=== PATIENT | male | born 1970 | race Caucasian/White ===

== ENCOUNTER 2021-08-03 13:45 | Inpatient (IN) | payer BC, OTHER ==
[~2021-08-03] VITALS: Ht 182.9 cm; Wt 169.0 kg
[2021-08-03 15:12] LABS: Basophils # (auto) 0 10 ^3/uL (0-0.2); Basophils % (auto) 0.2 % (0.0-2.0); Eosinophils # (auto) 0 10 ^3/uL (0-0.8); Eosinophils % (auto) 0.1 % (0.0-7.0); Hematocrit 37.6 % (41.0-53.0); Hemoglobin 12.8 g/dL (13.5-17.5); Lymphocytes # (auto) 0.6 10 ^3/uL (0.4-5.4); Lymphocytes % (auto) 3.6 % (10.0-50.0); Mean Corpuscular Hemoglobin 32.7 pg (28.0-32.0); Mean Corpuscular Hgb Conc. 34.1 g/dL (32.0-36.0); Mean Corpuscular Volume 95.9 fL (80.0-100.0); Monocytes # (auto) 0.9 10 ^3/uL (0-1.3); Monocytes % (auto) 5.1 % (0.0-12.0); Neutrophils # (auto) 15.1 10 ^3/uL (1.6-8.6); Red Blood Cells 3.92 10^6/uL (4.5-5.90); Red Cell Distribution Width 14.5 % (11.8-14.3); White Blood Cell 16.6 10^3/uL (4.4-10.8)
[2021-08-03 15:39] LABS: Albumin 1.9 g/dL (3.4-5.0); Calcium 8.6 mg/dL (8.5-10.1); Potassium 4.1 mmol/L (3.5-5.1)
[2021-08-03 15:43] LABS: Bilirubin, Total 0.7 mg/dL (0.2-1.0); Total Protein 7.6 g/dL (6.4-8.2)
[2021-08-03 15:47] LABS: BUN/Creatinine Ratio 25.2
[2021-08-03 16:11] LABS: INR 1.23 (0.9-1.15); Partial Thromboplastin Time 27.1 sec (23.6-33.0)
[2021-08-03] MEDS ORDERED: ACETAMINOPHEN 325 MG TAB PO PRN (17:30)
[2021-08-03] MEDS ORDERED: NITROGLYCERIN 0.4 MG SL TAB SL PRN (17:30)
[2021-08-03] MEDS ORDERED: ONDANSETRON HCL 4 MG/2 ML VIAL IV PRN (17:30)
[2021-08-03] MEDS ORDERED: MORPHINE SULFATE 4 MG/ML SYR/VIAL IV PRN (17:30)
[2021-08-03] MEDS: SODIUM CHLORIDE 0.9% 1,000 ML IV SCH (17:56)
[2021-08-03] MEDS ORDERED: LOSA100T33 PO (21:23)
[2021-08-03] MEDS ORDERED: SIMV10TA84 PO (21:23)
[2021-08-03] MEDS ORDERED: LORA10CA12 PO (21:23)
[2021-08-03 22:00] VITALS: BP 95/56
[2021-08-04] VITALS (7 sets, daily range): BP systolic 91–117; BP diastolic 56–71
[2021-08-04] MEDS: HYDROcodone-ACET 5/325MG TAB PO PRN ×2 (05:32→09:52)
[2021-08-04 06:01] LABS: Basophils # (auto) 0.1 10 ^3/uL (0-0.2); Basophils % (auto) 0.6 % (0.0-2.0); Eosinophils # (auto) 0.1 10 ^3/uL (0-0.8); Eosinophils % (auto) 0.4 % (0.0-7.0); Hematocrit 38.2 % (41.0-53.0); Hemoglobin 13.1 g/dL (13.5-17.5); Lymphocytes # (auto) 1.7 10 ^3/uL (0.4-5.4); Lymphocytes % (auto) 11.9 % (10.0-50.0); Mean Corpuscular Hemoglobin 33.3 pg (28.0-32.0); Mean Corpuscular Hgb Conc. 34.3 g/dL (32.0-36.0); Mean Corpuscular Volume 97.2 fL (80.0-100.0); Monocytes # (auto) 1.1 10 ^3/uL (0-1.3); Neutrophils # (auto) 11.4 10 ^3/uL (1.6-8.6); Neutrophils % (auto) 79.1 % (37.0-80.0); Red Blood Cells 3.93 10^6/uL (4.5-5.90); Red Cell Distribution Width 14.8 % (11.8-14.3); White Blood Cell 14.4 10^3/uL (4.4-10.8)
[2021-08-04 06:30] LABS: Albumin 1.9 g/dL (3.4-5.0); Bilirubin, Total 0.4 mg/dL (0.2-1.0); Calcium 8.9 mg/dL (8.5-10.1); Total Protein 7.6 g/dL (6.4-8.2)
[2021-08-04] MEDS: levoFLOXacin 750MG 150 ML IV SCH (09:51)
[2021-08-04] MEDS: ENOXAPARIN SOD 40 MG/0.4 ML SYRINGE SC SCH (09:52)
[2021-08-04] MEDS: SODIUM CHLORIDE 0.9% 1,000 ML IV SCH (10:10)
[2021-08-04 10:35] LABS: Urine Bacteria FEW /hpf (None Seen); Urine Blood Negative /uL (Negative); Urine Specific Gravity 1.024 (1.001-1.035); Urine WBC 2 /hpf (0 - 3)
[2021-08-04 12:57] LABS: Cholesterol 77 mg/dL (< 200); HDL Cholesterol 20 mg/dL (40-59); LDL Cholesterol 47 mg/dL (< 100); Triglycerides 102 mg/dL (< 150)
[2021-08-04] MEDS: IPRATROPIUM BROM 0.5 MG/2.5ML INH SOL NEB SCH ×3 (14:24→21:54)
[2021-08-04] MEDS: ALBUTEROL SULF 2.5 MG/0.5ML(0.5%) NEB SOLN NEB SCH ×3 (14:24→21:54)
[2021-08-04] MEDS: methylPREDNISolone SOD SUCC 40 MG/ML VL IV SCH ×2 (14:28→21:17)
[2021-08-04] MEDS: ATORVASTATIN 20 MG TAB PO SCH (21:18)
[2021-08-05] MEDS: IPRATROPIUM BROM 0.5 MG/2.5ML INH SOL NEB SCH ×6 (01:50→22:19)
[2021-08-05] MEDS: ALBUTEROL SULF 2.5 MG/0.5ML(0.5%) NEB SOLN NEB SCH ×6 (01:50→22:19)
[2021-08-05 05:00] VITALS: BP 124/88
[2021-08-05 05:25] LABS: Basophils # (auto) 0 10 ^3/uL (0-0.2); Basophils % (auto) 0.1 % (0.0-2.0); Eosinophils # (auto) 0 10 ^3/uL (0-0.8); Hematocrit 39.5 % (41.0-53.0); Hemoglobin 13.2 g/dL (13.5-17.5); Lymphocytes # (auto) 0.5 10 ^3/uL (0.4-5.4); Lymphocytes % (auto) 3.2 % (10.0-50.0); Mean Corpuscular Hemoglobin 32.7 pg (28.0-32.0); Mean Corpuscular Hgb Conc. 33.5 g/dL (32.0-36.0); Mean Corpuscular Volume 97.6 fL (80.0-100.0); Monocytes # (auto) 0.4 10 ^3/uL (0-1.3); Monocytes % (auto) 2.2 % (0.0-12.0); Neutrophils # (auto) 15.2 10 ^3/uL (1.6-8.6); Neutrophils % (auto) 94.5 % (37.0-80.0); Red Blood Cells 4.05 10^6/uL (4.5-5.90); Red Cell Distribution Width 14.7 % (11.8-14.3); White Blood Cell 16.1 10^3/uL (4.4-10.8)
[2021-08-05 05:46] LABS: Potassium 4.7 mmol/L (3.5-5.1)
[2021-08-05 05:53] LABS: Albumin 1.9 g/dL (3.4-5.0); BUN/Creatinine Ratio 24.1; Calcium 8.9 mg/dL (8.5-10.1)
[2021-08-05 05:59] LABS: Bilirubin, Total 0.4 mg/dL (0.2-1.0); Total Protein 8.1 g/dL (6.4-8.2)
[2021-08-05] MEDS: methylPREDNISolone SOD SUCC 40 MG/ML VL IV SCH ×3 (06:15→21:09)
[2021-08-05] MEDS: SODIUM CHLORIDE 0.9% 1,000 ML IV SCH (06:18)
[2021-08-05 08:00] VITALS: BP 123/77
[2021-08-05 08:42] VITALS: BP 123/77
[2021-08-05] MEDS: levoFLOXacin 750MG 150 ML IV SCH (09:44)
[2021-08-05] MEDS: LOSARTAN POTASSIUM 50 MG TAB PO SCH (09:51)
[2021-08-05] MEDS: HCTZ 25 MG TAB PO SCH (09:52)
[2021-08-05] MEDS: ENOXAPARIN SOD 40 MG/0.4 ML SYRINGE SC SCH (09:54)
[2021-08-05 12:38] VITALS: BP 121/64
[2021-08-05] MEDS: guaiFENesin 200 MG/10 ML UD PO PRN ×2 (13:54→21:09)
[2021-08-05 16:18] VITALS: BP 122/71
[2021-08-05] MEDS: ATORVASTATIN 20 MG TAB PO SCH (21:09)
[2021-08-05 22:00] VITALS: BP 113/83
[2021-08-06] MEDS: ALBUTEROL SULF 2.5 MG/0.5ML(0.5%) NEB SOLN NEB SCH ×6 (02:21→22:32)
[2021-08-06] MEDS: IPRATROPIUM BROM 0.5 MG/2.5ML INH SOL NEB SCH ×6 (02:21→22:32)
[2021-08-06] MEDS: guaiFENesin 200 MG/10 ML UD PO PRN (03:16)
[2021-08-06 05:00] VITALS: BP 131/68
[2021-08-06 05:09] LABS: Basophils # (auto) 0 10 ^3/uL (0-0.2); Basophils % (auto) 0.1 % (0.0-2.0); Eosinophils # (auto) 0 10 ^3/uL (0-0.8); Lymphocytes # (auto) 0.6 10 ^3/uL (0.4-5.4); Monocytes # (auto) 0.6 10 ^3/uL (0-1.3); Red Cell Distribution Width 14.6 % (11.8-14.3)
[2021-08-06 05:11] LABS: Hematocrit 37.4 % (41.0-53.0); Hemoglobin 12.7 g/dL (13.5-17.5); Lymphocytes % (auto) 3.4 % (10.0-50.0); Mean Corpuscular Hemoglobin 32.8 pg (28.0-32.0); Mean Corpuscular Volume 96.5 fL (80.0-100.0); Monocytes % (auto) 3.6 % (0.0-12.0); Neutrophils # (auto) 15.9 10 ^3/uL (1.6-8.6); Neutrophils % (auto) 92.9 % (37.0-80.0); Red Blood Cells 3.87 10^6/uL (4.5-5.90); White Blood Cell 17.1 10^3/uL (4.4-10.8)
[2021-08-06 05:38] LABS: Potassium 4.3 mmol/L (3.5-5.1)
[2021-08-06 05:50] LABS: BUN/Creatinine Ratio 24.4; Calcium 8.4 mg/dL (8.5-10.1)
[2021-08-06] MEDS: methylPREDNISolone SOD SUCC 40 MG/ML VL IV SCH ×3 (05:52→22:14)
[2021-08-06 05:53] LABS: Bilirubin, Total 0.4 mg/dL (0.2-1.0); Total Protein 7.6 g/dL (6.4-8.2)
[2021-08-06 08:00] VITALS: BP 138/78
[2021-08-06 08:30] VITALS: BP 138/78
[2021-08-06] MEDS: levoFLOXacin 750MG 150 ML IV SCH (10:02)
[2021-08-06] MEDS: ENOXAPARIN SOD 40 MG/0.4 ML SYRINGE SC SCH (10:02)
[2021-08-06] MEDS: HCTZ 25 MG TAB PO SCH (10:03)
[2021-08-06] MEDS: LOSARTAN POTASSIUM 50 MG TAB PO SCH (10:03)
[2021-08-06] MEDS: PROMETHAZINE W/CODEINE 5 ML ORAL SYRUP PO PRN ×3 (10:05→22:15)
[2021-08-06 12:30] VITALS: BP 123/69
[2021-08-06 17:00] VITALS: BP 140/75
[2021-08-06 22:00] VITALS: BP 131/61
[2021-08-06] MEDS: ATORVASTATIN 20 MG TAB PO SCH (22:13)
[2021-08-07] MEDS: IPRATROPIUM BROM 0.5 MG/2.5ML INH SOL NEB SCH ×6 (02:04→21:47)
[2021-08-07] MEDS: ALBUTEROL SULF 2.5 MG/0.5ML(0.5%) NEB SOLN NEB SCH ×6 (02:04→21:47)
[2021-08-07 05:00] VITALS: BP 134/94
[2021-08-07 05:12] LABS: Basophils # (auto) 0 10 ^3/uL (0-0.2); Eosinophils # (auto) 0 10 ^3/uL (0-0.8); Monocytes # (auto) 0.7 10 ^3/uL (0-1.3); Nucleated Red Blood Cells % 0.1 %; Red Cell Distribution Width 14.5 % (11.8-14.3)
[2021-08-07 05:14] LABS: Basophils % (auto) 0.1 % (0.0-2.0); Hematocrit 37.7 % (41.0-53.0); Hemoglobin 12.8 g/dL (13.5-17.5); Lymphocytes # (auto) 0.9 10 ^3/uL (0.4-5.4); Lymphocytes % (auto) 5.5 % (10.0-50.0); Mean Corpuscular Hemoglobin 32.8 pg (28.0-32.0); Mean Corpuscular Hgb Conc. 34.1 g/dL (32.0-36.0); Mean Corpuscular Volume 96.2 fL (80.0-100.0); Monocytes % (auto) 4.3 % (0.0-12.0); Neutrophils # (auto) 14.7 10 ^3/uL (1.6-8.6); Neutrophils % (auto) 90.1 % (37.0-80.0); Red Blood Cells 3.92 10^6/uL (4.5-5.90); White Blood Cell 16.3 10^3/uL (4.4-10.8)
[2021-08-07] MEDS: PROMETHAZINE W/CODEINE 5 ML ORAL SYRUP PO PRN ×3 (05:30→16:14)
[2021-08-07] MEDS: methylPREDNISolone SOD SUCC 40 MG/ML VL IV SCH ×3 (05:30→22:32)
[2021-08-07 05:34] LABS: Potassium 4.5 mmol/L (3.5-5.1)
[2021-08-07 05:39] LABS: Albumin 2.1 g/dL (3.4-5.0); BUN/Creatinine Ratio 24.5; Calcium 8.9 mg/dL (8.5-10.1)
[2021-08-07 05:45] LABS: Bilirubin, Total 0.3 mg/dL (0.2-1.0); Total Protein 7.4 g/dL (6.4-8.2)
[2021-08-07] MEDS: ENOXAPARIN SOD 40 MG/0.4 ML SYRINGE SC SCH (07:24)
[2021-08-07 08:00] VITALS: BP 128/77
[2021-08-07] MEDS: HCTZ 25 MG TAB PO SCH (10:00)
[2021-08-07] MEDS: LOSARTAN POTASSIUM 50 MG TAB PO SCH (10:00)
[2021-08-07] MEDS: levoFLOXacin 750MG 150 ML IV SCH (10:00)
[2021-08-07 10:07] LABS: INR 1.25 (0.9-1.15); Partial Thromboplastin Time 26.4 sec (23.6-33.0)
[2021-08-07 11:03] VITALS: BP 128/77
[2021-08-07 12:16] VITALS: BP 121/77
[2021-08-07 22:00] VITALS: BP 116/82
[2021-08-07] MEDS: ATORVASTATIN 20 MG TAB PO SCH (22:32)
[2021-08-08] MEDS: ALBUTEROL SULF 2.5 MG/0.5ML(0.5%) NEB SOLN NEB SCH ×3 (01:58→10:18)
[2021-08-08] MEDS: IPRATROPIUM BROM 0.5 MG/2.5ML INH SOL NEB SCH ×3 (01:58→10:18)
[2021-08-08 05:00] VITALS: BP 132/66
[2021-08-08] MEDS: methylPREDNISolone SOD SUCC 40 MG/ML VL IV SCH ×2 (06:12→14:00)
[2021-08-08 09:00] VITALS: BP 125/69
[2021-08-08] MEDS: levoFLOXacin 750MG 150 ML IV SCH (09:58)
[2021-08-08] MEDS: ENOXAPARIN SOD 40 MG/0.4 ML SYRINGE SC SCH (09:59)
[2021-08-08] MEDS: HCTZ 25 MG TAB PO SCH (09:59)
[2021-08-08] MEDS: LOSARTAN POTASSIUM 50 MG TAB PO SCH (09:59)
[2021-08-08] MEDS ORDERED: PRED20TA2 PO (11:25)
[2021-08-08] MEDS ORDERED: LEVO500T31 PO (11:25)
[2021-08-08 12:47] VITALS: BP 125/69
[2021-08-08 13:00] VITALS: BP 123/81
[2021-08-10] MEDS ORDERED: PRED20TA2 PO (11:37)
== END 2021-08-08 15:12 | disposition home or self-care (01) | DRG 871 ==
LOC: ER 13:45 → TELE 17:21 → TELE-WESTW 20:22
PROVIDERS: ADMIT Internal Medicine; ATTEND Family Medicine
PROC: 0W993ZZ Drainage of Right Pleural Cavity, Percutaneous Approach (ICD-10-PCS; principal; 2021-08-07)
DX: A41.9 Sepsis, unspecified organism (principal); J96.01 Acute respiratory failure with hypoxia; J18.9 Pneumonia, unspecified organism; J44.0 Chronic obstructive pulmonary disease with (acute) lower respiratory infection; J44.1 Chronic obstructive pulmonary disease with (acute) exacerbation; Z68.43 Body mass index [BMI] 50.0-59.9, adult; J90 Pleural effusion, not elsewhere classified; G47.30 Sleep apnea, unspecified; E66.01 Morbid (severe) obesity due to excess calories; Z20.822 Contact with and (suspected) exposure to COVID-19; E78.00 Pure hypercholesterolemia, unspecified; E78.5 Hyperlipidemia, unspecified; F10.10 Alcohol abuse, uncomplicated; R07.89 Other chest pain; I12.9 Hypertensive chronic kidney disease with stage 1 through stage 4 chronic kidney disease, or unspecified chronic kidney disease; N18.30 Chronic kidney disease, stage 3 unspecified; Z80.42 Family history of malignant neoplasm of prostate; Z88.0 Allergy status to penicillin; Z88.8 Allergy status to other drugs, medicaments and biological substances; Z82.49 Family history of ischemic heart disease and other diseases of the circulatory system; Z83.3 Family history of diabetes mellitus; Z86.16 Personal history of COVID-19; Z88.1 Allergy status to other antibiotic agents; Z72.0 Tobacco use
CPT/HCPCS: 36415; 71045; 71275; 76604; 76942; 80053; 80061; 81001; 83880; 83986; 84484; 85025; 85610; 85730; 87040; 87205; 89051; 93005; 93306; 93970; 94640; 99291; G0378; J1956

== ENCOUNTER 2021-09-15 12:40 | Inpatient (IN) | payer OTHER ==
[~2021-09-15] VITALS: Ht 157.5 cm; Wt 167.4 kg
[~2021-09-15 12:40] MED LIST: LEVO500T31 PO; LORA10CA12 PO; LOSA100T33 PO; PRED20TA2 PO; SIMV10TA84 PO
[2021-09-15] MEDS ORDERED: cefTRIAXone 1GM/50ML D5W 50 ML IV ONE (14:00)
[2021-09-15] MEDS ORDERED: SODIUM CHLORIDE 0.9% 1,000 ML IV ONE (14:00)
[2021-09-15] MEDS ORDERED: AZITHROMYCIN 500MG/ 250ML 250 ML IV ONE (14:00)
[2021-09-15 14:42] LABS: Basophils # (auto) 0.1 10 ^3/uL (0-0.2); Basophils % (auto) 0.8 % (0.0-2.0); Eosinophils # (auto) 0 10 ^3/uL (0-0.8); Eosinophils % (auto) 0.3 % (0.0-7.0); Hematocrit 40.1 % (41.0-53.0); Hemoglobin 13.6 g/dL (13.5-17.5); Lymphocytes # (auto) 1.2 10 ^3/uL (0.4-5.4); Lymphocytes % (auto) 8.2 % (10.0-50.0); Mean Corpuscular Hemoglobin 31.9 pg (28.0-32.0); Mean Corpuscular Volume 93.9 fL (80.0-100.0); Monocytes # (auto) 0.7 10 ^3/uL (0-1.3); Monocytes % (auto) 4.7 % (0.0-12.0); Neutrophils # (auto) 12.6 10 ^3/uL (1.6-8.6); Nucleated Red Blood Cells % 0.2 %; Red Blood Cells 4.27 10^6/uL (4.5-5.90); Red Cell Distribution Width 14.9 % (11.8-14.3); White Blood Cell 14.6 10^3/uL (4.4-10.8)
[2021-09-15 14:54] LABS: Albumin 2.6 g/dL (3.4-5.0); Potassium 3.8 mmol/L (3.5-5.1)
[2021-09-15 14:57] LABS: BUN/Creatinine Ratio 16.1; Bilirubin, Total 0.6 mg/dL (0.2-1.0); Total Protein 7.5 g/dL (6.4-8.2)
[2021-09-15] MEDS ORDERED: ONDANSETRON HCL 4 MG/2 ML VIAL IV PRN (18:30)
[2021-09-15] MEDS ORDERED: MORPHINE SULFATE INJ 2 MG/ml SYRG IV PRN (18:30)
[2021-09-15 19:02] LABS: Cholesterol 162 mg/dL (< 200)
[2021-09-15 19:04] LABS: HDL Cholesterol 54 mg/dL (40-59); LDL Cholesterol 94 mg/dL (< 100); Triglycerides 83 mg/dL (< 150)
[2021-09-15 20:08] LABS: Urine Bacteria NONE SEEN /hpf (None Seen); Urine Blood Negative /uL (Negative); Urine Mucus FEW (None Seen); Urine Specific Gravity 1.025 (1.001-1.035); Urine WBC 2 /hpf (0 - 3)
[2021-09-15 22:00] VITALS: BP 144/68
[2021-09-15] MEDS: MEROPENEM 1GM IVPB 100 ML IV SCH (22:08)
[2021-09-15] MEDS: methylPREDNISolone SOD SUCC 40 MG/ML VL IV SCH (22:08)
[2021-09-15 22:21] VITALS: BP 151/18
[2021-09-16 01:50] VITALS: BP 144/68
[2021-09-16 05:00] VITALS: BP 165/118
[2021-09-16] MEDS: MEROPENEM 1GM IVPB 100 ML IV SCH ×3 (05:50→21:28)
[2021-09-16 05:52] LABS: Basophils # (auto) 0 10 ^3/uL (0-0.2); Basophils % (auto) 0.1 % (0.0-2.0); Eosinophils # (auto) 0 10 ^3/uL (0-0.8); Eosinophils % (auto) 0.1 % (0.0-7.0); Hematocrit 41.5 % (41.0-53.0); Hemoglobin 14.2 g/dL (13.5-17.5); Lymphocytes # (auto) 0.7 10 ^3/uL (0.4-5.4); Lymphocytes % (auto) 4.1 % (10.0-50.0); Mean Corpuscular Hemoglobin 32.3 pg (28.0-32.0); Mean Corpuscular Hgb Conc. 34.3 g/dL (32.0-36.0); Mean Corpuscular Volume 94.2 fL (80.0-100.0); Monocytes # (auto) 0.2 10 ^3/uL (0-1.3); Neutrophils # (auto) 15.4 10 ^3/uL (1.6-8.6); Neutrophils % (auto) 94.7 % (37.0-80.0); Nucleated Red Blood Cells % 0.1 %; Red Blood Cells 4.41 10^6/uL (4.5-5.90); Red Cell Distribution Width 15.3 % (11.8-14.3); White Blood Cell 16.3 10^3/uL (4.4-10.8)
[2021-09-16] MEDS: hydrALAZINE HCL 20 MG/ML VL IV PRN (05:52)
[2021-09-16] MEDS: methylPREDNISolone SOD SUCC 40 MG/ML VL IV SCH ×3 (05:52→21:28)
[2021-09-16 06:12] LABS: Albumin 2.7 g/dL (3.4-5.0); Calcium 8.9 mg/dL (8.5-10.1)
[2021-09-16 06:15] LABS: BUN/Creatinine Ratio 22.2; Bilirubin, Total 0.6 mg/dL (0.2-1.0); Total Protein 7.9 g/dL (6.4-8.2)
[2021-09-16 09:00] VITALS: BP 124/79
[2021-09-16] MEDS: ENOXAPARIN SOD 40 MG/0.4 ML SYRINGE SC SCH (09:09)
[2021-09-16 13:00] VITALS: BP 128/87
[2021-09-16] MEDS: ALBUTEROL SULF 2.5 MG/0.5ML(0.5%) NEB SOLN NEB PRN (14:16)
[2021-09-16] MEDS: IPRATROPIUM BROM 0.5 MG/2.5ML INH SOL NEB SCH ×3 (14:16→22:11)
[2021-09-16 16:58] VITALS: BP_SYST 148; BP_SYST 152; BP_DIAS 108; BP_DIAS 84
[2021-09-16 21:42] VITALS: BP 147/82
[2021-09-17] MEDS: guaiFENesin-DM 100/10mg/5ml SYR PO PRN ×4 (01:10→19:56)
[2021-09-17] MEDS: IPRATROPIUM BROM 0.5 MG/2.5ML INH SOL NEB SCH ×6 (02:14→22:15)
[2021-09-17 05:02] VITALS: BP 127/85
[2021-09-17] MEDS: MEROPENEM 1GM IVPB 100 ML IV SCH ×3 (05:52→21:34)
[2021-09-17] MEDS: methylPREDNISolone SOD SUCC 40 MG/ML VL IV SCH ×3 (05:53→21:35)
[2021-09-17] MEDS: ALBUTEROL SULF 2.5 MG/0.5ML(0.5%) NEB SOLN NEB PRN ×4 (07:04→22:15)
[2021-09-17 08:47] VITALS: BP 120/85
[2021-09-17] MEDS: ENOXAPARIN SOD 40 MG/0.4 ML SYRINGE SC SCH (09:06)
[2021-09-17] MEDS: HYDROCHLOROTHIAZIDE PO SCH (09:06)
[2021-09-17] MEDS: LOSARTAN POTASSIUM PO SCH (09:06)
[2021-09-17] MEDS ORDERED: Simvastatin 10 MG TAB PO SCH (10:00)
[2021-09-17 11:46] LABS: INR 1.09 (0.9-1.15); Partial Thromboplastin Time 25.8 sec (23.6-33.0)
[2021-09-17 13:00] VITALS: BP 116/76
[2021-09-17 17:00] VITALS: BP 150/78
[2021-09-17 22:00] VITALS: BP 142/75
[2021-09-18] MEDS: IPRATROPIUM BROM 0.5 MG/2.5ML INH SOL NEB SCH ×6 (02:00→22:32)
[2021-09-18] MEDS: ALBUTEROL SULF 2.5 MG/0.5ML(0.5%) NEB SOLN NEB PRN ×3 (02:00→22:32)
[2021-09-18 05:00] VITALS: BP 123/87
[2021-09-18] MEDS: methylPREDNISolone SOD SUCC 40 MG/ML VL IV SCH ×3 (06:00→23:36)
[2021-09-18] MEDS: MEROPENEM 1GM IVPB 100 ML IV SCH ×2 (06:00→14:13)
[2021-09-18 09:00] VITALS: BP 136/79
[2021-09-18] MEDS: ENOXAPARIN SOD 40 MG/0.4 ML SYRINGE SC SCH (10:00)
[2021-09-18] MEDS: LOSARTAN POTASSIUM PO SCH (10:00)
[2021-09-18] MEDS: HYDROCHLOROTHIAZIDE PO SCH (10:00)
[2021-09-18 13:18] VITALS: BP 154/85
[2021-09-18] MEDS ORDERED: VANCOMYCIN PER PHARMACY 0 MG IV SCH (14:45)
[2021-09-18 17:29] VITALS: BP 139/84
[2021-09-18] MEDS: VANCOMYCIN 1GM/250ML 250 ML IV SCH (17:53)
[2021-09-18] MEDS: PATIENTS OWN MEDICATION (Simvastatin 10 MG) PO SCH ×2 (17:54→22:00)
[2021-09-18 20:09] LABS: BUN/Creatinine Ratio 20.7; Potassium 4.2 mmol/L (3.5-5.1)
[2021-09-18 22:00] VITALS: BP 150/78
[2021-09-18] MEDS: CEFEPIME 2 GM in SODIUM CHL 0.9% 50 ML IV SCH (23:36)
[2021-09-19] VITALS (19 sets, daily range): BP systolic 137–163; BP diastolic 78–118
[2021-09-19] MEDS: VANCOMYCIN 1GM/250ML 250 ML IV SCH ×5 (00:08→18:39)
[2021-09-19] MEDS: IPRATROPIUM BROM 0.5 MG/2.5ML INH SOL NEB SCH ×7 (02:58→22:36)
[2021-09-19] MEDS: CEFEPIME 2 GM in SODIUM CHL 0.9% 50 ML IV SCH ×3 (06:12→21:48)
[2021-09-19 06:18] LABS: Basophils # (auto) 0 10 ^3/uL (0-0.2); Basophils % (auto) 0.1 % (0.0-2.0); Eosinophils # (auto) 0.1 10 ^3/uL (0-0.8); Eosinophils % (auto) 0.4 % (0.0-7.0); Hematocrit 43.8 % (41.0-53.0); Hemoglobin 14.5 g/dL (13.5-17.5); Lymphocytes # (auto) 0.8 10 ^3/uL (0.4-5.4); Mean Corpuscular Hemoglobin 31.7 pg (28.0-32.0); Mean Corpuscular Hgb Conc. 33.2 g/dL (32.0-36.0); Mean Corpuscular Volume 95.3 fL (80.0-100.0); Monocytes # (auto) 0.6 10 ^3/uL (0-1.3); Monocytes % (auto) 4.8 % (0.0-12.0); Neutrophils # (auto) 11.9 10 ^3/uL (1.6-8.6); Neutrophils % (auto) 88.7 % (37.0-80.0); Nucleated Red Blood Cells % 0.1 %; Red Blood Cells 4.59 10^6/uL (4.5-5.90); Red Cell Distribution Width 15.5 % (11.8-14.3); White Blood Cell 13.5 10^3/uL (4.4-10.8)
[2021-09-19] MEDS: methylPREDNISolone SOD SUCC 40 MG/ML VL IV SCH ×3 (06:32→21:47)
[2021-09-19] MEDS: ALBUTEROL SULF 2.5 MG/0.5ML(0.5%) NEB SOLN NEB PRN ×2 (06:35→10:12)
[2021-09-19] MEDS ORDERED: fentaNYL CITRATE 100 MCG/2 ML VL IV ONE (08:30)
[2021-09-19] MEDS ORDERED: MIDAZOLAM HCL 2MG/2ML 2ml VIAL (1mg/ml) IV ONE (08:30)
[2021-09-19] MEDS: LOSARTAN POTASSIUM PO SCH (09:28)
[2021-09-19] MEDS: ENOXAPARIN SOD 40 MG/0.4 ML SYRINGE SC SCH (09:28)
[2021-09-19] MEDS: HYDROCHLOROTHIAZIDE PO SCH (09:28)
[2021-09-19] MEDS: PATIENTS OWN MEDICATION (Simvastatin 10 MG) PO SCH (22:29)
[2021-09-20] MEDS: VANCOMYCIN 1GM/250ML 250 ML IV SCH (02:00)
[2021-09-20] MEDS: IPRATROPIUM BROM 0.5 MG/2.5ML INH SOL NEB SCH ×3 (02:24→09:58)
[2021-09-20] MEDS: hydrALAZINE HCL 20 MG/ML VL IV PRN (04:54)
[2021-09-20 05:00] VITALS: BP 152/95
[2021-09-20] MEDS: CEFEPIME 2 GM in SODIUM CHL 0.9% 50 ML IV SCH (06:02)
[2021-09-20] MEDS: methylPREDNISolone SOD SUCC 40 MG/ML VL IV SCH (06:17)
[2021-09-20] MEDS ORDERED: LEVO500T31 PO (09:48)
[2021-09-20] MEDS: LOSARTAN POTASSIUM PO SCH (10:00)
[2021-09-20] MEDS: HYDROCHLOROTHIAZIDE PO SCH (10:00)
[2021-09-20] MEDS: ENOXAPARIN SOD 40 MG/0.4 ML SYRINGE SC SCH (10:00)
[2021-09-20 12:52] VITALS: BP 152/95
== END 2021-09-20 15:41 | disposition home or self-care (01) | DRG 193 ==
LOC: ER 12:40 → TELE-WESTW 18:29
PROVIDERS: ADMIT Registered Nurse; ATTEND Family Medicine
PROC: 0BBL3ZX Excision of Left Lung, Percutaneous Approach, Diagnostic (ICD-10-PCS; principal; 2021-09-19)
DX: J18.9 Pneumonia, unspecified organism (principal); J96.01 Acute respiratory failure with hypoxia; J44.1 Chronic obstructive pulmonary disease with (acute) exacerbation; E44.0 Moderate protein-calorie malnutrition; J98.11 Atelectasis; Z68.44 Body mass index [BMI] 60.0-69.9, adult; J44.0 Chronic obstructive pulmonary disease with (acute) lower respiratory infection; R78.81 Bacteremia; N18.2 Chronic kidney disease, stage 2 (mild); Z20.822 Contact with and (suspected) exposure to COVID-19; B95.7 Other staphylococcus as the cause of diseases classified elsewhere; R91.8 Other nonspecific abnormal finding of lung field; E66.01 Morbid (severe) obesity due to excess calories; E78.00 Pure hypercholesterolemia, unspecified; E78.5 Hyperlipidemia, unspecified; G47.30 Sleep apnea, unspecified; I12.9 Hypertensive chronic kidney disease with stage 1 through stage 4 chronic kidney disease, or unspecified chronic kidney disease; Z79.899 Other long term (current) drug therapy; Z80.42 Family history of malignant neoplasm of prostate; Z82.49 Family history of ischemic heart disease and other diseases of the circulatory system; Z83.3 Family history of diabetes mellitus; Z86.16 Personal history of COVID-19; Z87.01 Personal history of pneumonia (recurrent); Z88.1 Allergy status to other antibiotic agents; Z88.0 Allergy status to penicillin; Z91.018 Allergy to other foods
CPT/HCPCS: 10005; 36415; 71045; 71046; 71250; 77012; 80048; 80053; 80061; 80202; 81001; 82565; 83036; 83605; 85025; 85610; 85730; 87040; 87070; 87077; 87186; 87205; 93005; 94640; 96365; 96372; 96375; G0378; J0696; J2185; J2250

== ENCOUNTER 2022-02-13 11:02 | Inpatient (IN) | payer BC, OTHER ==
[~2022-02-13] VITALS: Ht 182.9 cm; Wt 128.0 kg
[2022-02-13] MEDS ORDERED: methylPREDNISolone SOD SUCC 125 MG/2 ML VL IV ONE (11:15)
[2022-02-13] MEDS ORDERED: ALBUTEROL SULF 2.5 MG/0.5ML(0.5%) NEB SOLN HHN ONE (11:15)
[2022-02-13] MEDS ORDERED: IPRATROPIUM BROM 0.5 MG/2.5ML INH SOL HHN ONE (11:15)
[2022-02-13 11:55] LABS: Basophils # (auto) 0 10 ^3/uL (0-0.2); Basophils % (auto) 0.6 % (0.0-2.0); Eosinophils # (auto) 0.3 10 ^3/uL (0-0.8); Eosinophils % (auto) 4.3 % (0.0-7.0); Hematocrit 42.6 % (41.0-53.0); Hemoglobin 14.6 g/dL (13.5-17.5); Lymphocytes # (auto) 1.1 10 ^3/uL (0.4-5.4); Lymphocytes % (auto) 15.4 % (10.0-50.0); Mean Corpuscular Hemoglobin 32.6 pg (28.0-32.0); Mean Corpuscular Hgb Conc. 34.3 g/dL (32.0-36.0); Mean Corpuscular Volume 95.1 fL (80.0-100.0); Monocytes # (auto) 0.7 10 ^3/uL (0-1.3); Neutrophils # (auto) 5.2 10 ^3/uL (1.6-8.6); Neutrophils % (auto) 69.7 % (37.0-80.0); Nucleated Red Blood Cells % 0.1 %; Red Blood Cells 4.48 10^6/uL (4.5-5.90); Red Cell Distribution Width 15.5 % (11.8-14.3); White Blood Cell 7.4 10^3/uL (4.4-10.8)
[2022-02-13 13:00] LABS: Albumin 3.3 g/dL (3.4-5.0); Calcium 9.3 mg/dL (8.5-10.1); Potassium 3.2 mmol/L (3.5-5.1)
[2022-02-13 13:04] LABS: BUN/Creatinine Ratio 12.8; Bilirubin, Total 1.3 mg/dL (0.2-1.0); Total Protein 7.1 g/dL (6.4-8.2)
[2022-02-13] MEDS ORDERED: hydrALAZINE HCL 20 MG/ML VL IV PRN (14:45)
[2022-02-13] MEDS ORDERED: MORPHINE SULFATE INJ 2 MG/ml SYRG IV PRN (14:45)
[2022-02-13] MEDS ORDERED: IPRATROPIUM BROM 0.5 MG/2.5ML INH SOL NEB PRN (14:45)
[2022-02-13] MEDS ORDERED: ONDANSETRON HCL 4 MG/2 ML VIAL IV PRN (14:45)
[2022-02-13] MEDS ORDERED: NITROGLYCERIN 0.4 MG SL TAB SL PRN (14:45)
[2022-02-13] MEDS ORDERED: AZITHROMYCIN 500MG/ 250ML 250 ML IV ONE (14:45)
[2022-02-13] MEDS ORDERED: ALBUTEROL SULF 2.5 MG/0.5ML(0.5%) NEB SOLN NEB PRN (14:45)
[2022-02-13 14:57] VITALS: BP 137/77
[2022-02-13] MEDS: ALBUTEROL SULF 2.5 MG/0.5ML(0.5%) NEB SOLN NEB SCH (18:09)
[2022-02-13] MEDS: IPRATROPIUM BROM 0.5 MG/2.5ML INH SOL NEB SCH (18:09)
[2022-02-13 19:50] LABS: Cholesterol 210 mg/dL (< 200); HDL Cholesterol 52 mg/dL (40-59); LDL Cholesterol 148 mg/dL (< 100); Triglycerides 131 mg/dL (< 150)
[2022-02-13] MEDS: methylPREDNISolone SOD SUCC 40 MG/ML VL IV SCH (22:52)
[2022-02-14] VITALS (7 sets, daily range): BP systolic 113–148; BP diastolic 68–92
[2022-02-14] MEDS: methylPREDNISolone SOD SUCC 40 MG/ML VL IV SCH ×3 (06:11→22:13)
[2022-02-14] MEDS: IPRATROPIUM BROM 0.5 MG/2.5ML INH SOL NEB SCH ×3 (06:54→18:48)
[2022-02-14] MEDS: ALBUTEROL SULF 2.5 MG/0.5ML(0.5%) NEB SOLN NEB SCH ×3 (06:54→18:48)
[2022-02-14 07:05] LABS: Basophils # (auto) 0.1 10 ^3/uL (0-0.2); Basophils % (auto) 0.7 % (0.0-2.0); Eosinophils # (auto) 0 10 ^3/uL (0-0.8); Hematocrit 41.7 % (41.0-53.0); Hemoglobin 14.7 g/dL (13.5-17.5); Lymphocytes # (auto) 0.9 10 ^3/uL (0.4-5.4); Lymphocytes % (auto) 8.7 % (10.0-50.0); Mean Corpuscular Hemoglobin 33.5 pg (28.0-32.0); Mean Corpuscular Hgb Conc. 35.1 g/dL (32.0-36.0); Mean Corpuscular Volume 95.4 fL (80.0-100.0); Monocytes # (auto) 0.4 10 ^3/uL (0-1.3); Monocytes % (auto) 3.6 % (0.0-12.0); Neutrophils # (auto) 8.7 10 ^3/uL (1.6-8.6); Red Blood Cells 4.37 10^6/uL (4.5-5.90); White Blood Cell 9.9 10^3/uL (4.4-10.8)
[2022-02-14 07:32] LABS: Albumin 3.5 g/dL (3.4-5.0); BUN/Creatinine Ratio 17.1; Calcium 9.2 mg/dL (8.5-10.1)
[2022-02-14 07:35] LABS: Bilirubin, Total 1.1 mg/dL (0.2-1.0); Total Protein 7.1 g/dL (6.4-8.2)
[2022-02-14] MEDS: ENOXAPARIN SOD 40 MG/0.4 ML SYRINGE SC SCH (10:16)
[2022-02-14] MEDS: AZITHROMYCIN 500MG/ 250ML 250 ML IV SCH (10:16)
[2022-02-15 05:00] VITALS: BP 149/87
[2022-02-15] MEDS: methylPREDNISolone SOD SUCC 40 MG/ML VL IV SCH (06:00)
[2022-02-15] MEDS: IPRATROPIUM BROM 0.5 MG/2.5ML INH SOL NEB SCH (07:05)
[2022-02-15] MEDS: ALBUTEROL SULF 2.5 MG/0.5ML(0.5%) NEB SOLN NEB SCH (07:05)
[2022-02-15 09:00] VITALS: BP 149/80
[2022-02-15] MEDS: AZITHROMYCIN 500MG/ 250ML 250 ML IV SCH (09:43)
[2022-02-15] MEDS: ENOXAPARIN SOD 40 MG/0.4 ML SYRINGE SC SCH (09:45)
[2022-02-15] MEDS ORDERED: AZIT250T PO (12:48)
[2022-02-15] MEDS ORDERED: METH4PAK PO (12:48)
[2022-02-15 13:00] VITALS: BP 154/85
== END 2022-02-15 13:30 | disposition home or self-care (01) | DRG 189 ==
LOC: ER 11:02 → TELE 14:38 → TELE-WESTW 02-14 02:46
PROVIDERS: ADMIT Registered Nurse; ATTEND Internal Medicine
DX: J96.21 Acute and chronic respiratory failure with hypoxia (principal); J44.1 Chronic obstructive pulmonary disease with (acute) exacerbation; J98.11 Atelectasis; E66.01 Morbid (severe) obesity due to excess calories; I10 Essential (primary) hypertension; R91.1 Solitary pulmonary nodule; Z20.822 Contact with and (suspected) exposure to COVID-19; Z82.49 Family history of ischemic heart disease and other diseases of the circulatory system; Z83.3 Family history of diabetes mellitus; Z83.49 Family history of other endocrine, nutritional and metabolic diseases; Z80.42 Family history of malignant neoplasm of prostate; Z88.8 Allergy status to other drugs, medicaments and biological substances; Z91.018 Allergy to other foods; Z79.899 Other long term (current) drug therapy; Z86.16 Personal history of COVID-19; Z68.38 Body mass index [BMI] 38.0-38.9, adult
CPT/HCPCS: 36415; 71045; 80053; 80061; 83036; 83605; 83880; 84484; 85025; 87040; 87426; 93005; 94640; 94644; 99291; G0378

== ENCOUNTER 2022-03-27 13:38 | Emergency (ER) | payer OTHER ==
[~2022-03-27] VITALS: Ht 182.9 cm; Wt 177.9 kg
[~2022-03-27 13:38] MED LIST changes: +AZIT250T PO; -LEVO500T31 PO; +METH4PAK PO
[2022-03-27 15:46] VITALS: BP 136/89
[2022-03-27 17:23] LABS: Basophils # (auto) 0.1 10 ^3/uL (0-0.2); Basophils % (auto) 1.3 % (0.0-2.0); Eosinophils # (auto) 0.1 10 ^3/uL (0-0.8); Eosinophils % (auto) 0.6 % (0.0-7.0); Hematocrit 46.1 % (41.0-53.0); Hemoglobin 15.2 g/dL (13.5-17.5); Lymphocytes # (auto) 1.2 10 ^3/uL (0.4-5.4); Lymphocytes % (auto) 11.6 % (10.0-50.0); Mean Corpuscular Hemoglobin 31.9 pg (28.0-32.0); Mean Corpuscular Volume 96.9 fL (80.0-100.0); Monocytes # (auto) 0.7 10 ^3/uL (0-1.3); Monocytes % (auto) 6.2 % (0.0-12.0); Neutrophils # (auto) 8.6 10 ^3/uL (1.6-8.6); Neutrophils % (auto) 80.3 % (37.0-80.0); Nucleated Red Blood Cells % 0.1 %; Red Blood Cells 4.75 10^6/uL (4.5-5.90); Red Cell Distribution Width 15.2 % (11.8-14.3); White Blood Cell 10.7 10^3/uL (4.4-10.8)
[2022-03-27 17:49] LABS: Albumin 3.5 g/dL (3.4-5.0); BUN/Creatinine Ratio 13.2; Calcium 9.5 mg/dL (8.5-10.1); Potassium 3.8 mmol/L (3.5-5.1)
[2022-03-27 17:52] LABS: Bilirubin, Total 1.2 mg/dL (0.2-1.0); Total Protein 6.7 g/dL (6.4-8.2)
[2022-03-27] MEDS ORDERED: CLIN300C8 PO (18:38)
== END 2022-03-28 00:21 | disposition home or self-care (01) ==
LOC: ER 13:38
DX: L03.116 Cellulitis of left lower limb (principal); L03.115 Cellulitis of right lower limb; I10 Essential (primary) hypertension; J44.9 Chronic obstructive pulmonary disease, unspecified; E78.5 Hyperlipidemia, unspecified; Z90.89 Acquired absence of other organs; Z88.0 Allergy status to penicillin; Z88.1 Allergy status to other antibiotic agents; Z98.890 Other specified postprocedural states
CPT/HCPCS: 36415; 80053; 85025; 93005; 93970

== ENCOUNTER 2022-04-09 08:24 | Inpatient (IN) | payer OTHER ==
[~2022-04-09] VITALS: Ht 182.9 cm; Wt 177.0 kg
[~2022-04-09 08:24] MED LIST changes: +CLIN300C8 PO
[2022-04-09] MEDS ORDERED: CEFEPIME 2 GM in SODIUM CHL 0.9% 50 ML IV ONE (11:30)
[2022-04-09 11:48] LABS: Basophils # (auto) 0.1 10 ^3/uL (0-0.2); Basophils % (auto) 1.3 % (0.0-2.0); Eosinophils # (auto) 0.2 10 ^3/uL (0-0.8); Hematocrit 46.4 % (41.0-53.0); Hemoglobin 15.5 g/dL (13.5-17.5); Lymphocytes # (auto) 1.3 10 ^3/uL (0.4-5.4); Lymphocytes % (auto) 12.1 % (10.0-50.0); Mean Corpuscular Hemoglobin 32.2 pg (28.0-32.0); Mean Corpuscular Hgb Conc. 33.5 g/dL (32.0-36.0); Mean Corpuscular Volume 96.1 fL (80.0-100.0); Monocytes # (auto) 0.9 10 ^3/uL (0-1.3); Monocytes % (auto) 8.3 % (0.0-12.0); Neutrophils # (auto) 8.1 10 ^3/uL (1.6-8.6); Neutrophils % (auto) 76.3 % (37.0-80.0); Nucleated Red Blood Cells % 0.1 %; Red Blood Cells 4.83 10^6/uL (4.5-5.90); Red Cell Distribution Width 15.1 % (11.8-14.3); White Blood Cell 10.5 10^3/uL (4.4-10.8)
[2022-04-09 12:13] LABS: Albumin 3.5 g/dL (3.4-5.0); BUN/Creatinine Ratio 13.8; Bilirubin, Total 0.8 mg/dL (0.2-1.0); Calcium 9.2 mg/dL (8.5-10.1)
[2022-04-09] MEDS ORDERED: HYDROcodone-ACET 5/325MG TAB PO PRN (13:15)
[2022-04-09] MEDS ORDERED: DEXTROSE (50%) 50ML SYRG IV PRN (13:15)
[2022-04-09] MEDS ORDERED: ACETAMINOPHEN 325 MG TAB PO PRN (13:15)
[2022-04-09] MEDS ORDERED: VANCOMYCIN PER PHARMACY 0 MG IV SCH (13:15)
[2022-04-09] MEDS ORDERED: MORPHINE SULFATE INJ 2 MG/ml SYRG IV PRN (13:15)
[2022-04-09] MEDS: SODIUM CHLORIDE 0.9% 1,000 ML IV SCH ×2 (14:29→23:15)
[2022-04-09] MEDS: VANCOMYCIN 1GM/250ML 250 ML IV SCH ×2 (14:29→20:40)
[2022-04-09] MEDS: ACCU-CHEK COMFORT CURVE STRIP VI SCH ×2 (17:00→21:51)
[2022-04-09] MEDS: InsuLIN REG 1unit/0.01ml Soln (100units/ml) SC SCH ×2 (18:30→21:51)
[2022-04-09] MEDS: AZTREONAM 1GM INJ 1 GM in D5W 5% 50 ML IV SCH ×2 (19:45→22:30)
[2022-04-10] MEDS: VANCOMYCIN 1GM/250ML 250 ML IV SCH ×4 (02:22→23:57)
[2022-04-10] MEDS ORDERED: AZTREONAM 1 GM INJ VIAL ONE (05:46)
[2022-04-10] MEDS: AZTREONAM 1GM INJ 1 GM in D5W 5% 50 ML IV SCH ×3 (05:55→22:00)
[2022-04-10] MEDS: InsuLIN REG 1unit/0.01ml Soln (100units/ml) SC SCH ×4 (06:43→22:00)
[2022-04-10] MEDS: ACCU-CHEK COMFORT CURVE STRIP VI SCH ×4 (06:43→22:39)
[2022-04-10 07:19] LABS: Hematocrit 45.5 % (41.0-53.0); Hemoglobin 15.1 g/dL (13.5-17.5); Mean Corpuscular Hemoglobin 32.2 pg (28.0-32.0); Mean Corpuscular Hgb Conc. 33.1 g/dL (32.0-36.0); Mean Corpuscular Volume 97.3 fL (80.0-100.0); Red Blood Cells 4.68 10^6/uL (4.5-5.90); Red Cell Distribution Width 15.1 % (11.8-14.3); White Blood Cell 7.9 10^3/uL (4.4-10.8)
[2022-04-10 07:30] LABS: Basophils % (manual) 0 (0.0-2.0); Blast Cells 0; Metamyelocytes % 0; Promyelocytes % 0; Reactive Lymphocytes 0
[2022-04-10 07:35] LABS: BUN/Creatinine Ratio 11.6; Calcium 9.1 mg/dL (8.5-10.1); Potassium 4.4 mmol/L (3.5-5.1)
[2022-04-10 09:00] VITALS: BP 142/83
[2022-04-10] MEDS ORDERED: PATIENTS OWN MEDICATION (Simvastatin 10 MG) PO SCH (10:00)
[2022-04-10] MEDS ORDERED: PATIENTS OWN MEDICATION (Losartan Potassium & Hydrochlo (Losartan Potassium/Hydroc) 1 TAB) PO SCH (10:00)
[2022-04-10 10:02] VITALS: BP 142/83
[2022-04-10] MEDS: HCTZ 25 MG TAB PO SCH (11:38)
[2022-04-10] MEDS: LOSARTAN POTASSIUM 50 MG TAB PO SCH (11:41)
[2022-04-10] MEDS: ENOXAPARIN SOD 40 MG/0.4 ML SYRINGE SC SCH (11:42)
[2022-04-10 13:00] VITALS: BP 135/52
[2022-04-10 14:23] LABS: Band Neutrophils % (manual) 17; Eosinophils % (manual) 3 (0-7); Lymphocytes % (manual) 25 (10.0-50.0); Monocytes % (manual) 5 (0-12); Myelocytes % 1
[2022-04-10] MEDS: SODIUM CHLORIDE 0.9% 1,000 ML IV SCH (16:12)
[2022-04-10 16:45] VITALS: BP 151/91
[2022-04-10 20:00] VITALS: BP 141/85
[2022-04-10 22:00] VITALS: BP 141/85
[2022-04-10] MEDS: PRAVASTATIN SODIUM 20 MG TAB PO SCH (23:01)
[2022-04-11 05:00] VITALS: BP 147/87
[2022-04-11] MEDS: AZTREONAM 1GM INJ 1 GM in D5W 5% 50 ML IV SCH ×3 (06:00→21:17)
[2022-04-11] MEDS: VANCOMYCIN 1GM/250ML 250 ML IV SCH ×4 (06:00→23:17)
[2022-04-11] MEDS: InsuLIN REG 1unit/0.01ml Soln (100units/ml) SC SCH ×4 (06:18→22:00)
[2022-04-11] MEDS: ACCU-CHEK COMFORT CURVE STRIP VI SCH ×4 (06:18→22:59)
[2022-04-11 06:27] LABS: Albumin 3.2 g/dL (3.4-5.0); Calcium 9.1 mg/dL (8.5-10.1); Potassium 3.3 mmol/L (3.5-5.1)
[2022-04-11 06:30] LABS: BUN/Creatinine Ratio 10.5; Bilirubin, Total 1.3 mg/dL (0.2-1.0)
[2022-04-11 06:31] LABS: Basophils # (auto) 0.1 10 ^3/uL (0-0.2); Basophils % (auto) 0.9 % (0.0-2.0); Eosinophils # (auto) 0.3 10 ^3/uL (0-0.8); Eosinophils % (auto) 3.5 % (0.0-7.0); Hematocrit 44.7 % (41.0-53.0); Hemoglobin 14.9 g/dL (13.5-17.5); Lymphocytes # (auto) 1.4 10 ^3/uL (0.4-5.4); Lymphocytes % (auto) 15.2 % (10.0-50.0); Mean Corpuscular Hemoglobin 32.3 pg (28.0-32.0); Mean Corpuscular Hgb Conc. 33.3 g/dL (32.0-36.0); Mean Corpuscular Volume 96.9 fL (80.0-100.0); Monocytes # (auto) 0.8 10 ^3/uL (0-1.3); Monocytes % (auto) 8.9 % (0.0-12.0); Neutrophils # (auto) 6.3 10 ^3/uL (1.6-8.6); Neutrophils % (auto) 71.5 % (37.0-80.0); Nucleated Red Blood Cells % 0.1 %; Red Blood Cells 4.62 10^6/uL (4.5-5.90); Red Cell Distribution Width 15.1 % (11.8-14.3); White Blood Cell 8.9 10^3/uL (4.4-10.8)
[2022-04-11 08:30] VITALS: BP 132/82
[2022-04-11] MEDS ORDERED: POTASSIUM CHL 20 Meq TABLET PO ONE (08:45)
[2022-04-11] MEDS: ENOXAPARIN SOD 40 MG/0.4 ML SYRINGE SC SCH (09:55)
[2022-04-11] MEDS: LOSARTAN POTASSIUM 50 MG TAB PO SCH (09:55)
[2022-04-11] MEDS: HCTZ 25 MG TAB PO SCH (09:56)
[2022-04-11 12:30] VITALS: BP 131/90
[2022-04-11 20:00] VITALS: BP 141/85
[2022-04-11] MEDS: PRAVASTATIN SODIUM 20 MG TAB PO SCH (21:17)
[2022-04-11 22:00] VITALS: BP 121/72
[2022-04-12 05:00] VITALS: BP 128/79
[2022-04-12] MEDS: AZTREONAM 1GM INJ 1 GM in D5W 5% 50 ML IV SCH ×2 (05:25→13:48)
[2022-04-12] MEDS: ACCU-CHEK COMFORT CURVE STRIP VI SCH ×3 (06:20→17:40)
[2022-04-12] MEDS: InsuLIN REG 1unit/0.01ml Soln (100units/ml) SC SCH ×3 (06:20→17:00)
[2022-04-12] MEDS: VANCOMYCIN 1GM/250ML 250 ML IV SCH (06:34)
[2022-04-12 06:40] LABS: Basophils # (auto) 0.1 10 ^3/uL (0-0.2); Basophils % (auto) 0.9 % (0.0-2.0); Eosinophils # (auto) 0.3 10 ^3/uL (0-0.8); Eosinophils % (auto) 3.8 % (0.0-7.0); Hematocrit 43.7 % (41.0-53.0); Hemoglobin 14.6 g/dL (13.5-17.5); Lymphocytes # (auto) 1.3 10 ^3/uL (0.4-5.4); Lymphocytes % (auto) 13.7 % (10.0-50.0); Mean Corpuscular Hemoglobin 32.1 pg (28.0-32.0); Mean Corpuscular Hgb Conc. 33.3 g/dL (32.0-36.0); Mean Corpuscular Volume 96.5 fL (80.0-100.0); Monocytes # (auto) 0.9 10 ^3/uL (0-1.3); Monocytes % (auto) 9.8 % (0.0-12.0); Neutrophils # (auto) 6.6 10 ^3/uL (1.6-8.6); Neutrophils % (auto) 71.8 % (37.0-80.0); Nucleated Red Blood Cells % 0.1 %; Red Blood Cells 4.53 10^6/uL (4.5-5.90); Red Cell Distribution Width 15.1 % (11.8-14.3); White Blood Cell 9.2 10^3/uL (4.4-10.8)
[2022-04-12 06:53] LABS: Albumin 3.2 g/dL (3.4-5.0); Calcium 8.9 mg/dL (8.5-10.1); Potassium 3.4 mmol/L (3.5-5.1)
[2022-04-12 06:55] LABS: BUN/Creatinine Ratio 11.8; Total Protein 6.5 g/dL (6.4-8.2)
[2022-04-12 08:40] VITALS: BP 153/83
[2022-04-12] MEDS: LOSARTAN POTASSIUM 50 MG TAB PO SCH (09:39)
[2022-04-12] MEDS: HCTZ 25 MG TAB PO SCH (09:40)
[2022-04-12] MEDS: ENOXAPARIN SOD 40 MG/0.4 ML SYRINGE SC SCH (09:40)
[2022-04-12] MEDS ORDERED: DAKINS HALF STR 0.25% (NaHypochlorite) 473 ML TOPICAL SOL TOP ONE (11:15)
[2022-04-12 12:40] VITALS: BP 120/88
[2022-04-12] MEDS ORDERED: VANCOMYCIN 1GM/250ML 250 ML IV SCH ×2 (14:00→20:00)
[2022-04-12] MEDS ORDERED: CIP500T PO (15:42)
[2022-04-12 16:40] VITALS: BP 131/84
[2022-04-12 17:08] VITALS: BP 131/84
[2022-04-12] MEDS ORDERED: DAKINS HALF STR 0.25% (NaHypochlorite) 473 ML TOPICAL SOL TOP SCH (22:00)
== END 2022-04-12 18:32 | disposition home or self-care (01) | DRG 603 ==
LOC: ER 08:24 → OVERFLOW 13:18 → WEST WING 04-10 09:09
PROVIDERS: ADMIT Registered Nurse; ATTEND Internal Medicine
DX: L03.116 Cellulitis of left lower limb (principal); Z68.43 Body mass index [BMI] 50.0-59.9, adult; I89.0 Lymphedema, not elsewhere classified; E66.01 Morbid (severe) obesity due to excess calories; E11.51 Type 2 diabetes mellitus with diabetic peripheral angiopathy without gangrene; B96.5 Pseudomonas (aeruginosa) (mallei) (pseudomallei) as the cause of diseases classified elsewhere; E78.5 Hyperlipidemia, unspecified; J44.9 Chronic obstructive pulmonary disease, unspecified; I10 Essential (primary) hypertension; Z20.822 Contact with and (suspected) exposure to COVID-19; I87.8 Other specified disorders of veins; Z88.0 Allergy status to penicillin; Z88.8 Allergy status to other drugs, medicaments and biological substances; Z80.42 Family history of malignant neoplasm of prostate; Z83.3 Family history of diabetes mellitus
CPT/HCPCS: 36415; 75635; 80048; 80053; 80202; 82306; 82962; 83036; 83605; 85007; 85025; 85027; 85652; 86141; 87040; 87077; 87186; 87205; 87426; 93925; 93970; G0378; J7060

== ENCOUNTER 2022-07-21 13:17 | Inpatient (IN) | payer OTHER ==
[~2022-07-21] VITALS: Ht 182.9 cm; Wt 167.1 kg
[~2022-07-21 13:17] MED LIST changes: -AZIT250T PO; +CIP500T PO; -CLIN300C8 PO; -METH4PAK PO; -PRED20TA2 PO
[2022-07-21 15:15] LABS: Hematocrit 34.7 % (41.0-53.0); Hemoglobin 11.5 g/dL (13.5-17.5); Mean Corpuscular Hemoglobin 29.4 pg (28.0-32.0); Mean Corpuscular Hgb Conc. 33.2 g/dL (32.0-36.0); Mean Corpuscular Volume 88.5 fL (80.0-100.0); Red Blood Cells 3.93 10^6/uL (4.5-5.90); Red Cell Distribution Width 16.3 % (11.8-14.3); White Blood Cell 26.6 10^3/uL (4.4-10.8)
[2022-07-21] MEDS ORDERED: HYDROmorphone HCL 2 MG/ML VL/or syr IM ONE (15:15)
[2022-07-21 15:23] LABS: Basophils % (manual) 0 (0.0-2.0); Blast Cells 0; Eosinophils % (manual) 0 (0-7); Myelocytes % 0; Promyelocytes % 0; Reactive Lymphocytes 0
[2022-07-21 15:37] LABS: INR 1.29 (0.9-1.15)
[2022-07-21 15:54] LABS: Albumin 1.5 g/dL (3.4-5.0); Calcium 8.2 mg/dL (8.5-10.1); Potassium 3.8 mmol/L (3.5-5.1)
[2022-07-21 15:56] LABS: Band Neutrophils % (manual) 36; Lymphocytes % (manual) 4 (10.0-50.0); Metamyelocytes % 2; Monocytes % (manual) 3 (0-12)
[2022-07-21 15:58] LABS: BUN/Creatinine Ratio 14.5 (10.0-20.0); Total Protein 6.3 g/dL (6.4-8.2)
[2022-07-21] MEDS ORDERED: IPRATROPIUM BROM 0.5 MG/2.5ML INH SOL NEB ONE (16:30)
[2022-07-21] MEDS ORDERED: ALBUTEROL SULF 2.5 MG/0.5ML(0.5%) NEB SOLN NEB ONE (16:30)
[2022-07-21] MEDS ORDERED: SODIUM CHLORIDE 0.9% 1,000 ML IV ONE ×4 (16:30→20:15)
[2022-07-21] MEDS ORDERED: ONDANSETRON HCL 4 MG/2 ML VIAL IV ONE (20:45)
[2022-07-21] MEDS ORDERED: ENOXAPARIN SOD 60 MG/0.6 ML SYRINGE SC ONE (23:30)
[2022-07-22] VITALS (21 sets, daily range): BP systolic 94–137; BP diastolic 53–72
[2022-07-22] MEDS ORDERED: SODIUM CHLORIDE 0.9% 1,000 ML IV ONE (00:30)
[2022-07-22] MEDS ORDERED: VANCOMYCIN PER PHARMACY 0 MG IV SCH (01:15)
[2022-07-22] MEDS ORDERED: PIPERACILLIN-TAZOB 3.375GM 100 ML IV ONE (01:15)
[2022-07-22] MEDS ORDERED: HYDROmorphone HCL 2 MG/ML VL/or syr IV ONE (01:15)
[2022-07-22 02:06] LABS: Lactic Acid w/Reflex 2.5 mmol/L (0.4-2.0)
[2022-07-22] MEDS ORDERED: VANCOMYCIN 1GM/250ML 250 ML IV ONE (02:30)
[2022-07-22] MEDS ORDERED: NOREPINEPHRINE 8 MG/250ML KIT 250 ML IV ONE (03:14)
[2022-07-22] MEDS: NOREPINEPHRINE 8 MG/250ML KIT 250 ML IV SCH (03:15)
[2022-07-22] MEDS ORDERED: IBUPROFEN 600 MG TAB PO PRN (03:45)
[2022-07-22] MEDS ORDERED: DOCUSATE SOD 100 MG CAP PO PRN (03:45)
[2022-07-22] MEDS ORDERED: DEXTROSE (50%) 50ML SYRG IV PRN (03:45)
[2022-07-22] MEDS ORDERED: SODIUM CHLORIDE 0.9% 1,000 ML IV SCH ×2 (03:45→13:45)
[2022-07-22] MEDS ORDERED: HYDROmorphone HCL 2 MG/ML VL/or syr IV PRN (04:00)
[2022-07-22 05:28] LABS: Mean Corpuscular Hemoglobin 30.1 pg (28.0-32.0); Mean Corpuscular Hgb Conc. 34.2 g/dL (32.0-36.0)
[2022-07-22 05:29] LABS: Hematocrit 34.1 % (41.0-53.0); Hemoglobin 11.7 g/dL (13.5-17.5); Red Blood Cells 3.87 10^6/uL (4.5-5.90); Red Cell Distribution Width 16.3 % (11.8-14.3)
[2022-07-22 05:36] LABS: Potassium 3.2 mmol/L (3.5-5.1)
[2022-07-22 05:52] LABS: Albumin 1.5 g/dL (3.4-5.0); BUN/Creatinine Ratio 14.5 (10.0-20.0); Bilirubin, Total 1.8 mg/dL (0.2-1.0); Calcium 7.8 mg/dL (8.5-10.1); Total Protein 7.2 g/dL (6.4-8.2)
[2022-07-22 06:14] LABS: Basophils % (manual) 0 (0.0-2.0); Blast Cells 0; Promyelocytes % 0; Reactive Lymphocytes 0
[2022-07-22] MEDS ORDERED: NITROGLYCERIN 0.4 MG SL TAB SL PRN (06:45)
[2022-07-22] MEDS ORDERED: MORPHINE SULFATE INJ 2 MG/ml SYRG IV PRN (06:45)
[2022-07-22] MEDS: ACCU-CHEK COMFORT CURVE STRIP VI SCH ×4 (07:23→22:00)
[2022-07-22] MEDS: InsuLIN REG 1unit/0.01ml Soln (100units/ml) SC SCH ×4 (08:00→22:00)
[2022-07-22] MEDS: ALBUMIN 25% 100 ML IV SCH ×2 (08:04→11:28)
[2022-07-22 08:14] LABS: Band Neutrophils % (manual) 17; Eosinophils % (manual) 1 (0-7); Lymphocytes % (manual) 7 (10.0-50.0); Metamyelocytes % 1; Monocytes % (manual) 4 (0-12); Myelocytes % 1
[2022-07-22] MEDS ORDERED: levoFLOXacin 250MG 50 ML IV SCH (10:00)
[2022-07-22] MEDS ORDERED: methylPREDNISolone SOD SUCC 125 MG/2 ML VL IV ONE (10:15)
[2022-07-22] MEDS: HEPARIN SODIUM (PORCINE) 5000 UNITS/ML 1ML VIAL SC SCH ×2 (10:46→22:19)
[2022-07-22] MEDS ORDERED: POTASSIUM CHL 20 Meq TABLET PO ONE (11:45)
[2022-07-22] MEDS ORDERED: ALBUMIN 25% 100 ML IV SCH (12:00)
[2022-07-22] MEDS: methylPREDNISolone SOD SUCC 125 MG/2 ML VL IV SCH ×2 (14:00→22:18)
[2022-07-22] MEDS ORDERED: HEPARIN SODIUM (PORCINE) 5000 UNITS/ML 1ML VIAL ONE (15:45)
[2022-07-22] MEDS ORDERED: HEPARIN SODIUM (PORCINE) 5000 UNITS/ML 1ML VIAL IV ONE ×2 (15:45→16:00)
[2022-07-22 18:58] LABS: Magnesium 2.6 mg/dL (1.6-2.6)
[2022-07-22 19:13] LABS: Phosphorus 9.4 mg/dL (2.5-4.90)
[2022-07-22] MEDS: FUROSEMIDE INJECTION 100 MG in SODIUM CHL 0.9% 100 ML IV SCH (19:40)
[2022-07-22] MEDS: HYDROcodone-ACET 5/325MG TAB PO PRN (20:03)
[2022-07-22] MEDS: MEROPENEM 500MG IVPB 50 ML IV SCH (20:04)
[2022-07-22] MEDS: DOXYCYCLINE 100MG/250ML 250 ML IV SCH (22:22)
[2022-07-23] VITALS (85 sets, daily range): BP systolic 90–133; BP diastolic 42–78
[2022-07-23] MEDS: HYDROcodone-ACET 5/325MG TAB PO PRN (02:15)
[2022-07-23] MEDS: NOREPINEPHRINE 8 MG/250ML KIT 250 ML IV SCH (03:04)
[2022-07-23] MEDS: FUROSEMIDE INJECTION 100 MG in SODIUM CHL 0.9% 100 ML IV SCH ×3 (04:00→22:47)
[2022-07-23 04:16] LABS: Hemoglobin 11.4 g/dL (13.5-17.5)
[2022-07-23 04:19] LABS: Mean Corpuscular Hemoglobin 30.2 pg (28.0-32.0); Mean Corpuscular Hgb Conc. 33.6 g/dL (32.0-36.0); Mean Corpuscular Volume 90.1 fL (80.0-100.0); Red Blood Cells 3.77 10^6/uL (4.5-5.90); Red Cell Distribution Width 16.7 % (11.8-14.3)
[2022-07-23 04:31] LABS: % Iron Saturation 39.6 % (20-55)
[2022-07-23 04:57] LABS: Calcium 7.1 mg/dL (8.5-10.1); Potassium 3.4 mmol/L (3.5-5.1)
[2022-07-23] MEDS: ONDANSETRON HCL 4 MG/2 ML VIAL IV PRN (04:57)
[2022-07-23 05:00] LABS: Bilirubin, Total 1.7 mg/dL (0.2-1.0); Total Protein 7.3 g/dL (6.4-8.2)
[2022-07-23 05:03] LABS: White Blood Cell 33.1 10^3/uL (4.4-10.8)
[2022-07-23 05:04] LABS: BUN/Creatinine Ratio 14.3 (10.0-20.0)
[2022-07-23 05:05] LABS: Basophils % (manual) 0 (0.0-2.0); Blast Cells 0; Eosinophils % (manual) 0 (0-7); Myelocytes % 0; Reactive Lymphocytes 0
[2022-07-23] MEDS: methylPREDNISolone SOD SUCC 125 MG/2 ML VL IV SCH (05:35)
[2022-07-23] MEDS: DOXYCYCLINE 100MG/250ML 250 ML IV SCH (05:35)
[2022-07-23 06:50] LABS: Band Neutrophils % (manual) 23; Lymphocytes % (manual) 18 (10.0-50.0); Metamyelocytes % 4; Monocytes % (manual) 5 (0-12); Promyelocytes % 2
[2022-07-23] MEDS: InsuLIN REG 1unit/0.01ml Soln (100units/ml) SC SCH ×4 (06:52→22:03)
[2022-07-23] MEDS: ACCU-CHEK COMFORT CURVE STRIP VI SCH ×4 (06:52→21:45)
[2022-07-23] MEDS ORDERED: SODIUM CHL 0.9% 1000 ML BAG XX ONE (07:00)
[2022-07-23] MEDS: ALBUMIN 25% 100 ML IV SCH ×2 (08:31→08:53)
[2022-07-23 08:58] LABS: Hepatitis B Surface Antibody Negative (Negative)
[2022-07-23 09:18] LABS: Hepatitis A Total Antibody Negative (Negative)
[2022-07-23] MEDS: PANTOPRAZOLE 40 MG/10 ML VIAL INJ IV SCH ×2 (10:10→21:41)
[2022-07-23] MEDS: HEPARIN SODIUM (PORCINE) 5000 UNITS/ML 1ML VIAL SC SCH ×2 (10:16→21:41)
[2022-07-23] MEDS ORDERED: ALBUTEROL SULF 2.5 MG/0.5ML(0.5%) NEB SOLN NEB PRN (11:45)
[2022-07-23 11:50] LABS: Urine Bacteria NONE SEEN /hpf (None Seen); Urine Blood 2+ /uL (Negative); Urine Hyaline Cast FEW /lpf (0 - 2); Urine Mucus FEW (None Seen); Urine Specific Gravity 1.011 (1.001-1.035); Urine WBC 9 /hpf (0 - 3)
[2022-07-23 12:17] LABS: Hepatitis C Antibody Negative (Negative)
[2022-07-23] MEDS: ALBUTEROL SULF 2.5 MG/0.5ML(0.5%) NEB SOLN NEB SCH ×3 (12:32→23:33)
[2022-07-23] MEDS: IPRATROPIUM BROM 0.5 MG/2.5ML INH SOL NEB SCH ×3 (12:32→23:33)
[2022-07-23 12:41] LABS: Hepatitis A Ab IgM Negative
[2022-07-23 12:42] LABS: Hepatitis B Core IgM Negative; Hepatitis C Antibody Negative (Negative)
[2022-07-23] MEDS ORDERED: LIDOCAINE 1% (LOCAL ANESTH.) PF 5ml SDV ID ONE (13:45)
[2022-07-23 14:27] LABS: Creatinine, Urine 88.8 mg/dL (30.0-125.0)
[2022-07-23 14:28] LABS: Protein, Urine 89.9 mg/dL (0.0-11.9)
[2022-07-23] MEDS: SUCRALFATE 1 GM/10 ML ORAL SUSP PO SCH ×2 (17:02→21:43)
[2022-07-23] MEDS: MEROPENEM 500MG IVPB 50 ML IV SCH (17:03)
[2022-07-23] MEDS: SODIUM CHLOR 0.9% PF (SALINE LOCK) 10ML VIAL/SYR IV SCH (21:43)
[2022-07-23] MEDS: LINEZOLID 600MG/300ML 300 ML IV SCH (21:43)
[2022-07-24] VITALS (86 sets, daily range): BP systolic 81–135; BP diastolic 17–89
[2022-07-24 04:15] LABS: Hematocrit 32.7 % (41.0-53.0); Hemoglobin 10.8 g/dL (13.5-17.5); Mean Corpuscular Hemoglobin 29.4 pg (28.0-32.0); Mean Corpuscular Hgb Conc. 33.1 g/dL (32.0-36.0); Mean Corpuscular Volume 88.7 fL (80.0-100.0); Red Blood Cells 3.68 10^6/uL (4.5-5.90); Red Cell Distribution Width 16.8 % (11.8-14.3); White Blood Cell 29.4 10^3/uL (4.4-10.8)
[2022-07-24 04:18] LABS: Basophils % (manual) 0 (0.0-2.0); Blast Cells 0; Eosinophils % (manual) 0 (0-7); Promyelocytes % 0; Reactive Lymphocytes 0
[2022-07-24 04:34] LABS: Calcium 6.9 mg/dL (8.5-10.1)
[2022-07-24 04:40] LABS: Albumin 2.2 g/dL (3.4-5.0); BUN/Creatinine Ratio 15.8 (10.0-20.0); Bilirubin, Total 1.2 mg/dL (0.2-1.0); Total Protein 7.1 g/dL (6.4-8.2)
[2022-07-24 04:46] LABS: Potassium 2.8 mmol/L (3.5-5.1)
[2022-07-24 05:18] LABS: Band Neutrophils % (manual) 15; Lymphocytes % (manual) 7 (10.0-50.0); Metamyelocytes % 1; Monocytes % (manual) 6 (0-12); Myelocytes % 1
[2022-07-24] MEDS: ALBUTEROL SULF 2.5 MG/0.5ML(0.5%) NEB SOLN NEB SCH ×3 (06:08→18:58)
[2022-07-24] MEDS: IPRATROPIUM BROM 0.5 MG/2.5ML INH SOL NEB SCH ×3 (06:08→18:58)
[2022-07-24] MEDS: SUCRALFATE 1 GM/10 ML ORAL SUSP PO SCH ×4 (06:38→21:02)
[2022-07-24] MEDS: ACCU-CHEK COMFORT CURVE STRIP VI SCH ×4 (06:39→21:01)
[2022-07-24] MEDS: InsuLIN REG 1unit/0.01ml Soln (100units/ml) SC SCH ×4 (06:40→21:28)
[2022-07-24] MEDS: FUROSEMIDE INJECTION 100 MG in SODIUM CHL 0.9% 100 ML IV SCH (07:44)
[2022-07-24] MEDS: PANTOPRAZOLE 40 MG/10 ML VIAL INJ IV SCH ×2 (09:13→21:02)
[2022-07-24] MEDS: POTASSIUM CHL 20MEQ/100ML 100 ML IV SCH ×4 (09:14→20:27)
[2022-07-24] MEDS: LINEZOLID 600MG/300ML 300 ML IV SCH ×2 (09:14→21:02)
[2022-07-24] MEDS: SODIUM CHLOR 0.9% PF (SALINE LOCK) 10ML VIAL/SYR IV SCH ×2 (09:14→21:02)
[2022-07-24] MEDS: HEPARIN SODIUM (PORCINE) 5000 UNITS/ML 1ML VIAL SC SCH ×2 (09:33→20:59)
[2022-07-24] MEDS: DAKINS QUARTER STR 0.125% (NaHypochlorite) 473 ML TOPICAL SOL TOP SCH ×2 (10:00→21:03)
[2022-07-24] MEDS: NOREPINEPHRINE 8 MG/250ML KIT 250 ML IV SCH (13:00)
[2022-07-24] MEDS: MEROPENEM 500MG IVPB 50 ML IV SCH (17:12)
[2022-07-24] MEDS: ALBUMIN 25% 100 ML IV SCH ×2 (17:13→18:38)
[2022-07-24] MEDS ORDERED: POTASSIUM EFFERVESENT TAB 25 MEQ PO ONE (18:15)
[2022-07-24] MEDS: FUROSEMIDE 100 MG/10ML VIAL IV SCH (18:39)
[2022-07-24] MEDS: ONDANSETRON HCL 4 MG/2 ML VIAL IV PRN (19:43)
[2022-07-24] MEDS: HYDROcodone-ACET 5/325MG TAB PO PRN (21:04)
[2022-07-25] VITALS (69 sets, daily range): BP systolic 89–135; BP diastolic 26–79
[2022-07-25] MEDS: POTASSIUM CHL 20MEQ/100ML 100 ML IV SCH ×4 (00:19→06:04)
[2022-07-25] MEDS: HYDROcodone-ACET 5/325MG TAB PO PRN ×2 (00:57→20:20)
[2022-07-25] MEDS: ALBUTEROL SULF 2.5 MG/0.5ML(0.5%) NEB SOLN NEB SCH ×3 (05:54→18:34)
[2022-07-25] MEDS: IPRATROPIUM BROM 0.5 MG/2.5ML INH SOL NEB SCH ×3 (05:54→18:34)
[2022-07-25] MEDS: ACCU-CHEK COMFORT CURVE STRIP VI SCH ×4 (06:08→22:14)
[2022-07-25] MEDS: InsuLIN REG 1unit/0.01ml Soln (100units/ml) SC SCH ×4 (06:09→22:00)
[2022-07-25] MEDS: SUCRALFATE 1 GM/10 ML ORAL SUSP PO SCH ×4 (06:12→22:00)
[2022-07-25 09:05] LABS: Hematocrit 32.5 % (41.0-53.0); Hemoglobin 11.3 g/dL (13.5-17.5); Mean Corpuscular Hemoglobin 30.2 pg (28.0-32.0); Mean Corpuscular Hgb Conc. 34.8 g/dL (32.0-36.0); Red Blood Cells 3.74 10^6/uL (4.5-5.90); Red Cell Distribution Width 16.5 % (11.8-14.3); White Blood Cell 21.7 10^3/uL (4.4-10.8)
[2022-07-25 09:13] LABS: Basophils % (manual) 0 (0.0-2.0); Blast Cells 0; Metamyelocytes % 0; Myelocytes % 0; Promyelocytes % 0; Reactive Lymphocytes 0
[2022-07-25 09:20] LABS: Potassium 3.7 mmol/L (3.5-5.1)
[2022-07-25 09:40] LABS: Albumin 2.6 g/dL (3.4-5.0); BUN/Creatinine Ratio 19.6 (10.0-20.0); Bilirubin, Total 0.9 mg/dL (0.2-1.0); Calcium 7.5 mg/dL (8.5-10.1); Total Protein 7.3 g/dL (6.4-8.2)
[2022-07-25] MEDS: PANTOPRAZOLE 40 MG/10 ML VIAL INJ IV SCH (10:19)
[2022-07-25] MEDS: SODIUM CHLOR 0.9% PF (SALINE LOCK) 10ML VIAL/SYR IV SCH ×2 (10:20→22:13)
[2022-07-25] MEDS: FUROSEMIDE 100 MG/10ML VIAL IV SCH ×2 (10:20→17:31)
[2022-07-25] MEDS: LINEZOLID 600MG/300ML 300 ML IV SCH ×2 (10:20→22:00)
[2022-07-25] MEDS: HEPARIN SODIUM (PORCINE) 5000 UNITS/ML 1ML VIAL SC SCH ×2 (10:35→22:00)
[2022-07-25 14:21] LABS: Band Neutrophils % (manual) 19; Eosinophils % (manual) 1 (0-7); Lymphocytes % (manual) 24 (10.0-50.0); Monocytes % (manual) 4 (0-12)
[2022-07-25] MEDS ORDERED: SODIUM CHLORIDE 0.9% 1,000 ML IV ONE (15:15)
[2022-07-25] MEDS: DAKINS QUARTER STR 0.125% (NaHypochlorite) 473 ML TOPICAL SOL TOP SCH ×2 (15:22→22:13)
[2022-07-25] MEDS: MEROPENEM 500MG IVPB 50 ML IV SCH (17:46)
[2022-07-25] MEDS: PANTOPRAZOLE 40 MG TAB PO SCH (22:00)
[2022-07-26] VITALS (28 sets, daily range): BP systolic 87–120; BP diastolic 49–72
[2022-07-26 04:24] LABS: Basophils # (auto) 0 10 ^3/uL (0-0.2); Basophils % (auto) 0.2 % (0.0-2.0); Eosinophils # (auto) 0 10 ^3/uL (0-0.8); Eosinophils % (auto) 0.1 % (0.0-7.0); Hematocrit 32.5 % (41.0-53.0); Hemoglobin 11.1 g/dL (13.5-17.5); Lymphocytes # (auto) 1.5 10 ^3/uL (0.4-5.4); Lymphocytes % (auto) 6.5 % (10.0-50.0); Mean Corpuscular Hemoglobin 30.3 pg (28.0-32.0); Monocytes % (auto) 4.3 % (0.0-12.0); Neutrophils # (auto) 20.2 10 ^3/uL (1.6-8.6); Neutrophils % (auto) 88.9 % (37.0-80.0); Red Blood Cells 3.65 10^6/uL (4.5-5.90); White Blood Cell 22.7 10^3/uL (4.4-10.8)
[2022-07-26 04:25] LABS: Potassium 3.5 mmol/L (3.5-5.1)
[2022-07-26 04:31] LABS: Albumin 2.3 g/dL (3.4-5.0); BUN/Creatinine Ratio 22.4 (10.0-20.0); Calcium 7.9 mg/dL (8.5-10.1); Total Protein 6.7 g/dL (6.4-8.2)
[2022-07-26] MEDS: FUROSEMIDE 100 MG/10ML VIAL IV SCH (06:00)
[2022-07-26] MEDS: ACCU-CHEK COMFORT CURVE STRIP VI SCH ×4 (06:33→22:00)
[2022-07-26] MEDS: SUCRALFATE 1 GM/10 ML ORAL SUSP PO SCH ×4 (06:33→22:43)
[2022-07-26] MEDS: InsuLIN REG 1unit/0.01ml Soln (100units/ml) SC SCH ×4 (06:34→22:53)
[2022-07-26] MEDS: ALBUTEROL SULF 2.5 MG/0.5ML(0.5%) NEB SOLN NEB SCH ×2 (08:41→18:13)
[2022-07-26] MEDS: IPRATROPIUM BROM 0.5 MG/2.5ML INH SOL NEB SCH ×2 (08:41→18:14)
[2022-07-26] MEDS: SODIUM CHLOR 0.9% PF (SALINE LOCK) 10ML VIAL/SYR IV SCH ×2 (09:48→22:44)
[2022-07-26] MEDS: LINEZOLID 600MG/300ML 300 ML IV SCH ×2 (09:48→22:43)
[2022-07-26] MEDS: PANTOPRAZOLE 40 MG TAB PO SCH ×2 (09:49→22:43)
[2022-07-26] MEDS: DAKINS QUARTER STR 0.125% (NaHypochlorite) 473 ML TOPICAL SOL TOP SCH ×2 (09:55→22:44)
[2022-07-26] MEDS: HEPARIN SODIUM (PORCINE) 5000 UNITS/ML 1ML VIAL SC SCH (09:55)
[2022-07-26] MEDS ORDERED: ALBUMIN 25% 100 ML IV ONE (15:30)
[2022-07-26] MEDS: MEROPENEM 500MG IVPB 50 ML IV SCH (17:36)
[2022-07-26] MEDS: MIDODRINE HCL 10 MG TAB PO SCH (18:58)
[2022-07-26] MEDS: FUROSEMIDE 40 MG/4 ML VIAL IV SCH (18:59)
[2022-07-27] VITALS (25 sets, daily range): BP systolic 80–128; BP diastolic 30–73
[2022-07-27 04:23] LABS: Hematocrit 33.4 % (41.0-53.0); Hemoglobin 11.1 g/dL (13.5-17.5); Mean Corpuscular Hemoglobin 29.9 pg (28.0-32.0); Mean Corpuscular Hgb Conc. 33.3 g/dL (32.0-36.0); Mean Corpuscular Volume 89.6 fL (80.0-100.0); Red Blood Cells 3.72 10^6/uL (4.5-5.90); White Blood Cell 27.6 10^3/uL (4.4-10.8)
[2022-07-27 04:40] LABS: Calcium 8.3 mg/dL (8.5-10.1); Potassium 3.4 mmol/L (3.5-5.1)
[2022-07-27 04:43] LABS: Albumin 2.2 g/dL (3.4-5.0); BUN/Creatinine Ratio 31.1 (10.0-20.0)
[2022-07-27 04:46] LABS: Bilirubin, Total 1.2 mg/dL (0.2-1.0); Total Protein 6.8 g/dL (6.4-8.2)
[2022-07-27 05:00] LABS: Basophils % (manual) 0 (0.0-2.0); Blast Cells 0; Eosinophils % (manual) 0 (0-7); Myelocytes % 0; Promyelocytes % 0; Reactive Lymphocytes 0
[2022-07-27] MEDS: FUROSEMIDE 40 MG/4 ML VIAL IV SCH ×2 (06:17→18:20)
[2022-07-27] MEDS: MIDODRINE HCL 10 MG TAB PO SCH ×3 (06:18→18:19)
[2022-07-27] MEDS: SUCRALFATE 1 GM/10 ML ORAL SUSP PO SCH ×4 (06:18→22:21)
[2022-07-27] MEDS: ACCU-CHEK COMFORT CURVE STRIP VI SCH ×4 (06:33→22:21)
[2022-07-27] MEDS: InsuLIN REG 1unit/0.01ml Soln (100units/ml) SC SCH ×4 (06:33→22:00)
[2022-07-27] MEDS: ALBUTEROL SULF 2.5 MG/0.5ML(0.5%) NEB SOLN NEB SCH ×3 (06:34→18:15)
[2022-07-27] MEDS: IPRATROPIUM BROM 0.5 MG/2.5ML INH SOL NEB SCH ×3 (06:34→18:15)
[2022-07-27 07:50] LABS: Band Neutrophils % (manual) 6; Lymphocytes % (manual) 7 (10.0-50.0); Metamyelocytes % 1; Monocytes % (manual) 6 (0-12)
[2022-07-27] MEDS: DAKINS QUARTER STR 0.125% (NaHypochlorite) 473 ML TOPICAL SOL TOP SCH ×2 (10:00→22:21)
[2022-07-27] MEDS: LINEZOLID 600MG/300ML 300 ML IV SCH ×2 (10:42→22:21)
[2022-07-27] MEDS: PANTOPRAZOLE 40 MG TAB PO SCH ×2 (10:42→22:21)
[2022-07-27] MEDS: SODIUM CHLOR 0.9% PF (SALINE LOCK) 10ML VIAL/SYR IV SCH ×2 (10:50→22:21)
[2022-07-27] MEDS: MEROPENEM 500MG IVPB 50 ML IV SCH (18:19)
[2022-07-28] VITALS (11 sets, daily range): BP systolic 109–128; BP diastolic 53–85
[2022-07-28 03:46] LABS: Hematocrit 33.6 % (41.0-53.0); Hemoglobin 11.2 g/dL (13.5-17.5); Mean Corpuscular Hemoglobin 30.2 pg (28.0-32.0); Mean Corpuscular Hgb Conc. 33.4 g/dL (32.0-36.0); Mean Corpuscular Volume 90.3 fL (80.0-100.0); Red Blood Cells 3.72 10^6/uL (4.5-5.90); White Blood Cell 28.7 10^3/uL (4.4-10.8)
[2022-07-28 03:47] LABS: Basophils % (manual) 0 (0.0-2.0); Blast Cells 0; Eosinophils % (manual) 0 (0-7); Metamyelocytes % 0; Promyelocytes % 0; Reactive Lymphocytes 0
[2022-07-28 03:55] LABS: BUN/Creatinine Ratio 42.4 (10.0-20.0); Calcium 8.3 mg/dL (8.5-10.1); Potassium 3.2 mmol/L (3.5-5.1)
[2022-07-28 03:58] LABS: Bilirubin, Total 1.7 mg/dL (0.2-1.0)
[2022-07-28 04:19] LABS: Band Neutrophils % (manual) 17; Lymphocytes % (manual) 9 (10.0-50.0); Monocytes % (manual) 4 (0-12); Myelocytes % 1
[2022-07-28] MEDS: MIDODRINE HCL 10 MG TAB PO SCH ×2 (06:28→12:10)
[2022-07-28] MEDS: FUROSEMIDE 40 MG/4 ML VIAL IV SCH (06:28)
[2022-07-28] MEDS: ACCU-CHEK COMFORT CURVE STRIP VI SCH ×4 (06:29→22:25)
[2022-07-28] MEDS: SUCRALFATE 1 GM/10 ML ORAL SUSP PO SCH ×4 (06:29→22:25)
[2022-07-28] MEDS: InsuLIN REG 1unit/0.01ml Soln (100units/ml) SC SCH ×4 (06:30→22:00)
[2022-07-28] MEDS: IPRATROPIUM BROM 0.5 MG/2.5ML INH SOL NEB SCH ×3 (08:58→18:23)
[2022-07-28] MEDS: ALBUTEROL SULF 2.5 MG/0.5ML(0.5%) NEB SOLN NEB SCH ×3 (08:58→18:23)
[2022-07-28] MEDS: PANTOPRAZOLE 40 MG TAB PO SCH ×2 (09:31→22:25)
[2022-07-28] MEDS: FLORASTOR (S. BOULARDII) 250 MG CAP PO SCH (09:31)
[2022-07-28] MEDS: SODIUM CHLOR 0.9% PF (SALINE LOCK) 10ML VIAL/SYR IV SCH ×2 (09:38→22:25)
[2022-07-28] MEDS: DAKINS QUARTER STR 0.125% (NaHypochlorite) 473 ML TOPICAL SOL TOP SCH ×2 (09:39→22:25)
[2022-07-28] MEDS: LINEZOLID 600MG/300ML 300 ML IV SCH (10:00)
[2022-07-28] MEDS ORDERED: POTASSIUM EFFERVESENT TAB 25 MEQ PO ONE (13:15)
[2022-07-28] MEDS ORDERED: POTASSIUM CHL 20 Meq TABLET PO ONE ×2 (16:45→16:49)
[2022-07-28] MEDS: MEROPENEM 500MG IVPB 50 ML IV SCH (18:25)
[2022-07-29] VITALS (7 sets, daily range): BP systolic 108–135; BP diastolic 64–85
[2022-07-29] MEDS: InsuLIN REG 1unit/0.01ml Soln (100units/ml) SC SCH ×4 (06:05→21:45)
[2022-07-29] MEDS: ACCU-CHEK COMFORT CURVE STRIP VI SCH ×4 (06:06→21:46)
[2022-07-29 06:14] LABS: Hematocrit 34.6 % (41.0-53.0); Hemoglobin 11.5 g/dL (13.5-17.5); Mean Corpuscular Hemoglobin 29.9 pg (28.0-32.0); Mean Corpuscular Hgb Conc. 33.3 g/dL (32.0-36.0); Mean Corpuscular Volume 89.6 fL (80.0-100.0); Red Blood Cells 3.86 10^6/uL (4.5-5.90); Red Cell Distribution Width 17.4 % (11.8-14.3); White Blood Cell 28.5 10^3/uL (4.4-10.8)
[2022-07-29] MEDS: FUROSEMIDE 40 MG/4 ML VIAL IV SCH (06:20)
[2022-07-29] MEDS: SUCRALFATE 1 GM/10 ML ORAL SUSP PO SCH ×4 (06:20→21:44)
[2022-07-29 06:21] LABS: Basophils % (manual) 0 (0.0-2.0); Blast Cells 0; Eosinophils % (manual) 0 (0-7); Metamyelocytes % 0; Myelocytes % 0; Promyelocytes % 0; Reactive Lymphocytes 0
[2022-07-29 06:27] LABS: Potassium 3.3 mmol/L (3.5-5.1)
[2022-07-29 06:38] LABS: Albumin 2.1 g/dL (3.4-5.0); BUN/Creatinine Ratio 40.4 (10.0-20.0); Bilirubin, Total 2.1 mg/dL (0.2-1.0); Calcium 8.6 mg/dL (8.5-10.1); Total Protein 7.6 g/dL (6.4-8.2)
[2022-07-29] MEDS: IPRATROPIUM BROM 0.5 MG/2.5ML INH SOL NEB SCH ×3 (06:43→19:14)
[2022-07-29] MEDS: ALBUTEROL SULF 2.5 MG/0.5ML(0.5%) NEB SOLN NEB SCH ×3 (06:43→19:14)
[2022-07-29 07:59] LABS: Band Neutrophils % (manual) 5; Lymphocytes % (manual) 8 (10.0-50.0); Monocytes % (manual) 5 (0-12)
[2022-07-29] MEDS: FLORASTOR (S. BOULARDII) 250 MG CAP PO SCH (09:10)
[2022-07-29] MEDS: PANTOPRAZOLE 40 MG TAB PO SCH ×2 (09:10→21:44)
[2022-07-29] MEDS: DAKINS QUARTER STR 0.125% (NaHypochlorite) 473 ML TOPICAL SOL TOP SCH ×2 (10:00→21:45)
[2022-07-29] MEDS ORDERED: POTASSIUM CHL 20 Meq TABLET PO ONE (10:45)
[2022-07-29] MEDS: SODIUM CHLOR 0.9% PF (SALINE LOCK) 10ML VIAL/SYR IV SCH ×2 (13:26→21:44)
[2022-07-29] MEDS: DAPTOmycin 500 MG in SODIUM CHL 0.9% 50 ML IV SCH (16:12)
[2022-07-29] MEDS: MEROPENEM 500MG IVPB 50 ML IV SCH (17:14)
[2022-07-30 05:00] VITALS: BP 119/65
[2022-07-30 05:24] LABS: Basophils # (auto) 0.1 10 ^3/uL (0-0.2); Basophils % (auto) 0.4 % (0.0-2.0); Eosinophils # (auto) 0.1 10 ^3/uL (0-0.8); Eosinophils % (auto) 0.4 % (0.0-7.0); Hematocrit 30.2 % (41.0-53.0); Hemoglobin 10.4 g/dL (13.5-17.5); Lymphocytes # (auto) 1.9 10 ^3/uL (0.4-5.4); Lymphocytes % (auto) 8.1 % (10.0-50.0); Mean Corpuscular Hemoglobin 30.5 pg (28.0-32.0); Mean Corpuscular Hgb Conc. 34.4 g/dL (32.0-36.0); Mean Corpuscular Volume 88.7 fL (80.0-100.0); Monocytes # (auto) 1.6 10 ^3/uL (0-1.3); Monocytes % (auto) 6.7 % (0.0-12.0); Neutrophils # (auto) 19.8 10 ^3/uL (1.6-8.6); Neutrophils % (auto) 84.4 % (37.0-80.0); Red Cell Distribution Width 17.4 % (11.8-14.3); White Blood Cell 23.5 10^3/uL (4.4-10.8)
[2022-07-30 05:49] LABS: Potassium 3.2 mmol/L (3.5-5.1)
[2022-07-30 05:58] LABS: Bilirubin, Total 2.3 mg/dL (0.2-1.0); Total Protein 6.3 g/dL (6.4-8.2)
[2022-07-30] MEDS: SUCRALFATE 1 GM/10 ML ORAL SUSP PO SCH ×4 (06:25→21:39)
[2022-07-30] MEDS: FUROSEMIDE 40 MG/4 ML VIAL IV SCH (06:26)
[2022-07-30] MEDS: ACCU-CHEK COMFORT CURVE STRIP VI SCH ×4 (06:31→21:40)
[2022-07-30] MEDS: InsuLIN REG 1unit/0.01ml Soln (100units/ml) SC SCH ×4 (06:42→21:40)
[2022-07-30] MEDS: IPRATROPIUM BROM 0.5 MG/2.5ML INH SOL NEB SCH ×3 (06:49→19:17)
[2022-07-30] MEDS: ALBUTEROL SULF 2.5 MG/0.5ML(0.5%) NEB SOLN NEB SCH ×3 (06:50→19:17)
[2022-07-30 08:10] VITALS: BP 109/62
[2022-07-30 09:00] VITALS: BP 109/62
[2022-07-30] MEDS: DAKINS QUARTER STR 0.125% (NaHypochlorite) 473 ML TOPICAL SOL TOP SCH ×2 (09:52→21:40)
[2022-07-30] MEDS: FLORASTOR (S. BOULARDII) 250 MG CAP PO SCH (09:52)
[2022-07-30] MEDS: PANTOPRAZOLE 40 MG TAB PO SCH ×2 (09:52→21:39)
[2022-07-30] MEDS: SODIUM CHLOR 0.9% PF (SALINE LOCK) 10ML VIAL/SYR IV SCH ×2 (09:52→21:39)
[2022-07-30] MEDS ORDERED: POTASSIUM CHL 20 Meq TABLET PO ONE (11:45)
[2022-07-30 13:00] VITALS: BP 108/71
[2022-07-30] MEDS: metroNIDAZOLE 500 MG TAB PO SCH ×2 (14:10→21:39)
[2022-07-30] MEDS: DAPTOmycin 500 MG in SODIUM CHL 0.9% 50 ML IV SCH (16:58)
[2022-07-30 17:00] VITALS: BP 121/68
[2022-07-30 22:00] VITALS: BP 127/73
[2022-07-31 05:00] VITALS: BP 97/55
[2022-07-31] MEDS: IPRATROPIUM BROM 0.5 MG/2.5ML INH SOL NEB SCH ×3 (06:08→18:48)
[2022-07-31] MEDS: ALBUTEROL SULF 2.5 MG/0.5ML(0.5%) NEB SOLN NEB SCH ×3 (06:08→18:47)
[2022-07-31] MEDS: InsuLIN REG 1unit/0.01ml Soln (100units/ml) SC SCH ×3 (06:29→16:27)
[2022-07-31] MEDS: metroNIDAZOLE 500 MG TAB PO SCH ×2 (06:33→13:28)
[2022-07-31] MEDS: SUCRALFATE 1 GM/10 ML ORAL SUSP PO SCH ×3 (06:33→16:27)
[2022-07-31] MEDS: ACCU-CHEK COMFORT CURVE STRIP VI SCH ×3 (06:33→16:27)
[2022-07-31 06:34] LABS: Basophils # (auto) 0.1 10 ^3/uL (0-0.2); Basophils % (auto) 0.4 % (0.0-2.0); Eosinophils # (auto) 0.1 10 ^3/uL (0-0.8); Eosinophils % (auto) 0.6 % (0.0-7.0); Hematocrit 28.8 % (41.0-53.0); Hemoglobin 9.7 g/dL (13.5-17.5); Lymphocytes # (auto) 1.8 10 ^3/uL (0.4-5.4); Lymphocytes % (auto) 8.2 % (10.0-50.0); Mean Corpuscular Hemoglobin 29.6 pg (28.0-32.0); Mean Corpuscular Hgb Conc. 33.6 g/dL (32.0-36.0); Mean Corpuscular Volume 87.9 fL (80.0-100.0); Monocytes # (auto) 1.7 10 ^3/uL (0-1.3); Monocytes % (auto) 7.5 % (0.0-12.0); Neutrophils # (auto) 18.6 10 ^3/uL (1.6-8.6); Neutrophils % (auto) 83.3 % (37.0-80.0); Nucleated Red Blood Cells % 0.1 %; Red Blood Cells 3.27 10^6/uL (4.5-5.90); White Blood Cell 22.3 10^3/uL (4.4-10.8)
[2022-07-31 06:50] LABS: Potassium 3.2 mmol/L (3.5-5.1)
[2022-07-31 06:57] LABS: BUN/Creatinine Ratio 34.1 (10.0-20.0); Bilirubin, Total 2.2 mg/dL (0.2-1.0); Calcium 8.3 mg/dL (8.5-10.1); Total Protein 7.1 g/dL (6.4-8.2)
[2022-07-31 08:00] VITALS: BP 114/78
[2022-07-31 09:31] VITALS: BP 114/78
[2022-07-31] MEDS ORDERED: FUROSEMIDE 40 MG TAB PO SCH (10:00)
[2022-07-31] MEDS: DAKINS QUARTER STR 0.125% (NaHypochlorite) 473 ML TOPICAL SOL TOP SCH (10:30)
[2022-07-31] MEDS: FLORASTOR (S. BOULARDII) 250 MG CAP PO SCH (10:30)
[2022-07-31] MEDS: PANTOPRAZOLE 40 MG TAB PO SCH (10:30)
[2022-07-31] MEDS: SODIUM CHLOR 0.9% PF (SALINE LOCK) 10ML VIAL/SYR IV SCH (10:31)
[2022-07-31] MEDS ORDERED: POTASSIUM CHL 20 Meq TABLET PO ONE (12:00)
[2022-07-31] MEDS ORDERED: PANT40T PO (12:07)
[2022-07-31] MEDS ORDERED: POTA-167 PO (12:07)
[2022-07-31] MEDS ORDERED: SUCR1SUS10 PO (12:07)
[2022-07-31] MEDS ORDERED: FURO40TA4 PO (12:07)
[2022-07-31] MEDS ORDERED: METF-370 PO (12:14)
[2022-07-31 13:00] VITALS: BP 114/78
[2022-07-31 14:25] VITALS: BP 120/87
[2022-07-31 15:23] LABS: Cholesterol 84 mg/dL (< 200); HDL Cholesterol 11 mg/dL (40-59); LDL Cholesterol 64 mg/dL (< 100); Triglycerides 126 mg/dL (< 150)
[2022-07-31] MEDS: DAPTOmycin 500 MG in SODIUM CHL 0.9% 50 ML IV SCH (16:03)
[2022-07-31 16:13] LABS: Free T4 (Free Thyroxine) 0.8 ng/dL (0.89-1.76)
== END 2022-07-31 16:48 | disposition home or self-care (01) | DRG 853 ==
LOC: ER 13:17 → OVERFLOW 07-22 06:41 → ICU WEST 07-22 17:15 → EAST 07-28 16:15 → TELE-EAST 07-28 16:38
PROVIDERS: ADMIT Nurse Practitioner Family; ATTEND Internal Medicine
PROC: 02HV33Z Insertion of Infusion Device into Superior Vena Cava, Percutaneous Approach (ICD-10-PCS; principal; 2022-07-23)
PROC: B548ZZA Ultrasonography of Superior Vena Cava, Guidance (ICD-10-PCS; 2022-07-23)
PROC: 0JBQ0ZZ Excision of Right Foot Subcutaneous Tissue and Fascia, Open Approach (ICD-10-PCS; 2022-07-28)
DX: A41.9 Sepsis, unspecified organism (principal); I50.43 Acute on chronic combined systolic (congestive) and diastolic (congestive) heart failure; J96.01 Acute respiratory failure with hypoxia; R65.21 Severe sepsis with septic shock; N17.0 Acute kidney failure with tubular necrosis; E87.1 Hypo-osmolality and hyponatremia; R18.8 Other ascites; L03.116 Cellulitis of left lower limb; L97.929 Non-pressure chronic ulcer of unspecified part of left lower leg with unspecified severity; Z68.43 Body mass index [BMI] 50.0-59.9, adult; E11.65 Type 2 diabetes mellitus with hyperglycemia; E66.01 Morbid (severe) obesity due to excess calories; E88.09 Other disorders of plasma-protein metabolism, not elsewhere classified; E11.621 Type 2 diabetes mellitus with foot ulcer; I87.8 Other specified disorders of veins; K21.9 Gastro-esophageal reflux disease without esophagitis; L97.519 Non-pressure chronic ulcer of other part of right foot with unspecified severity; R13.10 Dysphagia, unspecified; I11.0 Hypertensive heart disease with heart failure; E87.6 Hypokalemia; K76.0 Fatty (change of) liver, not elsewhere classified; R63.0 Anorexia; E78.5 Hyperlipidemia, unspecified; F10.20 Alcohol dependence, uncomplicated; B95.61 Methicillin susceptible Staphylococcus aureus infection as the cause of diseases classified elsewhere; Z20.822 Contact with and (suspected) exposure to COVID-19; K57.30 Diverticulosis of large intestine without perforation or abscess without bleeding; Z79.84 Long term (current) use of oral hypoglycemic drugs; Z79.899 Other long term (current) drug therapy; Z99.2 Dependence on renal dialysis; Z80.42 Family history of malignant neoplasm of prostate; Z82.49 Family history of ischemic heart disease and other diseases of the circulatory system; Z83.3 Family history of diabetes mellitus; Z88.0 Allergy status to penicillin; Z88.1 Allergy status to other antibiotic agents
CPT/HCPCS: 36415; 36569; 71045; 73700; 73718; 74176; 76705; 76775; 80053; 80061; 80074; 80202; 81001; 82043; 82306; 82550; 82570; 82607; 82962; 83036; 83540; 83550; 83605; 83690; 83735; 83880; 83970; 84100; 84132; 84156; 84300; 84439; 84443; 84484; 85007; 85025; 85027; 85379; 85610; 85652; 86704; 86706; 86708; 86803; 87040; 87077; 87081; 87186; 87205; 87340; 87426; 87493; 90935; 93005; 93306; 93970; 94640; 94660; 96361; 96365; 96368; 96372; 96375; 97110; 97116; 97163; 97530; C9113; G0378; J1642; J1815; J2185; J2405; J2543; J3480; J3490; P9047

== ENCOUNTER 2022-08-08 16:27 | Inpatient (IN) | payer OTHER ==
[~2022-08-08] VITALS: Ht 182.9 cm; Wt 177.0 kg
[~2022-08-08 16:27] MED LIST changes: +FURO40TA4 PO; +METF-370 PO; +PANT40T PO; +POTA-167 PO; +SUCR1SUS10 PO
[2022-08-08] MEDS ORDERED: SODIUM BICARBONATE 50ML VIAL 100 ML in D5W 5% 1,000 ML IV ONE (16:45)
[2022-08-08 17:15] LABS: Basophils # (auto) 0 10 ^3/uL (0-0.2); Basophils % (auto) 0.3 % (0.0-2.0); Eosinophils # (auto) 0.3 10 ^3/uL (0-0.8); Eosinophils % (auto) 2.9 % (0.0-7.0); Hematocrit 28.5 % (41.0-53.0); Hemoglobin 9.3 g/dL (13.5-17.5); Lymphocytes % (auto) 10.8 % (10.0-50.0); Mean Corpuscular Hemoglobin 29.3 pg (28.0-32.0); Mean Corpuscular Hgb Conc. 32.5 g/dL (32.0-36.0); Mean Corpuscular Volume 90.3 fL (80.0-100.0); Monocytes # (auto) 0.9 10 ^3/uL (0-1.3); Monocytes % (auto) 10.2 % (0.0-12.0); Neutrophils # (auto) 6.8 10 ^3/uL (1.6-8.6); Neutrophils % (auto) 75.8 % (37.0-80.0); Red Blood Cells 3.15 10^6/uL (4.5-5.90); Red Cell Distribution Width 18.6 % (11.8-14.3)
[2022-08-08 18:33] LABS: Albumin 2.1 g/dL (3.4-5.0); Calcium 8.3 mg/dL (8.5-10.1); Magnesium 1.8 mg/dL (1.6-2.6); Potassium 3.9 mmol/L (3.5-5.1)
[2022-08-08 18:36] LABS: BUN/Creatinine Ratio 13.1 (10.0-20.0)
[2022-08-08 18:41] LABS: Total Protein 6.9 g/dL (6.4-8.2)
[2022-08-08] MEDS ORDERED: ONDANSETRON HCL 4 MG/2 ML VIAL IV PRN (21:30)
[2022-08-08] MEDS ORDERED: DEXTROSE (50%) 50ML SYRG IV PRN (21:30)
[2022-08-08] MEDS: InsuLIN REG 1unit/0.01ml Soln (100units/ml) SC SCH (23:58)
[2022-08-08] MEDS: ACCU-CHEK COMFORT CURVE STRIP VI SCH (23:58)
[2022-08-09] MEDS: ACCU-CHEK COMFORT CURVE STRIP VI SCH ×4 (06:55→22:05)
[2022-08-09] MEDS: InsuLIN REG 1unit/0.01ml Soln (100units/ml) SC SCH ×4 (06:56→22:00)
[2022-08-09 09:03] LABS: Basophils # (auto) 0.1 10 ^3/uL (0-0.2); Basophils % (auto) 1.4 % (0.0-2.0); Eosinophils # (auto) 0.4 10 ^3/uL (0-0.8); Eosinophils % (auto) 4.4 % (0.0-7.0); Hematocrit 28.1 % (41.0-53.0); Hemoglobin 9.1 g/dL (13.5-17.5); Mean Corpuscular Hemoglobin 29.8 pg (28.0-32.0); Mean Corpuscular Hgb Conc. 32.5 g/dL (32.0-36.0); Mean Corpuscular Volume 91.7 fL (80.0-100.0); Monocytes # (auto) 0.9 10 ^3/uL (0-1.3); Monocytes % (auto) 9.8 % (0.0-12.0); Neutrophils # (auto) 6.3 10 ^3/uL (1.6-8.6); Neutrophils % (auto) 72.4 % (37.0-80.0); Nucleated Red Blood Cells % 0.1 %; Red Blood Cells 3.06 10^6/uL (4.5-5.90); Red Cell Distribution Width 18.3 % (11.8-14.3); White Blood Cell 8.8 10^3/uL (4.4-10.8)
[2022-08-09 09:32] LABS: Albumin 1.9 g/dL (3.4-5.0); Potassium 3.2 mmol/L (3.5-5.1)
[2022-08-09 09:38] LABS: BUN/Creatinine Ratio 12.6 (10.0-20.0); Total Protein 7.1 g/dL (6.4-8.2)
[2022-08-09] MEDS ORDERED: FUROSEMIDE 40 MG TAB PO SCH (10:00)
[2022-08-09] MEDS: PANTOPRAZOLE 40 MG TAB PO SCH (10:34)
[2022-08-09] MEDS ORDERED: SODIUM BICARBONATE 50ML VIAL 50 ML in SOD CHL 0.45% 1,000 ML IV SCH (12:15)
[2022-08-09] MEDS ORDERED: LIDOCAINE 2% JELLY 11ml (GLYDO) UR ONE (13:45)
[2022-08-09] MEDS: SODIUM BICARBONATE 50ML VIAL 50 ML in SOD CHL 0.45% 1,000 ML IV SCH (14:00)
[2022-08-09 15:36] LABS: Urine Bacteria FEW /hpf (None Seen); Urine Blood Negative /uL (Negative); Urine Hyaline Cast FEW /lpf (0 - 2); Urine Specific Gravity 1.013 (1.001-1.035); Urine WBC 1 /hpf (0 - 3)
[2022-08-09 15:45] LABS: Phosphorus 4.8 mg/dL (2.5-4.90); Uric Acid 11.6 mg/dL (3.5-7.2)
[2022-08-09 15:46] LABS: Creatinine, Urine 174 mg/dL (30.0-125.0); Protein, Urine 57.3 mg/dL (0.0-11.9); Sodium Urine < 5 mmol/L (40-220)
[2022-08-09 16:38] VITALS: BP 112/68
[2022-08-09 22:00] VITALS: BP 114/64
[2022-08-09] MEDS: TEMAZEPAM 15 MG CAP PO PRN (22:13)
[2022-08-09] MEDS: ACETAMINOPHEN 325 MG TAB PO PRN (22:13)
[2022-08-10] MEDS: SODIUM BICARBONATE 50ML VIAL 50 ML in SOD CHL 0.45% 1,000 ML IV SCH ×3 (00:30→21:44)
[2022-08-10 05:00] VITALS: BP 95/41
[2022-08-10] MEDS: InsuLIN REG 1unit/0.01ml Soln (100units/ml) SC SCH ×4 (06:42→22:00)
[2022-08-10] MEDS: ACCU-CHEK COMFORT CURVE STRIP VI SCH ×4 (06:42→22:12)
[2022-08-10 07:04] LABS: Basophils # (auto) 0.1 10 ^3/uL (0-0.2); Eosinophils # (auto) 0.5 10 ^3/uL (0-0.8); Eosinophils % (auto) 4.9 % (0.0-7.0); Hematocrit 28.2 % (41.0-53.0); Hemoglobin 9.4 g/dL (13.5-17.5); Lymphocytes # (auto) 1.3 10 ^3/uL (0.4-5.4); Lymphocytes % (auto) 12.2 % (10.0-50.0); Mean Corpuscular Hgb Conc. 33.2 g/dL (32.0-36.0); Mean Corpuscular Volume 90.3 fL (80.0-100.0); Monocytes # (auto) 1.1 10 ^3/uL (0-1.3); Monocytes % (auto) 10.7 % (0.0-12.0); Neutrophils # (auto) 7.4 10 ^3/uL (1.6-8.6); Neutrophils % (auto) 71.2 % (37.0-80.0); Red Blood Cells 3.12 10^6/uL (4.5-5.90); White Blood Cell 10.3 10^3/uL (4.4-10.8)
[2022-08-10 07:27] LABS: Albumin 1.9 g/dL (3.4-5.0)
[2022-08-10 07:40] LABS: BUN/Creatinine Ratio 12.4 (10.0-20.0); Calcium 8.2 mg/dL (8.5-10.1); Potassium 3.5 mmol/L (3.5-5.1); Total Protein 7.1 g/dL (6.4-8.2)
[2022-08-10 09:00] VITALS: BP 112/65
[2022-08-10] MEDS: DAPTOmycin 500 MG in SODIUM CHL 0.9% 50 ML IV SCH (10:38)
[2022-08-10] MEDS: PANTOPRAZOLE 40 MG TAB PO SCH (10:38)
[2022-08-10 13:00] VITALS: BP 109/65
[2022-08-10 17:00] VITALS: BP 103/56
[2022-08-10] MEDS: TEMAZEPAM 15 MG CAP PO PRN (21:40)
[2022-08-10] MEDS: ACETAMINOPHEN 325 MG TAB PO PRN (21:41)
[2022-08-10 22:00] VITALS: BP 101/50
[2022-08-11 05:00] VITALS: BP 119/64
[2022-08-11] MEDS: InsuLIN REG 1unit/0.01ml Soln (100units/ml) SC SCH ×4 (05:45→22:00)
[2022-08-11] MEDS: ACCU-CHEK COMFORT CURVE STRIP VI SCH ×4 (05:46→22:33)
[2022-08-11 09:00] VITALS: BP 124/82
[2022-08-11] MEDS: DAPTOmycin 500 MG in SODIUM CHL 0.9% 50 ML IV SCH (10:55)
[2022-08-11] MEDS: PANTOPRAZOLE 40 MG TAB PO SCH (10:56)
[2022-08-11] MEDS: SODIUM BICARBONATE 50ML VIAL 50 ML in SOD CHL 0.45% 1,000 ML IV SCH ×2 (11:00→20:52)
[2022-08-11 13:00] VITALS: BP 109/74
[2022-08-11] MEDS: DAKINS QUARTER STR 0.125% (NaHypochlorite) 473 ML TOPICAL SOL TOP SCH ×2 (16:09→22:45)
[2022-08-11 17:00] VITALS: BP 101/52
[2022-08-11] MEDS: ACETAMINOPHEN 325 MG TAB PO PRN (19:34)
[2022-08-11 20:00] VITALS: BP 101/50
[2022-08-11] MEDS ORDERED: FUROSEMIDE 100 MG/10ML VIAL IV ONE (20:15)
[2022-08-11 22:00] VITALS: BP 101/50
[2022-08-11] MEDS: HYDROcodone-ACET 5/325MG TAB PO PRN (22:36)
[2022-08-12 05:16] VITALS: BP 106/66
[2022-08-12] MEDS: FUROSEMIDE 100 MG/10ML VIAL IV SCH ×2 (06:11→17:58)
[2022-08-12] MEDS: SODIUM BICARBONATE 50ML VIAL 50 ML in SOD CHL 0.45% 1,000 ML IV SCH (06:22)
[2022-08-12] MEDS: ACCU-CHEK COMFORT CURVE STRIP VI SCH ×3 (06:33→17:53)
[2022-08-12] MEDS: InsuLIN REG 1unit/0.01ml Soln (100units/ml) SC SCH ×3 (06:34→17:00)
[2022-08-12] MEDS: HYDROcodone-ACET 5/325MG TAB PO PRN ×3 (06:53→22:44)
[2022-08-12 06:58] LABS: Albumin 1.8 g/dL (3.4-5.0); Calcium 8.6 mg/dL (8.5-10.1); Potassium 3.9 mmol/L (3.5-5.1)
[2022-08-12 07:03] LABS: BUN/Creatinine Ratio 12.7 (10.0-20.0); Bilirubin, Total 0.8 mg/dL (0.2-1.0); Phosphorus 5.1 mg/dL (2.5-4.90); Total Protein 6.8 g/dL (6.4-8.2)
[2022-08-12 09:02] VITALS: BP 98/53
[2022-08-12] MEDS: DAKINS QUARTER STR 0.125% (NaHypochlorite) 473 ML TOPICAL SOL TOP SCH ×2 (09:47→22:43)
[2022-08-12] MEDS: DAPTOmycin 500 MG in SODIUM CHL 0.9% 50 ML IV SCH (09:54)
[2022-08-12] MEDS: PANTOPRAZOLE 40 MG TAB PO SCH (09:54)
[2022-08-12 13:00] VITALS: BP 100/66
[2022-08-12 16:37] VITALS: BP 101/61
[2022-08-12] MEDS ORDERED: ENOXAPARIN SOD 40 MG/0.4 ML SYRINGE SC ONE (18:30)
[2022-08-12 20:00] VITALS: BP 102/55
[2022-08-12 22:00] VITALS: BP 102/55
[2022-08-13 05:00] VITALS: BP 92/44
[2022-08-13] MEDS: FUROSEMIDE 100 MG/10ML VIAL IV SCH ×2 (06:16→18:04)
[2022-08-13] MEDS: HYDROcodone-ACET 5/325MG TAB PO PRN ×3 (06:54→18:04)
[2022-08-13 09:00] VITALS: BP 106/63
[2022-08-13] MEDS: DAPTOmycin 500 MG in SODIUM CHL 0.9% 50 ML IV SCH (10:22)
[2022-08-13] MEDS: PANTOPRAZOLE 40 MG TAB PO SCH (10:23)
[2022-08-13] MEDS: ENOXAPARIN SOD 40 MG/0.4 ML SYRINGE SC SCH (10:23)
[2022-08-13] MEDS: DAKINS QUARTER STR 0.125% (NaHypochlorite) 473 ML TOPICAL SOL TOP SCH ×2 (10:23→22:00)
[2022-08-13 10:33] LABS: Potassium 4.1 mmol/L (3.5-5.1)
[2022-08-13 10:42] LABS: BUN/Creatinine Ratio 12.4 (10.0-20.0); Calcium 8.3 mg/dL (8.5-10.1)
[2022-08-13 13:00] VITALS: BP 95/56
[2022-08-13 16:49] VITALS: BP 100/50
[2022-08-13 20:00] VITALS: BP 105/62
[2022-08-13 22:00] VITALS: BP 105/62
[2022-08-14] MEDS: HYDROcodone-ACET 5/325MG TAB PO PRN ×3 (01:13→20:23)
[2022-08-14 05:00] VITALS: BP 106/66
[2022-08-14] MEDS: FUROSEMIDE 100 MG/10ML VIAL IV SCH ×2 (05:15→17:36)
[2022-08-14 06:28] LABS: Basophils # (auto) 0.1 10 ^3/uL (0-0.2); Basophils % (auto) 0.8 % (0.0-2.0); Eosinophils # (auto) 0.5 10 ^3/uL (0-0.8); Eosinophils % (auto) 3.7 % (0.0-7.0); Hematocrit 27.8 % (41.0-53.0); Hemoglobin 9.2 g/dL (13.5-17.5); Lymphocytes # (auto) 1.2 10 ^3/uL (0.4-5.4); Lymphocytes % (auto) 8.5 % (10.0-50.0); Mean Corpuscular Hemoglobin 29.1 pg (28.0-32.0); Mean Corpuscular Hgb Conc. 32.9 g/dL (32.0-36.0); Mean Corpuscular Volume 88.3 fL (80.0-100.0); Monocytes # (auto) 1.3 10 ^3/uL (0-1.3); Monocytes % (auto) 9.7 % (0.0-12.0); Neutrophils # (auto) 10.6 10 ^3/uL (1.6-8.6); Neutrophils % (auto) 77.3 % (37.0-80.0); Nucleated Red Blood Cells % 0.2 %; Red Blood Cells 3.15 10^6/uL (4.5-5.90); Red Cell Distribution Width 17.2 % (11.8-14.3); White Blood Cell 13.8 10^3/uL (4.4-10.8)
[2022-08-14] MEDS: ENOXAPARIN SOD 40 MG/0.4 ML SYRINGE SC SCH ×2 (09:47→21:22)
[2022-08-14] MEDS: DAPTOmycin 500 MG in SODIUM CHL 0.9% 50 ML IV SCH (09:47)
[2022-08-14] MEDS: PANTOPRAZOLE 40 MG TAB PO SCH (09:47)
[2022-08-14 13:07] VITALS: BP 108/57
[2022-08-14] MEDS: DAKINS QUARTER STR 0.125% (NaHypochlorite) 473 ML TOPICAL SOL TOP SCH ×2 (13:30→21:23)
[2022-08-14 17:19] VITALS: BP 104/58
[2022-08-14 21:58] VITALS: BP 113/62
[2022-08-15 04:59] VITALS: BP 101/52
[2022-08-15 05:57] LABS: Basophils # (auto) 0.1 10 ^3/uL (0-0.2); Eosinophils # (auto) 0.6 10 ^3/uL (0-0.8); Eosinophils % (auto) 5.3 % (0.0-7.0); Lymphocytes # (auto) 1.4 10 ^3/uL (0.4-5.4); Lymphocytes % (auto) 11.7 % (10.0-50.0); Mean Corpuscular Hemoglobin 29.3 pg (28.0-32.0); Mean Corpuscular Hgb Conc. 33.3 g/dL (32.0-36.0); Mean Corpuscular Volume 88.2 fL (80.0-100.0); Monocytes # (auto) 1.3 10 ^3/uL (0-1.3); Monocytes % (auto) 10.7 % (0.0-12.0); Neutrophils # (auto) 8.5 10 ^3/uL (1.6-8.6); Neutrophils % (auto) 71.3 % (37.0-80.0); Red Blood Cells 3.06 10^6/uL (4.5-5.90); Red Cell Distribution Width 17.4 % (11.8-14.3); White Blood Cell 11.9 10^3/uL (4.4-10.8)
[2022-08-15 06:07] LABS: Albumin 1.6 g/dL (3.4-5.0); Calcium 8.4 mg/dL (8.5-10.1); Potassium 3.6 mmol/L (3.5-5.1)
[2022-08-15 06:10] LABS: BUN/Creatinine Ratio 14.7 (10.0-20.0); Bilirubin, Total 0.6 mg/dL (0.2-1.0); Total Protein 6.6 g/dL (6.4-8.2)
[2022-08-15] MEDS: FUROSEMIDE 100 MG/10ML VIAL IV SCH ×2 (06:26→17:25)
[2022-08-15] MEDS: HYDROcodone-ACET 5/325MG TAB PO PRN ×3 (06:31→22:25)
[2022-08-15] MEDS: DAPTOmycin 500 MG in SODIUM CHL 0.9% 50 ML IV SCH (09:45)
[2022-08-15] MEDS: PANTOPRAZOLE 40 MG TAB PO SCH (09:45)
[2022-08-15] MEDS: ENOXAPARIN SOD 40 MG/0.4 ML SYRINGE SC SCH ×2 (09:45→21:58)
[2022-08-15] MEDS: DAKINS QUARTER STR 0.125% (NaHypochlorite) 473 ML TOPICAL SOL TOP SCH ×2 (09:46→21:58)
[2022-08-15 12:30] VITALS: BP 94/58
[2022-08-15 16:43] VITALS: BP 131/71
[2022-08-15] MEDS: Pro-Stat SF 30ml Vanilla PO SCH (17:51)
[2022-08-15 22:00] VITALS: BP 110/64
[2022-08-16] MEDS: HYDROcodone-ACET 5/325MG TAB PO PRN ×2 (04:52→20:27)
[2022-08-16 05:00] VITALS: BP 112/65
[2022-08-16] MEDS: FUROSEMIDE 100 MG/10ML VIAL IV SCH ×2 (05:41→17:41)
[2022-08-16 07:19] LABS: BUN/Creatinine Ratio 16.1 (10.0-20.0); Calcium 8.5 mg/dL (8.5-10.1)
[2022-08-16] MEDS: Pro-Stat SF 30ml Vanilla PO SCH ×2 (08:00→17:41)
[2022-08-16 08:50] VITALS: BP 133/84
[2022-08-16] MEDS: PANTOPRAZOLE 40 MG TAB PO SCH (09:22)
[2022-08-16] MEDS: ENOXAPARIN SOD 40 MG/0.4 ML SYRINGE SC SCH ×2 (09:22→22:26)
[2022-08-16] MEDS: DAKINS QUARTER STR 0.125% (NaHypochlorite) 473 ML TOPICAL SOL TOP SCH ×2 (09:25→22:28)
[2022-08-16] MEDS: DAPTOmycin 500 MG in SODIUM CHL 0.9% 50 ML IV SCH (09:25)
[2022-08-16 13:00] VITALS: BP 109/58
[2022-08-16 16:30] VITALS: BP 115/70
[2022-08-16 22:00] VITALS: BP 111/51
[2022-08-17] VITALS (7 sets, daily range): BP systolic 103–112; BP diastolic 59–69
[2022-08-17] MEDS: HYDROcodone-ACET 5/325MG TAB PO PRN ×4 (01:23→22:44)
[2022-08-17] MEDS: FUROSEMIDE 100 MG/10ML VIAL IV SCH ×2 (06:12→18:34)
[2022-08-17] MEDS: PANTOPRAZOLE 40 MG TAB PO SCH (09:08)
[2022-08-17] MEDS: ENOXAPARIN SOD 40 MG/0.4 ML SYRINGE SC SCH ×2 (09:09→22:41)
[2022-08-17] MEDS: DAPTOmycin 500 MG in SODIUM CHL 0.9% 50 ML IV SCH (09:10)
[2022-08-17] MEDS: Pro-Stat SF 30ml Vanilla PO SCH ×2 (09:10→18:33)
[2022-08-17] MEDS: DAKINS QUARTER STR 0.125% (NaHypochlorite) 473 ML TOPICAL SOL TOP SCH ×2 (09:11→22:44)
[2022-08-17 10:05] LABS: BUN/Creatinine Ratio 18.7 (10.0-20.0); Calcium 8.9 mg/dL (8.5-10.1); Potassium 3.5 mmol/L (3.5-5.1)
[2022-08-18] MEDS: HYDROcodone-ACET 5/325MG TAB PO PRN ×3 (04:35→20:21)
[2022-08-18 05:00] VITALS: BP 106/67
[2022-08-18] MEDS: FUROSEMIDE 100 MG/10ML VIAL IV SCH (05:57)
[2022-08-18 06:36] LABS: Potassium 4.4 mmol/L (3.5-5.1)
[2022-08-18 06:51] LABS: BUN/Creatinine Ratio 17.4 (10.0-20.0); Calcium 9.1 mg/dL (8.5-10.1)
[2022-08-18 07:30] VITALS: BP 106/62
[2022-08-18] MEDS: Pro-Stat SF 30ml Vanilla PO SCH ×2 (08:00→17:41)
[2022-08-18] MEDS: PANTOPRAZOLE 40 MG TAB PO SCH (08:57)
[2022-08-18] MEDS: ENOXAPARIN SOD 40 MG/0.4 ML SYRINGE SC SCH ×2 (08:58→21:03)
[2022-08-18] MEDS: DAPTOmycin 500 MG in SODIUM CHL 0.9% 50 ML IV SCH (08:59)
[2022-08-18 09:00] VITALS: BP 117/67
[2022-08-18] MEDS: DAKINS QUARTER STR 0.125% (NaHypochlorite) 473 ML TOPICAL SOL TOP SCH ×2 (12:51→22:00)
[2022-08-18 13:00] VITALS: BP 110/59
[2022-08-18 17:02] VITALS: BP 107/64
[2022-08-18 22:00] VITALS: BP 108/70
[2022-08-19] MEDS: HYDROcodone-ACET 5/325MG TAB PO PRN ×2 (04:39→14:00)
[2022-08-19 05:00] VITALS: BP 125/77
[2022-08-19 05:48] LABS: BUN/Creatinine Ratio 18.2 (10.0-20.0); Calcium 9.3 mg/dL (8.5-10.1); Potassium 4.3 mmol/L (3.5-5.1)
[2022-08-19 08:30] VITALS: BP 94/58
[2022-08-19] MEDS: ENOXAPARIN SOD 40 MG/0.4 ML SYRINGE SC SCH ×2 (10:05→22:00)
[2022-08-19] MEDS: Pro-Stat SF 30ml Vanilla PO SCH ×2 (10:06→17:41)
[2022-08-19] MEDS: DAPTOmycin 500 MG in SODIUM CHL 0.9% 50 ML IV SCH (10:06)
[2022-08-19] MEDS: PANTOPRAZOLE 40 MG TAB PO SCH (10:06)
[2022-08-19] MEDS: DAKINS QUARTER STR 0.125% (NaHypochlorite) 473 ML TOPICAL SOL TOP SCH ×2 (10:30→22:00)
[2022-08-19 12:30] VITALS: BP 138/65
[2022-08-19 15:50] LABS: Urine Bacteria NONE SEEN /hpf (None Seen); Urine Blood 3+ /uL (Negative); Urine Budding Yeast MANY /hpf (None Seen); Urine Hyaline Cast FEW /lpf (0 - 2); Urine Specific Gravity 1.016 (1.001-1.035); Urine WBC 83 /hpf (0 - 3)
[2022-08-19 15:54] LABS: Creatinine, Urine 144 mg/dL (30.0-125.0); Sodium Urine < 5 mmol/L (40-220)
[2022-08-19 16:47] VITALS: BP 112/57
[2022-08-19 22:00] VITALS: BP 112/71
[2022-08-20 05:00] VITALS: BP 94/59
[2022-08-20 06:48] LABS: Potassium 3.8 mmol/L (3.5-5.1)
[2022-08-20 06:58] LABS: BUN/Creatinine Ratio 19.3 (10.0-20.0); Calcium 9.4 mg/dL (8.5-10.1)
[2022-08-20 09:18] VITALS: BP 106/67
[2022-08-20] MEDS: Pro-Stat SF 30ml Vanilla PO SCH ×2 (10:10→17:22)
[2022-08-20] MEDS: DAPTOmycin 500 MG in SODIUM CHL 0.9% 50 ML IV SCH (10:27)
[2022-08-20] MEDS: PANTOPRAZOLE 40 MG TAB PO SCH (10:27)
[2022-08-20] MEDS: DAKINS QUARTER STR 0.125% (NaHypochlorite) 473 ML TOPICAL SOL TOP SCH ×2 (10:27→22:00)
[2022-08-20] MEDS: ENOXAPARIN SOD 40 MG/0.4 ML SYRINGE SC SCH ×2 (10:27→22:00)
[2022-08-20 12:35] VITALS: BP 108/55
[2022-08-20 16:40] VITALS: BP 112/73
[2022-08-20] MEDS: HYDROcodone-ACET 5/325MG TAB PO PRN (18:50)
[2022-08-20 20:00] VITALS: BP 100/70
[2022-08-21] MEDS: HYDROcodone-ACET 5/325MG TAB PO PRN (00:20)
[2022-08-21 00:54] VITALS: BP 100/70
[2022-08-21 06:10] LABS: BUN/Creatinine Ratio 23.3 (10.0-20.0); Calcium 9.5 mg/dL (8.5-10.1); Potassium 4.3 mmol/L (3.5-5.1)
[2022-08-21 06:17] VITALS: BP 123/72
[2022-08-21 06:20] VITALS: BP_SYST 123; BP_SYST 134; BP_DIAS 65; BP_DIAS 72
[2022-08-21 08:00] VITALS: BP 111/69
[2022-08-21] MEDS: Pro-Stat SF 30ml Vanilla PO SCH (08:10)
[2022-08-21 09:00] VITALS: BP 111/69
[2022-08-21] MEDS: DAPTOmycin 500 MG in SODIUM CHL 0.9% 50 ML IV SCH (10:13)
[2022-08-21] MEDS: ACETAMINOPHEN 325 MG TAB PO PRN (10:14)
[2022-08-21] MEDS: PANTOPRAZOLE 40 MG TAB PO SCH (10:14)
[2022-08-21] MEDS: DAKINS QUARTER STR 0.125% (NaHypochlorite) 473 ML TOPICAL SOL TOP SCH (10:14)
[2022-08-21] MEDS: ENOXAPARIN SOD 40 MG/0.4 ML SYRINGE SC SCH (10:14)
[2022-08-21] MEDS ORDERED: CLIN300C8 PO (11:04)
[2022-08-21 12:39] VITALS: BP 100/54
== END 2022-08-21 14:18 | disposition home or self-care (01) | DRG 683 ==
LOC: ER 16:27 → EDUNIT# 21:31 → OVERFLOW 21:31 → WEST WING 08-09 15:55
PROVIDERS: ADMIT Nurse Practitioner; ATTEND Internal Medicine
DX: N17.9 Acute kidney failure, unspecified (principal); E87.1 Hypo-osmolality and hyponatremia; L03.115 Cellulitis of right lower limb; I13.0 Hypertensive heart and chronic kidney disease with heart failure and stage 1 through stage 4 chronic kidney disease, or unspecified chronic kidney disease; E87.20 Acidosis, unspecified; R18.8 Other ascites; L97.929 Non-pressure chronic ulcer of unspecified part of left lower leg with unspecified severity; L03.116 Cellulitis of left lower limb; Z68.43 Body mass index [BMI] 50.0-59.9, adult; I50.9 Heart failure, unspecified; E66.01 Morbid (severe) obesity due to excess calories; D63.1 Anemia in chronic kidney disease; E11.22 Type 2 diabetes mellitus with diabetic chronic kidney disease; N18.30 Chronic kidney disease, stage 3 unspecified; Z20.822 Contact with and (suspected) exposure to COVID-19; J44.9 Chronic obstructive pulmonary disease, unspecified; E78.5 Hyperlipidemia, unspecified; E11.621 Type 2 diabetes mellitus with foot ulcer; E88.09 Other disorders of plasma-protein metabolism, not elsewhere classified; Z88.1 Allergy status to other antibiotic agents; Z88.0 Allergy status to penicillin; Z91.018 Allergy to other foods; Z90.49 Acquired absence of other specified parts of digestive tract; Z83.42 Family history of familial hypercholesterolemia; Z83.3 Family history of diabetes mellitus; Z82.49 Family history of ischemic heart disease and other diseases of the circulatory system; Z80.42 Family history of malignant neoplasm of prostate
CPT/HCPCS: 36415; 71045; 76775; 80048; 80053; 80202; 81001; 82306; 82550; 82570; 82962; 83036; 83690; 83735; 83880; 83935; 83970; 84100; 84156; 84300; 84484; 84550; 85025; 87081; 87426; 93306; 93971; 96365; 96366; 97110; 97116; 97163; 97530; G0378; J1815

== ENCOUNTER 2022-08-22 09:17 | Inpatient (IN) | payer OTHER ==
[~2022-08-22] VITALS: Ht 182.9 cm; Wt 82.5 kg
[~2022-08-22 09:17] MED LIST changes: -CIP500T PO; +CLIN300C70 PO; -POTA-167 PO; +POTA-211 PO; +SIMV10TA20 PO; -SIMV10TA84 PO; -SUCR1SUS10 PO; +SUCR1SUS26 PO
[2022-08-22 10:31] LABS: Basophils # (auto) 0.1 10 ^3/uL (0-0.2); Basophils % (auto) 0.9 % (0.0-2.0); Eosinophils # (auto) 0.7 10 ^3/uL (0-0.8); Eosinophils % (auto) 4.3 % (0.0-7.0); Hematocrit 30.1 % (41.0-53.0); Hemoglobin 9.7 g/dL (13.5-17.5); Lymphocytes % (auto) 6.2 % (10.0-50.0); Mean Corpuscular Hemoglobin 28.5 pg (28.0-32.0); Mean Corpuscular Hgb Conc. 32.1 g/dL (32.0-36.0); Mean Corpuscular Volume 88.6 fL (80.0-100.0); Neutrophils # (auto) 13.2 10 ^3/uL (1.6-8.6); Neutrophils % (auto) 82.6 % (37.0-80.0); Nucleated Red Blood Cells % 0.1 %; Red Cell Distribution Width 17.9 % (11.8-14.3)
[2022-08-22 10:36] LABS: Albumin 1.7 g/dL (3.4-5.0); Calcium 9.4 mg/dL (8.5-10.1); Magnesium 2.4 mg/dL (1.6-2.6); Potassium 4.6 mmol/L (3.5-5.1)
[2022-08-22 10:39] LABS: Bilirubin, Total 0.7 mg/dL (0.2-1.0); Total Protein 6.5 g/dL (6.4-8.2)
[2022-08-22] MEDS ORDERED: CLINDAMYCIN 300MG IV 50 ML IV ONE (15:30)
[2022-08-22] MEDS ORDERED: DEXTROSE (50%) 50ML SYRG IV PRN (15:30)
[2022-08-22] MEDS: InsuLIN REG 1unit/0.01ml Soln (100units/ml) SC SCH ×2 (20:15→22:00)
[2022-08-22] MEDS: ACCU-CHEK COMFORT CURVE STRIP VI SCH ×2 (20:15→22:09)
[2022-08-22] MEDS: SUCRALFATE 1 GM/10 ML ORAL SUSP PO SCH ×2 (20:47→22:00)
[2022-08-22] MEDS: HYDROcodone-ACET 5/325MG TAB PO PRN (20:47)
[2022-08-22 22:28] VITALS: BP 127/90
[2022-08-23] VITALS (9 sets, daily range): BP systolic 99–133; BP diastolic 63–79
[2022-08-23 05:51] LABS: Basophils # (auto) 0.1 10 ^3/uL (0-0.2); Basophils % (auto) 0.9 % (0.0-2.0); Eosinophils # (auto) 0.8 10 ^3/uL (0-0.8); Hematocrit 28.6 % (41.0-53.0); Hemoglobin 9.3 g/dL (13.5-17.5); Lymphocytes # (auto) 1.4 10 ^3/uL (0.4-5.4); Lymphocytes % (auto) 10.1 % (10.0-50.0); Mean Corpuscular Hemoglobin 29.1 pg (28.0-32.0); Mean Corpuscular Hgb Conc. 32.7 g/dL (32.0-36.0); Monocytes # (auto) 1.2 10 ^3/uL (0-1.3); Monocytes % (auto) 8.9 % (0.0-12.0); Neutrophils # (auto) 10.3 10 ^3/uL (1.6-8.6); Neutrophils % (auto) 74.1 % (37.0-80.0); Nucleated Red Blood Cells % 0.1 %; Red Blood Cells 3.21 10^6/uL (4.5-5.90); Red Cell Distribution Width 17.8 % (11.8-14.3); White Blood Cell 13.9 10^3/uL (4.4-10.8)
[2022-08-23 06:04] LABS: BUN/Creatinine Ratio 21.9 (10.0-20.0); Calcium 9.8 mg/dL (8.5-10.1); Potassium 4.1 mmol/L (3.5-5.1)
[2022-08-23] MEDS: SUCRALFATE 1 GM/10 ML ORAL SUSP PO SCH ×4 (06:19→22:03)
[2022-08-23] MEDS: InsuLIN REG 1unit/0.01ml Soln (100units/ml) SC SCH ×4 (06:23→22:00)
[2022-08-23] MEDS: ACCU-CHEK COMFORT CURVE STRIP VI SCH ×4 (06:23→22:05)
[2022-08-23] MEDS: HYDROcodone-ACET 5/325MG TAB PO PRN ×2 (09:41→20:36)
[2022-08-23] MEDS: levoFLOXacin 250MG 50 ML IV SCH (09:41)
[2022-08-23] MEDS: PANTOPRAZOLE 40 MG TAB PO SCH (09:41)
[2022-08-23] MEDS ORDERED: HYDROCHLOROTHIAZIDE PO SCH (10:00)
[2022-08-23] MEDS ORDERED: Simvastatin 10 MG PO SCH (10:00)
[2022-08-23] MEDS ORDERED: LOSARTAN POTASSIUM PO SCH (10:00)
[2022-08-23] MEDS: PRAVASTATIN SODIUM 20 MG TAB PO SCH (22:03)
[2022-08-24] MEDS: HYDROcodone-ACET 5/325MG TAB PO PRN ×2 (03:10→20:16)
[2022-08-24 04:29] VITALS: BP 101/69
[2022-08-24] MEDS: SUCRALFATE 1 GM/10 ML ORAL SUSP PO SCH ×4 (06:16→22:51)
[2022-08-24] MEDS: ACCU-CHEK COMFORT CURVE STRIP VI SCH ×4 (06:19→22:00)
[2022-08-24] MEDS: InsuLIN REG 1unit/0.01ml Soln (100units/ml) SC SCH ×4 (06:20→22:00)
[2022-08-24 09:00] VITALS: BP 111/69
[2022-08-24] MEDS: MORPHINE SULFATE INJ 2 MG/ml SYRG IV PRN (09:56)
[2022-08-24] MEDS ORDERED: LOSARTAN POTASSIUM 50 MG TAB PO SCH (10:00)
[2022-08-24] MEDS ORDERED: HCTZ 25 MG TAB PO SCH (10:00)
[2022-08-24] MEDS: levoFLOXacin 250MG 50 ML IV SCH (10:15)
[2022-08-24] MEDS: PANTOPRAZOLE 40 MG TAB PO SCH (10:16)
[2022-08-24] MEDS ORDERED: FUROSEMIDE 20 MG/2 ML VIAL IV ONE (12:45)
[2022-08-24 13:00] VITALS: BP 115/62
[2022-08-24] MEDS ORDERED: FUROSEMIDE 20 MG TAB PO ONE (14:30)
[2022-08-24 16:55] VITALS: BP 93/58
[2022-08-24 22:00] VITALS: BP 78/35
[2022-08-24] MEDS: DAKINS QUARTER STR 0.125% (NaHypochlorite) 473 ML TOPICAL SOL TOP SCH (22:00)
[2022-08-24] MEDS: PRAVASTATIN SODIUM 20 MG TAB PO SCH (22:51)
[2022-08-24 23:30] VITALS: BP 90/47
[2022-08-25] VITALS (7 sets, daily range): BP systolic 77–151; BP diastolic 44–94
[2022-08-25] MEDS ORDERED: SODIUM CHLORIDE 0.9% 1,000 ML IV SCH (03:45)
[2022-08-25 04:20] LABS: Urine Bacteria FEW /hpf (None Seen); Urine Blood 3+ /uL (Negative); Urine Budding Yeast LOADED /hpf (None Seen); Urine Hyaline Cast MANY /lpf (0 - 2); Urine Mucus FEW (None Seen); Urine WBC 178 /hpf (0 - 3); Urine WBC Clumps PRESENT /hpf (None Seen)
[2022-08-25] MEDS: SUCRALFATE 1 GM/10 ML ORAL SUSP PO SCH ×4 (06:31→21:47)
[2022-08-25] MEDS: InsuLIN REG 1unit/0.01ml Soln (100units/ml) SC SCH ×4 (06:41→21:51)
[2022-08-25] MEDS: ACCU-CHEK COMFORT CURVE STRIP VI SCH ×4 (06:41→21:51)
[2022-08-25 07:00] LABS: Hematocrit 29.6 % (41.0-53.0); Hemoglobin 9.6 g/dL (13.5-17.5); Mean Corpuscular Hemoglobin 28.8 pg (28.0-32.0); Mean Corpuscular Hgb Conc. 32.4 g/dL (32.0-36.0); Red Blood Cells 3.33 10^6/uL (4.5-5.90); Red Cell Distribution Width 18.5 % (11.8-14.3); White Blood Cell 15.2 10^3/uL (4.4-10.8)
[2022-08-25 07:13] LABS: Basophils % (manual) 0 (0.0-2.0); Metamyelocytes % 0
[2022-08-25 07:14] LABS: Blast Cells 0; Promyelocytes % 0; Reactive Lymphocytes 0
[2022-08-25 07:32] LABS: Albumin 1.8 g/dL (3.4-5.0); Potassium 3.8 mmol/L (3.5-5.1)
[2022-08-25 07:34] LABS: Band Neutrophils % (manual) 6; Eosinophils % (manual) 5 (0-7); Lymphocytes % (manual) 11 (10.0-50.0); Monocytes % (manual) 2 (0-12); Myelocytes % 2
[2022-08-25 07:37] LABS: Bilirubin, Total 0.7 mg/dL (0.2-1.0); Total Protein 7.1 g/dL (6.4-8.2)
[2022-08-25] MEDS: DAKINS QUARTER STR 0.125% (NaHypochlorite) 473 ML TOPICAL SOL TOP SCH ×2 (10:00→21:51)
[2022-08-25] MEDS ORDERED: levoFLOXacin 500 MG TAB PO SCH (10:00)
[2022-08-25] MEDS ORDERED: levoFLOXacin 250 MG TAB PO SCH (10:00)
[2022-08-25] MEDS: SODIUM CHLORIDE 0.9% 1,000 ML IV SCH ×2 (10:45→23:54)
[2022-08-25] MEDS ORDERED: FUROSEMIDE 20 MG/2 ML VIAL IV ONE (10:45)
[2022-08-25] MEDS ORDERED: SODIUM CHLORIDE 0.9% 500 ML IV ONE (10:45)
[2022-08-25] MEDS: PANTOPRAZOLE 40 MG TAB PO SCH (10:57)
[2022-08-25] MEDS: HYDROcodone-ACET 5/325MG TAB PO PRN ×2 (10:58→21:46)
[2022-08-25] MEDS ORDERED: FLUCONAZOLE 100 MG TAB PO ONE (11:00)
[2022-08-25] MEDS: ALBUMIN 25% 50 ML IV SCH ×2 (11:16→20:07)
[2022-08-25] MEDS: levoFLOXacin 250MG 50 ML IV SCH (12:14)
[2022-08-25] MEDS: CLINDAMYCIN HCL 150 MG CAP PO SCH ×2 (14:38→21:46)
[2022-08-25] MEDS: PRAVASTATIN SODIUM 20 MG TAB PO SCH (21:47)
[2022-08-26] MEDS: ALBUMIN 25% 50 ML IV SCH (03:01)
[2022-08-26] MEDS: HYDROcodone-ACET 5/325MG TAB PO PRN ×3 (03:55→17:54)
[2022-08-26 05:00] VITALS: BP 92/41
[2022-08-26 05:48] LABS: Basophils # (auto) 0.1 10 ^3/uL (0-0.2); Basophils % (auto) 0.4 % (0.0-2.0); Eosinophils # (auto) 0.9 10 ^3/uL (0-0.8); Eosinophils % (auto) 5.5 % (0.0-7.0); Hematocrit 27.5 % (41.0-53.0); Hemoglobin 8.8 g/dL (13.5-17.5); Mean Corpuscular Hemoglobin 28.5 pg (28.0-32.0); Mean Corpuscular Hgb Conc. 32.1 g/dL (32.0-36.0); Mean Corpuscular Volume 88.8 fL (80.0-100.0); Monocytes # (auto) 1.3 10 ^3/uL (0-1.3); Monocytes % (auto) 8.2 % (0.0-12.0); Neutrophils % (auto) 79.9 % (37.0-80.0); Nucleated Red Blood Cells % 0.1 %; Red Cell Distribution Width 17.8 % (11.8-14.3); White Blood Cell 16.3 10^3/uL (4.4-10.8)
[2022-08-26 06:08] LABS: Calcium 9.5 mg/dL (8.5-10.1); Potassium 4.2 mmol/L (3.5-5.1)
[2022-08-26] MEDS: CLINDAMYCIN HCL 150 MG CAP PO SCH ×3 (06:43→22:49)
[2022-08-26] MEDS: ACCU-CHEK COMFORT CURVE STRIP VI SCH ×4 (06:44→22:58)
[2022-08-26] MEDS: SUCRALFATE 1 GM/10 ML ORAL SUSP PO SCH ×4 (06:44→22:50)
[2022-08-26] MEDS: InsuLIN REG 1unit/0.01ml Soln (100units/ml) SC SCH ×4 (06:44→22:00)
[2022-08-26 09:00] VITALS: BP 114/54
[2022-08-26] MEDS: DAKINS QUARTER STR 0.125% (NaHypochlorite) 473 ML TOPICAL SOL TOP SCH ×2 (09:52→22:58)
[2022-08-26] MEDS: PANTOPRAZOLE 40 MG TAB PO SCH (09:52)
[2022-08-26] MEDS: FLUCONAZOLE 100 MG TAB PO SCH (09:52)
[2022-08-26] MEDS: levoFLOXacin 250MG 50 ML IV SCH (11:32)
[2022-08-26] MEDS: FUROSEMIDE INJECTION 100 MG in SODIUM CHL 0.9% 100 ML IV SCH ×2 (12:35→23:01)
[2022-08-26 13:00] VITALS: BP 102/57
[2022-08-26] MEDS: ONDANSETRON HCL 4 MG/2 ML VIAL IV PRN (15:36)
[2022-08-26 17:00] VITALS: BP 100/57
[2022-08-26 22:00] VITALS: BP 102/48
[2022-08-26] MEDS: PRAVASTATIN SODIUM 20 MG TAB PO SCH (22:50)
[2022-08-26] MEDS: ACETAMINOPHEN 500 MG TAB PO PRN (23:09)
[2022-08-27] MEDS: HYDROcodone-ACET 5/325MG TAB PO PRN ×3 (00:09→22:55)
[2022-08-27 05:00] VITALS: BP 101/52
[2022-08-27] MEDS: CLINDAMYCIN HCL 150 MG CAP PO SCH (05:44)
[2022-08-27 06:11] LABS: Basophils # (auto) 0.1 10 ^3/uL (0-0.2); Basophils % (auto) 0.4 % (0.0-2.0); Eosinophils # (auto) 0.8 10 ^3/uL (0-0.8); Eosinophils % (auto) 3.8 % (0.0-7.0); Hematocrit 27.1 % (41.0-53.0); Hemoglobin 8.7 g/dL (13.5-17.5); Lymphocytes # (auto) 1.3 10 ^3/uL (0.4-5.4); Lymphocytes % (auto) 6.3 % (10.0-50.0); Mean Corpuscular Hemoglobin 29.1 pg (28.0-32.0); Mean Corpuscular Hgb Conc. 32.1 g/dL (32.0-36.0); Mean Corpuscular Volume 90.7 fL (80.0-100.0); Monocytes # (auto) 1.8 10 ^3/uL (0-1.3); Monocytes % (auto) 8.7 % (0.0-12.0); Neutrophils # (auto) 16.3 10 ^3/uL (1.6-8.6); Neutrophils % (auto) 80.8 % (37.0-80.0); Nucleated Red Blood Cells % 0.2 %; Red Blood Cells 2.98 10^6/uL (4.5-5.90); Red Cell Distribution Width 18.3 % (11.8-14.3); White Blood Cell 20.2 10^3/uL (4.4-10.8)
[2022-08-27 06:24] LABS: INR 1.25 (0.9-1.15); Partial Thromboplastin Time 42.4 sec (24.6-33.4)
[2022-08-27 06:28] LABS: BUN/Creatinine Ratio 13.1 (10.0-20.0)
[2022-08-27] MEDS: SUCRALFATE 1 GM/10 ML ORAL SUSP PO SCH ×4 (06:36→21:37)
[2022-08-27] MEDS: ACCU-CHEK COMFORT CURVE STRIP VI SCH ×4 (06:39→21:54)
[2022-08-27] MEDS: InsuLIN REG 1unit/0.01ml Soln (100units/ml) SC SCH ×4 (06:39→21:52)
[2022-08-27 07:11] LABS: Potassium 5.6 mmol/L (3.5-5.1)
[2022-08-27] MEDS: FUROSEMIDE INJECTION 100 MG in SODIUM CHL 0.9% 100 ML IV SCH ×2 (08:24→18:45)
[2022-08-27 09:00] VITALS: BP 98/41
[2022-08-27 11:00] VITALS: BP 93/41
[2022-08-27] MEDS: FLUCONAZOLE 100 MG TAB PO SCH (11:12)
[2022-08-27] MEDS: levoFLOXacin 250MG 50 ML IV SCH (11:12)
[2022-08-27] MEDS: PANTOPRAZOLE 40 MG TAB PO SCH (11:12)
[2022-08-27] MEDS: DAKINS QUARTER STR 0.125% (NaHypochlorite) 473 ML TOPICAL SOL TOP SCH ×2 (12:30→21:53)
[2022-08-27] MEDS ORDERED: SODIUM ZIRCONIUM CYCL 10 GM PAK PO ONE (13:15)
[2022-08-27] MEDS ORDERED: CEFEPIME 1GM/ 50ML 50 ML IV ONE (13:15)
[2022-08-27 17:00] VITALS: BP 99/36
[2022-08-27] MEDS: SODIUM ZIRCONIUM CYCL 10 GM PAK PO SCH ×2 (17:04→21:37)
[2022-08-27] MEDS: LINEZOLID 600MG/300ML 300 ML IV SCH (21:36)
[2022-08-27] MEDS: CEFEPIME 1GM/ 50ML 50 ML IV SCH (21:37)
[2022-08-27 22:00] VITALS: BP 93/43
[2022-08-28] MEDS: FUROSEMIDE INJECTION 100 MG in SODIUM CHL 0.9% 100 ML IV SCH (03:45)
[2022-08-28 05:00] VITALS: BP 89/38
[2022-08-28] MEDS: SODIUM ZIRCONIUM CYCL 10 GM PAK PO SCH ×3 (06:11→21:42)
[2022-08-28] MEDS: SUCRALFATE 1 GM/10 ML ORAL SUSP PO SCH ×4 (06:11→21:41)
[2022-08-28] MEDS: ACCU-CHEK COMFORT CURVE STRIP VI SCH ×4 (06:16→21:44)
[2022-08-28] MEDS: InsuLIN REG 1unit/0.01ml Soln (100units/ml) SC SCH ×4 (06:16→21:44)
[2022-08-28 06:58] LABS: Basophils # (auto) 0.1 10 ^3/uL (0-0.2); Basophils % (auto) 0.7 % (0.0-2.0); Eosinophils # (auto) 0.8 10 ^3/uL (0-0.8); Eosinophils % (auto) 4.2 % (0.0-7.0); Hematocrit 27.2 % (41.0-53.0); Hemoglobin 8.6 g/dL (13.5-17.5); Lymphocytes % (auto) 5.4 % (10.0-50.0); Mean Corpuscular Hemoglobin 29.3 pg (28.0-32.0); Mean Corpuscular Hgb Conc. 31.8 g/dL (32.0-36.0); Monocytes # (auto) 1.7 10 ^3/uL (0-1.3); Monocytes % (auto) 8.8 % (0.0-12.0); Neutrophils # (auto) 15.5 10 ^3/uL (1.6-8.6); Neutrophils % (auto) 80.9 % (37.0-80.0); Red Blood Cells 2.95 10^6/uL (4.5-5.90); Red Cell Distribution Width 18.6 % (11.8-14.3); White Blood Cell 19.2 10^3/uL (4.4-10.8)
[2022-08-28 08:32] VITALS: BP 86/36
[2022-08-28] MEDS: PANTOPRAZOLE 40 MG TAB PO SCH (09:18)
[2022-08-28] MEDS: CEFEPIME 1GM/ 50ML 50 ML IV SCH ×2 (09:18→21:41)
[2022-08-28 11:10] LABS: Potassium 4.6 mmol/L (3.5-5.1)
[2022-08-28 11:11] LABS: Albumin 1.5 g/dL (3.4-5.0); BUN/Creatinine Ratio 12.6 (10.0-20.0); Bilirubin, Total 0.5 mg/dL (0.2-1.0); Calcium 9.1 mg/dL (8.5-10.1); Total Protein 5.9 g/dL (6.4-8.2)
[2022-08-28 12:50] VITALS: BP 80/43
[2022-08-28] MEDS: MIDODRINE HCL 10 MG TAB PO SCH ×2 (14:12→18:01)
[2022-08-28] MEDS: LINEZOLID 600MG/300ML 300 ML IV SCH ×2 (14:13→21:41)
[2022-08-28] MEDS: ALBUMIN 25% 50 ML IV SCH ×2 (14:39→20:18)
[2022-08-28] MEDS: DAKINS QUARTER STR 0.125% (NaHypochlorite) 473 ML TOPICAL SOL TOP SCH ×2 (15:14→21:43)
[2022-08-28 16:53] VITALS: BP 108/57
[2022-08-28 22:01] VITALS: BP 93/50
[2022-08-29 04:41] VITALS: BP 101/53
[2022-08-29] MEDS: ALBUMIN 25% 50 ML IV SCH (05:12)
[2022-08-29] MEDS: MIDODRINE HCL 10 MG TAB PO SCH ×3 (05:18→17:36)
[2022-08-29] MEDS: SUCRALFATE 1 GM/10 ML ORAL SUSP PO SCH ×4 (05:18→22:03)
[2022-08-29] MEDS: SODIUM ZIRCONIUM CYCL 10 GM PAK PO SCH (05:18)
[2022-08-29] MEDS: HYDROcodone-ACET 5/325MG TAB PO PRN (05:18)
[2022-08-29 05:57] LABS: Basophils # (auto) 0.1 10 ^3/uL (0-0.2); Basophils % (auto) 0.4 % (0.0-2.0); Eosinophils # (auto) 1.1 10 ^3/uL (0-0.8); Hematocrit 27.9 % (41.0-53.0); Lymphocytes % (auto) 5.7 % (10.0-50.0); Mean Corpuscular Hemoglobin 29.1 pg (28.0-32.0); Mean Corpuscular Hgb Conc. 32.3 g/dL (32.0-36.0); Mean Corpuscular Volume 90.1 fL (80.0-100.0); Monocytes # (auto) 1.5 10 ^3/uL (0-1.3); Monocytes % (auto) 8.4 % (0.0-12.0); Neutrophils % (auto) 79.5 % (37.0-80.0); Red Cell Distribution Width 18.1 % (11.8-14.3); White Blood Cell 17.7 10^3/uL (4.4-10.8)
[2022-08-29 06:14] LABS: Potassium 4.2 mmol/L (3.5-5.1)
[2022-08-29 06:17] LABS: BUN/Creatinine Ratio 13.4 (10.0-20.0); Calcium 9.5 mg/dL (8.5-10.1)
[2022-08-29] MEDS: ACCU-CHEK COMFORT CURVE STRIP VI SCH ×4 (06:21→21:50)
[2022-08-29] MEDS: InsuLIN REG 1unit/0.01ml Soln (100units/ml) SC SCH ×4 (06:24→22:00)
[2022-08-29 09:00] VITALS: BP 88/46
[2022-08-29] MEDS: CEFEPIME 1GM/ 50ML 50 ML IV SCH ×3 (09:23→22:00)
[2022-08-29] MEDS: DAKINS QUARTER STR 0.125% (NaHypochlorite) 473 ML TOPICAL SOL TOP SCH ×2 (09:32→21:50)
[2022-08-29] MEDS: PANTOPRAZOLE 40 MG TAB PO SCH (09:32)
[2022-08-29] MEDS: LINEZOLID 600MG/300ML 300 ML IV SCH ×3 (11:52→22:00)
[2022-08-29 13:00] VITALS: BP 90/36
[2022-08-29] MEDS: ALBUMIN 25% 100 ML IV SCH ×3 (16:43→21:49)
[2022-08-29] MEDS: OCTREOTIDE ACETATE 100 MCG/ML VL SUBCUT SCH ×2 (16:51→22:02)
[2022-08-29 17:00] VITALS: BP 92/38
[2022-08-30 00:29] VITALS: BP 82/42
[2022-08-30 05:29] VITALS: BP 92/46
[2022-08-30] MEDS: SUCRALFATE 1 GM/10 ML ORAL SUSP PO SCH ×4 (05:34→22:37)
[2022-08-30] MEDS: OCTREOTIDE ACETATE 100 MCG/ML VL SUBCUT SCH ×3 (05:34→22:43)
[2022-08-30] MEDS: MIDODRINE HCL 10 MG TAB PO SCH ×3 (05:35→17:05)
[2022-08-30] MEDS: ACCU-CHEK COMFORT CURVE STRIP VI SCH ×4 (05:47→22:53)
[2022-08-30] MEDS: InsuLIN REG 1unit/0.01ml Soln (100units/ml) SC SCH ×4 (05:47→22:00)
[2022-08-30 06:15] LABS: BUN/Creatinine Ratio 14.3 (10.0-20.0); Calcium 8.9 mg/dL (8.5-10.1); Phosphorus 6.8 mg/dL (2.5-4.90); Potassium 4.1 mmol/L (3.5-5.1)
[2022-08-30 06:18] LABS: Basophils # (auto) 0.1 10 ^3/uL (0-0.2); Basophils % (auto) 0.9 % (0.0-2.0); Eosinophils # (auto) 1.5 10 ^3/uL (0-0.8); Hematocrit 27.6 % (41.0-53.0); Lymphocytes # (auto) 1.1 10 ^3/uL (0.4-5.4); Lymphocytes % (auto) 7.5 % (10.0-50.0); Mean Corpuscular Hgb Conc. 32.5 g/dL (32.0-36.0); Mean Corpuscular Volume 89.3 fL (80.0-100.0); Monocytes # (auto) 1.5 10 ^3/uL (0-1.3); Monocytes % (auto) 9.9 % (0.0-12.0); Neutrophils # (auto) 10.9 10 ^3/uL (1.6-8.6); Neutrophils % (auto) 71.7 % (37.0-80.0); Nucleated Red Blood Cells % 0.1 %; Red Blood Cells 3.09 10^6/uL (4.5-5.90); Red Cell Distribution Width 18.1 % (11.8-14.3); White Blood Cell 15.2 10^3/uL (4.4-10.8)
[2022-08-30 09:00] VITALS: BP 81/37
[2022-08-30] MEDS: LINEZOLID 600MG/300ML 300 ML IV SCH ×2 (09:07→22:43)
[2022-08-30] MEDS: FUROSEMIDE 40 MG/4 ML VIAL IV SCH (10:00)
[2022-08-30] MEDS ORDERED: SPIRONOLACTONE 25 MG TAB PO SCH (10:00)
[2022-08-30] MEDS: DOPamine 1600MCG/ML D5W 250 ML IV SCH (10:17)
[2022-08-30] MEDS: PANTOPRAZOLE 40 MG TAB PO SCH (10:17)
[2022-08-30] MEDS: CEFEPIME 1GM/ 50ML 50 ML IV SCH (11:32)
[2022-08-30 13:00] VITALS: BP 96/50
[2022-08-30] MEDS ORDERED: BUMETANIDE 2.5mg/10ml (0.25 mg/ml) INJ IV ONE (14:45)
[2022-08-30] MEDS: DAKINS QUARTER STR 0.125% (NaHypochlorite) 473 ML TOPICAL SOL TOP SCH ×2 (15:20→22:53)
[2022-08-30 17:00] VITALS: BP 99/55
[2022-08-30 22:00] VITALS: BP 103/48
[2022-08-31] MEDS: CEFEPIME 1GM/ 50ML 50 ML IV SCH ×2 (01:01→11:39)
[2022-08-31] MEDS: DOPamine 1600MCG/ML D5W 250 ML IV SCH ×2 (02:57→23:11)
[2022-08-31 05:00] VITALS: BP 97/40
[2022-08-31 05:22] LABS: Basophils # (auto) 0.1 10 ^3/uL (0-0.2); Eosinophils # (auto) 1.8 10 ^3/uL (0-0.8); Eosinophils % (auto) 12.3 % (0.0-7.0); Lymphocytes # (auto) 1.3 10 ^3/uL (0.4-5.4); Lymphocytes % (auto) 8.7 % (10.0-50.0); Mean Corpuscular Hemoglobin 29.2 pg (28.0-32.0); Mean Corpuscular Hgb Conc. 32.4 g/dL (32.0-36.0); Mean Corpuscular Volume 90.1 fL (80.0-100.0); Monocytes # (auto) 1.5 10 ^3/uL (0-1.3); Nucleated Red Blood Cells % 0.1 %; Red Blood Cells 3.44 10^6/uL (4.5-5.90); Red Cell Distribution Width 18.7 % (11.8-14.3); White Blood Cell 14.7 10^3/uL (4.4-10.8)
[2022-08-31 05:37] LABS: Anion Gap 13 (5-15); BUN/Creatinine Ratio 17.9 (10.0-20.0); Blood Urea Nitrogen 70 mg/dL (7-18); Calcium 9.1 mg/dL (8.5-10.1); Carbon Dioxide 21 mmol/L (21-32); Chloride 99 mmol/L (98-107); GFR African American 21 mL/min; GFR Non-African American 17 mL/min; Glucose 117 mg/dL (74-106); Potassium 3.9 mmol/L (3.5-5.1); Sodium 133 mmol/L (136-145)
[2022-08-31] MEDS: MIDODRINE HCL 10 MG TAB PO SCH ×3 (06:14→17:30)
[2022-08-31] MEDS: OCTREOTIDE ACETATE 100 MCG/ML VL SUBCUT SCH ×3 (06:14→21:51)
[2022-08-31] MEDS: SUCRALFATE 1 GM/10 ML ORAL SUSP PO SCH ×4 (06:18→21:49)
[2022-08-31] MEDS: InsuLIN REG 1unit/0.01ml Soln (100units/ml) SC SCH ×4 (06:20→21:55)
[2022-08-31] MEDS: ACCU-CHEK COMFORT CURVE STRIP VI SCH ×4 (06:20→21:56)
[2022-08-31 08:00] VITALS: BP 126/61
[2022-08-31] MEDS: SEVELAMER 800 MG TAB PO SCH ×3 (09:14→17:30)
[2022-08-31] MEDS: PANTOPRAZOLE 40 MG TAB PO SCH (09:15)
[2022-08-31] MEDS: LINEZOLID 600MG/300ML 300 ML IV SCH ×2 (09:17→21:52)
[2022-08-31] MEDS: FUROSEMIDE 40 MG/4 ML VIAL IV SCH (09:17)
[2022-08-31 12:00] VITALS: BP 124/70
[2022-08-31] MEDS ORDERED: MICAFUNGIN SODIUM 100 MG in SODIUM CHL 0.9% 100 ML IV ONE (12:30)
[2022-08-31] MEDS: DAKINS QUARTER STR 0.125% (NaHypochlorite) 473 ML TOPICAL SOL TOP SCH ×2 (14:26→21:56)
[2022-08-31 16:00] VITALS: BP 108/67
[2022-08-31 21:40] VITALS: BP 108/65
[2022-09-01] MEDS: CEFEPIME 1GM/ 50ML 50 ML IV SCH ×2 (00:25→13:43)
[2022-09-01 05:00] VITALS: BP 108/61
[2022-09-01 06:28] LABS: Hematocrit 34.1 % (41.0-53.0); Hemoglobin 10.7 g/dL (13.5-17.5); Mean Corpuscular Hemoglobin 28.7 pg (28.0-32.0); Mean Corpuscular Hgb Conc. 31.3 g/dL (32.0-36.0); Mean Corpuscular Volume 91.8 fL (80.0-100.0); Red Blood Cells 3.72 10^6/uL (4.5-5.90); Red Cell Distribution Width 18.3 % (11.8-14.3); White Blood Cell 13.2 10^3/uL (4.4-10.8)
[2022-09-01] MEDS: SUCRALFATE 1 GM/10 ML ORAL SUSP PO SCH ×4 (06:29→21:33)
[2022-09-01] MEDS: MIDODRINE HCL 10 MG TAB PO SCH ×3 (06:29→17:27)
[2022-09-01] MEDS: OCTREOTIDE ACETATE 100 MCG/ML VL SUBCUT SCH ×3 (06:29→21:35)
[2022-09-01 06:31] LABS: Potassium 3.5 mmol/L (3.5-5.1)
[2022-09-01] MEDS: ACCU-CHEK COMFORT CURVE STRIP VI SCH ×4 (06:33→22:00)
[2022-09-01] MEDS: InsuLIN REG 1unit/0.01ml Soln (100units/ml) SC SCH ×4 (06:33→21:53)
[2022-09-01 06:38] LABS: Calcium 9.6 mg/dL (8.5-10.1)
[2022-09-01 06:50] LABS: Band Neutrophils % (manual) 0; Basophils % (manual) 0 (0.0-2.0); Blast Cells 0; Metamyelocytes % 0; Myelocytes % 0; Promyelocytes % 0; Reactive Lymphocytes 0
[2022-09-01 08:35] LABS: Eosinophils % (manual) 15 (0-7); Lymphocytes % (manual) 9 (10.0-50.0); Monocytes % (manual) 8 (0-12)
[2022-09-01] MEDS: SEVELAMER 800 MG TAB PO SCH ×3 (08:38→17:27)
[2022-09-01] MEDS: PANTOPRAZOLE 40 MG TAB PO SCH (08:38)
[2022-09-01] MEDS: MICAFUNGIN SODIUM 100 MG in SODIUM CHL 0.9% 100 ML IV SCH (08:39)
[2022-09-01] MEDS: FUROSEMIDE 40 MG/4 ML VIAL IV SCH (08:39)
[2022-09-01 09:00] VITALS: BP 96/52
[2022-09-01] MEDS: ONDANSETRON HCL 4 MG/2 ML VIAL IV PRN (09:25)
[2022-09-01] MEDS: LINEZOLID 600MG/300ML 300 ML IV SCH ×2 (10:21→21:36)
[2022-09-01 13:00] VITALS: BP 85/49
[2022-09-01] MEDS: DAKINS QUARTER STR 0.125% (NaHypochlorite) 473 ML TOPICAL SOL TOP SCH ×2 (15:57→21:52)
[2022-09-01 16:53] VITALS: BP 109/56
[2022-09-01] MEDS: DOPamine 1600MCG/ML D5W 250 ML IV SCH (18:26)
[2022-09-01 22:00] VITALS: BP 100/60
[2022-09-02] VITALS (7 sets, daily range): BP systolic 94–147; BP diastolic 57–72
[2022-09-02] MEDS: CEFEPIME 1GM/ 50ML 50 ML IV SCH ×3 (00:29→22:57)
[2022-09-02] MEDS: ACETAMINOPHEN 500 MG TAB PO PRN (04:01)
[2022-09-02 06:56] LABS: Hematocrit 33.1 % (41.0-53.0); Hemoglobin 10.7 g/dL (13.5-17.5); Mean Corpuscular Hemoglobin 28.5 pg (28.0-32.0); Mean Corpuscular Hgb Conc. 32.2 g/dL (32.0-36.0); Mean Corpuscular Volume 88.5 fL (80.0-100.0); Red Blood Cells 3.74 10^6/uL (4.5-5.90); Red Cell Distribution Width 18.7 % (11.8-14.3); White Blood Cell 13.1 10^3/uL (4.4-10.8)
[2022-09-02] MEDS: InsuLIN REG 1unit/0.01ml Soln (100units/ml) SC SCH ×4 (07:00→22:00)
[2022-09-02 07:11] LABS: Band Neutrophils % (manual) 0; Basophils % (manual) 0 (0.0-2.0); Blast Cells 0; Metamyelocytes % 0; Myelocytes % 0; Promyelocytes % 0; Reactive Lymphocytes 0
[2022-09-02] MEDS: MIDODRINE HCL 10 MG TAB PO SCH ×3 (07:17→17:47)
[2022-09-02] MEDS: SUCRALFATE 1 GM/10 ML ORAL SUSP PO SCH ×4 (07:17→22:29)
[2022-09-02] MEDS: OCTREOTIDE ACETATE 100 MCG/ML VL SUBCUT SCH ×3 (07:19→22:30)
[2022-09-02] MEDS: ACCU-CHEK COMFORT CURVE STRIP VI SCH ×4 (07:25→22:54)
[2022-09-02 07:27] LABS: BUN/Creatinine Ratio 22.6 (10.0-20.0); Phosphorus 4.7 mg/dL (2.5-4.90); Potassium 3.4 mmol/L (3.5-5.1)
[2022-09-02] MEDS: SEVELAMER 800 MG TAB PO SCH ×3 (08:28→17:48)
[2022-09-02] MEDS: ONDANSETRON HCL 4 MG/2 ML VIAL IV PRN ×2 (09:09→17:20)
[2022-09-02] MEDS: FUROSEMIDE 40 MG/4 ML VIAL IV SCH (10:14)
[2022-09-02] MEDS: DOPamine 1600MCG/ML D5W 250 ML IV SCH (10:14)
[2022-09-02] MEDS: MICAFUNGIN SODIUM 100 MG in SODIUM CHL 0.9% 100 ML IV SCH (10:15)
[2022-09-02] MEDS: DAKINS QUARTER STR 0.125% (NaHypochlorite) 473 ML TOPICAL SOL TOP SCH ×2 (10:15→22:57)
[2022-09-02] MEDS: PANTOPRAZOLE 40 MG TAB PO SCH (10:15)
[2022-09-02] MEDS ORDERED: POTASSIUM CHL 20 Meq TABLET PO ONE (11:00)
[2022-09-02] MEDS: LINEZOLID 600MG/300ML 300 ML IV SCH ×2 (11:03→22:29)
[2022-09-02] MEDS ORDERED: ENOXAPARIN SOD 40 MG/0.4 ML SYRINGE SC ONE (12:00)
[2022-09-02 13:09] LABS: Eosinophils % (manual) 13 (0-7); Lymphocytes % (manual) 11 (10.0-50.0); Monocytes % (manual) 10 (0-12)
[2022-09-02] MEDS: FLORASTOR (S. BOULARDII) 250 MG CAP PO SCH (22:29)
[2022-09-03] VITALS (7 sets, daily range): BP systolic 10–111; BP diastolic 55–103
[2022-09-03] MEDS: ONDANSETRON HCL 4 MG/2 ML VIAL IV PRN ×2 (01:27→09:38)
[2022-09-03] MEDS: DOPamine 1600MCG/ML D5W 250 ML IV SCH ×2 (04:05→22:41)
[2022-09-03] MEDS: MIDODRINE HCL 10 MG TAB PO SCH ×3 (06:32→17:25)
[2022-09-03] MEDS: SUCRALFATE 1 GM/10 ML ORAL SUSP PO SCH ×4 (06:32→22:42)
[2022-09-03] MEDS: OCTREOTIDE ACETATE 100 MCG/ML VL SUBCUT SCH ×3 (06:33→22:42)
[2022-09-03] MEDS: InsuLIN REG 1unit/0.01ml Soln (100units/ml) SC SCH ×4 (06:34→22:00)
[2022-09-03] MEDS: ACCU-CHEK COMFORT CURVE STRIP VI SCH ×4 (06:35→22:44)
[2022-09-03] MEDS: FLORASTOR (S. BOULARDII) 250 MG CAP PO SCH ×2 (09:39→22:42)
[2022-09-03] MEDS: FUROSEMIDE 40 MG/4 ML VIAL IV SCH (09:39)
[2022-09-03] MEDS: SEVELAMER 800 MG TAB PO SCH ×3 (09:39→17:25)
[2022-09-03] MEDS: PANTOPRAZOLE 40 MG TAB PO SCH (09:39)
[2022-09-03] MEDS: LINEZOLID 600MG/300ML 300 ML IV SCH ×2 (09:39→22:41)
[2022-09-03] MEDS: HYDROcodone-ACET 5/325MG TAB PO PRN (09:39)
[2022-09-03] MEDS: MICAFUNGIN SODIUM 100 MG in SODIUM CHL 0.9% 100 ML IV SCH (09:40)
[2022-09-03] MEDS: ENOXAPARIN SOD 40 MG/0.4 ML SYRINGE SC SCH (09:40)
[2022-09-03] MEDS: CEFEPIME 1GM/ 50ML 50 ML IV SCH ×2 (09:40→22:42)
[2022-09-03] MEDS: DAKINS QUARTER STR 0.125% (NaHypochlorite) 473 ML TOPICAL SOL TOP SCH ×2 (09:40→22:51)
[2022-09-03 15:02] LABS: BUN/Creatinine Ratio 22.9 (10.0-20.0); Calcium 10.6 mg/dL (8.5-10.1); Potassium 3.3 mmol/L (3.5-5.1)
[2022-09-04] VITALS (7 sets, daily range): BP systolic 100–130; BP diastolic 55–70
[2022-09-04] MEDS: SUCRALFATE 1 GM/10 ML ORAL SUSP PO SCH ×4 (06:12→21:38)
[2022-09-04] MEDS: MIDODRINE HCL 10 MG TAB PO SCH ×3 (06:12→18:13)
[2022-09-04] MEDS: OCTREOTIDE ACETATE 100 MCG/ML VL SUBCUT SCH ×3 (06:13→21:44)
[2022-09-04] MEDS: InsuLIN REG 1unit/0.01ml Soln (100units/ml) SC SCH ×4 (06:13→21:44)
[2022-09-04] MEDS: ACCU-CHEK COMFORT CURVE STRIP VI SCH ×4 (06:14→21:45)
[2022-09-04 06:20] LABS: Basophils # (auto) 0.4 10 ^3/uL (0-0.2); Basophils % (auto) 2.5 % (0.0-2.0); Eosinophils # (auto) 1.4 10 ^3/uL (0-0.8); Eosinophils % (auto) 9.5 % (0.0-7.0); Hematocrit 35.7 % (41.0-53.0); Hemoglobin 11.2 g/dL (13.5-17.5); Lymphocytes # (auto) 1.7 10 ^3/uL (0.4-5.4); Mean Corpuscular Hemoglobin 28.2 pg (28.0-32.0); Mean Corpuscular Hgb Conc. 31.3 g/dL (32.0-36.0); Monocytes # (auto) 1.1 10 ^3/uL (0-1.3); Neutrophils # (auto) 9.8 10 ^3/uL (1.6-8.6); Nucleated Red Blood Cells % 0.1 %; Red Blood Cells 3.96 10^6/uL (4.5-5.90); Red Cell Distribution Width 18.5 % (11.8-14.3); White Blood Cell 14.4 10^3/uL (4.4-10.8)
[2022-09-04 06:51] LABS: Potassium 3.1 mmol/L (3.5-5.1)
[2022-09-04 07:05] LABS: Albumin 1.7 g/dL (3.4-5.0); BUN/Creatinine Ratio 24.4 (10.0-20.0); Bilirubin, Total 0.7 mg/dL (0.2-1.0); Calcium 11.1 mg/dL (8.5-10.1); Total Protein 6.5 g/dL (6.4-8.2)
[2022-09-04] MEDS: FUROSEMIDE 40 MG/4 ML VIAL IV SCH (10:06)
[2022-09-04] MEDS: LINEZOLID 600MG/300ML 300 ML IV SCH ×2 (10:06→21:43)
[2022-09-04] MEDS: MICAFUNGIN SODIUM 100 MG in SODIUM CHL 0.9% 100 ML IV SCH (10:06)
[2022-09-04] MEDS: CEFEPIME 1GM/ 50ML 50 ML IV SCH ×2 (10:06→21:40)
[2022-09-04] MEDS: FLORASTOR (S. BOULARDII) 250 MG CAP PO SCH ×2 (10:07→21:38)
[2022-09-04] MEDS: ENOXAPARIN SOD 40 MG/0.4 ML SYRINGE SC SCH (10:07)
[2022-09-04] MEDS: SEVELAMER 800 MG TAB PO SCH ×3 (10:07→18:13)
[2022-09-04] MEDS: PANTOPRAZOLE 40 MG TAB PO SCH (10:07)
[2022-09-04] MEDS: DAKINS QUARTER STR 0.125% (NaHypochlorite) 473 ML TOPICAL SOL TOP SCH ×2 (10:08→21:45)
[2022-09-04] MEDS ORDERED: POTASSIUM CHL 20 Meq TABLET PO ONE (12:00)
[2022-09-04 14:50] LABS: Urine Bacteria NONE SEEN /hpf (None Seen); Urine Blood 1+ /uL (Negative); Urine Hyaline Cast FEW /lpf (0 - 2); Urine Specific Gravity 1.011 (1.001-1.035); Urine WBC 13 /hpf (0 - 3)
[2022-09-04] MEDS: DOPamine 1600MCG/ML D5W 250 ML IV SCH (18:19)
[2022-09-05] VITALS (7 sets, daily range): BP systolic 104–143; BP diastolic 62–83
[2022-09-05] MEDS: ONDANSETRON HCL 4 MG/2 ML VIAL IV PRN ×2 (04:10→11:52)
[2022-09-05 06:14] LABS: Basophils # (auto) 0.2 10 ^3/uL (0-0.2); Basophils % (auto) 1.4 % (0.0-2.0); Eosinophils # (auto) 0.9 10 ^3/uL (0-0.8); Eosinophils % (auto) 6.7 % (0.0-7.0); Hematocrit 35.4 % (41.0-53.0); Hemoglobin 11.4 g/dL (13.5-17.5); Lymphocytes # (auto) 1.6 10 ^3/uL (0.4-5.4); Lymphocytes % (auto) 11.3 % (10.0-50.0); Mean Corpuscular Hemoglobin 28.3 pg (28.0-32.0); Mean Corpuscular Hgb Conc. 32.3 g/dL (32.0-36.0); Mean Corpuscular Volume 87.7 fL (80.0-100.0); Monocytes # (auto) 1.1 10 ^3/uL (0-1.3); Neutrophils # (auto) 10.1 10 ^3/uL (1.6-8.6); Neutrophils % (auto) 72.6 % (37.0-80.0); Nucleated Red Blood Cells % 0.2 %; Red Blood Cells 4.04 10^6/uL (4.5-5.90); Red Cell Distribution Width 17.8 % (11.8-14.3)
[2022-09-05 06:16] LABS: Potassium 3.3 mmol/L (3.5-5.1)
[2022-09-05 06:22] LABS: BUN/Creatinine Ratio 21.9 (10.0-20.0); Calcium 11.8 mg/dL (8.5-10.1)
[2022-09-05] MEDS: SUCRALFATE 1 GM/10 ML ORAL SUSP PO SCH ×4 (06:27→21:33)
[2022-09-05] MEDS: MIDODRINE HCL 10 MG TAB PO SCH ×3 (06:27→19:15)
[2022-09-05] MEDS: InsuLIN REG 1unit/0.01ml Soln (100units/ml) SC SCH ×4 (06:28→21:34)
[2022-09-05] MEDS: OCTREOTIDE ACETATE 100 MCG/ML VL SUBCUT SCH (06:28)
[2022-09-05] MEDS: ACCU-CHEK COMFORT CURVE STRIP VI SCH ×4 (06:29→21:35)
[2022-09-05] MEDS: SEVELAMER 800 MG TAB PO SCH ×3 (08:30→19:15)
[2022-09-05] MEDS: CEFEPIME 1GM/ 50ML 50 ML IV SCH ×2 (11:05→21:33)
[2022-09-05] MEDS: PANTOPRAZOLE 40 MG TAB PO SCH (11:07)
[2022-09-05] MEDS: FLORASTOR (S. BOULARDII) 250 MG CAP PO SCH ×2 (11:07→21:33)
[2022-09-05] MEDS: FUROSEMIDE 40 MG/4 ML VIAL IV SCH ×2 (11:07→21:58)
[2022-09-05] MEDS: ENOXAPARIN SOD 40 MG/0.4 ML SYRINGE SC SCH (11:08)
[2022-09-05] MEDS: DAKINS QUARTER STR 0.125% (NaHypochlorite) 473 ML TOPICAL SOL TOP SCH ×2 (11:09→21:34)
[2022-09-05] MEDS: LINEZOLID 600MG/300ML 300 ML IV SCH ×2 (11:09→21:33)
[2022-09-05] MEDS: MICAFUNGIN SODIUM 100 MG in SODIUM CHL 0.9% 100 ML IV SCH (11:45)
[2022-09-05] MEDS ORDERED: POTASSIUM CHL 20 Meq TABLET PO ONE (13:15)
[2022-09-05] MEDS ORDERED: metOLazone 5 MG TAB PO ONE (13:15)
[2022-09-05] MEDS: DOPamine 1600MCG/ML D5W 250 ML IV SCH (13:42)
[2022-09-06] VITALS (7 sets, daily range): BP systolic 104–133; BP diastolic 52–85
[2022-09-06 06:02] LABS: Basophils # (auto) 0.2 10 ^3/uL (0-0.2); Basophils % (auto) 1.2 % (0.0-2.0); Eosinophils % (auto) 6.7 % (0.0-7.0); Hematocrit 36.3 % (41.0-53.0); Hemoglobin 11.5 g/dL (13.5-17.5); Lymphocytes # (auto) 1.7 10 ^3/uL (0.4-5.4); Lymphocytes % (auto) 11.6 % (10.0-50.0); Mean Corpuscular Hemoglobin 28.2 pg (28.0-32.0); Mean Corpuscular Hgb Conc. 31.6 g/dL (32.0-36.0); Mean Corpuscular Volume 89.3 fL (80.0-100.0); Monocytes # (auto) 1.2 10 ^3/uL (0-1.3); Monocytes % (auto) 8.1 % (0.0-12.0); Neutrophils # (auto) 10.8 10 ^3/uL (1.6-8.6); Neutrophils % (auto) 72.4 % (37.0-80.0); Nucleated Red Blood Cells % 0.2 %; Red Blood Cells 4.07 10^6/uL (4.5-5.90); Red Cell Distribution Width 18.2 % (11.8-14.3); White Blood Cell 14.9 10^3/uL (4.4-10.8)
[2022-09-06 06:24] LABS: Chloride 97 mmol/L (98-107); Potassium 3.4 mmol/L (3.5-5.1); Sodium 133 mmol/L (136-145)
[2022-09-06 06:28] LABS: Anion Gap 14 (5-15); BUN/Creatinine Ratio 17.3 (10.0-20.0); Blood Urea Nitrogen 39 mg/dL (7-18); Calcium 10.8 mg/dL (8.5-10.1); Carbon Dioxide 22 mmol/L (21-32); GFR African American 39 mL/min; GFR Non-African American 32 mL/min; Glucose 90 mg/dL (74-106)
[2022-09-06] MEDS: DOPamine 1600MCG/ML D5W 250 ML IV SCH (06:33)
[2022-09-06] MEDS: InsuLIN REG 1unit/0.01ml Soln (100units/ml) SC SCH ×4 (06:33→22:00)
[2022-09-06] MEDS: MIDODRINE HCL 10 MG TAB PO SCH ×3 (06:33→18:14)
[2022-09-06] MEDS: SUCRALFATE 1 GM/10 ML ORAL SUSP PO SCH ×4 (06:33→22:12)
[2022-09-06] MEDS: ACCU-CHEK COMFORT CURVE STRIP VI SCH ×4 (06:34→22:13)
[2022-09-06] MEDS: SEVELAMER 800 MG TAB PO SCH ×3 (07:53→18:14)
[2022-09-06] MEDS: CEFEPIME 1GM/ 50ML 50 ML IV SCH (09:23)
[2022-09-06] MEDS: ENOXAPARIN SOD 40 MG/0.4 ML SYRINGE SC SCH (09:26)
[2022-09-06] MEDS: FUROSEMIDE 40 MG/4 ML VIAL IV SCH ×2 (09:26→22:13)
[2022-09-06] MEDS: PANTOPRAZOLE 40 MG TAB PO SCH (09:27)
[2022-09-06] MEDS: FLORASTOR (S. BOULARDII) 250 MG CAP PO SCH ×2 (09:27→22:13)
[2022-09-06] MEDS: DAKINS QUARTER STR 0.125% (NaHypochlorite) 473 ML TOPICAL SOL TOP SCH ×2 (10:28→22:13)
[2022-09-06] MEDS ORDERED: POTASSIUM CHL 20 Meq TABLET PO ONE (11:15)
[2022-09-06] MEDS: LINEZOLID 600MG/300ML 300 ML IV SCH ×2 (12:09→22:13)
[2022-09-06] MEDS: FLUCONAZOLE 200MG/100ML 100 ML IV SCH (12:09)
[2022-09-06 13:03] LABS: INR 1.41 (0.9-1.15); Partial Thromboplastin Time 36.1 sec (24.6-33.4)
[2022-09-06] MEDS ORDERED: CEFEPIME 1GM/ 50ML 50 ML IV SCH (20:45)
[2022-09-07] MEDS: CEFEPIME 1GM/ 50ML 50 ML IV SCH ×2 (00:23→15:00)
[2022-09-07] MEDS: DOPamine 1600MCG/ML D5W 250 ML IV SCH ×2 (01:05→23:48)
[2022-09-07 05:18] VITALS: BP 139/85
[2022-09-07] MEDS: MIDODRINE HCL 10 MG TAB PO SCH ×3 (05:22→17:43)
[2022-09-07] MEDS: InsuLIN REG 1unit/0.01ml Soln (100units/ml) SC SCH ×4 (05:32→22:00)
[2022-09-07] MEDS: ACCU-CHEK COMFORT CURVE STRIP VI SCH ×4 (05:32→23:57)
[2022-09-07 06:20] LABS: Basophils # (auto) 0.2 10 ^3/uL (0-0.2); Basophils % (auto) 1.1 % (0.0-2.0); Eosinophils # (auto) 1.1 10 ^3/uL (0-0.8); Eosinophils % (auto) 7.7 % (0.0-7.0); Hematocrit 36.5 % (41.0-53.0); Hemoglobin 11.7 g/dL (13.5-17.5); Lymphocytes % (auto) 13.8 % (10.0-50.0); Mean Corpuscular Hemoglobin 28.2 pg (28.0-32.0); Mean Corpuscular Hgb Conc. 31.9 g/dL (32.0-36.0); Mean Corpuscular Volume 88.3 fL (80.0-100.0); Monocytes # (auto) 1.2 10 ^3/uL (0-1.3); Monocytes % (auto) 8.2 % (0.0-12.0); Neutrophils # (auto) 9.7 10 ^3/uL (1.6-8.6); Neutrophils % (auto) 69.2 % (37.0-80.0); Nucleated Red Blood Cells % 0.1 %; Red Blood Cells 4.13 10^6/uL (4.5-5.90); Red Cell Distribution Width 18.6 % (11.8-14.3); White Blood Cell 14.1 10^3/uL (4.4-10.8)
[2022-09-07] MEDS: SUCRALFATE 1 GM/10 ML ORAL SUSP PO SCH ×4 (06:23→23:49)
[2022-09-07 07:10] LABS: Potassium 3.8 mmol/L (3.5-5.1)
[2022-09-07 07:20] LABS: BUN/Creatinine Ratio 19.3 (10.0-20.0)
[2022-09-07 07:45] LABS: Calcium 13.6 mg/dL (8.5-10.1)
[2022-09-07 08:30] VITALS: BP 116/69
[2022-09-07] MEDS: FLORASTOR (S. BOULARDII) 250 MG CAP PO SCH ×2 (10:56→23:50)
[2022-09-07] MEDS: SEVELAMER 800 MG TAB PO SCH ×3 (10:56→18:18)
[2022-09-07] MEDS: PANTOPRAZOLE 40 MG TAB PO SCH (10:56)
[2022-09-07] MEDS: ENOXAPARIN SOD 40 MG/0.4 ML SYRINGE SC SCH (10:56)
[2022-09-07] MEDS: FLUCONAZOLE 200MG/100ML 100 ML IV SCH (11:52)
[2022-09-07] MEDS: FUROSEMIDE 40 MG/4 ML VIAL IV SCH ×2 (11:53→23:48)
[2022-09-07] MEDS ORDERED: ZOLEDRONIC ACID 4 MG in SODIUM CHL 0.9% 100 ML IV ONE (13:45)
[2022-09-07] MEDS ORDERED: LIDOCAINE 1% (LOCAL ANESTH.) PF 5ml SDV ID ONE (14:00)
[2022-09-07] MEDS: LINEZOLID 600MG/300ML 300 ML IV SCH ×2 (14:23→23:47)
[2022-09-07 16:25] VITALS: BP 156/76
[2022-09-07] MEDS: DAKINS QUARTER STR 0.125% (NaHypochlorite) 473 ML TOPICAL SOL TOP SCH ×2 (18:18→22:00)
[2022-09-07 22:00] VITALS: BP 131/73
[2022-09-07] MEDS: SODIUM CHLOR 0.9% PF (SALINE LOCK) 10ML VIAL/SYR IV SCH (23:49)
[2022-09-07] MEDS: HYDROcodone-ACET 5/325MG TAB PO PRN (23:50)
[2022-09-08] MEDS: CEFEPIME 1GM/ 50ML 50 ML IV SCH ×3 (01:21→23:10)
[2022-09-08 05:00] VITALS: BP 125/75
[2022-09-08] MEDS: MIDODRINE HCL 10 MG TAB PO SCH (06:00)
[2022-09-08] MEDS: InsuLIN REG 1unit/0.01ml Soln (100units/ml) SC SCH ×4 (07:00→21:25)
[2022-09-08] MEDS: ACCU-CHEK COMFORT CURVE STRIP VI SCH ×4 (07:18→21:30)
[2022-09-08] MEDS: SUCRALFATE 1 GM/10 ML ORAL SUSP PO SCH ×4 (07:18→21:12)
[2022-09-08 07:37] LABS: Basophils # (auto) 0.2 10 ^3/uL (0-0.2); Basophils % (auto) 1.3 % (0.0-2.0); Eosinophils % (auto) 5.7 % (0.0-7.0); Hematocrit 36.4 % (41.0-53.0); Hemoglobin 11.7 g/dL (13.5-17.5); Lymphocytes # (auto) 2.2 10 ^3/uL (0.4-5.4); Lymphocytes % (auto) 12.9 % (10.0-50.0); Mean Corpuscular Hemoglobin 28.1 pg (28.0-32.0); Mean Corpuscular Volume 87.6 fL (80.0-100.0); Monocytes # (auto) 1.2 10 ^3/uL (0-1.3); Monocytes % (auto) 7.4 % (0.0-12.0); Neutrophils # (auto) 12.2 10 ^3/uL (1.6-8.6); Neutrophils % (auto) 72.7 % (37.0-80.0); Nucleated Red Blood Cells % 0.6 %; Red Blood Cells 4.15 10^6/uL (4.5-5.90); Red Cell Distribution Width 18.7 % (11.8-14.3); White Blood Cell 16.8 10^3/uL (4.4-10.8)
[2022-09-08 08:00] LABS: BUN/Creatinine Ratio 17.3 (10.0-20.0); Potassium 3.9 mmol/L (3.5-5.1)
[2022-09-08 09:00] VITALS: BP 121/71
[2022-09-08] MEDS: SEVELAMER 800 MG TAB PO SCH ×3 (09:12→18:33)
[2022-09-08] MEDS: PANTOPRAZOLE 40 MG TAB PO SCH (09:13)
[2022-09-08] MEDS: FLUCONAZOLE 200MG/100ML 100 ML IV SCH (09:16)
[2022-09-08] MEDS: SODIUM CHLOR 0.9% PF (SALINE LOCK) 10ML VIAL/SYR IV SCH ×2 (09:16→21:14)
[2022-09-08] MEDS: ENOXAPARIN SOD 40 MG/0.4 ML SYRINGE SC SCH (09:17)
[2022-09-08] MEDS: DAKINS QUARTER STR 0.125% (NaHypochlorite) 473 ML TOPICAL SOL TOP SCH ×2 (09:17→21:26)
[2022-09-08 13:00] VITALS: BP 115/64
[2022-09-08] MEDS: FUROSEMIDE 40 MG/4 ML VIAL IV SCH ×2 (13:01→21:16)
[2022-09-08] MEDS: LINEZOLID 600MG/300ML 300 ML IV SCH ×2 (13:03→21:13)
[2022-09-08] MEDS: FLORASTOR (S. BOULARDII) 250 MG CAP PO SCH ×2 (13:03→21:12)
[2022-09-08] MEDS: DOPamine 1600MCG/ML D5W 250 ML IV SCH (14:27)
[2022-09-08 17:23] VITALS: BP 113/81
[2022-09-08 22:00] VITALS: BP 112/75
[2022-09-09] MEDS: ONDANSETRON HCL 4 MG/2 ML VIAL IV PRN ×2 (02:47→19:49)
[2022-09-09 04:52] VITALS: BP 121/82
[2022-09-09] MEDS: InsuLIN REG 1unit/0.01ml Soln (100units/ml) SC SCH ×4 (06:23→21:46)
[2022-09-09] MEDS: ACCU-CHEK COMFORT CURVE STRIP VI SCH ×4 (06:23→21:45)
[2022-09-09] MEDS: SUCRALFATE 1 GM/10 ML ORAL SUSP PO SCH ×4 (06:39→21:41)
[2022-09-09] MEDS: SEVELAMER 800 MG TAB PO SCH ×3 (08:10→18:17)
[2022-09-09 09:00] VITALS: BP 129/84
[2022-09-09] MEDS: PANTOPRAZOLE 40 MG TAB PO SCH (09:10)
[2022-09-09] MEDS: FLORASTOR (S. BOULARDII) 250 MG CAP PO SCH ×2 (09:11→21:41)
[2022-09-09] MEDS: ENOXAPARIN SOD 40 MG/0.4 ML SYRINGE SC SCH (09:12)
[2022-09-09] MEDS: FUROSEMIDE 40 MG/4 ML VIAL IV SCH ×2 (09:12→21:42)
[2022-09-09] MEDS: FLUCONAZOLE 200MG/100ML 100 ML IV SCH (09:12)
[2022-09-09] MEDS: SODIUM CHLOR 0.9% PF (SALINE LOCK) 10ML VIAL/SYR IV SCH ×2 (09:13→21:41)
[2022-09-09] MEDS: LINEZOLID 600MG/300ML 300 ML IV SCH ×2 (09:13→21:41)
[2022-09-09] MEDS: DAKINS QUARTER STR 0.125% (NaHypochlorite) 473 ML TOPICAL SOL TOP SCH ×2 (10:00→21:59)
[2022-09-09] MEDS: DOPamine 1600MCG/ML D5W 250 ML IV SCH (12:45)
[2022-09-09] MEDS: CEFEPIME 1GM/ 50ML 50 ML IV SCH ×2 (12:59→23:59)
[2022-09-09 13:00] VITALS: BP 109/68
[2022-09-09 16:03] LABS: Urine Amorphous Crystal FEW /hpf (None Seen); Urine Bacteria FEW /hpf (None Seen); Urine Blood 2+ /uL (Negative); Urine Budding Yeast MODERATE /hpf (None Seen); Urine Hyaline Cast FEW /lpf (0 - 2); Urine Mucus FEW (None Seen); Urine Specific Gravity 1.016 (1.001-1.035); Urine WBC 55 /hpf (0 - 3)
[2022-09-09 17:00] VITALS: BP 110/73
[2022-09-09 20:00] VITALS: BP 110/72
[2022-09-09 22:00] VITALS: BP 101/65
[2022-09-10] MEDS: DOPamine 1600MCG/ML D5W 250 ML IV SCH ×2 (03:49→13:31)
[2022-09-10] MEDS: ACCU-CHEK COMFORT CURVE STRIP VI SCH ×4 (06:04→22:11)
[2022-09-10] MEDS: SUCRALFATE 1 GM/10 ML ORAL SUSP PO SCH ×4 (06:04→22:08)
[2022-09-10] MEDS: InsuLIN REG 1unit/0.01ml Soln (100units/ml) SC SCH ×4 (06:04→22:00)
[2022-09-10 06:28] LABS: Basophils # (auto) 0.2 10 ^3/uL (0-0.2); Basophils % (auto) 1.1 % (0.0-2.0); Eosinophils # (auto) 1.2 10 ^3/uL (0-0.8); Eosinophils % (auto) 8.1 % (0.0-7.0); Hematocrit 34.3 % (41.0-53.0); Hemoglobin 10.8 g/dL (13.5-17.5); Lymphocytes # (auto) 1.8 10 ^3/uL (0.4-5.4); Lymphocytes % (auto) 12.8 % (10.0-50.0); Mean Corpuscular Hemoglobin 28.1 pg (28.0-32.0); Mean Corpuscular Hgb Conc. 31.6 g/dL (32.0-36.0); Mean Corpuscular Volume 88.8 fL (80.0-100.0); Monocytes % (auto) 7.1 % (0.0-12.0); Neutrophils # (auto) 10.2 10 ^3/uL (1.6-8.6); Neutrophils % (auto) 70.9 % (37.0-80.0); Nucleated Red Blood Cells % 0.2 %; Red Blood Cells 3.86 10^6/uL (4.5-5.90); White Blood Cell 14.4 10^3/uL (4.4-10.8)
[2022-09-10 06:36] LABS: Albumin 1.8 g/dL (3.4-5.0); Calcium 11.7 mg/dL (8.5-10.1); Potassium 3.7 mmol/L (3.5-5.1)
[2022-09-10 06:41] LABS: Bilirubin, Total 0.8 mg/dL (0.2-1.0)
[2022-09-10 08:12] VITALS: BP 117/77
[2022-09-10] MEDS: SEVELAMER 800 MG TAB PO SCH ×3 (08:12→18:27)
[2022-09-10 09:00] VITALS: BP 117/77
[2022-09-10] MEDS: FLUCONAZOLE 200MG/100ML 100 ML IV SCH (09:19)
[2022-09-10] MEDS: ENOXAPARIN SOD 40 MG/0.4 ML SYRINGE SC SCH (10:24)
[2022-09-10] MEDS: LINEZOLID 600MG/300ML 300 ML IV SCH ×2 (10:24→22:08)
[2022-09-10] MEDS: FLORASTOR (S. BOULARDII) 250 MG CAP PO SCH ×2 (10:24→22:08)
[2022-09-10] MEDS: PANTOPRAZOLE 40 MG TAB PO SCH (10:24)
[2022-09-10] MEDS: FUROSEMIDE 40 MG/4 ML VIAL IV SCH ×2 (10:25→22:48)
[2022-09-10] MEDS: SODIUM CHLOR 0.9% PF (SALINE LOCK) 10ML VIAL/SYR IV SCH ×2 (10:25→22:10)
[2022-09-10] MEDS ORDERED: ALBUMIN 25% 50 ML IV ONE (12:45)
[2022-09-10] MEDS: CEFEPIME 1GM/ 50ML 50 ML IV SCH (13:22)
[2022-09-10] MEDS: DAKINS QUARTER STR 0.125% (NaHypochlorite) 473 ML TOPICAL SOL TOP SCH ×2 (14:21→22:11)
[2022-09-10 15:41] LABS: INR 1.49 (0.9-1.15); Partial Thromboplastin Time 40.6 sec (24.6-33.4)
[2022-09-10 16:30] VITALS: BP 106/69
[2022-09-10] MEDS ORDERED: ALBUMIN 25% 100 ML IV ONE (17:30)
[2022-09-10 20:00] VITALS: BP 117/77
[2022-09-10 22:00] VITALS: BP 99/57
[2022-09-10] MEDS: ALBUMIN 25% 100 ML IV SCH (22:52)
[2022-09-11] MEDS: CEFEPIME 1GM/ 50ML 50 ML IV SCH ×2 (00:02→16:19)
[2022-09-11 05:00] VITALS: BP 104/61
[2022-09-11] MEDS: ALBUMIN 25% 100 ML IV SCH ×2 (05:04→14:03)
[2022-09-11 06:28] LABS: BUN/Creatinine Ratio 16.8 (10.0-20.0); Calcium 11.8 mg/dL (8.5-10.1); Potassium 3.6 mmol/L (3.5-5.1)
[2022-09-11 06:29] LABS: Basophils # (auto) 0.1 10 ^3/uL (0-0.2); Eosinophils # (auto) 1.2 10 ^3/uL (0-0.8); Mean Corpuscular Volume 91.2 fL (80.0-100.0); Neutrophils # (auto) 8.9 10 ^3/uL (1.6-8.6)
[2022-09-11 06:31] LABS: Basophils % (auto) 0.9 % (0.0-2.0); Eosinophils % (auto) 9.7 % (0.0-7.0); Hematocrit 35.2 % (41.0-53.0); Lymphocytes # (auto) 1.6 10 ^3/uL (0.4-5.4); Lymphocytes % (auto) 12.1 % (10.0-50.0); Mean Corpuscular Hemoglobin 28.4 pg (28.0-32.0); Mean Corpuscular Hgb Conc. 31.2 g/dL (32.0-36.0); Monocytes % (auto) 8.1 % (0.0-12.0); Neutrophils % (auto) 69.2 % (37.0-80.0); Nucleated Red Blood Cells % 0.4 %; Red Blood Cells 3.85 10^6/uL (4.5-5.90); White Blood Cell 12.8 10^3/uL (4.4-10.8)
[2022-09-11] MEDS: SUCRALFATE 1 GM/10 ML ORAL SUSP PO SCH ×4 (06:36→22:37)
[2022-09-11] MEDS: InsuLIN REG 1unit/0.01ml Soln (100units/ml) SC SCH ×4 (06:40→22:00)
[2022-09-11] MEDS: ACCU-CHEK COMFORT CURVE STRIP VI SCH ×4 (06:40→22:00)
[2022-09-11 07:50] VITALS: BP 102/64
[2022-09-11] MEDS: SEVELAMER 800 MG TAB PO SCH ×3 (07:50→18:15)
[2022-09-11 09:00] VITALS: BP 102/64
[2022-09-11] MEDS: FLUCONAZOLE 200MG/100ML 100 ML IV SCH (09:22)
[2022-09-11] MEDS: FLORASTOR (S. BOULARDII) 250 MG CAP PO SCH ×2 (09:22→22:38)
[2022-09-11] MEDS: PANTOPRAZOLE 40 MG TAB PO SCH (09:22)
[2022-09-11] MEDS: ENOXAPARIN SOD 40 MG/0.4 ML SYRINGE SC SCH (09:22)
[2022-09-11] MEDS: DAKINS QUARTER STR 0.125% (NaHypochlorite) 473 ML TOPICAL SOL TOP SCH ×2 (09:22→22:39)
[2022-09-11] MEDS: SODIUM CHLOR 0.9% PF (SALINE LOCK) 10ML VIAL/SYR IV SCH ×2 (09:23→22:00)
[2022-09-11] MEDS: LINEZOLID 600MG/300ML 300 ML IV SCH ×2 (11:00→22:47)
[2022-09-11] MEDS: FUROSEMIDE 40 MG/4 ML VIAL IV SCH ×2 (12:37→22:46)
[2022-09-11] MEDS ORDERED: MIDODRINE HCL 10 MG TAB PO ONE (12:45)
[2022-09-11 13:00] VITALS: BP 111/65
[2022-09-11 17:00] VITALS: BP 109/71
[2022-09-11] MEDS: MIDODRINE HCL 10 MG TAB PO SCH (18:15)
[2022-09-11 22:00] VITALS: BP 121/73
[2022-09-11] MEDS: OCTREOTIDE ACETATE 100 MCG/ML VL SUBCUT SCH (22:00)
[2022-09-12] MEDS: CEFEPIME 1GM/ 50ML 50 ML IV SCH ×2 (02:06→13:13)
[2022-09-12 05:00] VITALS: BP 121/63
[2022-09-12 06:13] LABS: Calcium 11.4 mg/dL (8.5-10.1); Potassium 3.5 mmol/L (3.5-5.1)
[2022-09-12 06:30] LABS: Basophils # (auto) 0.1 10 ^3/uL (0-0.2); Basophils % (auto) 1.1 % (0.0-2.0); Eosinophils # (auto) 1.4 10 ^3/uL (0-0.8); Eosinophils % (auto) 11.5 % (0.0-7.0); Hematocrit 30.4 % (41.0-53.0); Lymphocytes # (auto) 1.3 10 ^3/uL (0.4-5.4); Lymphocytes % (auto) 10.9 % (10.0-50.0); Mean Corpuscular Hemoglobin 28.9 pg (28.0-32.0); Mean Corpuscular Hgb Conc. 32.8 g/dL (32.0-36.0); Mean Corpuscular Volume 87.9 fL (80.0-100.0); Monocytes # (auto) 0.9 10 ^3/uL (0-1.3); Monocytes % (auto) 7.7 % (0.0-12.0); Neutrophils # (auto) 8.2 10 ^3/uL (1.6-8.6); Neutrophils % (auto) 68.8 % (37.0-80.0); Nucleated Red Blood Cells % 0.3 %; Red Blood Cells 3.46 10^6/uL (4.5-5.90); Red Cell Distribution Width 18.9 % (11.8-14.3); White Blood Cell 11.9 10^3/uL (4.4-10.8)
[2022-09-12] MEDS: InsuLIN REG 1unit/0.01ml Soln (100units/ml) SC SCH ×4 (06:58→22:00)
[2022-09-12] MEDS: ACCU-CHEK COMFORT CURVE STRIP VI SCH ×4 (06:59→23:30)
[2022-09-12] MEDS: MIDODRINE HCL 10 MG TAB PO SCH ×3 (06:59→18:14)
[2022-09-12] MEDS: SUCRALFATE 1 GM/10 ML ORAL SUSP PO SCH ×4 (06:59→23:22)
[2022-09-12] MEDS: OCTREOTIDE ACETATE 100 MCG/ML VL SUBCUT SCH ×3 (07:06→23:29)
[2022-09-12 07:40] VITALS: BP 102/66
[2022-09-12 09:00] VITALS: BP 102/66
[2022-09-12] MEDS: SEVELAMER 800 MG TAB PO SCH ×3 (09:10→18:14)
[2022-09-12] MEDS: FLUCONAZOLE 200MG/100ML 100 ML IV SCH (09:10)
[2022-09-12] MEDS: PANTOPRAZOLE 40 MG TAB PO SCH (10:01)
[2022-09-12] MEDS: LINEZOLID 600MG/300ML 300 ML IV SCH ×2 (10:01→23:59)
[2022-09-12] MEDS: FLORASTOR (S. BOULARDII) 250 MG CAP PO SCH ×2 (10:01→23:29)
[2022-09-12] MEDS: DAKINS QUARTER STR 0.125% (NaHypochlorite) 473 ML TOPICAL SOL TOP SCH ×2 (10:02→23:59)
[2022-09-12] MEDS: ENOXAPARIN SOD 40 MG/0.4 ML SYRINGE SC SCH (10:02)
[2022-09-12] MEDS: FUROSEMIDE 40 MG/4 ML VIAL IV SCH ×2 (10:02→23:27)
[2022-09-12] MEDS: SODIUM CHLOR 0.9% PF (SALINE LOCK) 10ML VIAL/SYR IV SCH ×2 (10:02→23:27)
[2022-09-12 13:00] VITALS: BP 92/63
[2022-09-12] MEDS ORDERED: ENOXAPARIN SOD 40 MG/0.4 ML SYRINGE SC ONE (20:45)
[2022-09-12 22:00] VITALS: BP_SYST 112; BP_SYST 194; BP_DIAS 64; BP_DIAS 92
[2022-09-13] MEDS: CEFEPIME 1GM/ 50ML 50 ML IV SCH ×2 (01:48→12:37)
[2022-09-13 05:14] VITALS: BP 118/67
[2022-09-13] MEDS: InsuLIN REG 1unit/0.01ml Soln (100units/ml) SC SCH ×4 (07:00→22:00)
[2022-09-13 07:02] LABS: BUN/Creatinine Ratio 16.7 (10.0-20.0); Calcium 11.2 mg/dL (8.5-10.1); Potassium 3.9 mmol/L (3.5-5.1)
[2022-09-13] MEDS: ACCU-CHEK COMFORT CURVE STRIP VI SCH ×4 (07:09→22:29)
[2022-09-13] MEDS: MIDODRINE HCL 10 MG TAB PO SCH ×3 (07:19→17:26)
[2022-09-13] MEDS: SUCRALFATE 1 GM/10 ML ORAL SUSP PO SCH ×4 (07:19→22:28)
[2022-09-13] MEDS: OCTREOTIDE ACETATE 100 MCG/ML VL SUBCUT SCH ×3 (07:21→22:00)
[2022-09-13 08:06] LABS: Immunoglobulin G, Serum 1538 mg/dL (603-1613)
[2022-09-13 09:01] VITALS: BP 116/73
[2022-09-13] MEDS: PANTOPRAZOLE 40 MG TAB PO SCH (09:54)
[2022-09-13] MEDS: SEVELAMER 800 MG TAB PO SCH ×3 (09:54→17:26)
[2022-09-13] MEDS: FUROSEMIDE 40 MG/4 ML VIAL IV SCH ×2 (09:54→22:28)
[2022-09-13] MEDS: FLORASTOR (S. BOULARDII) 250 MG CAP PO SCH ×2 (09:54→22:29)
[2022-09-13] MEDS: LINEZOLID 600MG/300ML 300 ML IV SCH ×2 (09:55→22:28)
[2022-09-13] MEDS: SODIUM CHLOR 0.9% PF (SALINE LOCK) 10ML VIAL/SYR IV SCH ×2 (09:55→22:28)
[2022-09-13] MEDS: FLUCONAZOLE 200MG/100ML 100 ML IV SCH (09:55)
[2022-09-13] MEDS: ENOXAPARIN SOD 40 MG/0.4 ML SYRINGE SC SCH (09:56)
[2022-09-13] MEDS: DAKINS QUARTER STR 0.125% (NaHypochlorite) 473 ML TOPICAL SOL TOP SCH ×2 (10:19→22:29)
[2022-09-13 12:38] VITALS: BP 117/75
[2022-09-13 16:36] VITALS: BP 121/68
[2022-09-13 17:15] LABS: INR 1.34 (0.9-1.15); Partial Thromboplastin Time 39.6 sec (24.6-33.4)
[2022-09-13 20:00] VITALS: BP 138/81
[2022-09-13 22:00] VITALS: BP 139/81
[2022-09-14] VITALS (10 sets, daily range): BP systolic 104–123; BP diastolic 66–78
[2022-09-14] MEDS: CEFEPIME 1GM/ 50ML 50 ML IV SCH
[2022-09-14] MEDS: OCTREOTIDE ACETATE 100 MCG/ML VL SUBCUT SCH ×3 (06:00→22:00)
[2022-09-14 06:12] LABS: Basophils # (auto) 0.2 10 ^3/uL (0-0.2); Basophils % (auto) 1.5 % (0.0-2.0); Eosinophils # (auto) 1.5 10 ^3/uL (0-0.8); Eosinophils % (auto) 13.9 % (0.0-7.0); Hematocrit 31.9 % (41.0-53.0); Hemoglobin 10.3 g/dL (13.5-17.5); Lymphocytes # (auto) 1.5 10 ^3/uL (0.4-5.4); Lymphocytes % (auto) 13.7 % (10.0-50.0); Mean Corpuscular Hemoglobin 28.1 pg (28.0-32.0); Mean Corpuscular Hgb Conc. 32.2 g/dL (32.0-36.0); Mean Corpuscular Volume 87.2 fL (80.0-100.0); Monocytes # (auto) 1.2 10 ^3/uL (0-1.3); Monocytes % (auto) 10.7 % (0.0-12.0); Neutrophils # (auto) 6.7 10 ^3/uL (1.6-8.6); Neutrophils % (auto) 60.2 % (37.0-80.0); Nucleated Red Blood Cells % 0.4 %; Red Blood Cells 3.65 10^6/uL (4.5-5.90); Red Cell Distribution Width 19.1 % (11.8-14.3); White Blood Cell 11.1 10^3/uL (4.4-10.8)
[2022-09-14] MEDS: MIDODRINE HCL 10 MG TAB PO SCH ×3 (06:28→17:38)
[2022-09-14] MEDS: InsuLIN REG 1unit/0.01ml Soln (100units/ml) SC SCH ×4 (06:30→21:38)
[2022-09-14] MEDS: ACCU-CHEK COMFORT CURVE STRIP VI SCH ×4 (06:30→21:37)
[2022-09-14 06:31] LABS: Calcium 10.9 mg/dL (8.5-10.1); Potassium 3.8 mmol/L (3.5-5.1)
[2022-09-14] MEDS: SUCRALFATE 1 GM/10 ML ORAL SUSP PO SCH ×4 (06:33→21:26)
[2022-09-14] MEDS: SEVELAMER 800 MG TAB PO SCH ×3 (08:00→17:38)
[2022-09-14] MEDS ORDERED: MIDAZOLAM HCL 2MG/2ML 2ml VIAL (1mg/ml) ONE (09:37)
[2022-09-14] MEDS ORDERED: fentaNYL CITRATE 100 MCG/2 ML VL ONE (09:37)
[2022-09-14] MEDS ORDERED: HEPARIN SODIUM (PORCINE) 5000 UNITS/ML 1ML VIAL ONE (09:38)
[2022-09-14] MEDS ORDERED: LIDOCAINE 2%HCL (LOCAL ANESTH.) INJ 20ML MDV ONE (09:42)
[2022-09-14] MEDS: ENOXAPARIN SOD 40 MG/0.4 ML SYRINGE SC SCH (11:32)
[2022-09-14] MEDS: LINEZOLID 600MG/300ML 300 ML IV SCH ×2 (11:48→21:26)
[2022-09-14] MEDS: FLUCONAZOLE 200MG/100ML 100 ML IV SCH (11:48)
[2022-09-14] MEDS: PANTOPRAZOLE 40 MG TAB PO SCH (12:55)
[2022-09-14] MEDS: FLORASTOR (S. BOULARDII) 250 MG CAP PO SCH ×2 (12:55→22:00)
[2022-09-14] MEDS: SODIUM CHLOR 0.9% PF (SALINE LOCK) 10ML VIAL/SYR IV SCH ×2 (12:56→21:25)
[2022-09-14] MEDS: FUROSEMIDE 40 MG/4 ML VIAL IV SCH ×2 (12:56→21:24)
[2022-09-14] MEDS: DAKINS QUARTER STR 0.125% (NaHypochlorite) 473 ML TOPICAL SOL TOP SCH ×2 (13:15→21:37)
[2022-09-15 05:00] VITALS: BP 113/70
[2022-09-15] MEDS: MIDODRINE HCL 10 MG TAB PO SCH ×3 (05:48→17:54)
[2022-09-15 05:49] LABS: Basophils # (auto) 0.1 10 ^3/uL (0-0.2); Basophils % (auto) 1.3 % (0.0-2.0); Eosinophils # (auto) 1.4 10 ^3/uL (0-0.8); Eosinophils % (auto) 13.9 % (0.0-7.0); Hematocrit 30.8 % (41.0-53.0); Hemoglobin 10.2 g/dL (13.5-17.5); Lymphocytes # (auto) 1.6 10 ^3/uL (0.4-5.4); Lymphocytes % (auto) 15.6 % (10.0-50.0); Mean Corpuscular Hemoglobin 28.8 pg (28.0-32.0); Mean Corpuscular Volume 87.5 fL (80.0-100.0); Monocytes # (auto) 1.1 10 ^3/uL (0-1.3); Monocytes % (auto) 11.1 % (0.0-12.0); Neutrophils # (auto) 5.9 10 ^3/uL (1.6-8.6); Neutrophils % (auto) 58.1 % (37.0-80.0); Nucleated Red Blood Cells % 0.2 %; Red Blood Cells 3.53 10^6/uL (4.5-5.90); Red Cell Distribution Width 18.9 % (11.8-14.3); White Blood Cell 10.1 10^3/uL (4.4-10.8)
[2022-09-15] MEDS: SUCRALFATE 1 GM/10 ML ORAL SUSP PO SCH ×4 (05:49→22:33)
[2022-09-15] MEDS: OCTREOTIDE ACETATE 100 MCG/ML VL SUBCUT SCH ×4 (05:49→22:31)
[2022-09-15] MEDS: ACCU-CHEK COMFORT CURVE STRIP VI SCH ×4 (05:52→21:53)
[2022-09-15] MEDS: InsuLIN REG 1unit/0.01ml Soln (100units/ml) SC SCH ×4 (06:02→21:53)
[2022-09-15 06:04] LABS: Potassium 3.6 mmol/L (3.5-5.1)
[2022-09-15 06:16] LABS: BUN/Creatinine Ratio 15.8 (10.0-20.0); Calcium 10.2 mg/dL (8.5-10.1)
[2022-09-15] MEDS: ONDANSETRON HCL 4 MG/2 ML VIAL IV PRN (08:58)
[2022-09-15 09:00] VITALS: BP 114/79
[2022-09-15] MEDS: ENOXAPARIN SOD 40 MG/0.4 ML SYRINGE SC SCH (09:01)
[2022-09-15] MEDS: FLUCONAZOLE 200MG/100ML 100 ML IV SCH (09:02)
[2022-09-15] MEDS: FLORASTOR (S. BOULARDII) 250 MG CAP PO SCH ×2 (09:02→23:04)
[2022-09-15] MEDS: SEVELAMER 800 MG TAB PO SCH ×3 (09:02→17:54)
[2022-09-15] MEDS: levoFLOXacin 250MG 50 ML IV SCH (09:02)
[2022-09-15] MEDS: PANTOPRAZOLE 40 MG TAB PO SCH (09:02)
[2022-09-15] MEDS: SODIUM CHLOR 0.9% PF (SALINE LOCK) 10ML VIAL/SYR IV SCH ×2 (09:03→22:33)
[2022-09-15] MEDS: FUROSEMIDE 40 MG/4 ML VIAL IV SCH ×2 (09:04→22:36)
[2022-09-15] MEDS: LINEZOLID 600MG/300ML 300 ML IV SCH ×2 (12:34→22:33)
[2022-09-15 13:00] VITALS: BP 124/78
[2022-09-15] MEDS: DAKINS QUARTER STR 0.125% (NaHypochlorite) 473 ML TOPICAL SOL TOP SCH ×2 (15:41→22:35)
[2022-09-15 17:00] VITALS: BP 114/72
[2022-09-15] MEDS ORDERED: EPOETIN ALFA-EPBX 10,000 UNIT/1ML VIAL SC ONE (21:00)
[2022-09-15 22:00] VITALS: BP 107/77
[2022-09-16 05:00] VITALS: BP 115/73
[2022-09-16] MEDS: ACCU-CHEK COMFORT CURVE STRIP VI SCH ×4 (06:41→22:10)
[2022-09-16] MEDS: InsuLIN REG 1unit/0.01ml Soln (100units/ml) SC SCH ×4 (06:41→22:00)
[2022-09-16] MEDS: MIDODRINE HCL 10 MG TAB PO SCH ×3 (06:41→18:58)
[2022-09-16] MEDS: OCTREOTIDE ACETATE 100 MCG/ML VL SUBCUT SCH ×3 (06:41→22:00)
[2022-09-16] MEDS: SUCRALFATE 1 GM/10 ML ORAL SUSP PO SCH ×4 (06:41→22:00)
[2022-09-16 06:48] LABS: Basophils # (auto) 0.1 10 ^3/uL (0-0.2); Basophils % (auto) 1.5 % (0.0-2.0); Eosinophils % (auto) 10.3 % (0.0-7.0); Hemoglobin 10.2 g/dL (13.5-17.5); Lymphocytes # (auto) 1.7 10 ^3/uL (0.4-5.4); Mean Corpuscular Hemoglobin 28.8 pg (28.0-32.0); Mean Corpuscular Hgb Conc. 32.9 g/dL (32.0-36.0); Mean Corpuscular Volume 87.5 fL (80.0-100.0); Monocytes # (auto) 1.2 10 ^3/uL (0-1.3); Monocytes % (auto) 12.8 % (0.0-12.0); Neutrophils # (auto) 5.3 10 ^3/uL (1.6-8.6); Neutrophils % (auto) 57.4 % (37.0-80.0); Nucleated Red Blood Cells % 0.4 %; Red Blood Cells 3.55 10^6/uL (4.5-5.90); Red Cell Distribution Width 18.5 % (11.8-14.3); White Blood Cell 9.2 10^3/uL (4.4-10.8)
[2022-09-16 07:13] LABS: Potassium 3.8 mmol/L (3.5-5.1)
[2022-09-16 07:18] LABS: BUN/Creatinine Ratio 13.2 (10.0-20.0); Calcium 9.9 mg/dL (8.5-10.1)
[2022-09-16 09:00] VITALS: BP 113/73
[2022-09-16] MEDS: SEVELAMER 800 MG TAB PO SCH ×3 (09:24→18:58)
[2022-09-16] MEDS: FUROSEMIDE 40 MG/4 ML VIAL IV SCH ×2 (09:28→22:30)
[2022-09-16] MEDS: ENOXAPARIN SOD 40 MG/0.4 ML SYRINGE SC SCH (09:29)
[2022-09-16] MEDS: LINEZOLID 600MG/300ML 300 ML IV SCH ×2 (09:29→22:29)
[2022-09-16] MEDS: levoFLOXacin 250MG 50 ML IV SCH (09:30)
[2022-09-16] MEDS: FLUCONAZOLE 200MG/100ML 100 ML IV SCH (09:30)
[2022-09-16] MEDS: PANTOPRAZOLE 40 MG TAB PO SCH (09:31)
[2022-09-16] MEDS: SODIUM CHLOR 0.9% PF (SALINE LOCK) 10ML VIAL/SYR IV SCH ×2 (09:31→22:09)
[2022-09-16] MEDS: FLORASTOR (S. BOULARDII) 250 MG CAP PO SCH ×2 (09:36→22:29)
[2022-09-16] MEDS: DAKINS QUARTER STR 0.125% (NaHypochlorite) 473 ML TOPICAL SOL TOP SCH ×2 (09:37→22:10)
[2022-09-16 13:00] VITALS: BP 111/70
[2022-09-16 17:00] VITALS: BP 104/77
[2022-09-16] MEDS: ONDANSETRON HCL 4 MG/2 ML VIAL IV PRN (18:57)
[2022-09-16 22:00] VITALS: BP 112/77
[2022-09-17 05:00] VITALS: BP 117/74
[2022-09-17] MEDS: MIDODRINE HCL 10 MG TAB PO SCH ×3 (06:06→17:28)
[2022-09-17] MEDS: SUCRALFATE 1 GM/10 ML ORAL SUSP PO SCH ×4 (06:06→21:28)
[2022-09-17] MEDS: OCTREOTIDE ACETATE 100 MCG/ML VL SUBCUT SCH ×3 (06:06→21:30)
[2022-09-17] MEDS: InsuLIN REG 1unit/0.01ml Soln (100units/ml) SC SCH ×4 (06:07→21:34)
[2022-09-17] MEDS: ACCU-CHEK COMFORT CURVE STRIP VI SCH ×4 (06:08→21:35)
[2022-09-17 08:00] VITALS: BP 115/83
[2022-09-17] MEDS: ENSURE CLEAR Mixed Berry 8oz Carton PO SCH ×3 (08:00→17:29)
[2022-09-17] MEDS: SEVELAMER 800 MG TAB PO SCH ×3 (09:55→17:28)
[2022-09-17] MEDS: FLORASTOR (S. BOULARDII) 250 MG CAP PO SCH ×2 (09:56→21:28)
[2022-09-17] MEDS: PANTOPRAZOLE 40 MG TAB PO SCH (09:56)
[2022-09-17] MEDS: ENOXAPARIN SOD 40 MG/0.4 ML SYRINGE SC SCH (09:57)
[2022-09-17] MEDS: FUROSEMIDE 40 MG/4 ML VIAL IV SCH ×2 (09:57→21:35)
[2022-09-17] MEDS: SODIUM CHLOR 0.9% PF (SALINE LOCK) 10ML VIAL/SYR IV SCH ×2 (09:57→21:29)
[2022-09-17] MEDS: LINEZOLID 600MG/300ML 300 ML IV SCH (09:58)
[2022-09-17] MEDS: DAKINS QUARTER STR 0.125% (NaHypochlorite) 473 ML TOPICAL SOL TOP SCH ×2 (09:58→22:00)
[2022-09-17] MEDS: FLUCONAZOLE 200MG/100ML 100 ML IV SCH (09:58)
[2022-09-17] MEDS: levoFLOXacin 250MG 50 ML IV SCH (09:58)
[2022-09-17 12:00] VITALS: BP 105/71
[2022-09-17] MEDS: ONDANSETRON HCL 4 MG/2 ML VIAL IV PRN (13:34)
[2022-09-17] MEDS: ALBUMIN 25% 100 ML IV PRN ×2 (14:23→15:23)
[2022-09-17 16:00] VITALS: BP 95/54
[2022-09-17] MEDS: LINEZOLID 600MG TABLET PO SCH (21:28)
[2022-09-17 21:51] VITALS: BP 103/70
[2022-09-17] MEDS: HYDROcodone-ACET 5/325MG TAB PO PRN (21:53)
[2022-09-18 04:54] VITALS: BP 119/68
[2022-09-18] MEDS: OCTREOTIDE ACETATE 100 MCG/ML VL SUBCUT SCH (05:49)
[2022-09-18] MEDS: MIDODRINE HCL 10 MG TAB PO SCH ×4 (05:49→18:27)
[2022-09-18] MEDS: ONDANSETRON HCL 4 MG/2 ML VIAL IV PRN ×3 (05:54→20:39)
[2022-09-18] MEDS: HYDROcodone-ACET 5/325MG TAB PO PRN ×2 (06:00→20:34)
[2022-09-18] MEDS: SUCRALFATE 1 GM/10 ML ORAL SUSP PO SCH (06:00)
[2022-09-18] MEDS: InsuLIN REG 1unit/0.01ml Soln (100units/ml) SC SCH ×4 (06:03→21:58)
[2022-09-18] MEDS: ACCU-CHEK COMFORT CURVE STRIP VI SCH ×4 (06:03→21:57)
[2022-09-18 06:47] LABS: BUN/Creatinine Ratio 10.3 (10.0-20.0); Calcium 9.6 mg/dL (8.5-10.1); Potassium 4.4 mmol/L (3.5-5.1)
[2022-09-18] MEDS: ENSURE CLEAR Mixed Berry 8oz Carton PO SCH ×3 (08:00→18:28)
[2022-09-18 09:00] VITALS: BP 112/71
[2022-09-18 09:00] LABS: Basophils # (auto) 0.1 10 ^3/uL (0-0.2); Basophils % (auto) 1.4 % (0.0-2.0); Eosinophils # (auto) 0.7 10 ^3/uL (0-0.8); Eosinophils % (auto) 8.1 % (0.0-7.0); Hematocrit 28.7 % (41.0-53.0); Hemoglobin 9.2 g/dL (13.5-17.5); Lymphocytes # (auto) 1.4 10 ^3/uL (0.4-5.4); Lymphocytes % (auto) 17.1 % (10.0-50.0); Mean Corpuscular Hemoglobin 28.3 pg (28.0-32.0); Mean Corpuscular Hgb Conc. 32.1 g/dL (32.0-36.0); Mean Corpuscular Volume 88.1 fL (80.0-100.0); Monocytes % (auto) 12.1 % (0.0-12.0); Neutrophils # (auto) 5.1 10 ^3/uL (1.6-8.6); Neutrophils % (auto) 61.3 % (37.0-80.0); Nucleated Red Blood Cells % 0.2 %; Red Blood Cells 3.26 10^6/uL (4.5-5.90); White Blood Cell 8.3 10^3/uL (4.4-10.8)
[2022-09-18] MEDS: PANTOPRAZOLE 40 MG TAB PO SCH (09:43)
[2022-09-18] MEDS: FLUCONAZOLE 100 MG TAB PO SCH (09:43)
[2022-09-18] MEDS: FUROSEMIDE 40 MG/4 ML VIAL IV SCH ×2 (09:43→21:54)
[2022-09-18] MEDS: SODIUM CHLOR 0.9% PF (SALINE LOCK) 10ML VIAL/SYR IV SCH ×2 (09:44→21:55)
[2022-09-18] MEDS: levoFLOXacin 250MG 50 ML IV SCH (09:44)
[2022-09-18] MEDS: SEVELAMER 800 MG TAB PO SCH ×3 (09:44→18:27)
[2022-09-18] MEDS: ENOXAPARIN SOD 40 MG/0.4 ML SYRINGE SC SCH (09:45)
[2022-09-18] MEDS: DAKINS QUARTER STR 0.125% (NaHypochlorite) 473 ML TOPICAL SOL TOP SCH ×2 (09:45→21:55)
[2022-09-18] MEDS: LINEZOLID 600MG TABLET PO SCH (09:50)
[2022-09-18] MEDS: FLORASTOR (S. BOULARDII) 250 MG CAP PO SCH ×2 (09:55→21:59)
[2022-09-18 12:54] VITALS: BP 111/81
[2022-09-18 17:13] VITALS: BP 106/73
[2022-09-18 20:34] VITALS: BP 119/76
[2022-09-19] MEDS: ONDANSETRON HCL 4 MG/2 ML VIAL IV PRN ×2 (04:54→21:54)
[2022-09-19 05:09] VITALS: BP 118/75
[2022-09-19] MEDS: HYDROcodone-ACET 5/325MG TAB PO PRN ×3 (06:03→21:55)
[2022-09-19] MEDS: MIDODRINE HCL 10 MG TAB PO SCH ×3 (06:03→21:36)
[2022-09-19] MEDS: ACCU-CHEK COMFORT CURVE STRIP VI SCH ×4 (06:08→22:01)
[2022-09-19] MEDS: InsuLIN REG 1unit/0.01ml Soln (100units/ml) SC SCH ×4 (06:08→22:01)
[2022-09-19 06:57] LABS: Potassium 4.2 mmol/L (3.5-5.1)
[2022-09-19] MEDS ORDERED: SODIUM CHL 0.9% 1000 ML BAG XX ONE (07:00)
[2022-09-19 07:01] LABS: BUN/Creatinine Ratio 9.8 (10.0-20.0); Calcium 9.1 mg/dL (8.5-10.1)
[2022-09-19 07:02] LABS: Basophils # (auto) 0.1 10 ^3/uL (0-0.2); Basophils % (auto) 1.3 % (0.0-2.0); Eosinophils # (auto) 0.6 10 ^3/uL (0-0.8); Eosinophils % (auto) 7.5 % (0.0-7.0); Hematocrit 27.7 % (41.0-53.0); Hemoglobin 8.8 g/dL (13.5-17.5); Lymphocytes # (auto) 1.6 10 ^3/uL (0.4-5.4); Lymphocytes % (auto) 18.8 % (10.0-50.0); Mean Corpuscular Hemoglobin 28.4 pg (28.0-32.0); Mean Corpuscular Volume 88.7 fL (80.0-100.0); Neutrophils # (auto) 5.2 10 ^3/uL (1.6-8.6); Neutrophils % (auto) 60.4 % (37.0-80.0); Nucleated Red Blood Cells % 0.2 %; Red Blood Cells 3.12 10^6/uL (4.5-5.90); Red Cell Distribution Width 18.8 % (11.8-14.3); White Blood Cell 8.6 10^3/uL (4.4-10.8)
[2022-09-19] MEDS: ENSURE CLEAR Mixed Berry 8oz Carton PO SCH ×3 (08:00→21:39)
[2022-09-19] MEDS: SEVELAMER 800 MG TAB PO SCH ×3 (08:00→21:36)
[2022-09-19 09:00] VITALS: BP 105/70
[2022-09-19] MEDS: FLUCONAZOLE 100 MG TAB PO SCH (09:49)
[2022-09-19] MEDS: levoFLOXacin 250MG 50 ML IV SCH (09:49)
[2022-09-19] MEDS: SODIUM CHLOR 0.9% PF (SALINE LOCK) 10ML VIAL/SYR IV SCH ×2 (09:49→21:37)
[2022-09-19] MEDS: PANTOPRAZOLE 40 MG TAB PO SCH (09:49)
[2022-09-19] MEDS: FLORASTOR (S. BOULARDII) 250 MG CAP PO SCH ×2 (09:50→21:56)
[2022-09-19] MEDS: FUROSEMIDE 40 MG/4 ML VIAL IV SCH ×2 (09:51→21:37)
[2022-09-19] MEDS: ENOXAPARIN SOD 40 MG/0.4 ML SYRINGE SC SCH (09:52)
[2022-09-19] MEDS: DAKINS QUARTER STR 0.125% (NaHypochlorite) 473 ML TOPICAL SOL TOP SCH ×2 (09:53→21:39)
[2022-09-19 10:49] LABS: INR 1.44 (0.9-1.15)
[2022-09-19] MEDS: ALBUMIN 25% 100 ML IV PRN ×2 (15:22→15:26)
[2022-09-19 16:56] VITALS: BP 116/86
[2022-09-19] MEDS ORDERED: EPOETIN ALFA-EPBX 10,000 UNIT/1ML VIAL SC ONE (21:00)
[2022-09-19 22:00] VITALS: BP 112/68
[2022-09-20] MEDS: SEVELAMER 800 MG TAB PO SCH ×3 (03:56→17:56)
[2022-09-20] MEDS: ENSURE CLEAR Mixed Berry 8oz Carton PO SCH ×3 (03:56→17:59)
[2022-09-20] MEDS: ENOXAPARIN SOD 40 MG/0.4 ML SYRINGE SC SCH (03:58)
[2022-09-20 05:00] VITALS: BP 127/71
[2022-09-20] MEDS: MIDODRINE HCL 10 MG TAB PO SCH ×3 (06:00→18:01)
[2022-09-20 06:26] LABS: White Blood Cell 7.8 10^3/uL (4.4-10.8)
[2022-09-20 06:30] LABS: Hematocrit 25.9 % (41.0-53.0); Hemoglobin 8.2 g/dL (13.5-17.5); Mean Corpuscular Hemoglobin 28.3 pg (28.0-32.0); Mean Corpuscular Hgb Conc. 31.8 g/dL (32.0-36.0); Mean Corpuscular Volume 89.1 fL (80.0-100.0); Red Cell Distribution Width 18.9 % (11.8-14.3)
[2022-09-20 06:46] LABS: Band Neutrophils % (manual) 0; Basophils % (manual) 0 (0.0-2.0); Blast Cells 0; Metamyelocytes % 0; Myelocytes % 0; Promyelocytes % 0; Reactive Lymphocytes 0
[2022-09-20] MEDS: InsuLIN REG 1unit/0.01ml Soln (100units/ml) SC SCH ×4 (07:00→23:19)
[2022-09-20] MEDS: ACCU-CHEK COMFORT CURVE STRIP VI SCH ×4 (07:03→23:09)
[2022-09-20] MEDS: levoFLOXacin 250MG 50 ML IV SCH (07:03)
[2022-09-20] MEDS: MORPHINE SULFATE INJ 2 MG/ml SYRG IV PRN (07:21)
[2022-09-20] MEDS: SODIUM CHLOR 0.9% PF (SALINE LOCK) 10ML VIAL/SYR IV SCH ×2 (07:30→23:09)
[2022-09-20 08:13] LABS: Eosinophils % (manual) 8 (0-7); Lymphocytes % (manual) 17 (10.0-50.0); Monocytes % (manual) 10 (0-12)
[2022-09-20 09:00] VITALS: BP 128/82
[2022-09-20] MEDS ORDERED: LIDOCAINE 2% (LOCAL ANESTH.) PF 5ml SDV ONE (09:55)
[2022-09-20] MEDS ORDERED: GLYCOPYRROLATE 0.2 MG/ML 1ML VIAL ONE (09:55)
[2022-09-20] MEDS ORDERED: ONDANSETRON HCL 4 MG/2 ML VIAL ONE (09:55)
[2022-09-20] MEDS ORDERED: PROPOFOL 10 MG/ML 20 ML IV ONE (09:55)
[2022-09-20] MEDS ORDERED: DexAMETHasone SOD PHOS 10MG/1ML VIAL INJ ONE (09:56)
[2022-09-20] MEDS: FUROSEMIDE 40 MG/4 ML VIAL IV SCH ×2 (10:00→23:08)
[2022-09-20 10:17] LABS: BUN/Creatinine Ratio 7.8 (10.0-20.0); Calcium 9.4 mg/dL (8.5-10.1); Potassium 4.4 mmol/L (3.5-5.1)
[2022-09-20 17:00] VITALS: BP 116/76
[2022-09-20] MEDS: FLUCONAZOLE 100 MG TAB PO SCH (17:54)
[2022-09-20] MEDS: PANTOPRAZOLE 40 MG TAB PO SCH (17:55)
[2022-09-20] MEDS: FLORASTOR (S. BOULARDII) 250 MG CAP PO SCH ×2 (17:55→23:08)
[2022-09-20] MEDS: DAKINS QUARTER STR 0.125% (NaHypochlorite) 473 ML TOPICAL SOL TOP SCH ×2 (17:55→22:00)
[2022-09-20] MEDS: HYDROcodone-ACET 5/325MG TAB PO PRN (17:58)
[2022-09-20 21:35] VITALS: BP 109/72
[2022-09-21 05:00] VITALS: BP 116/55
[2022-09-21 05:37] LABS: Basophils # (auto) 0 10 ^3/uL (0-0.2); Basophils % (auto) 0.1 % (0.0-2.0); Eosinophils # (auto) 0 10 ^3/uL (0-0.8); Hematocrit 25.9 % (41.0-53.0); Hemoglobin 8.6 g/dL (13.5-17.5); Lymphocytes # (auto) 0.6 10 ^3/uL (0.4-5.4); Lymphocytes % (auto) 8.8 % (10.0-50.0); Mean Corpuscular Hemoglobin 28.9 pg (28.0-32.0); Mean Corpuscular Hgb Conc. 33.2 g/dL (32.0-36.0); Mean Corpuscular Volume 87.3 fL (80.0-100.0); Monocytes # (auto) 0.3 10 ^3/uL (0-1.3); Monocytes % (auto) 4.2 % (0.0-12.0); Neutrophils # (auto) 5.8 10 ^3/uL (1.6-8.6); Neutrophils % (auto) 86.9 % (37.0-80.0); Nucleated Red Blood Cells % 0.1 %; Red Blood Cells 2.96 10^6/uL (4.5-5.90); Red Cell Distribution Width 19.1 % (11.8-14.3); White Blood Cell 6.6 10^3/uL (4.4-10.8)
[2022-09-21 05:53] LABS: Potassium 4.8 mmol/L (3.5-5.1)
[2022-09-21 06:08] LABS: Albumin 2.8 g/dL (3.4-5.0); BUN/Creatinine Ratio 8.4 (10.0-20.0); Calcium 9.2 mg/dL (8.5-10.1); Total Protein 6.7 g/dL (6.4-8.2)
[2022-09-21] MEDS: MIDODRINE HCL 10 MG TAB PO SCH ×3 (06:10→14:59)
[2022-09-21] MEDS: ACCU-CHEK COMFORT CURVE STRIP VI SCH ×4 (06:11→21:18)
[2022-09-21] MEDS: InsuLIN REG 1unit/0.01ml Soln (100units/ml) SC SCH ×4 (06:17→21:18)
[2022-09-21] MEDS ORDERED: SODIUM CHL 0.9% 1000 ML BAG XX ONE (07:00)
[2022-09-21] MEDS: ENSURE CLEAR Mixed Berry 8oz Carton PO SCH ×3 (08:00→18:40)
[2022-09-21] MEDS: SEVELAMER 800 MG TAB PO SCH ×3 (08:21→18:40)
[2022-09-21 08:52] VITALS: BP 125/81
[2022-09-21] MEDS: FUROSEMIDE 40 MG/4 ML VIAL IV SCH ×2 (10:00→20:55)
[2022-09-21] MEDS: ONDANSETRON HCL 4 MG/2 ML VIAL IV PRN ×2 (10:34→14:59)
[2022-09-21] MEDS: levoFLOXacin 250MG 50 ML IV SCH (10:35)
[2022-09-21] MEDS: PANTOPRAZOLE 40 MG TAB PO SCH (10:35)
[2022-09-21] MEDS: FLUCONAZOLE 100 MG TAB PO SCH (10:36)
[2022-09-21] MEDS: FLORASTOR (S. BOULARDII) 250 MG CAP PO SCH ×2 (10:37→21:17)
[2022-09-21] MEDS: SODIUM CHLOR 0.9% PF (SALINE LOCK) 10ML VIAL/SYR IV SCH ×2 (10:41→21:14)
[2022-09-21] MEDS: DAKINS QUARTER STR 0.125% (NaHypochlorite) 473 ML TOPICAL SOL TOP SCH ×2 (10:41→22:00)
[2022-09-21 12:44] VITALS: BP 128/75
[2022-09-21 16:28] VITALS: BP 125/81
[2022-09-21] MEDS ORDERED: EPOETIN ALFA-EPBX 10,000 UNIT/1ML VIAL SC ONE (21:00)
[2022-09-21] MEDS: HYDROcodone-ACET 5/325MG TAB PO PRN (21:29)
[2022-09-21 22:00] VITALS: BP 111/66
[2022-09-22 05:00] VITALS: BP 114/78
[2022-09-22] MEDS: ONDANSETRON HCL 4 MG/2 ML VIAL IV PRN (06:06)
[2022-09-22] MEDS: InsuLIN REG 1unit/0.01ml Soln (100units/ml) SC SCH ×4 (06:13→22:00)
[2022-09-22] MEDS: ACCU-CHEK COMFORT CURVE STRIP VI SCH ×4 (06:13→22:51)
[2022-09-22] MEDS: MIDODRINE HCL 10 MG TAB PO SCH ×3 (07:00→18:28)
[2022-09-22] MEDS: ENSURE CLEAR Mixed Berry 8oz Carton PO SCH ×3 (08:00→18:27)
[2022-09-22] MEDS: SEVELAMER 800 MG TAB PO SCH ×3 (08:40→18:28)
[2022-09-22 09:18] VITALS: BP 122/79
[2022-09-22] MEDS: FLUCONAZOLE 100 MG TAB PO SCH (10:54)
[2022-09-22] MEDS: levoFLOXacin 250MG 50 ML IV SCH (10:54)
[2022-09-22] MEDS: FUROSEMIDE 40 MG/4 ML VIAL IV SCH ×2 (10:54→22:40)
[2022-09-22] MEDS: PANTOPRAZOLE 40 MG TAB PO SCH (10:55)
[2022-09-22] MEDS: FLORASTOR (S. BOULARDII) 250 MG CAP PO SCH ×2 (10:56→22:38)
[2022-09-22] MEDS: SODIUM CHLOR 0.9% PF (SALINE LOCK) 10ML VIAL/SYR IV SCH ×2 (10:58→22:49)
[2022-09-22] MEDS: DAKINS QUARTER STR 0.125% (NaHypochlorite) 473 ML TOPICAL SOL TOP SCH ×2 (10:59→22:46)
[2022-09-22 12:57] VITALS: BP 134/79
[2022-09-22 16:35] VITALS: BP 120/76
[2022-09-22 22:00] VITALS: BP 114/84
[2022-09-22] MEDS: HYDROcodone-ACET 5/325MG TAB PO PRN (22:45)
[2022-09-23 05:00] VITALS: BP 133/87
[2022-09-23] MEDS: MIDODRINE HCL 10 MG TAB PO SCH ×3 (06:00→18:00)
[2022-09-23] MEDS: InsuLIN REG 1unit/0.01ml Soln (100units/ml) SC SCH ×4 (06:37→22:00)
[2022-09-23] MEDS: ACCU-CHEK COMFORT CURVE STRIP VI SCH ×4 (06:37→22:10)
[2022-09-23] MEDS: ENSURE CLEAR Mixed Berry 8oz Carton PO SCH ×3 (08:00→18:00)
[2022-09-23] MEDS: SEVELAMER 800 MG TAB PO SCH ×3 (08:00→18:00)
[2022-09-23 09:00] VITALS: BP 127/88
[2022-09-23] MEDS: levoFLOXacin 250MG 50 ML IV SCH (10:52)
[2022-09-23] MEDS: PANTOPRAZOLE 40 MG TAB PO SCH (10:52)
[2022-09-23] MEDS: FLUCONAZOLE 100 MG TAB PO SCH (10:52)
[2022-09-23] MEDS: FLORASTOR (S. BOULARDII) 250 MG CAP PO SCH ×2 (10:52→22:04)
[2022-09-23] MEDS: FUROSEMIDE 40 MG/4 ML VIAL IV SCH ×2 (10:53→22:03)
[2022-09-23] MEDS: SODIUM CHLOR 0.9% PF (SALINE LOCK) 10ML VIAL/SYR IV SCH ×2 (10:54→22:11)
[2022-09-23] MEDS: DAKINS QUARTER STR 0.125% (NaHypochlorite) 473 ML TOPICAL SOL TOP SCH ×2 (10:55→22:17)
[2022-09-23 13:00] VITALS: BP 130/90
[2022-09-23 17:11] VITALS: BP 134/92
[2022-09-23] MEDS: HYDROcodone-ACET 5/325MG TAB PO PRN (20:41)
[2022-09-23 22:00] VITALS: BP 128/78
[2022-09-24 05:00] VITALS: BP 128/83
[2022-09-24] MEDS: MIDODRINE HCL 10 MG TAB PO SCH ×3 (05:17→18:23)
[2022-09-24] MEDS: MORPHINE SULFATE INJ 2 MG/ml SYRG IV PRN ×2 (05:49→18:57)
[2022-09-24] MEDS: InsuLIN REG 1unit/0.01ml Soln (100units/ml) SC SCH ×2 (06:23→11:30)
[2022-09-24] MEDS: ACCU-CHEK COMFORT CURVE STRIP VI SCH ×2 (06:23→13:20)
[2022-09-24] MEDS ORDERED: SODIUM CHL 0.9% 1000 ML BAG XX ONE (07:00)
[2022-09-24] MEDS: ENSURE CLEAR Mixed Berry 8oz Carton PO SCH ×3 (08:00→18:00)
[2022-09-24] MEDS: SEVELAMER 800 MG TAB PO SCH ×3 (08:41→18:23)
[2022-09-24 09:11] VITALS: BP 131/84
[2022-09-24] MEDS: FUROSEMIDE 40 MG/4 ML VIAL IV SCH ×3 (10:00→21:35)
[2022-09-24] MEDS: levoFLOXacin 250MG 50 ML IV SCH (10:57)
[2022-09-24] MEDS: DAKINS QUARTER STR 0.125% (NaHypochlorite) 473 ML TOPICAL SOL TOP SCH ×2 (10:58→22:57)
[2022-09-24] MEDS: FLORASTOR (S. BOULARDII) 250 MG CAP PO SCH ×2 (10:58→22:56)
[2022-09-24] MEDS: PANTOPRAZOLE 40 MG TAB PO SCH (10:58)
[2022-09-24] MEDS: SODIUM CHLOR 0.9% PF (SALINE LOCK) 10ML VIAL/SYR IV SCH ×2 (10:58→22:56)
[2022-09-24] MEDS: FLUCONAZOLE 100 MG TAB PO SCH (10:58)
[2022-09-24 12:37] VITALS: BP 116/86
[2022-09-24 14:12] LABS: Calcium 9.1 mg/dL (8.5-10.1); Potassium 4.6 mmol/L (3.5-5.1)
[2022-09-24 16:37] VITALS: BP 135/92
[2022-09-24] MEDS ORDERED: EPOETIN ALFA-EPBX 10,000 UNIT/1ML VIAL SC ONE (21:00)
[2022-09-24 22:00] VITALS: BP 129/88
[2022-09-24] MEDS: HYDROcodone-ACET 5/325MG TAB PO PRN (22:55)
[2022-09-25] MEDS: MORPHINE SULFATE INJ 2 MG/ml SYRG IV PRN ×4 (02:28→23:39)
[2022-09-25 05:00] VITALS: BP 107/80
[2022-09-25] MEDS: MIDODRINE HCL 10 MG TAB PO SCH ×4 (05:36→19:25)
[2022-09-25] MEDS: HYDROcodone-ACET 5/325MG TAB PO PRN (05:39)
[2022-09-25 06:02] LABS: BUN/Creatinine Ratio 7.6 (10.0-20.0); Calcium 9.9 mg/dL (8.5-10.1); Potassium 4.4 mmol/L (3.5-5.1)
[2022-09-25] MEDS ORDERED: SODIUM CHL 0.9% 1000 ML BAG XX ONE (07:00)
[2022-09-25] MEDS: SEVELAMER 800 MG TAB PO SCH ×3 (08:02→19:26)
[2022-09-25] MEDS: ENSURE CLEAR Mixed Berry 8oz Carton PO SCH ×3 (08:22→19:25)
[2022-09-25 09:00] VITALS: BP 126/81
[2022-09-25] MEDS: levoFLOXacin 250MG 50 ML IV SCH (11:38)
[2022-09-25] MEDS: SODIUM CHLOR 0.9% PF (SALINE LOCK) 10ML VIAL/SYR IV SCH ×2 (11:39→22:01)
[2022-09-25] MEDS: FLUCONAZOLE 100 MG TAB PO SCH (11:40)
[2022-09-25] MEDS: FUROSEMIDE 40 MG/4 ML VIAL IV SCH ×2 (11:40→21:57)
[2022-09-25] MEDS: PANTOPRAZOLE 40 MG TAB PO SCH (11:40)
[2022-09-25] MEDS: FLORASTOR (S. BOULARDII) 250 MG CAP PO SCH ×2 (11:40→22:01)
[2022-09-25] MEDS: DAKINS QUARTER STR 0.125% (NaHypochlorite) 473 ML TOPICAL SOL TOP SCH ×2 (11:42→22:02)
[2022-09-25 12:18] LABS: INR 1.3 (0.9-1.15); Partial Thromboplastin Time 33.4 sec (24.6-33.4)
[2022-09-25 12:37] VITALS: BP_SYST 116; BP_SYST 118; BP_DIAS 53; BP_DIAS 74
[2022-09-25] MEDS: ALBUMIN 25% 100 ML IV SCH ×2 (15:00→16:00)
[2022-09-25] MEDS: ONDANSETRON HCL 4 MG/2 ML VIAL IV PRN (15:35)
[2022-09-25 16:33] VITALS: BP 111/70
[2022-09-25] MEDS ORDERED: EPOETIN ALFA-EPBX 10,000 UNIT/1ML VIAL SC ONE (21:00)
[2022-09-25 22:00] VITALS: BP 117/74
[2022-09-26 05:00] VITALS: BP 109/66
[2022-09-26] MEDS: MIDODRINE HCL 10 MG TAB PO SCH ×3 (05:26→17:14)
[2022-09-26] MEDS: MORPHINE SULFATE INJ 2 MG/ml SYRG IV PRN (06:34)
[2022-09-26 06:37] LABS: BUN/Creatinine Ratio 6.3 (10.0-20.0); Calcium 10.4 mg/dL (8.5-10.1); Potassium 4.7 mmol/L (3.5-5.1)
[2022-09-26 06:50] LABS: Basophils # (auto) 0 10 ^3/uL (0-0.2); Basophils % (auto) 0.2 % (0.0-2.0); Eosinophils # (auto) 0.6 10 ^3/uL (0-0.8); Eosinophils % (auto) 4.2 % (0.0-7.0); Hemoglobin 9.1 g/dL (13.5-17.5); Lymphocytes # (auto) 1.6 10 ^3/uL (0.4-5.4); Lymphocytes % (auto) 10.9 % (10.0-50.0); Mean Corpuscular Hemoglobin 28.2 pg (28.0-32.0); Mean Corpuscular Hgb Conc. 32.3 g/dL (32.0-36.0); Mean Corpuscular Volume 87.2 fL (80.0-100.0); Monocytes # (auto) 1.9 10 ^3/uL (0-1.3); Monocytes % (auto) 13.1 % (0.0-12.0); Neutrophils # (auto) 10.5 10 ^3/uL (1.6-8.6); Neutrophils % (auto) 71.6 % (37.0-80.0); Nucleated Red Blood Cells % 0.1 %; Red Blood Cells 3.21 10^6/uL (4.5-5.90); Red Cell Distribution Width 19.7 % (11.8-14.3); White Blood Cell 14.7 10^3/uL (4.4-10.8)
[2022-09-26] MEDS: SEVELAMER 800 MG TAB PO SCH ×3 (08:21→17:14)
[2022-09-26] MEDS: ENSURE CLEAR Mixed Berry 8oz Carton PO SCH ×3 (08:23→17:14)
[2022-09-26] MEDS: HYDROcodone-ACET 5/325MG TAB PO PRN ×2 (08:23→17:19)
[2022-09-26 09:00] VITALS: BP 121/77
[2022-09-26] MEDS: FUROSEMIDE 40 MG/4 ML VIAL IV SCH ×2 (09:21→21:45)
[2022-09-26] MEDS: levoFLOXacin 250MG 50 ML IV SCH (09:22)
[2022-09-26] MEDS: PANTOPRAZOLE 40 MG TAB PO SCH (09:22)
[2022-09-26] MEDS: FLUCONAZOLE 100 MG TAB PO SCH (09:23)
[2022-09-26] MEDS: FLORASTOR (S. BOULARDII) 250 MG CAP PO SCH ×2 (09:31→21:43)
[2022-09-26] MEDS: SODIUM CHLOR 0.9% PF (SALINE LOCK) 10ML VIAL/SYR IV SCH ×2 (09:31→21:51)
[2022-09-26] MEDS: DAKINS QUARTER STR 0.125% (NaHypochlorite) 473 ML TOPICAL SOL TOP SCH ×2 (09:32→21:52)
[2022-09-26] MEDS ORDERED: SODIUM CHL 0.9% 1000 ML BAG XX ONE (09:45)
[2022-09-26] MEDS ORDERED: MIDODRINE HCL 10 MG TAB PO ONE (09:45)
[2022-09-26] MEDS: ALBUMIN 25% 100 ML IV PRN ×2 (12:42→12:45)
[2022-09-26 13:00] VITALS: BP 115/82
[2022-09-26 16:45] VITALS: BP 115/56
[2022-09-26] MEDS ORDERED: EPOETIN ALFA-EPBX 10,000 UNIT/1ML VIAL SC ONE (21:00)
[2022-09-26] MEDS: DOXYCYCLINE 100 MG TAB/CAP PO SCH (21:43)
[2022-09-26 22:00] VITALS: BP 121/72
[2022-09-27 05:00] VITALS: BP 118/84
[2022-09-27 05:49] LABS: Basophils # (auto) 0.1 10 ^3/uL (0-0.2); Basophils % (auto) 0.8 % (0.0-2.0); Eosinophils # (auto) 0.8 10 ^3/uL (0-0.8); Eosinophils % (auto) 5.5 % (0.0-7.0); Hematocrit 26.9 % (41.0-53.0); Hemoglobin 8.8 g/dL (13.5-17.5); Lymphocytes # (auto) 1.4 10 ^3/uL (0.4-5.4); Lymphocytes % (auto) 9.8 % (10.0-50.0); Mean Corpuscular Hemoglobin 28.2 pg (28.0-32.0); Mean Corpuscular Hgb Conc. 32.7 g/dL (32.0-36.0); Mean Corpuscular Volume 86.2 fL (80.0-100.0); Monocytes # (auto) 2.1 10 ^3/uL (0-1.3); Monocytes % (auto) 14.9 % (0.0-12.0); Neutrophils # (auto) 9.5 10 ^3/uL (1.6-8.6); Nucleated Red Blood Cells % 0.2 %; Red Blood Cells 3.12 10^6/uL (4.5-5.90); Red Cell Distribution Width 19.9 % (11.8-14.3); White Blood Cell 13.9 10^3/uL (4.4-10.8)
[2022-09-27] MEDS: MIDODRINE HCL 10 MG TAB PO SCH ×3 (05:51→17:19)
[2022-09-27] MEDS: HYDROcodone-ACET 5/325MG TAB PO PRN ×3 (05:53→22:55)
[2022-09-27 06:20] LABS: Potassium 4.3 mmol/L (3.5-5.1)
[2022-09-27 06:31] LABS: Albumin 3.6 g/dL (3.4-5.0); BUN/Creatinine Ratio 6.4 (10.0-20.0); Bilirubin, Total 1.1 mg/dL (0.2-1.0); Calcium 10.4 mg/dL (8.5-10.1); Phosphorus 3.6 mg/dL (2.5-4.90); Total Protein 7.2 g/dL (6.4-8.2)
[2022-09-27] MEDS: SEVELAMER 800 MG TAB PO SCH ×3 (08:25→17:19)
[2022-09-27] MEDS: ENSURE CLEAR Mixed Berry 8oz Carton PO SCH ×3 (08:27→17:19)
[2022-09-27 09:00] VITALS: BP 111/69
[2022-09-27] MEDS: FLUCONAZOLE 100 MG TAB PO SCH (11:20)
[2022-09-27] MEDS: SODIUM CHLOR 0.9% PF (SALINE LOCK) 10ML VIAL/SYR IV SCH ×2 (11:20→22:37)
[2022-09-27] MEDS: FUROSEMIDE 40 MG/4 ML VIAL IV SCH ×2 (11:20→22:45)
[2022-09-27] MEDS: DOXYCYCLINE 100 MG TAB/CAP PO SCH ×2 (11:21→22:39)
[2022-09-27] MEDS: PANTOPRAZOLE 40 MG TAB PO SCH (11:21)
[2022-09-27] MEDS: DAKINS QUARTER STR 0.125% (NaHypochlorite) 473 ML TOPICAL SOL TOP SCH ×2 (11:30→22:46)
[2022-09-27] MEDS: FLORASTOR (S. BOULARDII) 250 MG CAP PO SCH ×2 (11:48→22:38)
[2022-09-27 13:00] VITALS: BP 127/83
[2022-09-27 17:05] VITALS: BP 113/82
[2022-09-27 22:00] VITALS: BP 116/69
[2022-09-28 05:00] VITALS: BP 121/82
[2022-09-28] MEDS: HYDROcodone-ACET 5/325MG TAB PO PRN ×3 (05:35→17:57)
[2022-09-28] MEDS: MIDODRINE HCL 10 MG TAB PO SCH ×3 (05:36→17:54)
[2022-09-28] MEDS ORDERED: SODIUM CHL 0.9% 1000 ML BAG XX ONE (07:00)
[2022-09-28] MEDS: ENSURE CLEAR Mixed Berry 8oz Carton PO SCH ×3 (08:00→17:54)
[2022-09-28] MEDS: SEVELAMER 800 MG TAB PO SCH ×3 (08:13→17:54)
[2022-09-28 09:00] VITALS: BP 143/52
[2022-09-28] MEDS: FLUCONAZOLE 100 MG TAB PO SCH (09:40)
[2022-09-28] MEDS: FLORASTOR (S. BOULARDII) 250 MG CAP PO SCH ×2 (09:40→22:58)
[2022-09-28] MEDS: PANTOPRAZOLE 40 MG TAB PO SCH (09:40)
[2022-09-28] MEDS: DOXYCYCLINE 100 MG TAB/CAP PO SCH ×2 (09:40→22:57)
[2022-09-28] MEDS: SODIUM CHLOR 0.9% PF (SALINE LOCK) 10ML VIAL/SYR IV SCH ×2 (09:41→22:57)
[2022-09-28] MEDS: DAKINS QUARTER STR 0.125% (NaHypochlorite) 473 ML TOPICAL SOL TOP SCH ×2 (09:41→22:58)
[2022-09-28] MEDS: FUROSEMIDE 40 MG/4 ML VIAL IV SCH ×2 (09:41→22:56)
[2022-09-28 12:34] VITALS: BP 112/82
[2022-09-28 17:00] VITALS: BP 114/77
[2022-09-28] MEDS ORDERED: EPOETIN ALFA-EPBX 10,000 UNIT/1ML VIAL SC ONE (21:00)
[2022-09-28 22:00] VITALS: BP 119/81
[2022-09-29] MEDS: HYDROcodone-ACET 5/325MG TAB PO PRN ×4 (00:32→22:47)
[2022-09-29 05:00] VITALS: BP 156/91
[2022-09-29] MEDS: MIDODRINE HCL 10 MG TAB PO SCH ×3 (05:13→17:27)
[2022-09-29 09:00] VITALS: BP 120/80
[2022-09-29] MEDS: FLUCONAZOLE 100 MG TAB PO SCH (10:01)
[2022-09-29] MEDS: DOXYCYCLINE 100 MG TAB/CAP PO SCH ×2 (10:01→22:47)
[2022-09-29] MEDS: PANTOPRAZOLE 40 MG TAB PO SCH (10:01)
[2022-09-29] MEDS: FLORASTOR (S. BOULARDII) 250 MG CAP PO SCH ×2 (10:01→22:50)
[2022-09-29] MEDS: SEVELAMER 800 MG TAB PO SCH ×3 (10:01→18:24)
[2022-09-29] MEDS: DAKINS QUARTER STR 0.125% (NaHypochlorite) 473 ML TOPICAL SOL TOP SCH (10:02)
[2022-09-29] MEDS: SODIUM CHLOR 0.9% PF (SALINE LOCK) 10ML VIAL/SYR IV SCH ×2 (10:02→22:51)
[2022-09-29] MEDS: FUROSEMIDE 40 MG/4 ML VIAL IV SCH ×2 (10:02→22:42)
[2022-09-29] MEDS: ENSURE CLEAR Mixed Berry 8oz Carton PO SCH ×3 (10:02→17:28)
[2022-09-29 13:29] VITALS: BP 124/73
[2022-09-29 16:48] VITALS: BP 111/77
[2022-09-29 22:00] VITALS: BP 100/67
[2022-09-30] MEDS: DAKINS QUARTER STR 0.125% (NaHypochlorite) 473 ML TOPICAL SOL TOP SCH ×3 (02:18→21:47)
[2022-09-30 05:00] VITALS: BP 104/77
[2022-09-30] MEDS: MIDODRINE HCL 10 MG TAB PO SCH ×3 (06:08→18:46)
[2022-09-30] MEDS: HYDROcodone-ACET 5/325MG TAB PO PRN ×3 (06:09→22:15)
[2022-09-30 09:00] VITALS: BP 123/77
[2022-09-30] MEDS: SEVELAMER 800 MG TAB PO SCH ×3 (09:03→18:46)
[2022-09-30] MEDS: ENSURE CLEAR Mixed Berry 8oz Carton PO SCH ×3 (09:04→18:46)
[2022-09-30] MEDS: DOXYCYCLINE 100 MG TAB/CAP PO SCH ×2 (10:24→21:45)
[2022-09-30] MEDS: FLUCONAZOLE 100 MG TAB PO SCH (10:24)
[2022-09-30] MEDS: PANTOPRAZOLE 40 MG TAB PO SCH (10:24)
[2022-09-30] MEDS: FLORASTOR (S. BOULARDII) 250 MG CAP PO SCH ×2 (10:25→21:46)
[2022-09-30] MEDS: FUROSEMIDE 40 MG/4 ML VIAL IV SCH ×2 (10:25→21:45)
[2022-09-30] MEDS: SODIUM CHLOR 0.9% PF (SALINE LOCK) 10ML VIAL/SYR IV SCH ×2 (10:26→21:46)
[2022-09-30] MEDS: MORPHINE SULFATE INJ 2 MG/ml SYRG IV PRN ×2 (10:34→18:51)
[2022-09-30 12:26] VITALS: BP 109/68
[2022-09-30 16:56] VITALS: BP 107/74
[2022-09-30 22:00] VITALS: BP 120/78
[2022-10-01] MEDS: HYDROcodone-ACET 5/325MG TAB PO PRN ×3 (04:52→17:56)
[2022-10-01 05:00] VITALS: BP 102/64
[2022-10-01] MEDS: MIDODRINE HCL 10 MG TAB PO SCH ×3 (05:10→16:38)
[2022-10-01 06:33] LABS: Hemoglobin 9.7 g/dL (13.5-17.5)
[2022-10-01] MEDS ORDERED: SODIUM CHL 0.9% 1000 ML BAG XX ONE (07:00)
[2022-10-01] MEDS: SEVELAMER 800 MG TAB PO SCH ×3 (08:00→16:38)
[2022-10-01] MEDS: MORPHINE SULFATE INJ 2 MG/ml SYRG IV PRN (08:53)
[2022-10-01 09:23] VITALS: BP 117/76
[2022-10-01] MEDS: FUROSEMIDE 40 MG/4 ML VIAL IV SCH ×2 (10:00→21:41)
[2022-10-01] MEDS: ENSURE CLEAR Mixed Berry 8oz Carton PO SCH ×3 (10:43→17:19)
[2022-10-01] MEDS: SODIUM CHLOR 0.9% PF (SALINE LOCK) 10ML VIAL/SYR IV SCH ×2 (10:43→21:46)
[2022-10-01] MEDS: ALBUMIN 25% 100 ML IV SCH ×2 (12:02→13:00)
[2022-10-01 13:00] VITALS: BP 106/70
[2022-10-01] MEDS: FLORASTOR (S. BOULARDII) 250 MG CAP PO SCH ×2 (16:38→21:46)
[2022-10-01] MEDS: DOXYCYCLINE 100 MG TAB/CAP PO SCH ×2 (16:38→21:44)
[2022-10-01] MEDS: PANTOPRAZOLE 40 MG TAB PO SCH (16:38)
[2022-10-01] MEDS: DAKINS QUARTER STR 0.125% (NaHypochlorite) 473 ML TOPICAL SOL TOP SCH ×2 (16:39→21:44)
[2022-10-01] MEDS ORDERED: EPOETIN ALFA-EPBX 10,000 UNIT/1ML VIAL SC ONE (21:00)
[2022-10-01 22:00] VITALS: BP 123/82
[2022-10-02] MEDS: HYDROcodone-ACET 5/325MG TAB PO PRN ×2 (02:40→12:32)
[2022-10-02 05:17] VITALS: BP 109/69
[2022-10-02] MEDS: MIDODRINE HCL 10 MG TAB PO SCH ×3 (05:18→18:18)
[2022-10-02] MEDS: ENSURE CLEAR Mixed Berry 8oz Carton PO SCH ×3 (08:00→18:19)
[2022-10-02 09:00] VITALS: BP 118/76
[2022-10-02] MEDS: SEVELAMER 800 MG TAB PO SCH ×3 (09:00→18:19)
[2022-10-02] MEDS: DOXYCYCLINE 100 MG TAB/CAP PO SCH ×2 (09:01→22:28)
[2022-10-02] MEDS: FLORASTOR (S. BOULARDII) 250 MG CAP PO SCH ×2 (09:01→22:27)
[2022-10-02] MEDS: MORPHINE SULFATE INJ 2 MG/ml SYRG IV PRN (09:02)
[2022-10-02] MEDS: PANTOPRAZOLE 40 MG TAB PO SCH (09:02)
[2022-10-02] MEDS: DAKINS QUARTER STR 0.125% (NaHypochlorite) 473 ML TOPICAL SOL TOP SCH ×2 (09:03→22:27)
[2022-10-02] MEDS: SODIUM CHLOR 0.9% PF (SALINE LOCK) 10ML VIAL/SYR IV SCH ×2 (09:03→22:26)
[2022-10-02] MEDS: FUROSEMIDE 40 MG/4 ML VIAL IV SCH ×2 (10:00→22:26)
[2022-10-02 12:56] VITALS: BP 95/65
[2022-10-02] MEDS ORDERED: HYDROcodone-ACET 10/325MG TAB PO PRN (13:00)
[2022-10-02 17:00] VITALS: BP 93/65
[2022-10-02] MEDS: HYDROcodone-ACET 10/325MG TAB PO PRN (18:18)
[2022-10-02 22:00] VITALS: BP 125/78
[2022-10-02] MEDS: HEPARIN SODIUM (PORCINE) 5000 UNITS/ML 1ML VIAL SC SCH (22:34)
[2022-10-03 05:00] VITALS: BP 115/65
[2022-10-03] MEDS: HYDROcodone-ACET 10/325MG TAB PO PRN ×3 (05:10→18:11)
[2022-10-03] MEDS: MIDODRINE HCL 10 MG TAB PO SCH ×3 (05:11→18:11)
[2022-10-03] MEDS: HEPARIN SODIUM (PORCINE) 5000 UNITS/ML 1ML VIAL SC SCH ×3 (05:17→22:00)
[2022-10-03 06:31] LABS: Basophils # (auto) 0.1 10 ^3/uL (0-0.2); Basophils % (auto) 1.3 % (0.0-2.0); Eosinophils # (auto) 0.8 10 ^3/uL (0-0.8); Eosinophils % (auto) 6.8 % (0.0-7.0); Hematocrit 28.6 % (41.0-53.0); Hemoglobin 9.1 g/dL (13.5-17.5); Lymphocytes # (auto) 1.5 10 ^3/uL (0.4-5.4); Lymphocytes % (auto) 13.3 % (10.0-50.0); Mean Corpuscular Hemoglobin 27.6 pg (28.0-32.0); Mean Corpuscular Hgb Conc. 31.7 g/dL (32.0-36.0); Mean Corpuscular Volume 87.1 fL (80.0-100.0); Monocytes # (auto) 1.3 10 ^3/uL (0-1.3); Monocytes % (auto) 12.1 % (0.0-12.0); Neutrophils # (auto) 7.4 10 ^3/uL (1.6-8.6); Neutrophils % (auto) 66.5 % (37.0-80.0); Nucleated Red Blood Cells % 0.1 %; Red Blood Cells 3.28 10^6/uL (4.5-5.90); White Blood Cell 11.1 10^3/uL (4.4-10.8)
[2022-10-03 06:39] LABS: Red Cell Distribution Width 20.7 % (11.8-14.3)
[2022-10-03 06:40] LABS: Potassium 4.9 mmol/L (3.5-5.1)
[2022-10-03 06:50] LABS: Albumin 3.1 g/dL (3.4-5.0); BUN/Creatinine Ratio 7.3 (10.0-20.0); Bilirubin, Total 1.2 mg/dL (0.2-1.0); Calcium 12.5 mg/dL (8.5-10.1); Total Protein 7.3 g/dL (6.4-8.2)
[2022-10-03] MEDS: SEVELAMER 800 MG TAB PO SCH ×3 (08:00→18:11)
[2022-10-03] MEDS: ENSURE CLEAR Mixed Berry 8oz Carton PO SCH ×3 (08:00→18:00)
[2022-10-03 09:00] VITALS: BP 111/76
[2022-10-03] MEDS: DOXYCYCLINE 100 MG TAB/CAP PO SCH ×2 (12:07→22:13)
[2022-10-03] MEDS: PANTOPRAZOLE 40 MG TAB PO SCH (12:08)
[2022-10-03] MEDS: FUROSEMIDE 40 MG/4 ML VIAL IV SCH (12:10)
[2022-10-03] MEDS: SODIUM CHLOR 0.9% PF (SALINE LOCK) 10ML VIAL/SYR IV SCH ×2 (12:10→22:12)
[2022-10-03] MEDS: FLORASTOR (S. BOULARDII) 250 MG CAP PO SCH (12:10)
[2022-10-03] MEDS: DAKINS QUARTER STR 0.125% (NaHypochlorite) 473 ML TOPICAL SOL TOP SCH ×2 (12:11→22:12)
[2022-10-03 13:00] VITALS: BP 104/68
[2022-10-03 16:25] VITALS: BP 106/70
[2022-10-03] MEDS ORDERED: EPOETIN ALFA-EPBX 4,000 UNIT/ML VIAL SC ONE (21:00)
[2022-10-03 22:00] VITALS: BP 120/70
[2022-10-04] LABS: Urine Bacteria NONE SEEN /hpf (None Seen); Urine Blood 1+ /uL (Negative); Urine Budding Yeast LOADED /hpf (None Seen); Urine Hyaline Cast MOD /lpf (0 - 2); Urine Mucus FEW (None Seen); Urine WBC 229 /hpf (0 - 3); Urine WBC Clumps PRESENT /hpf (None Seen)
[2022-10-04] MEDS: MIDODRINE HCL 10 MG TAB PO SCH ×3 (01:37→18:24)
[2022-10-04] MEDS: HEPARIN SODIUM (PORCINE) 5000 UNITS/ML 1ML VIAL SC SCH ×3 (01:38→21:56)
[2022-10-04 05:00] VITALS: BP 110/78
[2022-10-04 06:03] LABS: INR 1.18 (0.9-1.15); Partial Thromboplastin Time 33.1 sec (24.6-33.4)
[2022-10-04 06:17] LABS: BUN/Creatinine Ratio 7.2 (10.0-20.0); Calcium 12.1 mg/dL (8.5-10.1); Potassium 4.9 mmol/L (3.5-5.1)
[2022-10-04] MEDS: SEVELAMER 800 MG TAB PO SCH ×3 (07:57→18:24)
[2022-10-04] MEDS: ENSURE CLEAR Mixed Berry 8oz Carton PO SCH ×3 (07:57→17:21)
[2022-10-04 09:00] VITALS: BP 123/82
[2022-10-04] MEDS ORDERED: METOCLOPRAMIDE HCL 5MG/ml INJ 2ml VIAL IV PRN (10:00)
[2022-10-04] MEDS: DAKINS QUARTER STR 0.125% (NaHypochlorite) 473 ML TOPICAL SOL TOP SCH ×2 (10:00→23:38)
[2022-10-04] MEDS ORDERED: HYDROmorphone HCL 2 MG/ML VL/or syr IV PRN ×2 (10:00)
[2022-10-04] MEDS ORDERED: MORPHINE SULFATE INJ 2 MG/ml SYRG IV PRN (10:00)
[2022-10-04] MEDS ORDERED: ACCU-CHEK COMFORT CURVE STRIP VI ONE (10:00)
[2022-10-04] MEDS ORDERED: MIDAZOLAM HCL 2MG/2ML 2ml VIAL (1mg/ml) ONE (10:12)
[2022-10-04] MEDS ORDERED: fentaNYL CITRATE 100 MCG/2 ML VL ONE (10:12)
[2022-10-04] MEDS ORDERED: KETAMINE HCL 10 ML ONE (10:12)
[2022-10-04] MEDS ORDERED: GLYCOPYRROLATE 0.2 MG/ML 1ML VIAL ONE (10:13)
[2022-10-04] MEDS ORDERED: DexAMETHasone SOD PHOS 10MG/1ML VIAL INJ ONE (10:13)
[2022-10-04] MEDS ORDERED: SODIUM CHLORIDE LOCK 20 ML ONE (10:13)
[2022-10-04] MEDS ORDERED: ONDANSETRON HCL 4 MG/2 ML VIAL ONE (10:13)
[2022-10-04] MEDS ORDERED: PROPOFOL 10 MG/ML 20 ML IV ONE ×4 (10:13→11:57)
[2022-10-04] MEDS ORDERED: ceFAZolin 1GM VL ONE (10:37)
[2022-10-04] MEDS ORDERED: LIDOCAINE 1% HCL (LOCAL ANESTH.) INJ 20ML MDV ONE (11:02)
[2022-10-04] MEDS ORDERED: levoFLOXacin 500MG 100 ML IV ONE (11:05)
[2022-10-04] MEDS ORDERED: cefTRIAXone 1GM/50ML D5W 50 ML IV ONE (11:45)
[2022-10-04 13:00] VITALS: BP 92/64
[2022-10-04] MEDS: DOXYCYCLINE 100 MG TAB/CAP PO SCH ×2 (13:58→21:51)
[2022-10-04] MEDS: HYDROcodone-ACET 10/325MG TAB PO PRN ×2 (13:58→21:51)
[2022-10-04] MEDS: SODIUM CHLOR 0.9% PF (SALINE LOCK) 10ML VIAL/SYR IV SCH ×2 (13:59→23:38)
[2022-10-04] MEDS: PANTOPRAZOLE 40 MG TAB PO SCH (13:59)
[2022-10-04 17:00] VITALS: BP 110/63
[2022-10-04 22:00] VITALS: BP 115/61
[2022-10-05] MEDS: ONDANSETRON HCL 4 MG/2 ML VIAL IV PRN (02:59)
[2022-10-05 05:00] VITALS: BP 113/74
[2022-10-05] MEDS: MIDODRINE HCL 10 MG TAB PO SCH ×3 (05:25→18:25)
[2022-10-05] MEDS: HEPARIN SODIUM (PORCINE) 5000 UNITS/ML 1ML VIAL SC SCH ×3 (05:37→21:15)
[2022-10-05 05:42] LABS: BUN/Creatinine Ratio 8.2 (10.0-20.0); Calcium 12.7 mg/dL (8.5-10.1); Potassium 5.5 mmol/L (3.5-5.1)
[2022-10-05 05:46] LABS: Basophils # (auto) 0 10 ^3/uL (0-0.2); Basophils % (auto) 0.1 % (0.0-2.0); Eosinophils # (auto) 0 10 ^3/uL (0-0.8); Eosinophils % (auto) 0.1 % (0.0-7.0); Hematocrit 28.8 % (41.0-53.0); Hemoglobin 9.4 g/dL (13.5-17.5); Lymphocytes # (auto) 0.9 10 ^3/uL (0.4-5.4); Lymphocytes % (auto) 9.1 % (10.0-50.0); Mean Corpuscular Hemoglobin 28.3 pg (28.0-32.0); Mean Corpuscular Hgb Conc. 32.5 g/dL (32.0-36.0); Mean Corpuscular Volume 86.9 fL (80.0-100.0); Monocytes # (auto) 0.3 10 ^3/uL (0-1.3); Monocytes % (auto) 3.3 % (0.0-12.0); Neutrophils # (auto) 9.1 10 ^3/uL (1.6-8.6); Neutrophils % (auto) 87.4 % (37.0-80.0); Nucleated Red Blood Cells % 0.1 %; Red Blood Cells 3.31 10^6/uL (4.5-5.90); White Blood Cell 10.4 10^3/uL (4.4-10.8)
[2022-10-05 06:03] LABS: Red Cell Distribution Width 20.4 % (11.8-14.3)
[2022-10-05] MEDS ORDERED: SODIUM CHL 0.9% 1000 ML BAG XX ONE (07:00)
[2022-10-05] MEDS: SEVELAMER 800 MG TAB PO SCH ×3 (08:47→18:25)
[2022-10-05] MEDS: PANTOPRAZOLE 40 MG TAB PO SCH (08:47)
[2022-10-05] MEDS: DOXYCYCLINE 100 MG TAB/CAP PO SCH ×2 (08:48→21:07)
[2022-10-05] MEDS: ENSURE CLEAR Mixed Berry 8oz Carton PO SCH ×3 (08:48→18:03)
[2022-10-05] MEDS: cefTRIAXone 1GM/50ML D5W 50 ML IV SCH (08:48)
[2022-10-05] MEDS: HYDROcodone-ACET 10/325MG TAB PO PRN ×2 (08:48→16:42)
[2022-10-05 09:00] VITALS: BP 119/69
[2022-10-05] MEDS: DAKINS QUARTER STR 0.125% (NaHypochlorite) 473 ML TOPICAL SOL TOP SCH ×2 (10:00→22:30)
[2022-10-05] MEDS: SODIUM CHLOR 0.9% PF (SALINE LOCK) 10ML VIAL/SYR IV SCH ×2 (10:00→22:30)
[2022-10-05] MEDS: MORPHINE SULFATE INJ 2 MG/ml SYRG IV PRN (12:18)
[2022-10-05 12:46] VITALS: BP 113/76
[2022-10-05 17:00] VITALS: BP 129/86
[2022-10-05] MEDS ORDERED: EPOETIN ALFA-EPBX 4,000 UNIT/ML VIAL SC ONE (21:00)
[2022-10-05 22:00] VITALS: BP 115/65
[2022-10-06 05:00] VITALS: BP 119/70
[2022-10-06] MEDS: MIDODRINE HCL 10 MG TAB PO SCH ×3 (05:21→18:20)
[2022-10-06] MEDS: HEPARIN SODIUM (PORCINE) 5000 UNITS/ML 1ML VIAL SC SCH ×3 (05:23→21:50)
[2022-10-06 08:00] VITALS: BP 130/79
[2022-10-06] MEDS: ENSURE CLEAR Mixed Berry 8oz Carton PO SCH ×3 (08:00→18:20)
[2022-10-06 08:26] VITALS: BP 130/79
[2022-10-06] MEDS: SEVELAMER 800 MG TAB PO SCH ×3 (09:46→18:20)
[2022-10-06] MEDS: cefTRIAXone 1GM/50ML D5W 50 ML IV SCH (09:46)
[2022-10-06] MEDS: PANTOPRAZOLE 40 MG TAB PO SCH (09:48)
[2022-10-06] MEDS: SODIUM CHLOR 0.9% PF (SALINE LOCK) 10ML VIAL/SYR IV SCH ×2 (09:48→21:50)
[2022-10-06] MEDS: DOXYCYCLINE 100 MG TAB/CAP PO SCH ×2 (09:49→21:42)
[2022-10-06] MEDS: DAKINS QUARTER STR 0.125% (NaHypochlorite) 473 ML TOPICAL SOL TOP SCH ×3 (09:56→22:00)
[2022-10-06] MEDS: MORPHINE SULFATE INJ 2 MG/ml SYRG IV PRN (11:44)
[2022-10-06 13:00] VITALS: BP 122/83
[2022-10-06 13:03] LABS: Urine Bacteria FEW /hpf (None Seen); Urine Blood 1+ /uL (Negative); Urine Budding Yeast MODERATE /hpf (None Seen); Urine Hyaline Cast FEW /lpf (0 - 2); Urine Mucus FEW (None Seen); Urine Specific Gravity 1.018 (1.001-1.035); Urine WBC 91 /hpf (0 - 3)
[2022-10-06 17:00] VITALS: BP_SYST 127; BP_SYST 96; BP_DIAS 56; BP_DIAS 83
[2022-10-06] MEDS: BUMETANIDE 2.5mg/10ml (0.25 mg/ml) INJ IV SCH (18:00)
[2022-10-06] MEDS: HYDROcodone-ACET 10/325MG TAB PO PRN (18:27)
[2022-10-06] MEDS: ONDANSETRON HCL 4 MG/2 ML VIAL IV PRN (18:27)
[2022-10-06 22:00] VITALS: BP 121/82
[2022-10-07 05:00] VITALS: BP 148/90
[2022-10-07] MEDS: BUMETANIDE 2.5mg/10ml (0.25 mg/ml) INJ IV SCH ×2 (05:39→17:42)
[2022-10-07] MEDS: MIDODRINE HCL 10 MG TAB PO SCH ×3 (05:39→17:42)
[2022-10-07] MEDS: HEPARIN SODIUM (PORCINE) 5000 UNITS/ML 1ML VIAL SC SCH ×3 (05:48→21:34)
[2022-10-07 06:44] LABS: Potassium 4.8 mmol/L (3.5-5.1)
[2022-10-07 06:49] LABS: BUN/Creatinine Ratio 11.4 (10.0-20.0); Calcium 11.1 mg/dL (8.5-10.1); Uric Acid 7.1 mg/dL (3.5-7.2)
[2022-10-07] MEDS: DOXYCYCLINE 100 MG TAB/CAP PO SCH ×2 (08:07→21:28)
[2022-10-07] MEDS: SEVELAMER 800 MG TAB PO SCH ×3 (08:07→17:42)
[2022-10-07] MEDS: cefTRIAXone 1GM/50ML D5W 50 ML IV SCH (08:07)
[2022-10-07] MEDS: HYDROcodone-ACET 10/325MG TAB PO PRN ×3 (08:08→21:29)
[2022-10-07] MEDS: PANTOPRAZOLE 40 MG TAB PO SCH (08:08)
[2022-10-07] MEDS: SODIUM CHLOR 0.9% PF (SALINE LOCK) 10ML VIAL/SYR IV SCH ×2 (08:09→21:29)
[2022-10-07] MEDS: DAKINS QUARTER STR 0.125% (NaHypochlorite) 473 ML TOPICAL SOL TOP SCH ×2 (08:10→21:30)
[2022-10-07] MEDS: ENSURE CLEAR Mixed Berry 8oz Carton PO SCH ×3 (08:10→17:43)
[2022-10-07 08:52] VITALS: BP 126/84
[2022-10-07 13:00] VITALS: BP 130/80
[2022-10-07] MEDS: ONDANSETRON HCL 4 MG/2 ML VIAL IV PRN (14:20)
[2022-10-07 17:00] VITALS: BP 132/91
[2022-10-07 22:00] VITALS: BP 134/93
[2022-10-08] MEDS: HYDROcodone-ACET 10/325MG TAB PO PRN ×3 (03:43→18:28)
[2022-10-08 05:00] VITALS: BP 126/90
[2022-10-08] MEDS: MIDODRINE HCL 10 MG TAB PO SCH ×4 (05:17→18:30)
[2022-10-08] MEDS: BUMETANIDE 2.5mg/10ml (0.25 mg/ml) INJ IV SCH ×2 (05:24→18:33)
[2022-10-08] MEDS: HEPARIN SODIUM (PORCINE) 5000 UNITS/ML 1ML VIAL SC SCH ×3 (05:36→22:02)
[2022-10-08] MEDS: ENSURE CLEAR Mixed Berry 8oz Carton PO SCH ×3 (08:00→18:34)
[2022-10-08 08:05] VITALS: BP 132/84
[2022-10-08] MEDS: SEVELAMER 800 MG TAB PO SCH ×3 (08:15→18:27)
[2022-10-08 09:00] VITALS: BP 132/84
[2022-10-08] MEDS: PANTOPRAZOLE 40 MG TAB PO SCH (10:33)
[2022-10-08] MEDS: cefTRIAXone 1GM/50ML D5W 50 ML IV SCH (12:27)
[2022-10-08 12:36] VITALS: BP_SYST 104; BP_SYST 194; BP_DIAS 75; BP_DIAS 78
[2022-10-08] MEDS: DOXYCYCLINE 100 MG TAB/CAP PO SCH ×2 (12:41→21:55)
[2022-10-08 17:00] VITALS: BP 142/91
[2022-10-08] MEDS: DAKINS QUARTER STR 0.125% (NaHypochlorite) 473 ML TOPICAL SOL TOP SCH ×2 (18:30→22:00)
[2022-10-08] MEDS ORDERED: EPOETIN ALFA-EPBX 4,000 UNIT/ML VIAL SC ONE (21:00)
[2022-10-08 22:00] VITALS: BP 125/82
[2022-10-09] MEDS: HYDROcodone-ACET 10/325MG TAB PO PRN ×3 (04:07→18:59)
[2022-10-09 05:00] VITALS: BP 145/90
[2022-10-09] MEDS: MIDODRINE HCL 10 MG TAB PO SCH ×3 (05:53→18:48)
[2022-10-09] MEDS: HEPARIN SODIUM (PORCINE) 5000 UNITS/ML 1ML VIAL SC SCH ×3 (05:54→21:16)
[2022-10-09] MEDS: BUMETANIDE 2.5mg/10ml (0.25 mg/ml) INJ IV SCH ×2 (05:59→18:48)
[2022-10-09 06:45] LABS: Basophils # (auto) 0.1 10 ^3/uL (0-0.2); Basophils % (auto) 0.6 % (0.0-2.0); Eosinophils # (auto) 0.4 10 ^3/uL (0-0.8); Eosinophils % (auto) 3.7 % (0.0-7.0); Hematocrit 31.3 % (41.0-53.0); Hemoglobin 10.2 g/dL (13.5-17.5); Lymphocytes # (auto) 1.7 10 ^3/uL (0.4-5.4); Lymphocytes % (auto) 15.8 % (10.0-50.0); Mean Corpuscular Hgb Conc. 32.5 g/dL (32.0-36.0); Mean Corpuscular Volume 86.2 fL (80.0-100.0); Monocytes % (auto) 9.4 % (0.0-12.0); Neutrophils # (auto) 7.5 10 ^3/uL (1.6-8.6); Neutrophils % (auto) 70.5 % (37.0-80.0); Red Blood Cells 3.63 10^6/uL (4.5-5.90); Red Cell Distribution Width 19.7 % (11.8-14.3); White Blood Cell 10.7 10^3/uL (4.4-10.8)
[2022-10-09 07:03] LABS: Albumin 3.3 g/dL (3.4-5.0); Calcium 10.5 mg/dL (8.5-10.1); Potassium 3.9 mmol/L (3.5-5.1)
[2022-10-09 07:08] LABS: BUN/Creatinine Ratio 10.1 (10.0-20.0); Bilirubin, Total 0.6 mg/dL (0.2-1.0); Total Protein 7.6 g/dL (6.4-8.2)
[2022-10-09] MEDS: ENSURE CLEAR Mixed Berry 8oz Carton PO SCH ×3 (07:59→18:00)
[2022-10-09] MEDS: SEVELAMER 800 MG TAB PO SCH ×3 (07:59→18:48)
[2022-10-09 08:00] VITALS: BP 129/86
[2022-10-09] MEDS: cefTRIAXone 1GM/50ML D5W 50 ML IV SCH (08:01)
[2022-10-09 09:00] VITALS: BP 129/86
[2022-10-09] MEDS: DAKINS QUARTER STR 0.125% (NaHypochlorite) 473 ML TOPICAL SOL TOP SCH ×2 (10:00→21:13)
[2022-10-09] MEDS: DOXYCYCLINE 100 MG TAB/CAP PO SCH ×2 (10:25→21:12)
[2022-10-09] MEDS: PANTOPRAZOLE 40 MG TAB PO SCH (10:25)
[2022-10-09 13:00] VITALS: BP 139/95
[2022-10-09] MEDS: MORPHINE SULFATE INJ 2 MG/ml SYRG IV PRN (14:55)
[2022-10-09 17:00] VITALS: BP 117/86
[2022-10-09 22:00] VITALS: BP 138/87
[2022-10-10] MEDS: HYDROcodone-ACET 10/325MG TAB PO PRN ×2 (02:06→20:35)
[2022-10-10 05:00] VITALS: BP 134/93
[2022-10-10] MEDS: BUMETANIDE 2.5mg/10ml (0.25 mg/ml) INJ IV SCH ×2 (05:53→18:33)
[2022-10-10] MEDS: MIDODRINE HCL 10 MG TAB PO SCH ×3 (05:53→18:32)
[2022-10-10] MEDS: HEPARIN SODIUM (PORCINE) 5000 UNITS/ML 1ML VIAL SC SCH ×3 (05:58→22:46)
[2022-10-10] MEDS: MORPHINE SULFATE INJ 2 MG/ml SYRG IV PRN ×2 (06:45→14:10)
[2022-10-10] MEDS ORDERED: SODIUM CHL 0.9% 1000 ML BAG XX ONE (07:00)
[2022-10-10 08:00] VITALS: BP 142/86
[2022-10-10] MEDS: SEVELAMER 800 MG TAB PO SCH ×3 (08:00→18:32)
[2022-10-10] MEDS: ENSURE CLEAR Mixed Berry 8oz Carton PO SCH ×3 (08:00→18:00)
[2022-10-10 09:00] VITALS: BP 142/86
[2022-10-10] MEDS: DAKINS QUARTER STR 0.125% (NaHypochlorite) 473 ML TOPICAL SOL TOP SCH ×2 (10:00→22:50)
[2022-10-10] MEDS: ONDANSETRON HCL 4 MG/2 ML VIAL IV PRN (10:16)
[2022-10-10] MEDS ORDERED: MORPHINE SULF 15mg ER tab PO ONE (11:30)
[2022-10-10] MEDS: PANTOPRAZOLE 40 MG TAB PO SCH (12:31)
[2022-10-10] MEDS: DOXYCYCLINE 100 MG TAB/CAP PO SCH ×2 (12:31→22:47)
[2022-10-10] MEDS: cefTRIAXone 1GM/50ML D5W 50 ML IV SCH (12:32)
[2022-10-10 13:00] VITALS: BP 117/75
[2022-10-10 17:00] VITALS: BP 116/74
[2022-10-10] MEDS ORDERED: EPOETIN ALFA-EPBX 10,000 UNIT/1ML VIAL SC ONE (21:00)
[2022-10-10 22:00] VITALS: BP 105/70
[2022-10-10] MEDS: MORPHINE SULF 15mg ER tab PO SCH (22:46)
[2022-10-11] MEDS: HYDROcodone-ACET 10/325MG TAB PO PRN (03:19)
[2022-10-11 05:00] VITALS: BP 116/81
[2022-10-11] MEDS: MIDODRINE HCL 10 MG TAB PO SCH ×3 (05:52→17:37)
[2022-10-11] MEDS: BUMETANIDE 2.5mg/10ml (0.25 mg/ml) INJ IV SCH ×2 (05:53→17:36)
[2022-10-11] MEDS: HEPARIN SODIUM (PORCINE) 5000 UNITS/ML 1ML VIAL SC SCH ×3 (05:55→22:21)
[2022-10-11 08:20] VITALS: BP 142/86
[2022-10-11] MEDS: ENSURE CLEAR Mixed Berry 8oz Carton PO SCH ×3 (08:30→18:02)
[2022-10-11] MEDS: SEVELAMER 800 MG TAB PO SCH ×3 (08:39→17:37)
[2022-10-11] MEDS: cefTRIAXone 1GM/50ML D5W 50 ML IV SCH (08:39)
[2022-10-11] MEDS: PANTOPRAZOLE 40 MG TAB PO SCH (09:00)
[2022-10-11] MEDS: MORPHINE SULF 15mg ER tab PO SCH ×2 (09:01→22:20)
[2022-10-11] MEDS: DOXYCYCLINE 100 MG TAB/CAP PO SCH ×2 (09:01→22:20)
[2022-10-11 09:18] VITALS: BP 133/88
[2022-10-11] MEDS: DAKINS QUARTER STR 0.125% (NaHypochlorite) 473 ML TOPICAL SOL TOP SCH ×2 (10:00→22:36)
[2022-10-11 12:51] VITALS: BP 116/90
[2022-10-11] MEDS: MORPHINE SULFATE INJ 2 MG/ml SYRG IV PRN (15:08)
[2022-10-11 16:27] VITALS: BP 134/85
[2022-10-11 22:00] VITALS: BP 140/96
[2022-10-12] MEDS: HYDROcodone-ACET 10/325MG TAB PO PRN ×2 (02:40→14:16)
[2022-10-12 05:00] VITALS: BP 146/84
[2022-10-12] MEDS: MIDODRINE HCL 10 MG TAB PO SCH ×3 (06:23→18:00)
[2022-10-12 06:27] LABS: Basophils # (auto) 0.1 10 ^3/uL (0-0.2); Basophils % (auto) 0.6 % (0.0-2.0); Eosinophils # (auto) 0.7 10 ^3/uL (0-0.8); Eosinophils % (auto) 5.3 % (0.0-7.0); Hematocrit 31.2 % (41.0-53.0); Hemoglobin 9.9 g/dL (13.5-17.5); Lymphocytes # (auto) 1.3 10 ^3/uL (0.4-5.4); Lymphocytes % (auto) 10.8 % (10.0-50.0); Mean Corpuscular Hemoglobin 27.6 pg (28.0-32.0); Mean Corpuscular Hgb Conc. 31.8 g/dL (32.0-36.0); Mean Corpuscular Volume 86.7 fL (80.0-100.0); Monocytes # (auto) 1.5 10 ^3/uL (0-1.3); Monocytes % (auto) 12.2 % (0.0-12.0); Neutrophils # (auto) 8.9 10 ^3/uL (1.6-8.6); Neutrophils % (auto) 71.1 % (37.0-80.0); Nucleated Red Blood Cells % 0.1 %; Red Cell Distribution Width 19.3 % (11.8-14.3); White Blood Cell 12.5 10^3/uL (4.4-10.8)
[2022-10-12 06:28] LABS: Calcium 10.8 mg/dL (8.5-10.1); Potassium 4.4 mmol/L (3.5-5.1)
[2022-10-12] MEDS: BUMETANIDE 2.5mg/10ml (0.25 mg/ml) INJ IV SCH ×2 (06:29→18:39)
[2022-10-12 06:30] LABS: BUN/Creatinine Ratio 8.6 (10.0-20.0)
[2022-10-12] MEDS: HEPARIN SODIUM (PORCINE) 5000 UNITS/ML 1ML VIAL SC SCH ×3 (06:30→21:15)
[2022-10-12] MEDS ORDERED: SODIUM CHL 0.9% 1000 ML BAG XX ONE (07:00)
[2022-10-12] MEDS: ENSURE CLEAR Mixed Berry 8oz Carton PO SCH ×3 (08:00→18:00)
[2022-10-12] MEDS: SEVELAMER 800 MG TAB PO SCH ×3 (08:30→18:00)
[2022-10-12] MEDS: cefTRIAXone 1GM/50ML D5W 50 ML IV SCH (08:30)
[2022-10-12] MEDS: diphenhdrAMINE HCL 50 MG/1 ML VL IV PRN ×2 (08:31→18:47)
[2022-10-12] MEDS: MORPHINE SULF 15mg ER tab PO SCH ×2 (08:31→21:15)
[2022-10-12] MEDS: PANTOPRAZOLE 40 MG TAB PO SCH (08:32)
[2022-10-12] MEDS: DOXYCYCLINE 100 MG TAB/CAP PO SCH ×2 (08:32→21:16)
[2022-10-12] MEDS: FLORASTOR (S. BOULARDII) 250 MG CAP PO SCH (08:34)
[2022-10-12 09:00] VITALS: BP 132/78
[2022-10-12] MEDS: DAKINS QUARTER STR 0.125% (NaHypochlorite) 473 ML TOPICAL SOL TOP SCH (10:00)
[2022-10-12] MEDS: ONDANSETRON HCL 4 MG/2 ML VIAL IV PRN (12:31)
[2022-10-12 13:00] VITALS: BP 152/99
[2022-10-12 17:22] VITALS: BP 150/92
[2022-10-12 20:00] VITALS: BP 133/84
[2022-10-12] MEDS ORDERED: EPOETIN ALFA-EPBX 10,000 UNIT/1ML VIAL SC ONE (21:00)
[2022-10-12 22:00] VITALS: BP 13/84
[2022-10-13] MEDS: DAKINS QUARTER STR 0.125% (NaHypochlorite) 473 ML TOPICAL SOL TOP SCH ×2 (00:19→12:50)
[2022-10-13 05:00] VITALS: BP 123/85
[2022-10-13] MEDS: BUMETANIDE 2.5mg/10ml (0.25 mg/ml) INJ IV SCH ×2 (05:57→18:05)
[2022-10-13] MEDS: HEPARIN SODIUM (PORCINE) 5000 UNITS/ML 1ML VIAL SC SCH ×3 (06:00→21:47)
[2022-10-13] MEDS: MIDODRINE HCL 10 MG TAB PO SCH ×3 (06:00→18:04)
[2022-10-13 09:00] VITALS: BP 112/70
[2022-10-13] MEDS: SEVELAMER 800 MG TAB PO SCH ×3 (09:24→18:04)
[2022-10-13] MEDS: FLORASTOR (S. BOULARDII) 250 MG CAP PO SCH (09:25)
[2022-10-13] MEDS: DOXYCYCLINE 100 MG TAB/CAP PO SCH ×2 (09:25→21:41)
[2022-10-13] MEDS: PANTOPRAZOLE 40 MG TAB PO SCH (09:25)
[2022-10-13] MEDS: ENSURE CLEAR Mixed Berry 8oz Carton PO SCH ×3 (09:26→18:09)
[2022-10-13] MEDS: cefTRIAXone 1GM/50ML D5W 50 ML IV SCH (09:26)
[2022-10-13] MEDS: MORPHINE SULF 15mg ER tab PO SCH ×2 (09:33→12:52)
[2022-10-13 12:39] VITALS: BP 102/65
[2022-10-13 16:03] LABS: BUN/Creatinine Ratio 8.7 (10.0-20.0); Potassium 4.5 mmol/L (3.5-5.1)
[2022-10-13 16:46] VITALS: BP 118/74
[2022-10-13] MEDS: HYDROcodone-ACET 10/325MG TAB PO PRN (18:04)
[2022-10-13 22:00] VITALS: BP 122/79
[2022-10-13] MEDS: diphenhdrAMINE HCL 50 MG/1 ML VL IV PRN (22:38)
[2022-10-14] MEDS: MORPHINE SULF 15mg ER tab PO SCH ×2 (00:43→22:23)
[2022-10-14] MEDS: DAKINS QUARTER STR 0.125% (NaHypochlorite) 473 ML TOPICAL SOL TOP SCH ×3 (00:45→22:00)
[2022-10-14 05:00] VITALS: BP 113/80
[2022-10-14] MEDS: BUMETANIDE 2.5mg/10ml (0.25 mg/ml) INJ IV SCH ×2 (06:00→22:23)
[2022-10-14] MEDS: MIDODRINE HCL 10 MG TAB PO SCH ×3 (06:21→22:23)
[2022-10-14] MEDS: HEPARIN SODIUM (PORCINE) 5000 UNITS/ML 1ML VIAL SC SCH ×3 (06:25→22:25)
[2022-10-14] MEDS: ALBUMIN 25% 100 ML IV PRN (07:20)
[2022-10-14 08:13] VITALS: BP 117/63
[2022-10-14] MEDS: diphenhdrAMINE HCL 50 MG/1 ML VL IV PRN (08:40)
[2022-10-14] MEDS ORDERED: SODIUM CHL 0.9% 1000 ML BAG XX ONE (09:45)
[2022-10-14] MEDS: SEVELAMER 800 MG TAB PO SCH ×3 (09:53→18:00)
[2022-10-14] MEDS: ENSURE CLEAR Mixed Berry 8oz Carton PO SCH ×3 (09:54→19:32)
[2022-10-14] MEDS: cefTRIAXone 1GM/50ML D5W 50 ML IV SCH (09:54)
[2022-10-14] MEDS: FLORASTOR (S. BOULARDII) 250 MG CAP PO SCH (09:56)
[2022-10-14] MEDS: PANTOPRAZOLE 40 MG TAB PO SCH (09:56)
[2022-10-14] MEDS: DOXYCYCLINE 100 MG TAB/CAP PO SCH ×2 (09:56→22:23)
[2022-10-14 14:50] LABS: Hematocrit 33.3 % (41.0-53.0); Hemoglobin 10.3 g/dL (13.5-17.5)
[2022-10-14 16:30] VITALS: BP 134/85
[2022-10-14] MEDS ORDERED: EPOETIN ALFA-EPBX 10,000 UNIT/1ML VIAL SC ONE (21:00)
[2022-10-14 22:00] VITALS: BP 138/95
[2022-10-15] MEDS: MORPHINE SULFATE INJ 2 MG/ml SYRG IV PRN ×3 (03:53→23:35)
[2022-10-15 05:00] VITALS: BP 105/63
[2022-10-15] MEDS: MIDODRINE HCL 10 MG TAB PO SCH ×3 (06:02→18:26)
[2022-10-15] MEDS: HEPARIN SODIUM (PORCINE) 5000 UNITS/ML 1ML VIAL SC SCH ×3 (06:03→22:08)
[2022-10-15] MEDS: BUMETANIDE 2.5mg/10ml (0.25 mg/ml) INJ IV SCH ×2 (06:04→18:25)
[2022-10-15] MEDS: HYDROcodone-ACET 10/325MG TAB PO PRN (06:07)
[2022-10-15 09:00] VITALS: BP 102/59
[2022-10-15] MEDS: ENSURE CLEAR Mixed Berry 8oz Carton PO SCH ×2 (09:05→18:23)
[2022-10-15] MEDS: DOXYCYCLINE 100 MG TAB/CAP PO SCH ×2 (09:06→22:07)
[2022-10-15] MEDS: DAKINS QUARTER STR 0.125% (NaHypochlorite) 473 ML TOPICAL SOL TOP SCH ×2 (09:06→22:00)
[2022-10-15] MEDS: cefTRIAXone 1GM/50ML D5W 50 ML IV SCH (09:06)
[2022-10-15] MEDS: SEVELAMER 800 MG TAB PO SCH ×3 (09:07→18:26)
[2022-10-15] MEDS: PANTOPRAZOLE 40 MG TAB PO SCH (09:07)
[2022-10-15] MEDS: MORPHINE SULF 15mg ER tab PO SCH ×2 (09:07→22:07)
[2022-10-15] MEDS: FLORASTOR (S. BOULARDII) 250 MG CAP PO SCH (09:10)
[2022-10-15 13:00] VITALS: BP 119/74
[2022-10-15 16:54] VITALS: BP 132/80
[2022-10-15 22:00] VITALS: BP 120/64
[2022-10-16] MEDS: ONDANSETRON HCL 4 MG/2 ML VIAL IV PRN (04:52)
[2022-10-16 05:00] VITALS: BP 100/71
[2022-10-16] MEDS: MIDODRINE HCL 10 MG TAB PO SCH ×3 (06:27→18:19)
[2022-10-16] MEDS: BUMETANIDE 2.5mg/10ml (0.25 mg/ml) INJ IV SCH (06:27)
[2022-10-16] MEDS: HEPARIN SODIUM (PORCINE) 5000 UNITS/ML 1ML VIAL SC SCH ×3 (06:35→23:01)
[2022-10-16] MEDS ORDERED: SODIUM CHL 0.9% 1000 ML BAG XX ONE (07:00)
[2022-10-16] MEDS: SEVELAMER 800 MG TAB PO SCH ×3 (08:00→18:19)
[2022-10-16 08:42] LABS: Basophils # (auto) 0.1 10 ^3/uL (0-0.2); Basophils % (auto) 0.8 % (0.0-2.0); Eosinophils # (auto) 0.3 10 ^3/uL (0-0.8); Eosinophils % (auto) 2.6 % (0.0-7.0); Hemoglobin 10.1 g/dL (13.5-17.5); Lymphocytes # (auto) 1.6 10 ^3/uL (0.4-5.4); Lymphocytes % (auto) 12.1 % (10.0-50.0); Mean Corpuscular Hemoglobin 27.5 pg (28.0-32.0); Mean Corpuscular Hgb Conc. 31.5 g/dL (32.0-36.0); Mean Corpuscular Volume 87.1 fL (80.0-100.0); Monocytes # (auto) 1.4 10 ^3/uL (0-1.3); Monocytes % (auto) 10.9 % (0.0-12.0); Neutrophils # (auto) 9.7 10 ^3/uL (1.6-8.6); Neutrophils % (auto) 73.6 % (37.0-80.0); Nucleated Red Blood Cells % 0.1 %; Red Blood Cells 3.68 10^6/uL (4.5-5.90); Red Cell Distribution Width 18.8 % (11.8-14.3); White Blood Cell 13.1 10^3/uL (4.4-10.8)
[2022-10-16 08:48] VITALS: BP 94/64
[2022-10-16 08:53] LABS: BUN/Creatinine Ratio 8.7 (10.0-20.0); Calcium 10.9 mg/dL (8.5-10.1); Potassium 4.1 mmol/L (3.5-5.1)
[2022-10-16] MEDS: DOXYCYCLINE 100 MG TAB/CAP PO SCH ×2 (09:29→23:00)
[2022-10-16] MEDS: cefTRIAXone 1GM/50ML D5W 50 ML IV SCH (09:29)
[2022-10-16] MEDS: PANTOPRAZOLE 40 MG TAB PO SCH (09:29)
[2022-10-16] MEDS: FLORASTOR (S. BOULARDII) 250 MG CAP PO SCH (09:30)
[2022-10-16] MEDS: MORPHINE SULF 15mg ER tab PO SCH ×2 (09:30→22:00)
[2022-10-16] MEDS: DAKINS QUARTER STR 0.125% (NaHypochlorite) 473 ML TOPICAL SOL TOP SCH ×2 (12:41→22:00)
[2022-10-16 12:43] VITALS: BP 114/75
[2022-10-16 16:43] VITALS: BP 140/74
[2022-10-16] MEDS: HYDROcodone-ACET 10/325MG TAB PO PRN (18:19)
[2022-10-16] MEDS: BUMETANIDE 1mg/4ml VIAL (0.25mg/ml) IV SCH (18:20)
[2022-10-16] MEDS ORDERED: EPOETIN ALFA-EPBX 4,000 UNIT/ML VIAL SC ONE (21:00)
[2022-10-16 22:00] VITALS: BP 156/85
[2022-10-17] MEDS: MORPHINE SULFATE INJ 2 MG/ml SYRG IV PRN (00:24)
[2022-10-17] MEDS: diphenhdrAMINE HCL 50 MG/1 ML VL IV PRN (01:45)
[2022-10-17 05:00] VITALS: BP 119/71
[2022-10-17] MEDS: MIDODRINE HCL 10 MG TAB PO SCH ×3 (05:23→18:11)
[2022-10-17] MEDS: HEPARIN SODIUM (PORCINE) 5000 UNITS/ML 1ML VIAL SC SCH ×3 (05:24→21:59)
[2022-10-17] MEDS: BUMETANIDE 1mg/4ml VIAL (0.25mg/ml) IV SCH ×2 (05:26→18:11)
[2022-10-17] MEDS: SEVELAMER 800 MG TAB PO SCH ×3 (08:00→18:11)
[2022-10-17] MEDS: ENSURE CLEAR Mixed Berry 8oz Carton PO SCH ×5 (08:00→18:00)
[2022-10-17] MEDS ORDERED: levoFLOXacin 500MG 100 ML IV ONE (08:44)
[2022-10-17 09:00] VITALS: BP 139/82
[2022-10-17] MEDS ORDERED: fentaNYL CITRATE 100 MCG/2 ML VL ONE (09:17)
[2022-10-17] MEDS ORDERED: MIDAZOLAM HCL 2MG/2ML 2ml VIAL (1mg/ml) ONE (09:18)
[2022-10-17] MEDS ORDERED: BUPIVACAINE HCL 50 ML ONE (09:34)
[2022-10-17] MEDS ORDERED: PROPOFOL 10 MG/ML 20 ML IV ONE (09:45)
[2022-10-17] MEDS ORDERED: KETAMINE HCL 10 ML ONE (09:53)
[2022-10-17] MEDS: MORPHINE SULF 15mg ER tab PO SCH ×2 (10:00→21:59)
[2022-10-17] MEDS: DAKINS QUARTER STR 0.125% (NaHypochlorite) 473 ML TOPICAL SOL TOP SCH ×2 (10:00→21:59)
[2022-10-17] MEDS ORDERED: ONDANSETRON HCL 4 MG/2 ML VIAL IV PRN (10:30)
[2022-10-17] MEDS: PANTOPRAZOLE 40 MG TAB PO SCH (11:56)
[2022-10-17] MEDS: ONDANSETRON HCL 4 MG/2 ML VIAL IV PRN (11:56)
[2022-10-17] MEDS: cefTRIAXone 1GM/50ML D5W 50 ML IV SCH (11:56)
[2022-10-17] MEDS: DOXYCYCLINE 100 MG TAB/CAP PO SCH ×2 (11:57→21:59)
[2022-10-17] MEDS: FLORASTOR (S. BOULARDII) 250 MG CAP PO SCH (11:58)
[2022-10-17 12:30] VITALS: BP 100/73
[2022-10-17 16:51] VITALS: BP 113/77
[2022-10-17] MEDS: HYDROcodone-ACET 10/325MG TAB PO PRN (18:35)
[2022-10-17 18:38] LABS: Urine Bacteria NONE SEEN /hpf (None Seen); Urine Blood 2+ /uL (Negative); Urine Budding Yeast LOADED /hpf (None Seen); Urine WBC 1890 /hpf (0 - 3); Urine WBC Clumps PRESENT /hpf (None Seen)
[2022-10-17 21:56] VITALS: BP 138/83
[2022-10-18] MEDS: ONDANSETRON HCL 4 MG/2 ML VIAL IV PRN (04:29)
[2022-10-18 05:00] VITALS: BP 138/88
[2022-10-18 05:52] LABS: Basophils # (auto) 0.1 10 ^3/uL (0-0.2); Basophils % (auto) 0.7 % (0.0-2.0); Eosinophils # (auto) 0.7 10 ^3/uL (0-0.8); Eosinophils % (auto) 6.6 % (0.0-7.0); Hematocrit 32.3 % (41.0-53.0); Hemoglobin 10.2 g/dL (13.5-17.5); Lymphocytes # (auto) 1.6 10 ^3/uL (0.4-5.4); Lymphocytes % (auto) 15.3 % (10.0-50.0); Mean Corpuscular Hemoglobin 28.7 pg (28.0-32.0); Mean Corpuscular Hgb Conc. 31.6 g/dL (32.0-36.0); Mean Corpuscular Volume 90.9 fL (80.0-100.0); Monocytes # (auto) 1.3 10 ^3/uL (0-1.3); Monocytes % (auto) 12.2 % (0.0-12.0); Neutrophils # (auto) 6.8 10 ^3/uL (1.6-8.6); Neutrophils % (auto) 65.2 % (37.0-80.0); Nucleated Red Blood Cells % 0.1 %; Red Blood Cells 3.56 10^6/uL (4.5-5.90); Red Cell Distribution Width 19.4 % (11.8-14.3); White Blood Cell 10.4 10^3/uL (4.4-10.8)
[2022-10-18] MEDS: MIDODRINE HCL 10 MG TAB PO SCH ×2 (06:00→12:00)
[2022-10-18] MEDS: BUMETANIDE 1mg/4ml VIAL (0.25mg/ml) IV SCH ×2 (06:02→18:44)
[2022-10-18] MEDS: HEPARIN SODIUM (PORCINE) 5000 UNITS/ML 1ML VIAL SC SCH ×3 (06:03→21:20)
[2022-10-18 08:00] VITALS: BP 149/95
[2022-10-18] MEDS: ENSURE CLEAR Mixed Berry 8oz Carton PO SCH ×3 (08:00→19:02)
[2022-10-18 09:14] LABS: BUN/Creatinine Ratio 7.7 (10.0-20.0); Calcium 10.4 mg/dL (8.5-10.1); Potassium 4.5 mmol/L (3.5-5.1)
[2022-10-18] MEDS: DOXYCYCLINE 100 MG TAB/CAP PO SCH ×2 (09:18→21:17)
[2022-10-18] MEDS: PANTOPRAZOLE 40 MG TAB PO SCH (09:19)
[2022-10-18] MEDS: MORPHINE SULF 15mg ER tab PO SCH ×2 (09:19→21:17)
[2022-10-18] MEDS: SEVELAMER 800 MG TAB PO SCH ×3 (09:19→18:42)
[2022-10-18] MEDS: FLORASTOR (S. BOULARDII) 250 MG CAP PO SCH (09:20)
[2022-10-18] MEDS: cefTRIAXone 1GM/50ML D5W 50 ML IV SCH (09:20)
[2022-10-18] MEDS: DAKINS QUARTER STR 0.125% (NaHypochlorite) 473 ML TOPICAL SOL TOP SCH ×2 (10:00→21:21)
[2022-10-18 12:00] VITALS: BP 142/79
[2022-10-18 16:00] VITALS: BP 124/73
[2022-10-18 18:44] LABS: Urine Bacteria MOD /hpf (None Seen); Urine Blood 1+ /uL (Negative); Urine Budding Yeast LOADED /hpf (None Seen); Urine Hyaline Cast FEW /lpf (0 - 2); Urine Mucus FEW (None Seen); Urine Specific Gravity 1.016 (1.001-1.035); Urine WBC 153 /hpf (0 - 3)
[2022-10-18] MEDS: MORPHINE SULFATE INJ 2 MG/ml SYRG IV PRN (18:48)
[2022-10-18] MEDS ORDERED: EPOETIN ALFA-EPBX 4,000 UNIT/ML VIAL SC ONE (21:00)
[2022-10-18 22:00] VITALS: BP 106/73
[2022-10-19 05:23] VITALS: BP 136/85
[2022-10-19] MEDS: MORPHINE SULFATE INJ 2 MG/ml SYRG IV PRN (05:41)
[2022-10-19] MEDS: BUMETANIDE 1mg/4ml VIAL (0.25mg/ml) IV SCH ×2 (05:43→18:00)
[2022-10-19] MEDS: HEPARIN SODIUM (PORCINE) 5000 UNITS/ML 1ML VIAL SC SCH ×2 (05:51→14:35)
[2022-10-19] MEDS: SEVELAMER 800 MG TAB PO SCH ×3 (08:59→18:22)
[2022-10-19 09:00] VITALS: BP 117/62
[2022-10-19] MEDS: ENSURE CLEAR Mixed Berry 8oz Carton PO SCH ×3 (09:00→18:27)
[2022-10-19] MEDS: HYDROcodone-ACET 10/325MG TAB PO PRN (09:02)
[2022-10-19] MEDS: DAKINS QUARTER STR 0.125% (NaHypochlorite) 473 ML TOPICAL SOL TOP SCH ×2 (10:00→22:00)
[2022-10-19] MEDS: DOXYCYCLINE 100 MG TAB/CAP PO SCH (10:38)
[2022-10-19] MEDS: PANTOPRAZOLE 40 MG TAB PO SCH (10:39)
[2022-10-19] MEDS: MORPHINE SULF 15mg ER tab PO SCH (10:40)
[2022-10-19] MEDS: FLORASTOR (S. BOULARDII) 250 MG CAP PO SCH (10:40)
[2022-10-19 13:00] VITALS: BP 112/84
[2022-10-19 17:00] VITALS: BP 102/64
[2022-10-19 22:00] VITALS: BP 111/73
[2022-10-20] MEDS: DOXYCYCLINE 100 MG TAB/CAP PO SCH ×3 (00:05→21:25)
[2022-10-20] MEDS: MORPHINE SULF 15mg ER tab PO SCH ×3 (00:05→21:25)
[2022-10-20] MEDS: HEPARIN SODIUM (PORCINE) 5000 UNITS/ML 1ML VIAL SC SCH ×4 (00:09→21:30)
[2022-10-20] MEDS: MORPHINE SULFATE INJ 2 MG/ml SYRG IV PRN ×2 (02:06→12:34)
[2022-10-20 05:00] VITALS: BP 118/75
[2022-10-20] MEDS: BUMETANIDE 1mg/4ml VIAL (0.25mg/ml) IV SCH ×2 (06:51→18:03)
[2022-10-20 08:00] VITALS: BP 106/77
[2022-10-20] MEDS: SEVELAMER 800 MG TAB PO SCH ×3 (08:00→18:04)
[2022-10-20] MEDS: ENSURE CLEAR Mixed Berry 8oz Carton PO SCH ×3 (08:21→18:04)
[2022-10-20 09:00] VITALS: BP 106/77
[2022-10-20] MEDS: DAKINS QUARTER STR 0.125% (NaHypochlorite) 473 ML TOPICAL SOL TOP SCH ×2 (10:00→19:42)
[2022-10-20] MEDS: PANTOPRAZOLE 40 MG TAB PO SCH (10:30)
[2022-10-20] MEDS: FLORASTOR (S. BOULARDII) 250 MG CAP PO SCH (10:31)
[2022-10-20 12:36] VITALS: BP 130/97
[2022-10-20 16:41] VITALS: BP 126/85
[2022-10-21] MEDS: BUMETANIDE 1mg/4ml VIAL (0.25mg/ml) IV SCH ×2 (05:30→17:45)
[2022-10-21] MEDS: HEPARIN SODIUM (PORCINE) 5000 UNITS/ML 1ML VIAL SC SCH ×3 (05:31→22:24)
[2022-10-21 05:53] VITALS: BP 120/66
[2022-10-21 08:00] VITALS: BP 96/59
[2022-10-21] MEDS: ENSURE CLEAR Mixed Berry 8oz Carton PO SCH ×3 (08:34→17:45)
[2022-10-21 09:00] VITALS: BP 96/59
[2022-10-21] MEDS: PANTOPRAZOLE 40 MG TAB PO SCH (09:11)
[2022-10-21] MEDS: DOXYCYCLINE 100 MG TAB/CAP PO SCH ×2 (09:11→22:23)
[2022-10-21] MEDS: FLORASTOR (S. BOULARDII) 250 MG CAP PO SCH (09:11)
[2022-10-21] MEDS: SEVELAMER 800 MG TAB PO SCH ×3 (09:11→17:45)
[2022-10-21] MEDS: MORPHINE SULF 15mg ER tab PO SCH ×2 (09:12→22:23)
[2022-10-21] MEDS: DAKINS QUARTER STR 0.125% (NaHypochlorite) 473 ML TOPICAL SOL TOP SCH ×2 (09:12→22:00)
[2022-10-21 13:00] VITALS: BP 93/58
[2022-10-21 17:00] VITALS: BP 107/62
[2022-10-21 22:00] VITALS: BP 98/59
[2022-10-22] MEDS: HYDROcodone-ACET 10/325MG TAB PO PRN (02:43)
[2022-10-22 05:00] VITALS: BP 99/55
[2022-10-22] MEDS: BUMETANIDE 1mg/4ml VIAL (0.25mg/ml) IV SCH ×2 (06:00→17:46)
[2022-10-22] MEDS: HEPARIN SODIUM (PORCINE) 5000 UNITS/ML 1ML VIAL SC SCH ×3 (06:17→21:25)
[2022-10-22] MEDS: DOXYCYCLINE 100 MG TAB/CAP PO SCH ×2 (08:14→21:26)
[2022-10-22] MEDS: SEVELAMER 800 MG TAB PO SCH ×3 (08:14→18:05)
[2022-10-22] MEDS: PANTOPRAZOLE 40 MG TAB PO SCH (08:15)
[2022-10-22] MEDS: DAKINS QUARTER STR 0.125% (NaHypochlorite) 473 ML TOPICAL SOL TOP SCH ×2 (08:15→22:00)
[2022-10-22] MEDS: FLORASTOR (S. BOULARDII) 250 MG CAP PO SCH (08:15)
[2022-10-22] MEDS: ENSURE CLEAR Mixed Berry 8oz Carton PO SCH ×3 (08:16→17:46)
[2022-10-22] MEDS: MORPHINE SULF 15mg ER tab PO SCH ×2 (08:36→21:37)
[2022-10-22 09:00] VITALS: BP 110/70
[2022-10-22 17:00] VITALS: BP 96/55
[2022-10-22] MEDS ORDERED: EPOETIN ALFA-EPBX 4,000 UNIT/ML VIAL SC ONE (21:00)
[2022-10-22 22:00] VITALS: BP 87/64
[2022-10-23 05:00] VITALS: BP 101/62
[2022-10-23] MEDS: BUMETANIDE 1mg/4ml VIAL (0.25mg/ml) IV SCH ×2 (06:00→17:14)
[2022-10-23] MEDS: HEPARIN SODIUM (PORCINE) 5000 UNITS/ML 1ML VIAL SC SCH ×3 (06:55→21:13)
[2022-10-23 07:17] LABS: Basophils # (auto) 0.1 10 ^3/uL (0-0.2); Basophils % (auto) 0.6 % (0.0-2.0); Eosinophils # (auto) 0.2 10 ^3/uL (0-0.8); Eosinophils % (auto) 2.2 % (0.0-7.0); Hematocrit 30.7 % (41.0-53.0); Hemoglobin 9.7 g/dL (13.5-17.5); Lymphocytes # (auto) 0.9 10 ^3/uL (0.4-5.4); Lymphocytes % (auto) 10.3 % (10.0-50.0); Mean Corpuscular Hemoglobin 27.7 pg (28.0-32.0); Mean Corpuscular Hgb Conc. 31.8 g/dL (32.0-36.0); Mean Corpuscular Volume 87.2 fL (80.0-100.0); Monocytes # (auto) 0.8 10 ^3/uL (0-1.3); Monocytes % (auto) 9.3 % (0.0-12.0); Neutrophils # (auto) 7.1 10 ^3/uL (1.6-8.6); Neutrophils % (auto) 77.6 % (37.0-80.0); Nucleated Red Blood Cells % 0.1 %; Red Blood Cells 3.52 10^6/uL (4.5-5.90); Red Cell Distribution Width 19.1 % (11.8-14.3); White Blood Cell 9.1 10^3/uL (4.4-10.8)
[2022-10-23 07:22] LABS: Albumin 2.9 g/dL (3.4-5.0); Calcium 10.6 mg/dL (8.5-10.1); Potassium 3.4 mmol/L (3.5-5.1)
[2022-10-23 07:26] LABS: BUN/Creatinine Ratio 11.1 (10.0-20.0); Bilirubin, Total 0.6 mg/dL (0.2-1.0); Total Protein 6.8 g/dL (6.4-8.2)
[2022-10-23] MEDS: SEVELAMER 800 MG TAB PO SCH ×3 (08:27→18:00)
[2022-10-23] MEDS: MORPHINE SULF 15mg ER tab PO SCH ×2 (08:27→21:10)
[2022-10-23] MEDS: PANTOPRAZOLE 40 MG TAB PO SCH (08:27)
[2022-10-23] MEDS: DOXYCYCLINE 100 MG TAB/CAP PO SCH ×2 (08:27→21:10)
[2022-10-23] MEDS: FLORASTOR (S. BOULARDII) 250 MG CAP PO SCH (08:28)
[2022-10-23] MEDS: ENSURE CLEAR Mixed Berry 8oz Carton PO SCH ×3 (08:28→17:14)
[2022-10-23] MEDS: DAKINS QUARTER STR 0.125% (NaHypochlorite) 473 ML TOPICAL SOL TOP SCH ×2 (08:29→21:14)
[2022-10-23 09:00] VITALS: BP 101/98
[2022-10-23] MEDS: HYDROcodone-ACET 10/325MG TAB PO PRN ×2 (11:49→18:54)
[2022-10-23] MEDS ORDERED: LACTULOSE 20Gm/30ML SOLN PO PRN (12:15)
[2022-10-23 13:00] VITALS: BP 94/66
[2022-10-23 14:14] LABS: INR 1.11 (0.9-1.15)
[2022-10-23 17:00] VITALS: BP 103/70
[2022-10-23] MEDS: ONDANSETRON HCL 4 MG/2 ML VIAL IV PRN (18:54)
[2022-10-23 22:00] VITALS: BP 107/72
[2022-10-24 05:00] VITALS: BP 97/77
[2022-10-24] MEDS: BUMETANIDE 1mg/4ml VIAL (0.25mg/ml) IV SCH ×2 (05:28→19:24)
[2022-10-24] MEDS: HEPARIN SODIUM (PORCINE) 5000 UNITS/ML 1ML VIAL SC SCH ×3 (06:03→22:27)
[2022-10-24 09:00] VITALS: BP 118/74
[2022-10-24] MEDS: ENSURE CLEAR Mixed Berry 8oz Carton PO SCH ×3 (09:34→19:21)
[2022-10-24] MEDS: SEVELAMER 800 MG TAB PO SCH ×3 (09:34→19:21)
[2022-10-24] MEDS: MORPHINE SULF 15mg ER tab PO SCH ×2 (09:48→22:20)
[2022-10-24] MEDS: FLORASTOR (S. BOULARDII) 250 MG CAP PO SCH (09:49)
[2022-10-24] MEDS: DOXYCYCLINE 100 MG TAB/CAP PO SCH (09:49)
[2022-10-24] MEDS: PANTOPRAZOLE 40 MG TAB PO SCH (09:49)
[2022-10-24] MEDS: DAKINS QUARTER STR 0.125% (NaHypochlorite) 473 ML TOPICAL SOL TOP SCH ×2 (10:00→22:00)
[2022-10-24 13:00] VITALS: BP 121/77
[2022-10-24 16:28] VITALS: BP 109/70
[2022-10-24] MEDS ORDERED: SODIUM CHLORIDE 0.9% 1,000 ML IV ONE (21:00)
[2022-10-24 22:00] VITALS: BP 90/55
[2022-10-25] VITALS (7 sets, daily range): BP systolic 96–119; BP diastolic 42–77
[2022-10-25] MEDS: HYDROcodone-ACET 10/325MG TAB PO PRN ×3 (04:18→18:17)
[2022-10-25] MEDS: HEPARIN SODIUM (PORCINE) 5000 UNITS/ML 1ML VIAL SC SCH ×3 (05:43→21:20)
[2022-10-25] MEDS: PANTOPRAZOLE 40 MG TAB PO SCH (09:55)
[2022-10-25] MEDS: MORPHINE SULF 15mg ER tab PO SCH ×2 (09:55→21:18)
[2022-10-25] MEDS: FLORASTOR (S. BOULARDII) 250 MG CAP PO SCH (09:56)
[2022-10-25] MEDS: ENSURE CLEAR Mixed Berry 8oz Carton PO SCH ×3 (09:56→18:18)
[2022-10-25] MEDS: DAKINS QUARTER STR 0.125% (NaHypochlorite) 473 ML TOPICAL SOL TOP SCH ×2 (09:57→21:21)
[2022-10-25 10:23] LABS: Calcium 11.3 mg/dL (8.5-10.1); Potassium 3.1 mmol/L (3.5-5.1)
[2022-10-25 10:26] LABS: BUN/Creatinine Ratio 13.1 (10.0-20.0)
[2022-10-26 05:00] VITALS: BP_SYST 102; BP_SYST 130; BP_DIAS 68; BP_DIAS 89
[2022-10-26] MEDS: HEPARIN SODIUM (PORCINE) 5000 UNITS/ML 1ML VIAL SC SCH ×3 (05:20→21:23)
[2022-10-26 09:00] VITALS: BP 101/55
[2022-10-26] MEDS: ENSURE CLEAR Mixed Berry 8oz Carton PO SCH ×3 (10:10→19:24)
[2022-10-26] MEDS: PANTOPRAZOLE 40 MG TAB PO SCH (10:11)
[2022-10-26] MEDS: DAKINS QUARTER STR 0.125% (NaHypochlorite) 473 ML TOPICAL SOL TOP SCH ×2 (10:11→21:23)
[2022-10-26] MEDS: FLORASTOR (S. BOULARDII) 250 MG CAP PO SCH (10:11)
[2022-10-26] MEDS: MORPHINE SULF 15mg ER tab PO SCH ×2 (10:11→21:20)
[2022-10-26 13:00] VITALS: BP 84/65
[2022-10-26 17:00] VITALS: BP 97/49
[2022-10-26 20:00] VITALS: BP 109/63
[2022-10-26 22:00] VITALS: BP 109/63
[2022-10-27] VITALS (7 sets, daily range): BP systolic 93–106; BP diastolic 63–76
[2022-10-27] MEDS: HEPARIN SODIUM (PORCINE) 5000 UNITS/ML 1ML VIAL SC SCH ×3 (05:20→21:16)
[2022-10-27] MEDS: ENSURE CLEAR Mixed Berry 8oz Carton PO SCH ×3 (08:03→18:15)
[2022-10-27] MEDS: MORPHINE SULFATE INJ 2 MG/ml SYRG IV PRN (10:29)
[2022-10-27] MEDS: DAKINS QUARTER STR 0.125% (NaHypochlorite) 473 ML TOPICAL SOL TOP SCH ×2 (10:29→21:13)
[2022-10-27] MEDS: FLORASTOR (S. BOULARDII) 250 MG CAP PO SCH (11:10)
[2022-10-27] MEDS: MORPHINE SULF 15mg ER tab PO SCH ×2 (11:10→21:12)
[2022-10-27] MEDS: PANTOPRAZOLE 40 MG TAB PO SCH (11:10)
[2022-10-27] MEDS: HYDROcodone-ACET 10/325MG TAB PO PRN (12:53)
[2022-10-27 13:37] LABS: Calcium 11.6 mg/dL (8.5-10.1)
[2022-10-27 13:38] LABS: BUN/Creatinine Ratio 15.1 (10.0-20.0)
[2022-10-27] MEDS ORDERED: POTASSIUM EFFERVESENT TAB 25 MEQ PO ONE (18:45)
[2022-10-28 05:00] VITALS: BP 119/58
[2022-10-28] MEDS: HEPARIN SODIUM (PORCINE) 5000 UNITS/ML 1ML VIAL SC SCH ×3 (05:06→22:55)
[2022-10-28 07:30] VITALS: BP 101/46
[2022-10-28] MEDS: ENSURE CLEAR Mixed Berry 8oz Carton PO SCH ×3 (08:00→18:00)
[2022-10-28 09:23] VITALS: BP 95/56
[2022-10-28] MEDS: DAKINS QUARTER STR 0.125% (NaHypochlorite) 473 ML TOPICAL SOL TOP SCH ×2 (10:00→22:00)
[2022-10-28] MEDS: MORPHINE SULF 15mg ER tab PO SCH ×2 (10:00→22:00)
[2022-10-28 10:11] LABS: BUN/Creatinine Ratio 16.3 (10.0-20.0); Calcium 12.4 mg/dL (8.5-10.1); Potassium 3.7 mmol/L (3.5-5.1)
[2022-10-28] MEDS: FLORASTOR (S. BOULARDII) 250 MG CAP PO SCH (10:19)
[2022-10-28] MEDS: PANTOPRAZOLE 40 MG TAB PO SCH (10:19)
[2022-10-28 12:57] VITALS: BP 101/46
[2022-10-28 16:36] VITALS: BP 121/74
[2022-10-28] MEDS: HYDROcodone-ACET 10/325MG TAB PO PRN ×2 (16:44→23:05)
[2022-10-28 22:00] VITALS: BP 104/75
[2022-10-29 05:00] VITALS: BP 102/60
[2022-10-29] MEDS: HEPARIN SODIUM (PORCINE) 5000 UNITS/ML 1ML VIAL SC SCH ×3 (06:24→22:44)
[2022-10-29 06:31] LABS: Basophils # (auto) 0.1 10 ^3/uL (0-0.2); Basophils % (auto) 0.7 % (0.0-2.0); Eosinophils # (auto) 0.2 10 ^3/uL (0-0.8); Eosinophils % (auto) 3.2 % (0.0-7.0); Hematocrit 31.8 % (41.0-53.0); Hemoglobin 10.1 g/dL (13.5-17.5); Lymphocytes # (auto) 0.9 10 ^3/uL (0.4-5.4); Lymphocytes % (auto) 12.2 % (10.0-50.0); Mean Corpuscular Hemoglobin 27.4 pg (28.0-32.0); Mean Corpuscular Hgb Conc. 31.7 g/dL (32.0-36.0); Mean Corpuscular Volume 86.5 fL (80.0-100.0); Monocytes # (auto) 0.9 10 ^3/uL (0-1.3); Monocytes % (auto) 12.4 % (0.0-12.0); Neutrophils # (auto) 5.5 10 ^3/uL (1.6-8.6); Neutrophils % (auto) 71.5 % (37.0-80.0); Nucleated Red Blood Cells % 0.1 %; Red Blood Cells 3.68 10^6/uL (4.5-5.90); White Blood Cell 7.6 10^3/uL (4.4-10.8)
[2022-10-29 06:59] LABS: Calcium 12.2 mg/dL (8.5-10.1); Potassium 4.2 mmol/L (3.5-5.1)
[2022-10-29] MEDS: ENSURE CLEAR Mixed Berry 8oz Carton PO SCH ×3 (08:00→18:00)
[2022-10-29 09:00] VITALS: BP 104/60
[2022-10-29] MEDS: DAKINS QUARTER STR 0.125% (NaHypochlorite) 473 ML TOPICAL SOL TOP SCH ×2 (10:42→22:00)
[2022-10-29] MEDS: MORPHINE SULF 15mg ER tab PO SCH (10:42)
[2022-10-29] MEDS: PANTOPRAZOLE 40 MG TAB PO SCH (10:43)
[2022-10-29] MEDS: FLORASTOR (S. BOULARDII) 250 MG CAP PO SCH (10:43)
[2022-10-29 13:00] VITALS: BP 100/62
[2022-10-29] MEDS: HYDROcodone-ACET 10/325MG TAB PO PRN (20:09)
[2022-10-29 22:00] VITALS: BP 113/75
[2022-10-30] VITALS (7 sets, daily range): BP systolic 85–121; BP diastolic 48–73
[2022-10-30] MEDS: HYDROcodone-ACET 10/325MG TAB PO PRN (04:08)
[2022-10-30] MEDS: HEPARIN SODIUM (PORCINE) 5000 UNITS/ML 1ML VIAL SC SCH ×3 (06:15→21:18)
[2022-10-30] MEDS: PANTOPRAZOLE 40 MG TAB PO SCH (09:26)
[2022-10-30] MEDS: ENSURE CLEAR Mixed Berry 8oz Carton PO SCH ×3 (09:26→16:54)
[2022-10-30] MEDS: DAKINS QUARTER STR 0.125% (NaHypochlorite) 473 ML TOPICAL SOL TOP SCH ×2 (09:27→21:19)
[2022-10-30 16:17] LABS: Urine Bacteria FEW /hpf (None Seen); Urine Blood Negative /uL (Negative); Urine Mucus FEW (None Seen); Urine Specific Gravity 1.015 (1.001-1.035); Urine WBC 71 /hpf (0 - 3)
[2022-10-30] MEDS: MIDODRINE HCL 10 MG TAB PO SCH (16:54)
[2022-10-31 05:00] VITALS: BP 102/51
[2022-10-31] MEDS: HYDROcodone-ACET 10/325MG TAB PO PRN (05:23)
[2022-10-31] MEDS: MIDODRINE HCL 10 MG TAB PO SCH ×3 (05:23→14:20)
[2022-10-31] MEDS: HEPARIN SODIUM (PORCINE) 5000 UNITS/ML 1ML VIAL SC SCH ×3 (05:24→21:50)
[2022-10-31 06:47] LABS: Basophils # (auto) 0.1 10 ^3/uL (0-0.2); Basophils % (auto) 0.8 % (0.0-2.0); Eosinophils # (auto) 0.4 10 ^3/uL (0-0.8); Eosinophils % (auto) 5.1 % (0.0-7.0); Hematocrit 32.3 % (41.0-53.0); Hemoglobin 10.5 g/dL (13.5-17.5); Lymphocytes # (auto) 1.5 10 ^3/uL (0.4-5.4); Lymphocytes % (auto) 18.8 % (10.0-50.0); Mean Corpuscular Hemoglobin 27.9 pg (28.0-32.0); Mean Corpuscular Hgb Conc. 32.4 g/dL (32.0-36.0); Monocytes % (auto) 12.9 % (0.0-12.0); Neutrophils # (auto) 5.1 10 ^3/uL (1.6-8.6); Neutrophils % (auto) 62.4 % (37.0-80.0); Nucleated Red Blood Cells % 0.1 %; Red Blood Cells 3.76 10^6/uL (4.5-5.90); Red Cell Distribution Width 18.7 % (11.8-14.3); White Blood Cell 8.1 10^3/uL (4.4-10.8)
[2022-10-31 06:48] LABS: Potassium 3.2 mmol/L (3.5-5.1)
[2022-10-31 07:06] LABS: BUN/Creatinine Ratio 19.2 (10.0-20.0); Phosphorus 2.6 mg/dL (2.5-4.90)
[2022-10-31] MEDS: ENSURE CLEAR Mixed Berry 8oz Carton PO SCH ×3 (08:00→17:06)
[2022-10-31 09:00] VITALS: BP 100/64
[2022-10-31] MEDS: DAKINS QUARTER STR 0.125% (NaHypochlorite) 473 ML TOPICAL SOL TOP SCH (09:28)
[2022-10-31] MEDS: PANTOPRAZOLE 40 MG TAB PO SCH (09:28)
[2022-10-31 13:00] VITALS: BP 102/59
[2022-10-31] MEDS ORDERED: ZOLEDRONIC ACID 4 MG in SODIUM CHL 0.9% 100 ML IV ONE (13:45)
[2022-10-31] MEDS ORDERED: SERTRALINE HCL 50 MG TAB PO ONE (13:45)
[2022-10-31] MEDS ORDERED: POTASSIUM CHL 20 Meq TABLET PO ONE (13:45)
[2022-10-31] MEDS ORDERED: FUROSEMIDE 40 MG/4 ML VIAL IV ONE (14:45)
[2022-10-31 16:54] VITALS: BP 99/62
[2022-10-31 22:00] VITALS: BP 120/79
[2022-11-01] MEDS: DAKINS QUARTER STR 0.125% (NaHypochlorite) 473 ML TOPICAL SOL TOP SCH ×3 (00:01→22:00)
[2022-11-01] MEDS: HYDROcodone-ACET 10/325MG TAB PO PRN ×2 (02:54→13:00)
[2022-11-01 05:00] VITALS: BP 114/78
[2022-11-01] MEDS: MIDODRINE HCL 10 MG TAB PO SCH ×3 (06:40→17:42)
[2022-11-01] MEDS: HEPARIN SODIUM (PORCINE) 5000 UNITS/ML 1ML VIAL SC SCH ×3 (06:43→22:14)
[2022-11-01 08:00] VITALS: BP 114/78
[2022-11-01] MEDS: ENSURE CLEAR Mixed Berry 8oz Carton PO SCH ×3 (08:00→16:08)
[2022-11-01 09:00] VITALS: BP 106/63
[2022-11-01] MEDS: PANTOPRAZOLE 40 MG TAB PO SCH (09:50)
[2022-11-01] MEDS: SERTRALINE HCL 50 MG TAB PO SCH (09:50)
[2022-11-01 10:35] LABS: BUN/Creatinine Ratio 22.5 (10.0-20.0); Calcium 12.1 mg/dL (8.5-10.1); Potassium 3.5 mmol/L (3.5-5.1)
[2022-11-01 13:00] VITALS: BP_SYST 110; BP_SYST 158; BP_DIAS 72; BP_DIAS 77
[2022-11-01] MEDS ORDERED: ZOLEDRONIC ACID 4 MG in SODIUM CHL 0.9% 100 ML IV ONE (15:15)
[2022-11-01] MEDS: ONDANSETRON HCL 4 MG/2 ML VIAL IV PRN (16:18)
[2022-11-01] MEDS: SODIUM CHLORIDE 0.9% 1,000 ML IV SCH (16:18)
[2022-11-01 17:00] VITALS: BP 116/79
[2022-11-01 22:00] VITALS: BP 117/81
[2022-11-02] MEDS: HYDROcodone-ACET 10/325MG TAB PO PRN ×2 (03:50→21:49)
[2022-11-02 05:00] VITALS: BP 134/85
[2022-11-02] MEDS: SODIUM CHLORIDE 0.9% 1,000 ML IV SCH ×2 (05:20→17:42)
[2022-11-02] MEDS: MIDODRINE HCL 10 MG TAB PO SCH ×3 (06:00→17:38)
[2022-11-02 06:20] LABS: BUN/Creatinine Ratio 20.7 (10.0-20.0); Calcium 11.1 mg/dL (8.5-10.1); Potassium 3.2 mmol/L (3.5-5.1)
[2022-11-02] MEDS: HEPARIN SODIUM (PORCINE) 5000 UNITS/ML 1ML VIAL SC SCH ×3 (06:51→21:48)
[2022-11-02 08:00] VITALS: BP 97/67
[2022-11-02] MEDS: ENSURE CLEAR Mixed Berry 8oz Carton PO SCH ×3 (08:00→16:41)
[2022-11-02 09:00] VITALS: BP 97/67
[2022-11-02] MEDS ORDERED: POTASSIUM CHL 20 Meq TABLET PO ONE (09:00)
[2022-11-02] MEDS: SERTRALINE HCL 50 MG TAB PO SCH (09:42)
[2022-11-02] MEDS: PANTOPRAZOLE 40 MG TAB PO SCH (09:42)
[2022-11-02] MEDS: DAKINS QUARTER STR 0.125% (NaHypochlorite) 473 ML TOPICAL SOL TOP SCH ×2 (10:00→21:50)
[2022-11-02 12:56] LABS: Basophils # (auto) 0 10 ^3/uL (0-0.2); Basophils % (auto) 0.4 % (0.0-2.0); Eosinophils # (auto) 0.4 10 ^3/uL (0-0.8); Eosinophils % (auto) 3.8 % (0.0-7.0); Hemoglobin 9.7 g/dL (13.5-17.5); Lymphocytes # (auto) 1.2 10 ^3/uL (0.4-5.4); Lymphocytes % (auto) 11.6 % (10.0-50.0); Mean Corpuscular Hemoglobin 27.1 pg (28.0-32.0); Mean Corpuscular Hgb Conc. 31.2 g/dL (32.0-36.0); Monocytes # (auto) 1.1 10 ^3/uL (0-1.3); Neutrophils # (auto) 7.8 10 ^3/uL (1.6-8.6); Neutrophils % (auto) 74.2 % (37.0-80.0); Nucleated Red Blood Cells % 0.1 %; Red Blood Cells 3.57 10^6/uL (4.5-5.90); White Blood Cell 10.6 10^3/uL (4.4-10.8)
[2022-11-02 13:00] VITALS: BP 110/74
[2022-11-02 13:40] LABS: Basophils # (auto) 0.1 10 ^3/uL (0-0.2); Basophils % (auto) 1.1 % (0.0-2.0); Eosinophils # (auto) 0.6 10 ^3/uL (0-0.8); Eosinophils % (auto) 5.9 % (0.0-7.0); Hematocrit 30.5 % (41.0-53.0); Hemoglobin 9.6 g/dL (13.5-17.5); Lymphocytes # (auto) 1.3 10 ^3/uL (0.4-5.4); Lymphocytes % (auto) 14.1 % (10.0-50.0); Mean Corpuscular Hemoglobin 27.2 pg (28.0-32.0); Mean Corpuscular Hgb Conc. 31.6 g/dL (32.0-36.0); Mean Corpuscular Volume 86.2 fL (80.0-100.0); Monocytes % (auto) 10.6 % (0.0-12.0); Neutrophils # (auto) 6.4 10 ^3/uL (1.6-8.6); Neutrophils % (auto) 68.3 % (37.0-80.0); Red Blood Cells 3.54 10^6/uL (4.5-5.90); Red Cell Distribution Width 18.6 % (11.8-14.3); White Blood Cell 9.4 10^3/uL (4.4-10.8)
[2022-11-02 13:51] LABS: INR 1.03 (0.9-1.15); Partial Thromboplastin Time 25.2 SEC (24.5-34.5)
[2022-11-02 16:53] VITALS: BP 114/75
[2022-11-02 22:00] VITALS: BP 113/70
[2022-11-03 05:00] VITALS: BP 117/73
[2022-11-03] MEDS: MIDODRINE HCL 10 MG TAB PO SCH ×3 (06:00→17:51)
[2022-11-03] MEDS: HYDROcodone-ACET 10/325MG TAB PO PRN ×2 (06:49→20:45)
[2022-11-03] MEDS: HEPARIN SODIUM (PORCINE) 5000 UNITS/ML 1ML VIAL SC SCH ×3 (06:50→21:45)
[2022-11-03 08:00] VITALS: BP 117/85
[2022-11-03] MEDS: ENSURE CLEAR Mixed Berry 8oz Carton PO SCH ×3 (08:00→17:46)
[2022-11-03] MEDS: SODIUM CHLORIDE 0.9% 1,000 ML IV SCH ×2 (08:00→21:20)
[2022-11-03] MEDS: PANTOPRAZOLE 40 MG TAB PO SCH (08:57)
[2022-11-03] MEDS: SERTRALINE HCL 50 MG TAB PO SCH (08:58)
[2022-11-03 09:00] VITALS: BP 117/85
[2022-11-03] MEDS: DAKINS QUARTER STR 0.125% (NaHypochlorite) 473 ML TOPICAL SOL TOP SCH (10:00)
[2022-11-03 13:00] VITALS: BP 113/74
[2022-11-03 15:06] LABS: BUN/Creatinine Ratio 20.3 (10.0-20.0); Potassium 3.4 mmol/L (3.5-5.1)
[2022-11-03 17:00] VITALS: BP 119/86
[2022-11-03 21:52] VITALS: BP_SYST 111; BP_SYST 120; BP_DIAS 62; BP_DIAS 79
[2022-11-04 04:43] VITALS: BP 119/75
[2022-11-04] MEDS: MIDODRINE HCL 10 MG TAB PO SCH ×3 (06:00→17:46)
[2022-11-04] MEDS: HYDROcodone-ACET 10/325MG TAB PO PRN ×2 (06:24→17:46)
[2022-11-04] MEDS: HEPARIN SODIUM (PORCINE) 5000 UNITS/ML 1ML VIAL SC SCH ×2 (06:25→14:50)
[2022-11-04 07:04] LABS: Basophils # (auto) 0.1 10 ^3/uL (0-0.2); Basophils % (auto) 1.1 % (0.0-2.0); Eosinophils # (auto) 0.5 10 ^3/uL (0-0.8); Eosinophils % (auto) 4.4 % (0.0-7.0); Hematocrit 30.5 % (41.0-53.0); Hemoglobin 9.7 g/dL (13.5-17.5); Lymphocytes # (auto) 1.3 10 ^3/uL (0.4-5.4); Lymphocytes % (auto) 12.5 % (10.0-50.0); Mean Corpuscular Hemoglobin 27.4 pg (28.0-32.0); Mean Corpuscular Hgb Conc. 31.8 g/dL (32.0-36.0); Mean Corpuscular Volume 86.2 fL (80.0-100.0); Monocytes # (auto) 0.9 10 ^3/uL (0-1.3); Monocytes % (auto) 8.9 % (0.0-12.0); Neutrophils # (auto) 7.4 10 ^3/uL (1.6-8.6); Neutrophils % (auto) 73.1 % (37.0-80.0); Nucleated Red Blood Cells % 0.1 %; Red Blood Cells 3.54 10^6/uL (4.5-5.90); Red Cell Distribution Width 18.7 % (11.8-14.3); White Blood Cell 10.2 10^3/uL (4.4-10.8)
[2022-11-04 07:18] LABS: Albumin 2.2 g/dL (3.4-5.0); Calcium 10.8 mg/dL (8.5-10.1); Potassium 3.6 mmol/L (3.5-5.1)
[2022-11-04 07:20] LABS: BUN/Creatinine Ratio 20.6 (10.0-20.0)
[2022-11-04 07:23] LABS: Bilirubin, Total 0.6 mg/dL (0.2-1.0); Total Protein 6.5 g/dL (6.4-8.2)
[2022-11-04 08:00] VITALS: BP 111/71
[2022-11-04] MEDS: ENSURE CLEAR Mixed Berry 8oz Carton PO SCH ×3 (08:00→17:46)
[2022-11-04 09:00] VITALS: BP 111/71
[2022-11-04] MEDS: SERTRALINE HCL 50 MG TAB PO SCH (10:00)
[2022-11-04] MEDS: PANTOPRAZOLE 40 MG TAB PO SCH (10:36)
[2022-11-04] MEDS: SODIUM CHLORIDE 0.9% 1,000 ML IV SCH (10:39)
[2022-11-04 13:00] VITALS: BP 115/72
[2022-11-04 17:00] VITALS: BP 132/84
[2022-11-04 22:00] VITALS: BP 134/84
[2022-11-05] MEDS: HEPARIN SODIUM (PORCINE) 5000 UNITS/ML 1ML VIAL SC SCH ×4 (00:06→22:20)
[2022-11-05] MEDS: SODIUM CHLORIDE 0.9% 1,000 ML IV SCH (00:16)
[2022-11-05] MEDS: HYDROcodone-ACET 10/325MG TAB PO PRN ×3 (00:41→12:56)
[2022-11-05 05:00] VITALS: BP 110/74
[2022-11-05 06:21] LABS: BUN/Creatinine Ratio 21.9 (10.0-20.0); Calcium 11.1 mg/dL (8.5-10.1); Potassium 4.1 mmol/L (3.5-5.1)
[2022-11-05] MEDS: ENSURE CLEAR Mixed Berry 8oz Carton PO SCH ×3 (08:00→17:14)
[2022-11-05 09:00] VITALS: BP 122/86
[2022-11-05] MEDS: MIDODRINE HCL 10 MG TAB PO SCH ×4 (09:45→22:22)
[2022-11-05] MEDS: SERTRALINE HCL 50 MG TAB PO SCH (09:46)
[2022-11-05] MEDS: PANTOPRAZOLE 40 MG TAB PO SCH (09:46)
[2022-11-05 13:00] VITALS: BP 122/72
[2022-11-05 17:00] VITALS: BP 103/64
[2022-11-05 20:00] VITALS: BP 140/88
[2022-11-05 22:21] VITALS: BP 136/87
[2022-11-06] MEDS: HYDROcodone-ACET 10/325MG TAB PO PRN ×2 (04:53→15:49)
[2022-11-06] MEDS: HEPARIN SODIUM (PORCINE) 5000 UNITS/ML 1ML VIAL SC SCH ×3 (06:39→18:15)
[2022-11-06] MEDS: ENSURE CLEAR Mixed Berry 8oz Carton PO SCH ×3 (08:00→18:00)
[2022-11-06 09:00] VITALS: BP 122/78
[2022-11-06] MEDS: PANTOPRAZOLE 40 MG TAB PO SCH (12:06)
[2022-11-06] MEDS: MIDODRINE HCL 10 MG TAB PO SCH ×2 (12:06→18:15)
[2022-11-06] MEDS: SERTRALINE HCL 50 MG TAB PO SCH (12:06)
[2022-11-06] MEDS: MORPHINE SULFATE INJ 2 MG/ml SYRG IV PRN ×2 (12:07→21:13)
[2022-11-06 13:00] VITALS: BP 112/76
[2022-11-06 16:36] VITALS: BP 107/74
[2022-11-06] MEDS ORDERED: HEPARIN SODIUM (PORCINE) 5000 UNITS/ML 1ML VIAL ONE (18:10)
[2022-11-06 18:23] LABS: BUN/Creatinine Ratio 19.8 (10.0-20.0); Calcium 10.8 mg/dL (8.5-10.1); Potassium 3.2 mmol/L (3.5-5.1)
[2022-11-06 20:00] VITALS: BP 154/88
[2022-11-06 22:00] VITALS: BP 120/84
[2022-11-07 04:59] VITALS: BP 146/77
[2022-11-07] MEDS: MIDODRINE HCL 10 MG TAB PO SCH ×3 (06:00→18:00)
[2022-11-07] MEDS: HEPARIN SODIUM (PORCINE) 5000 UNITS/ML 1ML VIAL SC SCH ×3 (06:13→23:09)
[2022-11-07] MEDS: ENSURE CLEAR Mixed Berry 8oz Carton PO SCH ×3 (08:24→18:44)
[2022-11-07 08:30] VITALS: BP 128/77
[2022-11-07 08:44] LABS: Basophils # (auto) 0.2 10 ^3/uL (0-0.2); Basophils % (auto) 2.2 % (0.0-2.0); Eosinophils # (auto) 0.5 10 ^3/uL (0-0.8); Eosinophils % (auto) 5.7 % (0.0-7.0); Hematocrit 32.5 % (41.0-53.0); Hemoglobin 10.4 g/dL (13.5-17.5); Mean Corpuscular Hemoglobin 27.5 pg (28.0-32.0); Mean Corpuscular Hgb Conc. 32.1 g/dL (32.0-36.0); Mean Corpuscular Volume 85.8 fL (80.0-100.0); Monocytes # (auto) 0.9 10 ^3/uL (0-1.3); Monocytes % (auto) 10.5 % (0.0-12.0); Neutrophils # (auto) 6.3 10 ^3/uL (1.6-8.6); Neutrophils % (auto) 70.6 % (37.0-80.0); Red Blood Cells 3.79 10^6/uL (4.5-5.90); Red Cell Distribution Width 18.7 % (11.8-14.3); White Blood Cell 8.9 10^3/uL (4.4-10.8)
[2022-11-07 08:52] LABS: BUN/Creatinine Ratio 19.9 (10.0-20.0); Calcium 10.8 mg/dL (8.5-10.1); Potassium 3.5 mmol/L (3.5-5.1)
[2022-11-07] MEDS: PANTOPRAZOLE 40 MG TAB PO SCH (09:47)
[2022-11-07] MEDS: SERTRALINE HCL 50 MG TAB PO SCH (09:48)
[2022-11-07] MEDS: HYDROcodone-ACET 10/325MG TAB PO PRN ×2 (09:52→16:18)
[2022-11-07 13:00] VITALS: BP 123/80
[2022-11-07 16:38] VITALS: BP 131/86
[2022-11-07] MEDS: MORPHINE SULFATE INJ 2 MG/ml SYRG IV PRN (19:43)
[2022-11-07 20:00] VITALS: BP 143/80
[2022-11-07 22:00] VITALS: BP 116/75
[2022-11-08] VITALS (7 sets, daily range): BP systolic 87–146; BP diastolic 57–86
[2022-11-08] MEDS: HEPARIN SODIUM (PORCINE) 5000 UNITS/ML 1ML VIAL SC SCH ×3 (05:46→21:47)
[2022-11-08] MEDS: MIDODRINE HCL 10 MG TAB PO SCH ×3 (05:46→17:57)
[2022-11-08] MEDS: ENSURE CLEAR Mixed Berry 8oz Carton PO SCH ×3 (07:44→17:56)
[2022-11-08] MEDS: MORPHINE SULFATE INJ 2 MG/ml SYRG IV PRN (07:46)
[2022-11-08] MEDS: PANTOPRAZOLE 40 MG TAB PO SCH (09:35)
[2022-11-08] MEDS: SERTRALINE HCL 50 MG TAB PO SCH (09:38)
[2022-11-08] MEDS: HYDROcodone-ACET 10/325MG TAB PO PRN ×2 (11:55→17:55)
[2022-11-08] MEDS: ACETAMINOPHEN 500 MG TAB PO PRN (20:37)
[2022-11-08] MEDS ORDERED: diphenhdrAMINE HCL 25 MG CAP PO PRN (22:45)
[2022-11-09 05:00] VITALS: BP 130/79
[2022-11-09] MEDS: MIDODRINE HCL 10 MG TAB PO SCH ×2 (05:32→12:31)
[2022-11-09] MEDS: HEPARIN SODIUM (PORCINE) 5000 UNITS/ML 1ML VIAL SC SCH ×2 (06:19→14:04)
[2022-11-09 08:25] VITALS: BP 114/72
[2022-11-09] MEDS: PANTOPRAZOLE 40 MG TAB PO SCH (08:57)
[2022-11-09] MEDS: ENSURE CLEAR Mixed Berry 8oz Carton PO SCH ×2 (08:58→12:30)
[2022-11-09] MEDS: ACETAMINOPHEN 500 MG TAB PO PRN ×2 (09:01→14:02)
[2022-11-09] MEDS ORDERED: SERTRALINE HCL 50 MG TAB PO SCH (10:00)
[2022-11-09 12:53] VITALS: BP 115/66
[2022-11-09 17:04] VITALS: BP 107/63
== END 2022-11-09 17:36 | DRG 853 ==
LOC: ER 09:17 → EDBD 09:17 → OVERFLOW 15:36 → WEST WING 22:25 → TELE-WESTW 08-31 13:22 → WEST WING 09-13 05:51 → TELE-WESTW 09-21 21:21 → WEST WING 10-02 00:37 → TELE-WESTW 10-11 04:09 → WEST WING 10-12 15:23 → TELE-WESTW 10-13 21:44 → WEST WING 10-13 21:45
PROVIDERS: ADMIT Internal Medicine Geriatric Medicine; ATTEND Internal Medicine Geriatric Medicine
PROC: 0W9G3ZZ Drainage of Peritoneal Cavity, Percutaneous Approach (ICD-10-PCS; 2022-08-27)
PROC: 0W9G3ZZ Drainage of Peritoneal Cavity, Percutaneous Approach (ICD-10-PCS; 2022-09-03)
PROC: 02H633Z Insertion of Infusion Device into Right Atrium, Percutaneous Approach (ICD-10-PCS; 2022-09-07)
PROC: B548ZZA Ultrasonography of Superior Vena Cava, Guidance (ICD-10-PCS; 2022-09-07)
PROC: 0W9G3ZZ Drainage of Peritoneal Cavity, Percutaneous Approach (ICD-10-PCS; 2022-09-10)
PROC: 0JH63XZ Insertion of Tunneled Vascular Access Device into Chest Subcutaneous Tissue and Fascia, Percutaneous Approach (ICD-10-PCS; 2022-09-14)
PROC: 02HV33Z Insertion of Infusion Device into Superior Vena Cava, Percutaneous Approach (ICD-10-PCS; 2022-09-14)
PROC: B548ZZA Ultrasonography of Superior Vena Cava, Guidance (ICD-10-PCS; 2022-09-14)
PROC: B5181ZA Fluoroscopy of Superior Vena Cava using Low Osmolar Contrast, Guidance (ICD-10-PCS; 2022-09-14)
PROC: 5A1D70Z Performance of Urinary Filtration, Intermittent, Less than 6 Hours Per Day (ICD-10-PCS; 2022-09-14)
PROC: 5A1D70Z Performance of Urinary Filtration, Intermittent, Less than 6 Hours Per Day (ICD-10-PCS; 2022-09-19)
PROC: 0KBR0ZZ Excision of Left Upper Leg Muscle, Open Approach (ICD-10-PCS; 2022-09-20)
PROC: 0KBQ0ZZ Excision of Right Upper Leg Muscle, Open Approach (ICD-10-PCS; 2022-09-20)
PROC: 5A1D70Z Performance of Urinary Filtration, Intermittent, Less than 6 Hours Per Day (ICD-10-PCS; 2022-09-21)
PROC: 5A1D70Z Performance of Urinary Filtration, Intermittent, Less than 6 Hours Per Day (ICD-10-PCS; 2022-09-24)
PROC: 0W9G3ZZ Drainage of Peritoneal Cavity, Percutaneous Approach (ICD-10-PCS; 2022-09-25)
PROC: 5A1D70Z Performance of Urinary Filtration, Intermittent, Less than 6 Hours Per Day (ICD-10-PCS; 2022-09-25)
PROC: 5A1D70Z Performance of Urinary Filtration, Intermittent, Less than 6 Hours Per Day (ICD-10-PCS; 2022-09-26)
PROC: 5A1D70Z Performance of Urinary Filtration, Intermittent, Less than 6 Hours Per Day (ICD-10-PCS; 2022-09-28)
PROC: 5A1D70Z Performance of Urinary Filtration, Intermittent, Less than 6 Hours Per Day (ICD-10-PCS; 2022-10-01)
PROC: 0JBM0ZZ Excision of Left Upper Leg Subcutaneous Tissue and Fascia, Open Approach (ICD-10-PCS; 2022-10-04)
PROC: 0JBL0ZZ Excision of Right Upper Leg Subcutaneous Tissue and Fascia, Open Approach (ICD-10-PCS; principal; 2022-10-04 11:07)
PROC: 5A1D70Z Performance of Urinary Filtration, Intermittent, Less than 6 Hours Per Day (ICD-10-PCS; 2022-10-10)
PROC: 5A1D70Z Performance of Urinary Filtration, Intermittent, Less than 6 Hours Per Day (ICD-10-PCS; 2022-10-12)
PROC: 0JBM0ZZ Excision of Left Upper Leg Subcutaneous Tissue and Fascia, Open Approach (ICD-10-PCS; 2022-10-17)
PROC: 0JBL0ZZ Excision of Right Upper Leg Subcutaneous Tissue and Fascia, Open Approach (ICD-10-PCS; 2022-10-17)
PROC: 0JPV3XZ Removal of Tunneled Vascular Access Device from Upper Extremity Subcutaneous Tissue and Fascia, Percutaneous Approach (ICD-10-PCS; 2022-11-07)
DX: A41.9 Sepsis, unspecified organism (principal); E43 Unspecified severe protein-calorie malnutrition; I50.33 Acute on chronic diastolic (congestive) heart failure; N17.0 Acute kidney failure with tubular necrosis; L03.116 Cellulitis of left lower limb; E87.1 Hypo-osmolality and hyponatremia; B37.49 Other urogenital candidiasis; R18.8 Other ascites; L03.115 Cellulitis of right lower limb; I13.0 Hypertensive heart and chronic kidney disease with heart failure and stage 1 through stage 4 chronic kidney disease, or unspecified chronic kidney disease; D68.9 Coagulation defect, unspecified; Z68.43 Body mass index [BMI] 50.0-59.9, adult; D63.1 Anemia in chronic kidney disease; E87.5 Hyperkalemia; N18.32 Chronic kidney disease, stage 3b; E11.621 Type 2 diabetes mellitus with foot ulcer; J44.9 Chronic obstructive pulmonary disease, unspecified; K76.0 Fatty (change of) liver, not elsewhere classified; L97.519 Non-pressure chronic ulcer of other part of right foot with unspecified severity; E66.01 Morbid (severe) obesity due to excess calories; E83.52 Hypercalcemia; K74.60 Unspecified cirrhosis of liver; D69.6 Thrombocytopenia, unspecified; K80.20 Calculus of gallbladder without cholecystitis without obstruction; F32.A Depression, unspecified; E11.22 Type 2 diabetes mellitus with diabetic chronic kidney disease; E87.6 Hypokalemia; R16.2 Hepatomegaly with splenomegaly, not elsewhere classified; T36.8X5A Adverse effect of other systemic antibiotics, initial encounter; G47.30 Sleep apnea, unspecified; Z80.42 Family history of malignant neoplasm of prostate; Z82.49 Family history of ischemic heart disease and other diseases of the circulatory system; Z83.3 Family history of diabetes mellitus; Z88.0 Allergy status to penicillin; Z88.1 Allergy status to other antibiotic agents; Z91.018 Allergy to other foods; Z99.2 Dependence on renal dialysis; Y92.89 Other specified places as the place of occurrence of the external cause; Z74.01 Bed confinement status; Z88.8 Allergy status to other drugs, medicaments and biological substances
CPT/HCPCS: 36415; 36569; 71045; 71250; 74176; 76705; 76775; 76937; 76942; 80048; 80053; 81001; 82306; 82310; 82570; 82784; 82962; 83735; 83880; 83883; 83930; 83935; 83970; 83986; 84100; 84155; 84156; 84165; 84166; 84300; 84484; 84550; 85007; 85014; 85018; 85025; 85027; 85610; 85652; 85730; 86334; 86335; 86850; 86900; 86901; 87040; 87076; 87077; 87081; 87086; 87088; 87186; 87205; 87340; 89051; 90935; 93005; 96365; 97110; 97116; 97163; 97530; 99152; C1894; G0378; J0690; J0696; J1100; J1450; J1642; J1815; J1956; J2001; J2248; J2250; J2405; J2704; J3489; J3490; P9047

== ENCOUNTER 2022-11-10 20:11 | Inpatient (IN) | payer OTHER ==
[~2022-11-10] VITALS: Ht 182.9 cm; Wt 118.9 kg
[2022-11-10 21:01] LABS: Basophils # (auto) 0.1 10 ^3/uL (0-0.2); Hemoglobin 10.3 g/dL (13.5-17.5); Monocytes # (auto) 0.8 10 ^3/uL (0-1.3)
[2022-11-10 21:03] LABS: Basophils % (auto) 0.9 % (0.0-2.0); Eosinophils # (auto) 0.4 10 ^3/uL (0-0.8); Eosinophils % (auto) 2.5 % (0.0-7.0); Hematocrit 32.7 % (41.0-53.0); Lymphocytes # (auto) 0.7 10 ^3/uL (0.4-5.4); Lymphocytes % (auto) 4.6 % (10.0-50.0); Mean Corpuscular Hemoglobin 26.7 pg (28.0-32.0); Mean Corpuscular Hgb Conc. 31.5 g/dL (32.0-36.0); Mean Corpuscular Volume 84.7 fL (80.0-100.0); Monocytes % (auto) 4.8 % (0.0-12.0); Neutrophils # (auto) 13.9 10 ^3/uL (1.6-8.6); Neutrophils % (auto) 87.2 % (37.0-80.0); Red Blood Cells 3.86 10^6/uL (4.5-5.90); Red Cell Distribution Width 18.1 % (11.8-14.3); White Blood Cell 15.9 10^3/uL (4.4-10.8)
[2022-11-10 21:05] VITALS: PULSE 119; RESP 18; O2SAT 93
[2022-11-10 21:33] LABS: Albumin 2.2 g/dL (3.4-5.0); Calcium 10.3 mg/dL (8.5-10.1)
[2022-11-10 21:36] LABS: BUN/Creatinine Ratio 17.9 (10.0-20.0); Bilirubin, Total 0.6 mg/dL (0.2-1.0); Total Protein 6.9 g/dL (6.4-8.2)
[2022-11-10 21:46] LABS: Potassium 2.9 mmol/L (3.5-5.1)
[2022-11-10 22:10] LABS: Urine Bacteria NONE SEEN /hpf (None Seen); Urine Blood TRACE /uL (Negative); Urine Hyaline Cast FEW /lpf (0 - 2); Urine Mucus FEW (None Seen); Urine Specific Gravity 1.019 (1.001-1.035); Urine WBC 26 /hpf (0 - 3)
[2022-11-10] MEDS ORDERED: POTASSIUM CHL 20 Meq TABLET PO ONE (23:00)
[2022-11-10] MEDS ORDERED: SODIUM CHLORIDE 0.9% 1,000 ML IVB ONE (23:00)
[2022-11-10 23:14] LABS: Magnesium 1.9 mg/dL (1.6-2.6)
[2022-11-10 23:15] LABS: INR 1.06 (0.9-1.15); Partial Thromboplastin Time 33.9 SEC (24.5-34.5)
[2022-11-10] MEDS ORDERED: ONDANSETRON HCL 4 MG/2 ML VIAL IV ONE (23:45)
[2022-11-10] MEDS ORDERED: MORPHINE SULFATE INJ 2 MG/ml SYRG IV ONE (23:45)
[2022-11-11] VITALS (7 sets, daily range): BP systolic 111–137; BP diastolic 61–77; PULSE 95–103; RESP 14–18; TEMP 98.1–98.6; O2SAT 96–100
[2022-11-11] MEDS ORDERED: ACETAMINOPHEN 500 MG TAB PO ONE (01:15)
[2022-11-11] MEDS ORDERED: levoFLOXacin 500MG 100 ML IV ONE (02:00)
[2022-11-11] MEDS ORDERED: MORPHINE SULFATE INJ 2 MG/ml SYRG IV PRN (03:00)
[2022-11-11] MEDS ORDERED: DOCUSATE SOD 100 MG CAP PO PRN (03:00)
[2022-11-11] MEDS ORDERED: NITROGLYCERIN 0.4 MG SL TAB SL PRN (03:00)
[2022-11-11] MEDS ORDERED: ALBUTEROL SULF 2.5 MG/0.5ML(0.5%) NEB SOLN NEB PRN (03:00)
[2022-11-11] MEDS ORDERED: DEXTROSE (50%) 50ML SYRG IV PRN (03:00)
[2022-11-11] MEDS ORDERED: ALBUMIN 25% 100 ML IV ONE (03:30)
[2022-11-11] MEDS ORDERED: HEPARIN SODIUM (PORCINE) 5000 UNITS/ML 1ML VIAL SC ONE (04:00)
[2022-11-11] MEDS: SODIUM CHLORIDE 0.9% 1,000 ML IV SCH ×2 (05:20→21:33)
[2022-11-11 06:48] LABS: Basophils # (auto) 0.1 10 ^3/uL (0-0.2); Basophils % (auto) 0.8 % (0.0-2.0); Eosinophils # (auto) 0.4 10 ^3/uL (0-0.8); Eosinophils % (auto) 3.2 % (0.0-7.0); Hematocrit 30.8 % (41.0-53.0); Hemoglobin 9.8 g/dL (13.5-17.5); Lymphocytes # (auto) 0.8 10 ^3/uL (0.4-5.4); Lymphocytes % (auto) 5.9 % (10.0-50.0); Mean Corpuscular Hemoglobin 27.4 pg (28.0-32.0); Mean Corpuscular Hgb Conc. 31.7 g/dL (32.0-36.0); Mean Corpuscular Volume 86.5 fL (80.0-100.0); Monocytes % (auto) 7.3 % (0.0-12.0); Neutrophils # (auto) 11.1 10 ^3/uL (1.6-8.6); Neutrophils % (auto) 82.8 % (37.0-80.0); Red Blood Cells 3.56 10^6/uL (4.5-5.90); Red Cell Distribution Width 18.3 % (11.8-14.3); White Blood Cell 13.4 10^3/uL (4.4-10.8)
[2022-11-11] MEDS: ACCU-CHEK COMFORT CURVE STRIP VI SCH ×4 (06:56→21:18)
[2022-11-11] MEDS: InsuLIN REG 1unit/0.01ml Soln (100units/ml) SC SCH ×4 (06:56→21:18)
[2022-11-11 07:13] LABS: Albumin 2.4 g/dL (3.4-5.0)
[2022-11-11 07:16] LABS: Bilirubin, Total 0.6 mg/dL (0.2-1.0); Total Protein 6.7 g/dL (6.4-8.2)
[2022-11-11] MEDS: HEPARIN SODIUM (PORCINE) 5000 UNITS/ML 1ML VIAL SC SCH ×2 (10:30→21:23)
[2022-11-11] MEDS: HYDROcodone-ACET 5/325MG TAB PO PRN ×3 (12:18→20:41)
[2022-11-11] MEDS: DAKINS QUARTER STR 0.125% (NaHypochlorite) 473 ML TOPICAL SOL TOP SCH (21:34)
[2022-11-12] VITALS (8 sets, daily range): BP systolic 104–130; BP diastolic 70–84; PULSE 99–109; RESP 17–20; TEMP 97.6–98.4; O2SAT 94–99
[2022-11-12] MEDS ORDERED: levoFLOXacin 250MG 50 ML IV SCH (02:00)
[2022-11-12] MEDS: HYDROcodone-ACET 5/325MG TAB PO PRN ×4 (02:39→21:49)
[2022-11-12] MEDS: ACCU-CHEK COMFORT CURVE STRIP VI SCH ×4 (06:18→21:46)
[2022-11-12] MEDS: InsuLIN REG 1unit/0.01ml Soln (100units/ml) SC SCH ×4 (06:18→21:57)
[2022-11-12 07:02] LABS: Basophils # (auto) 0.1 10 ^3/uL (0-0.2); Basophils % (auto) 0.8 % (0.0-2.0); Eosinophils % (auto) 8.2 % (0.0-7.0); Hematocrit 30.6 % (41.0-53.0); Hemoglobin 9.6 g/dL (13.5-17.5); Lymphocytes % (auto) 7.7 % (10.0-50.0); Mean Corpuscular Hemoglobin 27.2 pg (28.0-32.0); Mean Corpuscular Hgb Conc. 31.6 g/dL (32.0-36.0); Mean Corpuscular Volume 86.2 fL (80.0-100.0); Monocytes # (auto) 1.2 10 ^3/uL (0-1.3); Monocytes % (auto) 9.5 % (0.0-12.0); Neutrophils # (auto) 9.4 10 ^3/uL (1.6-8.6); Neutrophils % (auto) 73.8 % (37.0-80.0); Nucleated Red Blood Cells % 0.2 %; Red Blood Cells 3.54 10^6/uL (4.5-5.90); Red Cell Distribution Width 18.5 % (11.8-14.3); White Blood Cell 12.7 10^3/uL (4.4-10.8)
[2022-11-12 07:20] LABS: Potassium 3.8 mmol/L (3.5-5.1)
[2022-11-12 07:29] LABS: Albumin 2.1 g/dL (3.4-5.0); Bilirubin, Total 0.5 mg/dL (0.2-1.0); Calcium 9.8 mg/dL (8.5-10.1); Magnesium 2.1 mg/dL (1.6-2.6); Total Protein 6.3 g/dL (6.4-8.2)
[2022-11-12] MEDS: HEPARIN SODIUM (PORCINE) 5000 UNITS/ML 1ML VIAL SC SCH ×2 (10:04→21:57)
[2022-11-12] MEDS: DAKINS QUARTER STR 0.125% (NaHypochlorite) 473 ML TOPICAL SOL TOP SCH ×2 (10:05→21:46)
[2022-11-12] MEDS ORDERED: metroNIDAZOLE 500 MG TAB PO ONE (10:30)
[2022-11-12] MEDS: metroNIDAZOLE 500 MG TAB PO SCH ×2 (12:11→19:03)
[2022-11-13] VITALS (10 sets, daily range): BP systolic 95–125; BP diastolic 57–79; PULSE 91–107; RESP 16–20; TEMP 97.6–98.4; O2SAT 96–100
[2022-11-13] MEDS: metroNIDAZOLE 500 MG TAB PO SCH ×3 (02:05→18:53)
[2022-11-13] MEDS: HYDROcodone-ACET 5/325MG TAB PO PRN ×4 (02:05→18:56)
[2022-11-13 05:47] LABS: Basophils # (auto) 0.1 10 ^3/uL (0-0.2); Basophils % (auto) 1.3 % (0.0-2.0); Eosinophils # (auto) 1.2 10 ^3/uL (0-0.8); Eosinophils % (auto) 11.9 % (0.0-7.0); Hematocrit 29.6 % (41.0-53.0); Hemoglobin 9.6 g/dL (13.5-17.5); Lymphocytes # (auto) 1.2 10 ^3/uL (0.4-5.4); Lymphocytes % (auto) 12.5 % (10.0-50.0); Mean Corpuscular Hemoglobin 27.7 pg (28.0-32.0); Mean Corpuscular Hgb Conc. 32.4 g/dL (32.0-36.0); Mean Corpuscular Volume 85.3 fL (80.0-100.0); Monocytes # (auto) 0.9 10 ^3/uL (0-1.3); Monocytes % (auto) 9.1 % (0.0-12.0); Neutrophils # (auto) 6.5 10 ^3/uL (1.6-8.6); Neutrophils % (auto) 65.2 % (37.0-80.0); Red Blood Cells 3.47 10^6/uL (4.5-5.90); Red Cell Distribution Width 18.3 % (11.8-14.3)
[2022-11-13 05:57] LABS: BUN/Creatinine Ratio 16.2 (10.0-20.0); Calcium 9.6 mg/dL (8.5-10.1); Potassium 3.1 mmol/L (3.5-5.1)
[2022-11-13] MEDS: ACCU-CHEK COMFORT CURVE STRIP VI SCH ×4 (06:17→22:07)
[2022-11-13] MEDS: InsuLIN REG 1unit/0.01ml Soln (100units/ml) SC SCH ×4 (06:17→22:00)
[2022-11-13] MEDS ORDERED: POTASSIUM CHL 20 Meq TABLET PO ONE (09:45)
[2022-11-13] MEDS: HEPARIN SODIUM (PORCINE) 5000 UNITS/ML 1ML VIAL SC SCH ×2 (10:00→22:09)
[2022-11-13] MEDS: DAKINS QUARTER STR 0.125% (NaHypochlorite) 473 ML TOPICAL SOL TOP SCH ×2 (10:46→22:07)
[2022-11-13] MEDS: FLORASTOR (S. BOULARDII) 250 MG CAP PO SCH (10:46)
[2022-11-13] MEDS: ALBUMIN 25% 100 ML IV SCH (16:26)
[2022-11-13] MEDS ORDERED: ALBUMIN 25% 100 ML IV ONE (23:59)
[2022-11-14] VITALS (9 sets, daily range): BP systolic 99–111; BP diastolic 62–77; PULSE 73–106; RESP 16–20; TEMP 97.3–98.4; O2SAT 94–98
[2022-11-14] MEDS: HYDROcodone-ACET 5/325MG TAB PO PRN ×4 (00:16→22:12)
[2022-11-14] MEDS: ALBUMIN 25% 100 ML IV SCH (00:18)
[2022-11-14] MEDS: metroNIDAZOLE 500 MG TAB PO SCH ×3 (02:40→18:33)
[2022-11-14] MEDS: ACCU-CHEK COMFORT CURVE STRIP VI SCH ×3 (06:10→17:00)
[2022-11-14] MEDS: InsuLIN REG 1unit/0.01ml Soln (100units/ml) SC SCH ×4 (06:10→22:00)
[2022-11-14 06:54] LABS: Basophils # (auto) 0.1 10 ^3/uL (0-0.2); Basophils % (auto) 1.1 % (0.0-2.0); Eosinophils # (auto) 1.3 10 ^3/uL (0-0.8); Eosinophils % (auto) 12.7 % (0.0-7.0); Hematocrit 28.9 % (41.0-53.0); Hemoglobin 9.4 g/dL (13.5-17.5); Lymphocytes % (auto) 9.9 % (10.0-50.0); Mean Corpuscular Hemoglobin 27.5 pg (28.0-32.0); Mean Corpuscular Hgb Conc. 32.5 g/dL (32.0-36.0); Mean Corpuscular Volume 84.5 fL (80.0-100.0); Monocytes # (auto) 0.9 10 ^3/uL (0-1.3); Monocytes % (auto) 8.9 % (0.0-12.0); Neutrophils # (auto) 6.8 10 ^3/uL (1.6-8.6); Neutrophils % (auto) 67.4 % (37.0-80.0); Red Blood Cells 3.42 10^6/uL (4.5-5.90); Red Cell Distribution Width 17.8 % (11.8-14.3); White Blood Cell 10.1 10^3/uL (4.4-10.8)
[2022-11-14 07:09] LABS: Potassium 3.3 mmol/L (3.5-5.1)
[2022-11-14 07:17] LABS: BUN/Creatinine Ratio 16.1 (10.0-20.0); Calcium 9.2 mg/dL (8.5-10.1)
[2022-11-14] MEDS: HEPARIN SODIUM (PORCINE) 5000 UNITS/ML 1ML VIAL SC SCH ×2 (09:00→22:14)
[2022-11-14] MEDS: FLORASTOR (S. BOULARDII) 250 MG CAP PO SCH (09:01)
[2022-11-14] MEDS: DAKINS QUARTER STR 0.125% (NaHypochlorite) 473 ML TOPICAL SOL TOP SCH ×2 (09:05→22:00)
[2022-11-14] MEDS ORDERED: POTASSIUM CHL 20 Meq TABLET PO ONE (10:45)
[2022-11-15] VITALS (7 sets, daily range): BP systolic 98–119; BP diastolic 54–78; PULSE 54–115; RESP 17–20; TEMP 97.7–97.9; O2SAT 92–100
[2022-11-15] MEDS: ACCU-CHEK COMFORT CURVE STRIP VI SCH ×5 (02:22→22:00)
[2022-11-15] MEDS: metroNIDAZOLE 500 MG TAB PO SCH ×3 (02:35→17:01)
[2022-11-15 06:08] LABS: Potassium 3.3 mmol/L (3.5-5.1)
[2022-11-15 06:14] LABS: BUN/Creatinine Ratio 14.6 (10.0-20.0); Calcium 9.4 mg/dL (8.5-10.1)
[2022-11-15] MEDS: InsuLIN REG 1unit/0.01ml Soln (100units/ml) SC SCH ×4 (07:00→22:00)
[2022-11-15] MEDS: HYDROcodone-ACET 5/325MG TAB PO PRN ×4 (08:03→22:46)
[2022-11-15] MEDS: FLORASTOR (S. BOULARDII) 250 MG CAP PO SCH (08:46)
[2022-11-15] MEDS: HEPARIN SODIUM (PORCINE) 5000 UNITS/ML 1ML VIAL SC SCH ×2 (08:50→22:44)
[2022-11-15] MEDS ORDERED: POTASSIUM CHLORIDE 8 MEQ TAB PO ONE (15:15)
[2022-11-15] MEDS: DAKINS QUARTER STR 0.125% (NaHypochlorite) 473 ML TOPICAL SOL TOP SCH (16:04)
[2022-11-16] VITALS (9 sets, daily range): BP systolic 104–121; BP diastolic 69–81; PULSE 100–112; RESP 19–20; TEMP 97.4–97.9; O2SAT 96–99
[2022-11-16] MEDS: DAKINS QUARTER STR 0.125% (NaHypochlorite) 473 ML TOPICAL SOL TOP SCH ×2 (00:19→09:35)
[2022-11-16] MEDS: ACCU-CHEK COMFORT CURVE STRIP VI SCH ×2 (00:19→11:30)
[2022-11-16] MEDS: metroNIDAZOLE 500 MG TAB PO SCH ×3 (02:37→18:14)
[2022-11-16] MEDS: HYDROcodone-ACET 5/325MG TAB PO PRN ×4 (05:46→22:25)
[2022-11-16 06:36] LABS: Hematocrit 32.4 % (41.0-53.0); Hemoglobin 10.4 g/dL (13.5-17.5); Mean Corpuscular Hemoglobin 27.6 pg (28.0-32.0); Mean Corpuscular Hgb Conc. 32.1 g/dL (32.0-36.0); Mean Corpuscular Volume 85.9 fL (80.0-100.0); Red Blood Cells 3.78 10^6/uL (4.5-5.90); Red Cell Distribution Width 17.9 % (11.8-14.3); White Blood Cell 10.8 10^3/uL (4.4-10.8)
[2022-11-16 06:48] LABS: Basophils % (manual) 0 (0.0-2.0); Blast Cells 0; Metamyelocytes % 0; Myelocytes % 0; Promyelocytes % 0; Reactive Lymphocytes 0
[2022-11-16 06:52] LABS: Potassium 3.6 mmol/L (3.5-5.1)
[2022-11-16 06:56] LABS: BUN/Creatinine Ratio 12.4 (10.0-20.0); Calcium 9.4 mg/dL (8.5-10.1)
[2022-11-16] MEDS: InsuLIN REG 1unit/0.01ml Soln (100units/ml) SC SCH ×2 (07:00→11:30)
[2022-11-16 08:49] LABS: Band Neutrophils % (manual) 1; Eosinophils % (manual) 12 (0-7); Lymphocytes % (manual) 14 (10.0-50.0); Monocytes % (manual) 10 (0-12)
[2022-11-16] MEDS: FLORASTOR (S. BOULARDII) 250 MG CAP PO SCH (09:35)
[2022-11-16] MEDS: HEPARIN SODIUM (PORCINE) 5000 UNITS/ML 1ML VIAL SC SCH ×2 (09:43→22:22)
[2022-11-16] MEDS: Juven Orange Powder PACKET 27.5gm PO SCH (18:00)
[2022-11-16] MEDS: Pro-Stat SF 30ml Vanilla PO SCH (18:15)
[2022-11-17] VITALS (10 sets, daily range): BP systolic 109–132; BP diastolic 75–82; PULSE 91–109; RESP 18–20; TEMP 97.4–98.1; O2SAT 95–100
[2022-11-17] MEDS: DAKINS QUARTER STR 0.125% (NaHypochlorite) 473 ML TOPICAL SOL TOP SCH ×2 (00:06→10:00)
[2022-11-17] MEDS: metroNIDAZOLE 500 MG TAB PO SCH ×3 (03:15→17:38)
[2022-11-17] MEDS: Juven Orange Powder PACKET 27.5gm PO SCH (08:00)
[2022-11-17] MEDS: HYDROcodone-ACET 5/325MG TAB PO PRN ×2 (09:25→15:19)
[2022-11-17] MEDS: FLORASTOR (S. BOULARDII) 250 MG CAP PO SCH (09:26)
[2022-11-17] MEDS: HEPARIN SODIUM (PORCINE) 5000 UNITS/ML 1ML VIAL SC SCH (09:33)
[2022-11-17 10:47] LABS: BUN/Creatinine Ratio 11.9 (10.0-20.0); Calcium 9.1 mg/dL (8.5-10.1)
[2022-11-18] VITALS (8 sets, daily range): BP systolic 113–138; BP diastolic 68–85; PULSE 65–102; RESP 16–21; TEMP 97.2–98.3; O2SAT 97–100
[2022-11-18] MEDS: HEPARIN SODIUM (PORCINE) 5000 UNITS/ML 1ML VIAL SC SCH ×3 (00:38→22:12)
[2022-11-18] MEDS: HYDROcodone-ACET 5/325MG TAB PO PRN ×4 (00:39→22:13)
[2022-11-18] MEDS: DAKINS QUARTER STR 0.125% (NaHypochlorite) 473 ML TOPICAL SOL TOP SCH ×3 (00:47→22:00)
[2022-11-18] MEDS: metroNIDAZOLE 500 MG TAB PO SCH ×3 (03:28→18:17)
[2022-11-18] MEDS ORDERED: MORPHINE SULF PF 5 MG/10 ML VIAL ONE (07:23)
[2022-11-18] MEDS ORDERED: ePHEDrine SULFATE 50 MG/ML AMP ONE (07:23)
[2022-11-18] MEDS ORDERED: ONDANSETRON HCL 4 MG/2 ML VIAL ONE (07:23)
[2022-11-18] MEDS ORDERED: EPINEPHrine HCL 1 MG/1 ML AMP ONE (07:23)
[2022-11-18] MEDS ORDERED: MIDAZOLAM HCL 2MG/2ML 2ml VIAL (1mg/ml) ONE (07:23)
[2022-11-18] MEDS ORDERED: oxyTOCIN 10 UNIT/ML 10ML VIAL ONE (07:23)
[2022-11-18] MEDS ORDERED: SODIUM CHLORIDE LOCK 10 ML ONE (07:23)
[2022-11-18] MEDS ORDERED: DexAMETHasone SOD PHOS 10MG/1ML VIAL INJ ONE (07:23)
[2022-11-18] MEDS ORDERED: fentaNYL CITRATE 100 MCG/2 ML VL ONE (07:23)
[2022-11-18] MEDS: Juven Orange Powder PACKET 27.5gm PO SCH ×2 (08:00→18:22)
[2022-11-18] MEDS: FLORASTOR (S. BOULARDII) 250 MG CAP PO SCH (10:31)
[2022-11-18] MEDS: Pro-Stat SF 30ml Vanilla PO SCH ×3 (10:36→18:17)
[2022-11-19] MEDS: metroNIDAZOLE 500 MG TAB PO SCH ×3 (02:31→17:29)
[2022-11-19 05:00] VITALS: BP 120/76; PULSE 102; RESP 19; TEMP 97.3; O2SAT 97
[2022-11-19] MEDS: Pro-Stat SF 30ml Vanilla PO SCH ×2 (08:00→18:00)
[2022-11-19] MEDS: Juven Orange Powder PACKET 27.5gm PO SCH ×2 (08:00→18:00)
[2022-11-19 08:44] VITALS: BP 110/60; PULSE 108; RESP 22; TEMP 97.5; O2SAT 100
[2022-11-19] MEDS: FLORASTOR (S. BOULARDII) 250 MG CAP PO SCH (08:57)
[2022-11-19] MEDS: HEPARIN SODIUM (PORCINE) 5000 UNITS/ML 1ML VIAL SC SCH ×2 (08:57→22:07)
[2022-11-19] MEDS: HYDROcodone-ACET 5/325MG TAB PO PRN (08:57)
[2022-11-19] MEDS: DAKINS QUARTER STR 0.125% (NaHypochlorite) 473 ML TOPICAL SOL TOP SCH ×2 (10:00→22:03)
[2022-11-19] MEDS ORDERED: levoFLOXacin 500MG 100 ML IV ONE (12:18)
[2022-11-19] MEDS ORDERED: fentaNYL CITRATE 100 MCG/2 ML VL ONE (12:45)
[2022-11-19] MEDS ORDERED: MIDAZOLAM HCL 2MG/2ML 2ml VIAL (1mg/ml) ONE (12:45)
[2022-11-19] MEDS ORDERED: LIDOCAINE W/ EPINEPHRINE 2% INJ 20ML VIAL ONE (13:05)
[2022-11-19] MEDS ORDERED: PROPOFOL 10 MG/ML 20 ML IV ONE (13:24)
[2022-11-19 13:32] VITALS: O2SAT 100
[2022-11-19] MEDS ORDERED: ONDANSETRON HCL 4 MG/2 ML VIAL ONE (13:32)
[2022-11-19] MEDS ORDERED: HYDROmorphone HCL 2 MG/ML VL/or syr IV PRN (13:45)
[2022-11-19] MEDS ORDERED: ONDANSETRON HCL 4 MG/2 ML VIAL IV PRN (13:45)
[2022-11-19] MEDS: HYDROmorphone HCL 2 MG/ML VL/or syr IV PRN ×4 (13:50→14:20)
[2022-11-19 16:14] VITALS: BP 124/73; PULSE 60; RESP 22; TEMP 96.9; O2SAT 96
[2022-11-19] MEDS: OXYCODONE W/ ACETAMINOPHEN 5/325MG TABLET PO PRN ×2 (17:29→22:03)
[2022-11-19 21:59] VITALS: BP 148/88; PULSE 111; RESP 18; TEMP 98; O2SAT 100
[2022-11-20] MEDS: DAKINS QUARTER STR 0.125% (NaHypochlorite) 473 ML TOPICAL SOL TOP SCH ×2 (00:30→08:49)
[2022-11-20] MEDS: metroNIDAZOLE 500 MG TAB PO SCH ×3 (02:25→17:54)
[2022-11-20] MEDS: OXYCODONE W/ ACETAMINOPHEN 5/325MG TABLET PO PRN ×4 (02:30→22:51)
[2022-11-20 05:13] VITALS: BP 121/74; PULSE 104; RESP 18; TEMP 97.7; O2SAT 95
[2022-11-20 05:36] LABS: Basophils # (auto) 0.1 10 ^3/uL (0-0.2); Basophils % (auto) 1.5 % (0.0-2.0); Eosinophils # (auto) 1.4 10 ^3/uL (0-0.8); Eosinophils % (auto) 14.6 % (0.0-7.0); Hematocrit 31.1 % (41.0-53.0); Hemoglobin 9.9 g/dL (13.5-17.5); Lymphocytes # (auto) 1.4 10 ^3/uL (0.4-5.4); Lymphocytes % (auto) 15.4 % (10.0-50.0); Mean Corpuscular Hemoglobin 27.4 pg (28.0-32.0); Mean Corpuscular Hgb Conc. 31.9 g/dL (32.0-36.0); Mean Corpuscular Volume 85.8 fL (80.0-100.0); Monocytes % (auto) 10.5 % (0.0-12.0); Neutrophils # (auto) 5.4 10 ^3/uL (1.6-8.6); Nucleated Red Blood Cells % 0.1 %; Red Blood Cells 3.63 10^6/uL (4.5-5.90); White Blood Cell 9.2 10^3/uL (4.4-10.8)
[2022-11-20 05:50] LABS: Potassium 3.4 mmol/L (3.5-5.1)
[2022-11-20 05:57] LABS: Albumin 2.1 g/dL (3.4-5.0); BUN/Creatinine Ratio 13.1 (10.0-20.0); Bilirubin, Total 0.4 mg/dL (0.2-1.0); Calcium 8.9 mg/dL (8.5-10.1); Total Protein 6.1 g/dL (6.4-8.2)
[2022-11-20] MEDS: Juven Orange Powder PACKET 27.5gm PO SCH ×2 (08:46→18:54)
[2022-11-20] MEDS: Pro-Stat SF 30ml Vanilla PO SCH ×2 (08:46→18:54)
[2022-11-20] MEDS: FLORASTOR (S. BOULARDII) 250 MG CAP PO SCH (08:47)
[2022-11-20] MEDS: HEPARIN SODIUM (PORCINE) 5000 UNITS/ML 1ML VIAL SC SCH ×2 (08:49→22:56)
[2022-11-20 09:00] VITALS: BP 115/66; PULSE 107; RESP 18; TEMP 97.5; O2SAT 99
[2022-11-20 10:00] VITALS: O2SAT 99
[2022-11-20 13:00] VITALS: BP 100/72; PULSE 105; RESP 18; TEMP 97.4; O2SAT 100
[2022-11-20] MEDS ORDERED: POTASSIUM CHL 10 Meq TABLET PO ONE (13:30)
[2022-11-20 17:00] VITALS: BP 120/71; PULSE 112; RESP 20; TEMP 98.1; O2SAT 98
[2022-11-20 22:18] VITALS: BP 115/64; PULSE 103; RESP 20; TEMP 97.6; O2SAT 98
[2022-11-21] VITALS (7 sets, daily range): BP systolic 110–144; BP diastolic 76–102; PULSE 92–107; RESP 20–22; TEMP 97.4–97.8; O2SAT 99–100
[2022-11-21] MEDS: metroNIDAZOLE 500 MG TAB PO SCH (02:43)
[2022-11-21] MEDS: DAKINS QUARTER STR 0.125% (NaHypochlorite) 473 ML TOPICAL SOL TOP SCH ×2 (04:06→10:00)
[2022-11-21] MEDS: OXYCODONE W/ ACETAMINOPHEN 5/325MG TABLET PO PRN ×3 (08:45→21:03)
[2022-11-21] MEDS: Juven Orange Powder PACKET 27.5gm PO SCH ×2 (08:46→18:00)
[2022-11-21] MEDS: Pro-Stat SF 30ml Vanilla PO SCH ×2 (08:47→18:00)
[2022-11-21] MEDS: FLORASTOR (S. BOULARDII) 250 MG CAP PO SCH (10:00)
[2022-11-21] MEDS: ONDANSETRON HCL 4 MG/2 ML VIAL IV PRN (16:17)
[2022-11-22] VITALS (8 sets, daily range): BP systolic 111–141; BP diastolic 3–97; PULSE 61–115; RESP 16–20; TEMP 97.7–98.4; O2SAT 96–100
[2022-11-22] MEDS: OXYCODONE W/ ACETAMINOPHEN 5/325MG TABLET PO PRN ×4 (04:06→22:48)
[2022-11-22] MEDS: Juven Orange Powder PACKET 27.5gm PO SCH ×2 (08:00→18:27)
[2022-11-22] MEDS: Pro-Stat SF 30ml Vanilla PO SCH ×2 (08:00→18:27)
[2022-11-22] MEDS: DAKINS QUARTER STR 0.125% (NaHypochlorite) 473 ML TOPICAL SOL TOP SCH ×2 (10:00→22:49)
[2022-11-22] MEDS: FLORASTOR (S. BOULARDII) 250 MG CAP PO SCH (10:15)
[2022-11-22] MEDS ORDERED: FUROSEMIDE 40 MG TAB PO ONE (12:30)
[2022-11-22] MEDS ORDERED: SPIRONOLACTONE 25 MG TAB PO ONE (12:30)
[2022-11-23] VITALS (8 sets, daily range): BP systolic 114–134; BP diastolic 73–91; PULSE 82–116; RESP 17–20; TEMP 97.3–97.8; O2SAT 96–100
[2022-11-23] MEDS: OXYCODONE W/ ACETAMINOPHEN 5/325MG TABLET PO PRN ×3 (04:49→20:13)
[2022-11-23 06:06] LABS: BUN/Creatinine Ratio 25.3 (10.0-20.0); Calcium 9.4 mg/dL (8.5-10.1); Potassium 3.9 mmol/L (3.5-5.1)
[2022-11-23] MEDS: Juven Orange Powder PACKET 27.5gm PO SCH ×2 (07:59→17:43)
[2022-11-23] MEDS: Pro-Stat SF 30ml Vanilla PO SCH ×2 (07:59→17:43)
[2022-11-23] MEDS: FUROSEMIDE 40 MG TAB PO SCH (08:01)
[2022-11-23] MEDS: SPIRONOLACTONE 25 MG TAB PO SCH (08:01)
[2022-11-23] MEDS: FLORASTOR (S. BOULARDII) 250 MG CAP PO SCH (08:02)
[2022-11-23] MEDS: DAKINS QUARTER STR 0.125% (NaHypochlorite) 473 ML TOPICAL SOL TOP SCH ×2 (08:03→21:56)
[2022-11-23] MEDS: ACETAMINOPHEN 325 MG TAB PO PRN (08:09)
[2022-11-24] VITALS (8 sets, daily range): BP systolic 104–124; BP diastolic 71–83; PULSE 74–109; RESP 17–22; TEMP 97.3–98.3; O2SAT 93–99
[2022-11-24 05:58] LABS: Potassium 3.9 mmol/L (3.5-5.1)
[2022-11-24 06:08] LABS: BUN/Creatinine Ratio 24.7 (10.0-20.0); Calcium 9.3 mg/dL (8.5-10.1)
[2022-11-24] MEDS: Juven Orange Powder PACKET 27.5gm PO SCH ×2 (08:00→17:44)
[2022-11-24] MEDS: Pro-Stat SF 30ml Vanilla PO SCH ×2 (08:00→17:44)
[2022-11-24] MEDS: SPIRONOLACTONE 25 MG TAB PO SCH (09:41)
[2022-11-24] MEDS: FLORASTOR (S. BOULARDII) 250 MG CAP PO SCH (09:41)
[2022-11-24] MEDS: OXYCODONE W/ ACETAMINOPHEN 5/325MG TABLET PO PRN ×2 (09:42→17:07)
[2022-11-24] MEDS: FUROSEMIDE 40 MG TAB PO SCH (09:43)
[2022-11-24] MEDS: DAKINS QUARTER STR 0.125% (NaHypochlorite) 473 ML TOPICAL SOL TOP SCH ×2 (09:43→22:00)
[2022-11-25] VITALS (8 sets, daily range): BP systolic 105–126; BP diastolic 65–88; PULSE 82–114; RESP 17–24; TEMP 97.2–98.3; O2SAT 5–100
[2022-11-25] MEDS: OXYCODONE W/ ACETAMINOPHEN 5/325MG TABLET PO PRN ×3 (06:46→18:08)
[2022-11-25] MEDS: Juven Orange Powder PACKET 27.5gm PO SCH ×2 (08:00→18:05)
[2022-11-25] MEDS: Pro-Stat SF 30ml Vanilla PO SCH ×2 (08:00→18:05)
[2022-11-25] MEDS: FUROSEMIDE 40 MG TAB PO SCH (09:04)
[2022-11-25] MEDS: SPIRONOLACTONE 25 MG TAB PO SCH (09:05)
[2022-11-25] MEDS: FLORASTOR (S. BOULARDII) 250 MG CAP PO SCH (09:06)
[2022-11-25] MEDS: DAKINS QUARTER STR 0.125% (NaHypochlorite) 473 ML TOPICAL SOL TOP SCH ×2 (10:00→21:13)
[2022-11-25] MEDS: ONDANSETRON HCL 4 MG/2 ML VIAL IV PRN (13:31)
[2022-11-26] MEDS: OXYCODONE W/ ACETAMINOPHEN 5/325MG TABLET PO PRN (04:17)
[2022-11-26 05:00] VITALS: BP 122/89; PULSE 100; RESP 17; TEMP 97.7; O2SAT 98
[2022-11-26] MEDS: Pro-Stat SF 30ml Vanilla PO SCH ×2 (08:00→18:00)
[2022-11-26] MEDS: Juven Orange Powder PACKET 27.5gm PO SCH ×2 (08:00→18:00)
[2022-11-26 08:37] VITALS: BP 136/93; PULSE 80; RESP 20; TEMP 97.6; O2SAT 97
[2022-11-26] MEDS: FUROSEMIDE 40 MG TAB PO SCH (09:18)
[2022-11-26] MEDS: SPIRONOLACTONE 25 MG TAB PO SCH (09:18)
[2022-11-26] MEDS: FLORASTOR (S. BOULARDII) 250 MG CAP PO SCH (09:19)
[2022-11-26] MEDS: PANTOPRAZOLE 40 MG/10 ML VIAL INJ IV SCH (09:19)
[2022-11-26] MEDS: DAKINS QUARTER STR 0.125% (NaHypochlorite) 473 ML TOPICAL SOL TOP SCH ×2 (09:22→21:06)
[2022-11-26 10:00] VITALS: O2SAT 97
[2022-11-26 12:20] VITALS: BP 112/75; PULSE 120; RESP 24; TEMP 97; O2SAT 100
[2022-11-26 16:37] VITALS: BP 138/92; PULSE 121; RESP 22; TEMP 97.8; O2SAT 97
[2022-11-27] VITALS (8 sets, daily range): BP systolic 107–140; BP diastolic 73–90; PULSE 60–117; RESP 16–20; TEMP 97.6–98.1; O2SAT 95–100
[2022-11-27] MEDS: Pro-Stat SF 30ml Vanilla PO SCH ×2 (09:42→18:28)
[2022-11-27] MEDS: Juven Orange Powder PACKET 27.5gm PO SCH ×2 (09:42→18:28)
[2022-11-27] MEDS: PANTOPRAZOLE 40 MG/10 ML VIAL INJ IV SCH (09:43)
[2022-11-27] MEDS: ONDANSETRON HCL 4 MG/2 ML VIAL IV PRN (09:43)
[2022-11-27] MEDS: FLORASTOR (S. BOULARDII) 250 MG CAP PO SCH (09:43)
[2022-11-27] MEDS: SPIRONOLACTONE 25 MG TAB PO SCH (09:43)
[2022-11-27] MEDS: OXYCODONE W/ ACETAMINOPHEN 5/325MG TABLET PO PRN ×2 (09:43→18:29)
[2022-11-27] MEDS: DAKINS QUARTER STR 0.125% (NaHypochlorite) 473 ML TOPICAL SOL TOP SCH ×2 (09:44→21:13)
[2022-11-27] MEDS: FUROSEMIDE 40 MG TAB PO SCH (09:44)
[2022-11-27 12:27] LABS: INR 1.14 (0.9-1.15); Partial Thromboplastin Time 31.9 SEC (24.5-34.5)
[2022-11-28] VITALS (9 sets, daily range): BP systolic 111–127; BP diastolic 66–90; PULSE 85–116; RESP 16–20; TEMP 36.6; O2SAT 93–98
[2022-11-28] MEDS: OXYCODONE W/ ACETAMINOPHEN 5/325MG TABLET PO PRN (05:13)
[2022-11-28 06:23] LABS: Basophils # (auto) 0.1 10 ^3/uL (0-0.2); Basophils % (auto) 1.3 % (0.0-2.0); Eosinophils # (auto) 0.7 10 ^3/uL (0-0.8); Eosinophils % (auto) 6.6 % (0.0-7.0); Hematocrit 34.5 % (41.0-53.0); Hemoglobin 11.1 g/dL (13.5-17.5); Lymphocytes # (auto) 1.3 10 ^3/uL (0.4-5.4); Lymphocytes % (auto) 12.8 % (10.0-50.0); Mean Corpuscular Hemoglobin 27.7 pg (28.0-32.0); Mean Corpuscular Hgb Conc. 32.1 g/dL (32.0-36.0); Mean Corpuscular Volume 86.2 fL (80.0-100.0); Monocytes # (auto) 0.9 10 ^3/uL (0-1.3); Monocytes % (auto) 8.7 % (0.0-12.0); Neutrophils # (auto) 7.1 10 ^3/uL (1.6-8.6); Neutrophils % (auto) 70.6 % (37.0-80.0); Red Cell Distribution Width 19.2 % (11.8-14.3); White Blood Cell 10.1 10^3/uL (4.4-10.8)
[2022-11-28 06:40] LABS: Calcium 8.9 mg/dL (8.5-10.1); Potassium 3.1 mmol/L (3.5-5.1)
[2022-11-28 06:43] LABS: BUN/Creatinine Ratio 23.9 (10.0-20.0); Bilirubin, Total 0.5 mg/dL (0.2-1.0); Total Protein 6.5 g/dL (6.4-8.2)
[2022-11-28] MEDS: Pro-Stat SF 30ml Vanilla PO SCH ×2 (08:00→18:00)
[2022-11-28] MEDS: Juven Orange Powder PACKET 27.5gm PO SCH ×2 (08:00→18:00)
[2022-11-28] MEDS: FUROSEMIDE 40 MG TAB PO SCH (08:53)
[2022-11-28] MEDS: FLORASTOR (S. BOULARDII) 250 MG CAP PO SCH (08:53)
[2022-11-28] MEDS: SPIRONOLACTONE 25 MG TAB PO SCH (08:53)
[2022-11-28] MEDS: PANTOPRAZOLE 40 MG/10 ML VIAL INJ IV SCH (08:54)
[2022-11-28] MEDS: DAKINS QUARTER STR 0.125% (NaHypochlorite) 473 ML TOPICAL SOL TOP SCH ×2 (10:00→22:00)
[2022-11-28] MEDS ORDERED: FURO1TAB33 PO (13:26)
[2022-11-28] MEDS ORDERED: SPIR50TA2 PO (13:26)
[2022-11-28] MEDS ORDERED: PANT40TA2 PO (13:26)
[2022-11-28] MEDS ORDERED: POTASSIUM CHL 10 Meq TABLET PO ONE (13:30)
[2022-11-28] MEDS: ACETAMINOPHEN 325 MG TAB PO PRN (17:04)
[2022-11-29] MEDS: ACETAMINOPHEN 325 MG TAB PO PRN (04:42)
[2022-11-29 05:00] VITALS: BP 130/88; PULSE 114; RESP 20; TEMP 97.7; O2SAT 99
[2022-11-29 08:00] VITALS: BP 119/83; PULSE 98; RESP 20; TEMP 98; O2SAT 97
[2022-11-29 09:00] VITALS: BP 119/83; PULSE 98; RESP 20; TEMP 98; O2SAT 100
== END 2022-11-29 09:25 | disposition home or self-care (01) | DRG 853 ==
LOC: EDBD 20:11 → ER 20:14 → OVERFLOW 11-11 03:10 → EDUNIT# 11-11 03:10 → EAST 11-11 14:08
PROVIDERS: ADMIT Internal Medicine; ATTEND Internal Medicine
PROC: 0W9G3ZZ Drainage of Peritoneal Cavity, Percutaneous Approach (ICD-10-PCS; 2022-11-13)
PROC: 0JBL0ZZ Excision of Right Upper Leg Subcutaneous Tissue and Fascia, Open Approach (ICD-10-PCS; principal; 2022-11-19 12:33)
PROC: 0W9G3ZZ Drainage of Peritoneal Cavity, Percutaneous Approach (ICD-10-PCS; 2022-11-27)
DX: A41.9 Sepsis, unspecified organism (principal); N18.6 End stage renal disease; R18.8 Other ascites; N39.0 Urinary tract infection, site not specified; N17.9 Acute kidney failure, unspecified; A04.72 Enterocolitis due to Clostridium difficile, not specified as recurrent; E46 Unspecified protein-calorie malnutrition; E44.0 Moderate protein-calorie malnutrition; I12.0 Hypertensive chronic kidney disease with stage 5 chronic kidney disease or end stage renal disease; L97.919 Non-pressure chronic ulcer of unspecified part of right lower leg with unspecified severity; L97.929 Non-pressure chronic ulcer of unspecified part of left lower leg with unspecified severity; K74.60 Unspecified cirrhosis of liver; E66.01 Morbid (severe) obesity due to excess calories; E86.0 Dehydration; R53.81 Other malaise; Z68.37 Body mass index [BMI] 37.0-37.9, adult; E87.6 Hypokalemia; D63.8 Anemia in other chronic diseases classified elsewhere; K21.9 Gastro-esophageal reflux disease without esophagitis; E11.621 Type 2 diabetes mellitus with foot ulcer; I89.0 Lymphedema, not elsewhere classified; L89.90 Pressure ulcer of unspecified site, unspecified stage; E11.22 Type 2 diabetes mellitus with diabetic chronic kidney disease; E78.5 Hyperlipidemia, unspecified; E87.70 Fluid overload, unspecified; Z80.42 Family history of malignant neoplasm of prostate; Z82.49 Family history of ischemic heart disease and other diseases of the circulatory system; Z83.3 Family history of diabetes mellitus; Z88.0 Allergy status to penicillin; Z88.1 Allergy status to other antibiotic agents; Z91.018 Allergy to other foods; Z79.899 Other long term (current) drug therapy
CPT/HCPCS: 36415; 71045; 76705; 76942; 78582; 80048; 80053; 81001; 82533; 82962; 83605; 83690; 83735; 83986; 84100; 84443; 84484; 85007; 85025; 85027; 85379; 85610; 85730; 87040; 87081; 87086; 87205; 87493; 89051; 93970; 96360; 97110; 97116; 97163; 97530; C9113; G0378; J0171; J1100; J1956; J2250; J2405; J2590; J2704; P9047

== ENCOUNTER 2023-03-11 08:44 | Inpatient (IN) | payer OTHER ==
[~2023-03-11] VITALS: Ht 182.9 cm; Wt 119.6 kg
[~2023-03-11 08:44] MED LIST changes: +FURO1TAB33 PO; +PANT40TA2 PO; +SPIR50TA2 PO
[2023-03-11 09:48] VITALS: PULSE 98; RESP 16; O2SAT 98
[2023-03-11 09:48] LABS: Alanine Aminotransferase 25 U/L (7-40); Alkaline Phosphatase 374 U/L (46-116); Anion Gap 8 (5-15); Aspartate Aminotransferase 27 U/L (13-40); BUN/Creatinine Ratio 9.3 (10.0-20.0); Bilirubin, Total 1.4 mg/dL (0.2-1.0); Blood Urea Nitrogen 13 mg/dL (9-23); Calcium 7.8 mg/dL (8.5-10.1); Carbon Dioxide 28 mmol/L (20-30); Chloride 98 mmol/L (98-107); Glucose 84 mg/dL (74-106); Sodium 134 mmol/L (136-145); Total Protein 7.1 g/dL (5.7-8.2)
[2023-03-11 10:13] LABS: Potassium 2.7 mmol/L (3.5-5.1)
[2023-03-11 10:37] LABS: Basophils # (auto) 0.1 10 ^3/uL (0-0.2); Basophils % (auto) 0.8 % (0.0-2.0); Eosinophils # (auto) 0.3 10 ^3/uL (0-0.8); Eosinophils % (auto) 2.9 % (0.0-7.0); Hematocrit 37.5 % (41.0-53.0); Hemoglobin 12.6 g/dL (13.5-17.5); Lymphocytes # (auto) 1.1 10 ^3/uL (0.4-5.4); Lymphocytes % (auto) 11.4 % (10.0-50.0); Mean Corpuscular Hemoglobin 29.3 pg (28.0-32.0); Mean Corpuscular Hgb Conc. 33.7 g/dL (32.0-36.0); Mean Corpuscular Volume 86.9 fL (80.0-100.0); Monocytes # (auto) 0.9 10 ^3/uL (0-1.3); Monocytes % (auto) 9.1 % (0.0-12.0); Neutrophils # (auto) 7.4 10 ^3/uL (1.6-8.6); Neutrophils % (auto) 75.8 % (37.0-80.0); Nucleated Red Blood Cells % 0.3 %; Red Blood Cells 4.31 10^6/uL (4.5-5.90); Red Cell Distribution Width 14.8 % (11.8-14.3); White Blood Cell 9.8 10^3/uL (4.4-10.8)
[2023-03-11 10:41] LABS: INR 1.1 (0.9-1.15); Partial Thromboplastin Time 30.5 SEC (24.5-34.5); Prothrombin Time 11.5 sec (9.3-11.8)
[2023-03-11 10:46] LABS: Lipase 53 U/L (12-53)
[2023-03-11] MEDS ORDERED: POTASSIUM CHL 20MEQ/100ML 100 ML IV ONE (11:00)
[2023-03-11] MEDS ORDERED: DEXTROSE (50%) 50ML SYRG IV PRN (11:30)
[2023-03-11] MEDS ORDERED: DOCUSATE SOD 100 MG CAP PO PRN (11:30)
[2023-03-11] MEDS ORDERED: ONDANSETRON HCL 4 MG/2 ML VIAL IV PRN (11:30)
[2023-03-11] MEDS ORDERED: ALBUTEROL MEDNEB 2.5 mg/3ml NEB NEB PRN (11:30)
[2023-03-11] MEDS ORDERED: IPRATROPIUM BROM 0.5 MG/2.5ML INH SOL NEB PRN (11:30)
[2023-03-11] MEDS ORDERED: MORPHINE SULFATE INJ 2 MG/ml SYRG IV PRN (11:30)
[2023-03-11] MEDS: ACCU-CHEK COMFORT CURVE STRIP VI SCH ×3 (12:24→22:01)
[2023-03-11] MEDS: InsuLIN REG 1unit/0.01ml Soln (100units/ml) SC SCH ×3 (12:24→22:00)
[2023-03-11] MEDS: SUCRALFATE 1 GM/10 ML ORAL SUSP PO SCH ×3 (12:29→22:01)
[2023-03-11 13:19] VITALS: BP 116/78; PULSE 85; RESP 14; TEMP 99; O2SAT 100
[2023-03-11] MEDS: ALBUMIN 25% 100 ML IV SCH ×2 (16:54→17:29)
[2023-03-11] MEDS: FUROSEMIDE 40 MG/4 ML VIAL IV SCH (17:40)
[2023-03-11 18:03] LABS: Urine Bacteria NONE SEEN /hpf (None Seen); Urine Blood Negative /uL (Negative); Urine Clarity Clear (Clear); Urine Color Yellow (Yellow); Urine Protein, UAD TRACE (Negative); Urine Specific Gravity 1.019 (1.001-1.035); Urine Urobilinogen Normal (Negative); Urine WBC 6 /hpf (0 - 3); Urine pH 5.5 (5.0-8.0)
[2023-03-11 20:02] VITALS: PULSE 105; RESP 18; O2SAT 100
[2023-03-11 22:54] VITALS: BP_SYST 101; BP_SYST 98; BP_DIAS 67; BP_DIAS 71; PULSE 98; PULSE 99; RESP 18; TEMP 36.8; O2SAT 98
[2023-03-11 23:11] LABS: Body Fluid White Blood Cells 38 CUMM (0-200)
[2023-03-11 23:12] LABS: Body Fluid Polymorphonuclear 10 % (0-25); Body Fluid Red Blood Cells 20 CUMM (0-2000)
[2023-03-12] VITALS (10 sets, daily range): BP systolic 87–109; BP diastolic 57–70; PULSE 93–126; RESP 16–21; TEMP 98.2–99.7; O2SAT 95–100
[2023-03-12] MEDS: FUROSEMIDE 40 MG/4 ML VIAL IV SCH ×2 (06:00→18:00)
[2023-03-12] MEDS: InsuLIN REG 1unit/0.01ml Soln (100units/ml) SC SCH ×2 (06:14→10:46)
[2023-03-12] MEDS: SUCRALFATE 1 GM/10 ML ORAL SUSP PO SCH ×4 (06:14→21:52)
[2023-03-12] MEDS: ACCU-CHEK COMFORT CURVE STRIP VI SCH ×2 (06:14→10:46)
[2023-03-12 06:35] LABS: Basophils # (auto) 0.1 10 ^3/uL (0-0.2); Basophils % (auto) 0.8 % (0.0-2.0); Eosinophils # (auto) 0.2 10 ^3/uL (0-0.8); Eosinophils % (auto) 3.5 % (0.0-7.0); Hematocrit 32.8 % (41.0-53.0); Hemoglobin 10.9 g/dL (13.5-17.5); Lymphocytes % (auto) 14.1 % (10.0-50.0); Mean Corpuscular Hemoglobin 28.6 pg (28.0-32.0); Mean Corpuscular Hgb Conc. 33.2 g/dL (32.0-36.0); Mean Corpuscular Volume 86.2 fL (80.0-100.0); Monocytes # (auto) 0.9 10 ^3/uL (0-1.3); Monocytes % (auto) 12.7 % (0.0-12.0); Neutrophils # (auto) 4.8 10 ^3/uL (1.6-8.6); Neutrophils % (auto) 68.9 % (37.0-80.0); Nucleated Red Blood Cells % 0.1 %; Red Cell Distribution Width 14.3 % (11.8-14.3); White Blood Cell 6.9 10^3/uL (4.4-10.8)
[2023-03-12 07:05] LABS: Alanine Aminotransferase 14 U/L (7-40); Albumin 2.4 g/dL (3.2-4.8); Alkaline Phosphatase 229 U/L (46-116); Anion Gap 3 (5-15); BUN/Creatinine Ratio 9.6 (10.0-20.0); Blood Urea Nitrogen 13 mg/dL (9-23); Calcium 7.2 mg/dL (8.5-10.1); Carbon Dioxide 32 mmol/L (20-30); Chloride 101 mmol/L (98-107); Glucose 89 mg/dL (74-106); Potassium 3.6 mmol/L (3.5-5.1); Sodium 136 mmol/L (136-145)
[2023-03-12 07:06] LABS: Aspartate Aminotransferase 18 U/L (13-40); Bilirubin, Total 1.6 mg/dL (0.2-1.0)
[2023-03-12] MEDS: levoFLOXacin 500MG 100 ML IV SCH (09:02)
[2023-03-12] MEDS: SPIRONOLACTONE 25 MG TAB PO SCH (09:02)
[2023-03-12] MEDS ORDERED: PATIENTS OWN MEDICATION (Losartan Potassium & Hydrochlo (Losartan Potassium/Hydroc) 1 TAB) PO SCH (10:00)
[2023-03-12] MEDS ORDERED: PANTOPRAZOLE 40 MG/10 ML VIAL INJ IV SCH (10:00)
[2023-03-12] MEDS ORDERED: ALBUMIN 25% 50 ML IV ONE (11:30)
[2023-03-13 05:00] VITALS: BP 90/61; PULSE 94; RESP 20; TEMP 98.3; O2SAT 96
[2023-03-13] MEDS: FUROSEMIDE 40 MG/4 ML VIAL IV SCH (06:00)
[2023-03-13 06:08] LABS: Basophils # (auto) 0.1 10 ^3/uL (0-0.2); Basophils % (auto) 1.2 % (0.0-2.0); Eosinophils # (auto) 0.4 10 ^3/uL (0-0.8); Eosinophils % (auto) 4.2 % (0.0-7.0); Hematocrit 32.7 % (41.0-53.0); Hemoglobin 10.9 g/dL (13.5-17.5); Lymphocytes # (auto) 1.2 10 ^3/uL (0.4-5.4); Lymphocytes % (auto) 13.9 % (10.0-50.0); Mean Corpuscular Hemoglobin 28.5 pg (28.0-32.0); Mean Corpuscular Hgb Conc. 33.2 g/dL (32.0-36.0); Mean Corpuscular Volume 85.7 fL (80.0-100.0); Monocytes # (auto) 0.8 10 ^3/uL (0-1.3); Monocytes % (auto) 9.6 % (0.0-12.0); Neutrophils % (auto) 71.1 % (37.0-80.0); Nucleated Red Blood Cells % 0.1 %; Red Blood Cells 3.81 10^6/uL (4.5-5.90); Red Cell Distribution Width 14.4 % (11.8-14.3); White Blood Cell 8.4 10^3/uL (4.4-10.8)
[2023-03-13 06:23] LABS: Chloride 99 mmol/L (98-107); Potassium 3.7 mmol/L (3.5-5.1); Sodium 133 mmol/L (136-145)
[2023-03-13 06:24] LABS: Anion Gap 4 (5-15); Calcium 7.2 mg/dL (8.5-10.1); Carbon Dioxide 30 mmol/L (20-30)
[2023-03-13 06:29] LABS: BUN/Creatinine Ratio 10.8 (10.0-20.0); Blood Urea Nitrogen 14 mg/dL (9-23); Glucose 87 mg/dL (74-106)
[2023-03-13] MEDS: SUCRALFATE 1 GM/10 ML ORAL SUSP PO SCH ×2 (06:40→12:26)
[2023-03-13 08:00] VITALS: PULSE 122; PULSE 92; RESP 20; O2SAT 100
[2023-03-13 08:55] VITALS: BP 93/68; PULSE 99; RESP 17; TEMP 97.6; O2SAT 97
[2023-03-13] MEDS ORDERED: PANTOPRAZOLE 40 MG TAB PO SCH (10:00)
[2023-03-13] MEDS: SPIRONOLACTONE 25 MG TAB PO SCH (10:12)
[2023-03-13] MEDS: levoFLOXacin 500MG 100 ML IV SCH (10:12)
[2023-03-13 12:07] LABS: Protein, Body Fluid 1.6 g/dL (.)
[2023-03-13 12:34] VITALS: BP 104/69; PULSE 106; RESP 17; TEMP 98.2; O2SAT 96
[2023-03-13 12:48] VITALS: BP 90/61; TEMP 36.8
== END 2023-03-13 14:50 | disposition home or self-care (01) | DRG 433 ==
LOC: ER 08:44 → OVERFLOW 11:42 → TELE-WESTW 22:45
PROVIDERS: ADMIT Nurse Practitioner Family; ATTEND Internal Medicine
PROC: 0W9G3ZZ Drainage of Peritoneal Cavity, Percutaneous Approach (ICD-10-PCS; principal; 2023-03-11)
DX: K70.31 Alcoholic cirrhosis of liver with ascites (principal); E44.0 Moderate protein-calorie malnutrition; L03.311 Cellulitis of abdominal wall; N17.9 Acute kidney failure, unspecified; L97.919 Non-pressure chronic ulcer of unspecified part of right lower leg with unspecified severity; L97.929 Non-pressure chronic ulcer of unspecified part of left lower leg with unspecified severity; E11.22 Type 2 diabetes mellitus with diabetic chronic kidney disease; I12.9 Hypertensive chronic kidney disease with stage 1 through stage 4 chronic kidney disease, or unspecified chronic kidney disease; E87.6 Hypokalemia; E66.9 Obesity, unspecified; N18.30 Chronic kidney disease, stage 3 unspecified; J44.9 Chronic obstructive pulmonary disease, unspecified; E78.5 Hyperlipidemia, unspecified; E87.70 Fluid overload, unspecified; Z91.148 Patient's other noncompliance with medication regimen for other reason; Z88.1 Allergy status to other antibiotic agents; Z88.0 Allergy status to penicillin; Z90.49 Acquired absence of other specified parts of digestive tract; Z82.3 Family history of stroke; Z82.49 Family history of ischemic heart disease and other diseases of the circulatory system; Z83.3 Family history of diabetes mellitus; Z87.891 Personal history of nicotine dependence; Z91.018 Allergy to other foods; Z68.35 Body mass index [BMI] 35.0-35.9, adult
CPT/HCPCS: 36415; 76705; 76942; 80048; 80053; 81001; 82962; 83690; 83986; 84132; 85025; 85610; 85730; 87205; 89051; 96361; 96365; 96366; C9113; G0378; J1956; J3480; P9047

== ENCOUNTER 2023-04-02 12:20 | Emergency (ER) | payer OTHER ==
[~2023-04-02] VITALS: Ht 182.9 cm; Wt 110.0 kg
[~2023-04-02 12:20] MED LIST changes: -LOSA100T33 PO; -PANT40T PO
[2023-04-02 12:21] VITALS: BP 95/72; PULSE 108; RESP 16; O2SAT 99
[2023-04-02 13:44] LABS: Basophils # (auto) 0.1 10 ^3/uL (0-0.2); Basophils % (auto) 1.2 % (0.0-2.0); Eosinophils # (auto) 0.6 10 ^3/uL (0-0.8); Hematocrit 35.1 % (41.0-53.0); Hemoglobin 11.7 g/dL (13.5-17.5); Lymphocytes # (auto) 1.6 10 ^3/uL (0.4-5.4); Lymphocytes % (auto) 16.1 % (10.0-50.0); Mean Corpuscular Hemoglobin 29.4 pg (28.0-32.0); Mean Corpuscular Hgb Conc. 33.4 g/dL (32.0-36.0); Mean Corpuscular Volume 87.8 fL (80.0-100.0); Monocytes # (auto) 0.7 10 ^3/uL (0-1.3); Monocytes % (auto) 7.4 % (0.0-12.0); Neutrophils # (auto) 6.7 10 ^3/uL (1.6-8.6); Neutrophils % (auto) 69.3 % (37.0-80.0); Nucleated Red Blood Cells % 0.1 %; Red Blood Cells 3.99 10^6/uL (4.5-5.90); Red Cell Distribution Width 15.7 % (11.8-14.3); White Blood Cell 9.7 10^3/uL (4.4-10.8)
[2023-04-02 13:57] LABS: INR 1.1 (0.9-1.15); Partial Thromboplastin Time 29.9 SEC (24.5-34.5); Prothrombin Time 11.5 sec (9.3-11.8)
[2023-04-02 13:58] LABS: Alanine Aminotransferase 11 U/L (7-40); Albumin 2.9 g/dL (3.2-4.8); Alkaline Phosphatase 323 U/L (46-116); Anion Gap 6 (5-15); Aspartate Aminotransferase 32 U/L (13-40); BUN/Creatinine Ratio 9.2 (10.0-20.0); Bilirubin, Total 0.8 mg/dL (0.2-1.0); Blood Urea Nitrogen 14 mg/dL (9-23); Calcium 8.4 mg/dL (8.7-10.4); Carbon Dioxide 29 mmol/L (20-30); Chloride 100 mmol/L (98-107); Glucose 89 mg/dL (74-106); Potassium 3.6 mmol/L (3.5-5.1); Sodium 135 mmol/L (136-145); Total Protein 6.8 g/dL (5.7-8.2)
[2023-04-02] MEDS ORDERED: FUROSEMIDE 100 MG/10ML VIAL IV ONE (15:00)
[2023-04-02] MEDS ORDERED: FUROSEMIDE 40 MG/4 ML VIAL IV ONE (15:15)
[2023-04-02] MEDS ORDERED: cefTRIAXone 1GM/50ML D5W 50 ML IV ONE (15:15)
[2023-04-02 16:36] LABS: INR 1.08 (0.9-1.15); Partial Thromboplastin Time 27.6 SEC (24.5-34.5); Prothrombin Time 11.3 sec (9.3-11.8)
[2023-04-03] MEDS ORDERED: cefTRIAXone 1GM/50ML D5W 50 ML IV SCH (09:00)
== END 2023-04-02 16:45 | disposition left against medical advice (07) ==
LOC: ER 12:20
DX: K74.60 Unspecified cirrhosis of liver (principal); E88.09 Other disorders of plasma-protein metabolism, not elsewhere classified; R18.8 Other ascites; J18.9 Pneumonia, unspecified organism; I10 Essential (primary) hypertension; E11.9 Type 2 diabetes mellitus without complications; J44.9 Chronic obstructive pulmonary disease, unspecified; E78.5 Hyperlipidemia, unspecified; Z98.890 Other specified postprocedural states; Z87.891 Personal history of nicotine dependence; Z88.8 Allergy status to other drugs, medicaments and biological substances; Z79.899 Other long term (current) drug therapy
CPT/HCPCS: 36415; 74176; 80053; 83880; 85025; 85610; 85730

== ENCOUNTER 2023-04-03 04:38 | Emergency (ER) | payer OTHER ==
[~2023-04-03] VITALS: Ht 182.9 cm; Wt 113.6 kg
[2023-04-03 05:55] LABS: Basophils # (auto) 0.1 10 ^3/uL (0-0.2); Basophils % (auto) 1.3 % (0.0-2.0); Eosinophils # (auto) 0.8 10 ^3/uL (0-0.8); Eosinophils % (auto) 9.9 % (0.0-7.0); Hematocrit 32.5 % (41.0-53.0); Hemoglobin 10.7 g/dL (13.5-17.5); Lymphocytes # (auto) 1.2 10 ^3/uL (0.4-5.4); Lymphocytes % (auto) 15.9 % (10.0-50.0); Mean Corpuscular Hemoglobin 28.5 pg (28.0-32.0); Mean Corpuscular Hgb Conc. 33.1 g/dL (32.0-36.0); Mean Corpuscular Volume 86.1 fL (80.0-100.0); Monocytes # (auto) 0.6 10 ^3/uL (0-1.3); Neutrophils % (auto) 64.9 % (37.0-80.0); Nucleated Red Blood Cells % 0.2 %; Red Blood Cells 3.78 10^6/uL (4.5-5.90); Red Cell Distribution Width 15.6 % (11.8-14.3); White Blood Cell 7.7 10^3/uL (4.4-10.8)
[2023-04-03 06:13] LABS: Alanine Aminotransferase 10 U/L (7-40); Alkaline Phosphatase 304 U/L (46-116); Anion Gap 6 (5-15); BUN/Creatinine Ratio 10.1 (10.0-20.0); Blood Urea Nitrogen 16 mg/dL (9-23); Calcium 8.3 mg/dL (8.7-10.4); Carbon Dioxide 29 mmol/L (20-30); Chloride 100 mmol/L (98-107); Glucose 105 mg/dL (74-106); Lipase 34 U/L (12-53); Potassium 3.6 mmol/L (3.5-5.1); Sodium 135 mmol/L (136-145)
[2023-04-03 06:14] LABS: Albumin 2.8 g/dL (3.2-4.8)
[2023-04-03 06:15] LABS: Aspartate Aminotransferase 28 U/L (13-40); Total Protein 6.5 g/dL (5.7-8.2)
[2023-04-03 06:17] LABS: INR 1.09 (0.9-1.15); Partial Thromboplastin Time 32.5 SEC (24.5-34.5); Prothrombin Time 11.4 sec (9.3-11.8)
[2023-04-03 08:48] VITALS: TEMP 98.9
[2023-04-03 10:00] VITALS: PULSE 91; RESP 33
[2023-04-03 10:44] LABS: Urine Bacteria NONE SEEN /hpf (None Seen); Urine Blood Negative /uL (Negative); Urine Clarity HAZY (Clear); Urine Color Yellow (Yellow); Urine Hyaline Cast FEW /lpf (0 - 2); Urine Mucus FEW (None Seen); Urine Protein, UAD TRACE (Negative); Urine Specific Gravity 1.019 (1.001-1.035); Urine Urobilinogen Normal (Negative); Urine WBC 10 /hpf (0 - 3)
[2023-04-03] MEDS ORDERED: ALBUMIN 25% 400 ML IV ONE (14:15)
[2023-04-03 16:30] VITALS: BP 116/74; PULSE 95; RESP 13; O2SAT 98
[2023-04-03 20:54] LABS: Body Fluid Polymorphonuclear 15 % (0-25); Body Fluid Red Blood Cells 28 CUMM (0-2000); Body Fluid White Blood Cells 48 CUMM (0-200)
[2023-04-04 14:07] LABS: Protein, Body Fluid 1.6 g/dL (.)
== END 2023-04-03 17:01 | disposition home or self-care (01) ==
LOC: ER 04:38
DX: R18.8 Other ascites (principal); I10 Essential (primary) hypertension; E11.9 Type 2 diabetes mellitus without complications; E78.5 Hyperlipidemia, unspecified; J44.9 Chronic obstructive pulmonary disease, unspecified; Z98.890 Other specified postprocedural states; Z87.891 Personal history of nicotine dependence; Z88.8 Allergy status to other drugs, medicaments and biological substances; Z79.899 Other long term (current) drug therapy; Z86.2 Personal history of diseases of the blood and blood-forming organs and certain disorders involving the immune mechanism
CPT/HCPCS: 36415; 49083; 76942; 80053; 81001; 83615; 83690; 83986; 84484; 85025; 85610; 85730; 87205; 89051; 96365; 96366; 99285; C1729; P9047

== ENCOUNTER → 2023-04-19 | Outpatient (CLI) | payer OTHER ==
[~2023-04-19] MED LIST changes: +ALBUMIN 25% 100 ML IV SCH
[2023-04-19 17:32] LABS: Body Fluid Polymorphonuclear 5 % (0-25); Body Fluid Red Blood Cells 280 CUMM (0-2000); Body Fluid White Blood Cells 196 CUMM (0-200)
[2023-04-20 11:08] LABS: Protein, Body Fluid 1.7 g/dL (.)
== END | disposition home or self-care (01) ==
LOC: US 13:12
PROVIDERS: ATTEND Internal Medicine
DX: R18.8 Other ascites (principal); K74.60 Unspecified cirrhosis of liver; J44.9 Chronic obstructive pulmonary disease, unspecified; I13.0 Hypertensive heart and chronic kidney disease with heart failure and stage 1 through stage 4 chronic kidney disease, or unspecified chronic kidney disease; E11.22 Type 2 diabetes mellitus with diabetic chronic kidney disease; N18.30 Chronic kidney disease, stage 3 unspecified; I50.9 Heart failure, unspecified; E78.5 Hyperlipidemia, unspecified; F32.A Depression, unspecified; Z87.01 Personal history of pneumonia (recurrent); Z82.49 Family history of ischemic heart disease and other diseases of the circulatory system; Z83.3 Family history of diabetes mellitus; Z83.42 Family history of familial hypercholesterolemia; Z80.42 Family history of malignant neoplasm of prostate; Z88.1 Allergy status to other antibiotic agents; Z91.010 Allergy to peanuts; Z91.018 Allergy to other foods; Z88.8 Allergy status to other drugs, medicaments and biological substances; Z88.0 Allergy status to penicillin; Z87.891 Personal history of nicotine dependence; Z90.49 Acquired absence of other specified parts of digestive tract; Z98.890 Other specified postprocedural states
CPT/HCPCS: 49083; 83986; 87205; 89051; C1729; 76942

== ENCOUNTER → 2023-05-10 | Outpatient (CLI) | payer BC ==
[~2023-05-10] MED LIST changes: -ALBUMIN 25% 100 ML IV SCH
[2023-05-10 14:53] LABS: Body Fluid pH 8
[2023-05-10 16:22] LABS: Body Fluid Polymorphonuclear 3 % (0-25); Body Fluid Red Blood Cells 200 CUMM (0-2000); Body Fluid White Blood Cells 128 CUMM (0-200)
[2023-05-11 13:06] LABS: Protein, Body Fluid 1.7 g/dL (.)
== END | disposition home or self-care (01) ==
LOC: US 11:58
DX: R18.8 Other ascites (principal); I13.0 Hypertensive heart and chronic kidney disease with heart failure and stage 1 through stage 4 chronic kidney disease, or unspecified chronic kidney disease; E11.22 Type 2 diabetes mellitus with diabetic chronic kidney disease; N18.30 Chronic kidney disease, stage 3 unspecified; I50.9 Heart failure, unspecified; J44.9 Chronic obstructive pulmonary disease, unspecified; K74.60 Unspecified cirrhosis of liver; F32.A Depression, unspecified; Z87.01 Personal history of pneumonia (recurrent); Z82.49 Family history of ischemic heart disease and other diseases of the circulatory system; Z83.3 Family history of diabetes mellitus; Z83.42 Family history of familial hypercholesterolemia; Z80.42 Family history of malignant neoplasm of prostate; Z87.891 Personal history of nicotine dependence; Z88.8 Allergy status to other drugs, medicaments and biological substances; Z88.1 Allergy status to other antibiotic agents; Z91.018 Allergy to other foods; Z88.0 Allergy status to penicillin; Z79.899 Other long term (current) drug therapy; Z90.49 Acquired absence of other specified parts of digestive tract; Z98.890 Other specified postprocedural states
CPT/HCPCS: 49083; 83986; 87205; 89051; C1729; 76942

== ENCOUNTER → 2023-05-16 | Outpatient (CLI) | payer BC | END | disposition home or self-care (01) | LOC: US 12:14 | DX: R18.8 Other ascites (principal); K74.60 Unspecified cirrhosis of liver; I13.0 Hypertensive heart and chronic kidney disease with heart failure and stage 1 through stage 4 chronic kidney disease, or unspecified chronic kidney disease; E11.22 Type 2 diabetes mellitus with diabetic chronic kidney disease; N18.30 Chronic kidney disease, stage 3 unspecified; I50.9 Heart failure, unspecified; E78.5 Hyperlipidemia, unspecified; F32.A Depression, unspecified; J44.9 Chronic obstructive pulmonary disease, unspecified; Z82.49 Family history of ischemic heart disease and other diseases of the circulatory system; Z87.01 Personal history of pneumonia (recurrent); Z88.8 Allergy status to other drugs, medicaments and biological substances; Z91.018 Allergy to other foods; Z88.0 Allergy status to penicillin; Z88.1 Allergy status to other antibiotic agents; Z80.0 Family history of malignant neoplasm of digestive organs; Z83.3 Family history of diabetes mellitus; Z83.42 Family history of familial hypercholesterolemia; Z87.891 Personal history of nicotine dependence; Z79.84 Long term (current) use of oral hypoglycemic drugs; Z79.899 Other long term (current) drug therapy; Z90.49 Acquired absence of other specified parts of digestive tract; Z98.890 Other specified postprocedural states | CPT/HCPCS: 49083; C1729; 76942 ==

== ENCOUNTER → 2023-05-23 | Outpatient (CLI) | payer BC | END | disposition home or self-care (01) | LOC: US 12:51 | DX: R18.8 Other ascites (principal); K74.60 Unspecified cirrhosis of liver; I13.0 Hypertensive heart and chronic kidney disease with heart failure and stage 1 through stage 4 chronic kidney disease, or unspecified chronic kidney disease; E11.22 Type 2 diabetes mellitus with diabetic chronic kidney disease; N18.30 Chronic kidney disease, stage 3 unspecified; I50.9 Heart failure, unspecified; F32.A Depression, unspecified; J44.9 Chronic obstructive pulmonary disease, unspecified; Z87.01 Personal history of pneumonia (recurrent); Z82.49 Family history of ischemic heart disease and other diseases of the circulatory system; Z83.3 Family history of diabetes mellitus; Z80.0 Family history of malignant neoplasm of digestive organs; Z83.42 Family history of familial hypercholesterolemia; Z88.8 Allergy status to other drugs, medicaments and biological substances; Z88.1 Allergy status to other antibiotic agents; Z91.018 Allergy to other foods; Z88.0 Allergy status to penicillin; Z91.048 Other nonmedicinal substance allergy status; Z79.899 Other long term (current) drug therapy; Z87.891 Personal history of nicotine dependence; Z90.49 Acquired absence of other specified parts of digestive tract; Z98.890 Other specified postprocedural states | CPT/HCPCS: 49083; 76705; C1729; 76942 ==

== ENCOUNTER → 2023-05-29 | Outpatient (CLI) | payer BC | END | disposition home or self-care (01) | LOC: XYW 12:54 | DX: R18.8 Other ascites (principal); K74.60 Unspecified cirrhosis of liver; J44.9 Chronic obstructive pulmonary disease, unspecified; I13.0 Hypertensive heart and chronic kidney disease with heart failure and stage 1 through stage 4 chronic kidney disease, or unspecified chronic kidney disease; E11.22 Type 2 diabetes mellitus with diabetic chronic kidney disease; N18.30 Chronic kidney disease, stage 3 unspecified; I50.9 Heart failure, unspecified; F32.A Depression, unspecified; E78.5 Hyperlipidemia, unspecified; Z88.8 Allergy status to other drugs, medicaments and biological substances; Z88.0 Allergy status to penicillin; Z91.018 Allergy to other foods; Z88.1 Allergy status to other antibiotic agents; Z87.01 Personal history of pneumonia (recurrent); Z82.49 Family history of ischemic heart disease and other diseases of the circulatory system; Z83.3 Family history of diabetes mellitus; Z83.42 Family history of familial hypercholesterolemia; Z87.891 Personal history of nicotine dependence; Z79.899 Other long term (current) drug therapy; Z79.84 Long term (current) use of oral hypoglycemic drugs | CPT/HCPCS: 49083; 76705; C1729; 76942 ==

== ENCOUNTER → 2023-06-05 | Outpatient (CLI) | payer BC | END | disposition home or self-care (01) | LOC: US 12:38 | PROVIDERS: ATTEND Internal Medicine Gastroenterology | DX: R18.8 Other ascites (principal); I13.0 Hypertensive heart and chronic kidney disease with heart failure and stage 1 through stage 4 chronic kidney disease, or unspecified chronic kidney disease; E11.22 Type 2 diabetes mellitus with diabetic chronic kidney disease; N18.30 Chronic kidney disease, stage 3 unspecified; I50.9 Heart failure, unspecified; E78.5 Hyperlipidemia, unspecified; J44.9 Chronic obstructive pulmonary disease, unspecified; F32.A Depression, unspecified; Z80.0 Family history of malignant neoplasm of digestive organs; Z82.49 Family history of ischemic heart disease and other diseases of the circulatory system; Z83.3 Family history of diabetes mellitus; Z83.42 Family history of familial hypercholesterolemia; Z87.01 Personal history of pneumonia (recurrent); Z90.49 Acquired absence of other specified parts of digestive tract; Z87.891 Personal history of nicotine dependence; Z88.1 Allergy status to other antibiotic agents; Z88.0 Allergy status to penicillin; Z91.048 Other nonmedicinal substance allergy status; Z91.018 Allergy to other foods; Z88.8 Allergy status to other drugs, medicaments and biological substances; Z79.1 Long term (current) use of non-steroidal anti-inflammatories (NSAID); Z79.899 Other long term (current) drug therapy | CPT/HCPCS: 49083; 76705; C1729; 76942 ==

== ENCOUNTER → 2023-06-12 | Outpatient (CLI) | payer BC ==
[2023-06-12 16:19] LABS: Body Fluid pH 8
[2023-06-12 18:44] LABS: Body Fluid White Blood Cells 110 CUMM (0-200)
[2023-06-12 18:45] LABS: Body Fluid Polymorphonuclear 3 % (0-25); Body Fluid Red Blood Cells 60 CUMM (0-2000)
[2023-06-14 13:06] LABS: Albumin, Body Fluid 0.4 g/dL (Not Estab.); Protein, Body Fluid 1.2 g/dL (.)
== END | disposition home or self-care (01) ==
LOC: XYW 12:31
PROVIDERS: ATTEND Internal Medicine Gastroenterology
DX: K70.31 Alcoholic cirrhosis of liver with ascites (principal)
CPT/HCPCS: 49083; 76705; 76942; 83986; 87205; 88104; 88305; 88342; 89051; C1729

== ENCOUNTER → 2023-06-12 | Outpatient (CLI) | payer BC ==
[2023-06-12 10:35] LABS: Basophils # (auto) 0.1 10 ^3/uL (0-0.2); Basophils % (auto) 1.3 % (0.0-2.0); Eosinophils # (auto) 0.2 10 ^3/uL (0-0.8); Eosinophils % (auto) 2.3 % (0.0-7.0); Hematocrit 39.5 % (41.0-53.0); Lymphocytes # (auto) 1.3 10 ^3/uL (0.4-5.4); Mean Corpuscular Hemoglobin 29.1 pg (28.0-32.0); Mean Corpuscular Hgb Conc. 32.8 g/dL (32.0-36.0); Mean Corpuscular Volume 88.7 fL (80.0-100.0); Monocytes # (auto) 0.6 10 ^3/uL (0-1.3); Monocytes % (auto) 7.8 % (0.0-12.0); Neutrophils # (auto) 5.3 10 ^3/uL (1.6-8.6); Neutrophils % (auto) 71.6 % (37.0-80.0); Nucleated Red Blood Cells % 0.1 %; Red Blood Cells 4.45 10^6/uL (4.5-5.90); Red Cell Distribution Width 15.9 % (11.8-14.3); White Blood Cell 7.5 10^3/uL (4.4-10.8)
[2023-06-12 10:44] LABS: INR 1.02 (0.9-1.15); Partial Thromboplastin Time 26.1 SEC (24.5-34.5); Prothrombin Time 10.7 sec (9.3-11.8)
[2023-06-12 11:07] LABS: Alanine Aminotransferase 46 U/L (7-40); Albumin 3.3 g/dL (3.2-4.8); Alkaline Phosphatase 410 U/L (46-116); Anion Gap 7 (5-15); Aspartate Aminotransferase 57 U/L (13-40); BUN/Creatinine Ratio 15.1 (10.0-20.0); Blood Urea Nitrogen 21 mg/dL (9-23); Calcium 8.4 mg/dL (8.5-10.1); Carbon Dioxide 26 mmol/L (20-30); Chloride 105 mmol/L (98-107); Glucose 76 mg/dL (74-106); Potassium 4.3 mmol/L (3.5-5.1); Sodium 138 mmol/L (136-145)
[2023-06-12 11:08] LABS: Bilirubin, Total 0.6 mg/dL (0.2-1.0); Total Protein 6.2 g/dL (5.7-8.2)
== END | disposition home or self-care (01) ==
LOC: LAB 09:47
DX: R18.8 Other ascites (principal); R16.0 Hepatomegaly, not elsewhere classified
CPT/HCPCS: 36415; 80053; 85025; 85610; 85730

== ENCOUNTER → 2023-06-19 | Outpatient (CLI) | payer BC | END | disposition home or self-care (01) | LOC: XYW 12:54 | DX: R18.8 Other ascites (principal); K74.69 Other cirrhosis of liver; E78.5 Hyperlipidemia, unspecified; J44.9 Chronic obstructive pulmonary disease, unspecified; I13.0 Hypertensive heart and chronic kidney disease with heart failure and stage 1 through stage 4 chronic kidney disease, or unspecified chronic kidney disease; E11.22 Type 2 diabetes mellitus with diabetic chronic kidney disease; N18.9 Chronic kidney disease, unspecified; I50.9 Heart failure, unspecified; F32.A Depression, unspecified; Z80.42 Family history of malignant neoplasm of prostate; Z83.42 Family history of familial hypercholesterolemia; Z82.49 Family history of ischemic heart disease and other diseases of the circulatory system; Z83.3 Family history of diabetes mellitus; Z87.891 Personal history of nicotine dependence; Z79.84 Long term (current) use of oral hypoglycemic drugs; Z88.8 Allergy status to other drugs, medicaments and biological substances; Z88.0 Allergy status to penicillin; Z79.899 Other long term (current) drug therapy; Z87.01 Personal history of pneumonia (recurrent); Z91.018 Allergy to other foods; Z88.1 Allergy status to other antibiotic agents; Z90.49 Acquired absence of other specified parts of digestive tract; Z98.890 Other specified postprocedural states | CPT/HCPCS: 49083; 76705; C1729; 76942 ==

== ENCOUNTER → 2023-07-03 | Outpatient (CLI) | payer BC | END | disposition home or self-care (01) | LOC: XYW 12:56 | PROVIDERS: ATTEND Internal Medicine Gastroenterology | DX: R18.8 Other ascites (principal); I50.9 Heart failure, unspecified; J44.9 Chronic obstructive pulmonary disease, unspecified; F32.A Depression, unspecified; Z87.891 Personal history of nicotine dependence; Z83.42 Family history of familial hypercholesterolemia; Z82.49 Family history of ischemic heart disease and other diseases of the circulatory system; Z83.3 Family history of diabetes mellitus; Z80.42 Family history of malignant neoplasm of prostate | CPT/HCPCS: 49083; 76705; C1729; 76942 ==

== ENCOUNTER → 2023-07-10 | Outpatient (CLI) | payer BC | END | disposition home or self-care (01) | LOC: XYW 12:40 | DX: R18.8 Other ascites (principal); I50.9 Heart failure, unspecified; J44.9 Chronic obstructive pulmonary disease, unspecified; F32.A Depression, unspecified; Z79.899 Other long term (current) drug therapy; Z98.890 Other specified postprocedural states; Z87.891 Personal history of nicotine dependence; Z83.3 Family history of diabetes mellitus; Z82.49 Family history of ischemic heart disease and other diseases of the circulatory system; Z80.42 Family history of malignant neoplasm of prostate; Z83.42 Family history of familial hypercholesterolemia | CPT/HCPCS: 49083; C1729; 76942 ==

== ENCOUNTER → 2023-07-17 | Outpatient (CLI) | payer BC ==
[2023-07-17 11:46] LABS: Basophils # (auto) 0 10 ^3/uL (0-0.2); Basophils % (auto) 0.2 % (0.0-2.0); Eosinophils # (auto) 0 10 ^3/uL (0-0.8); Hematocrit 39.7 % (41.0-53.0); Hemoglobin 13.1 g/dL (13.5-17.5); Lymphocytes # (auto) 0.4 10 ^3/uL (0.4-5.4); Lymphocytes % (auto) 3.4 % (10.0-50.0); Mean Corpuscular Hemoglobin 29.8 pg (28.0-32.0); Mean Corpuscular Hgb Conc. 32.9 g/dL (32.0-36.0); Mean Corpuscular Volume 90.5 fL (80.0-100.0); Monocytes # (auto) 0.4 10 ^3/uL (0-1.3); Monocytes % (auto) 3.8 % (0.0-12.0); Neutrophils # (auto) 9.6 10 ^3/uL (1.6-8.6); Neutrophils % (auto) 92.6 % (37.0-80.0); Nucleated Red Blood Cells % 0.2 %; Red Blood Cells 4.39 10^6/uL (4.5-5.90); Red Cell Distribution Width 16.3 % (11.8-14.3); White Blood Cell 10.3 10^3/uL (4.4-10.8)
[2023-07-17 12:02] LABS: INR 1.01 (0.9-1.15); Partial Thromboplastin Time 26.4 SEC (24.5-34.5); Prothrombin Time 10.6 sec (9.3-11.8)
[2023-07-17 12:11] LABS: Alanine Aminotransferase 53 U/L (7-40); Alkaline Phosphatase 334 U/L (46-116); Anion Gap 6 (5-15); BUN/Creatinine Ratio 16.9 (10.0-20.0); Blood Urea Nitrogen 27 mg/dL (9-23); Calcium 8.5 mg/dL (8.5-10.1); Carbon Dioxide 28 mmol/L (20-30); Chloride 106 mmol/L (98-107); Glucose 96 mg/dL (74-106); Potassium 4.5 mmol/L (3.5-5.1); Sodium 140 mmol/L (136-145)
[2023-07-17 12:12] LABS: Albumin 3.7 g/dL (3.2-4.8); Aspartate Aminotransferase 49 U/L (13-40); Bilirubin, Total 0.8 mg/dL (0.2-1.0); Total Protein 6.6 g/dL (5.7-8.2)
== END | disposition home or self-care (01) ==
LOC: LAB 11:21
DX: R18.8 Other ascites (principal)
CPT/HCPCS: 36415; 80053; 85025; 85610; 85730

== ENCOUNTER → 2023-07-24 | Outpatient (CLI) | payer BC ==
[~2023-07-24] MED LIST changes: +CLIN1CAP70 PO; -CLIN300C70 PO
== END | disposition home or self-care (01) ==
LOC: XYW 13:08
DX: R18.8 Other ascites (principal); I50.9 Heart failure, unspecified; J44.9 Chronic obstructive pulmonary disease, unspecified; F32.A Depression, unspecified; Z79.899 Other long term (current) drug therapy; Z87.891 Personal history of nicotine dependence; Z82.49 Family history of ischemic heart disease and other diseases of the circulatory system; Z83.3 Family history of diabetes mellitus; Z83.42 Family history of familial hypercholesterolemia; Z80.42 Family history of malignant neoplasm of prostate
CPT/HCPCS: 49083; C1729; 76705; 76942

== ENCOUNTER → 2023-08-14 | Outpatient (CLI) | payer BC ==
[2023-08-14 20:45] LABS: Body Fluid Polymorphonuclear 13 % (0-25); Body Fluid Red Blood Cells 400 CUMM (0-2000); Body Fluid White Blood Cells 190 CUMM (0-200)
[2023-08-15 13:06] LABS: Albumin, Body Fluid 1.2 g/dL (Not Estab.); Protein, Body Fluid 1.7 g/dL (.)
== END | disposition home or self-care (01) ==
LOC: US 12:38
PROVIDERS: ATTEND Internal Medicine Gastroenterology
DX: R18.8 Other ascites (principal); J44.9 Chronic obstructive pulmonary disease, unspecified; I50.9 Heart failure, unspecified; F32.A Depression, unspecified; Z88.1 Allergy status to other antibiotic agents; Z88.0 Allergy status to penicillin; Z88.8 Allergy status to other drugs, medicaments and biological substances; Z91.018 Allergy to other foods; Z91.09 Other allergy status, other than to drugs and biological substances; Z87.891 Personal history of nicotine dependence; Z80.42 Family history of malignant neoplasm of prostate; Z83.3 Family history of diabetes mellitus; Z82.49 Family history of ischemic heart disease and other diseases of the circulatory system; Z79.899 Other long term (current) drug therapy; Z98.890 Other specified postprocedural states
CPT/HCPCS: 49083; 76705; 83986; 87205; 89051; C1729; 76942

== ENCOUNTER → 2023-08-21 | Outpatient (CLI) | payer BC | END | disposition home or self-care (01) | LOC: XYW 09:54 | PROVIDERS: ATTEND Internal Medicine Gastroenterology | DX: R18.8 Other ascites (principal); I50.9 Heart failure, unspecified; J44.9 Chronic obstructive pulmonary disease, unspecified; F32.A Depression, unspecified; Z79.899 Other long term (current) drug therapy; Z98.890 Other specified postprocedural states; Z87.891 Personal history of nicotine dependence; Z88.0 Allergy status to penicillin; Z88.1 Allergy status to other antibiotic agents; Z91.018 Allergy to other foods; Z82.49 Family history of ischemic heart disease and other diseases of the circulatory system; Z83.42 Family history of familial hypercholesterolemia; Z80.42 Family history of malignant neoplasm of prostate; Z83.3 Family history of diabetes mellitus | CPT/HCPCS: 49083; C1729; 76942 ==

== ENCOUNTER → 2023-08-26 | Outpatient (CLI) | payer BC | END | disposition home or self-care (01) | LOC: XYW 10:42 | PROVIDERS: ATTEND Internal Medicine Gastroenterology | DX: R18.8 Other ascites (principal); I50.9 Heart failure, unspecified; J44.9 Chronic obstructive pulmonary disease, unspecified; F32.A Depression, unspecified; Z87.891 Personal history of nicotine dependence; Z79.899 Other long term (current) drug therapy | CPT/HCPCS: 49083; C1729; 76942 ==

== ENCOUNTER → 2023-09-04 | Outpatient (CLI) | payer BC | END | disposition home or self-care (01) | LOC: XYW 08:31 | PROVIDERS: ATTEND Internal Medicine Gastroenterology | DX: R18.8 Other ascites (principal); I50.9 Heart failure, unspecified; J44.9 Chronic obstructive pulmonary disease, unspecified; F32.A Depression, unspecified; Z79.899 Other long term (current) drug therapy; Z87.891 Personal history of nicotine dependence; Z80.42 Family history of malignant neoplasm of prostate; Z82.49 Family history of ischemic heart disease and other diseases of the circulatory system; Z83.42 Family history of familial hypercholesterolemia; Z83.3 Family history of diabetes mellitus | CPT/HCPCS: 49083; C1729; 76942 ==

== ENCOUNTER → 2023-09-11 | Outpatient (CLI) | payer BC | END | disposition home or self-care (01) | LOC: XYW 08:27 | PROVIDERS: ATTEND Internal Medicine Gastroenterology | DX: R18.8 Other ascites (principal); I50.9 Heart failure, unspecified; J44.9 Chronic obstructive pulmonary disease, unspecified; F32.A Depression, unspecified; Z79.899 Other long term (current) drug therapy; Z98.890 Other specified postprocedural states; Z87.891 Personal history of nicotine dependence; Z87.09 Personal history of other diseases of the respiratory system; Z80.42 Family history of malignant neoplasm of prostate; Z82.49 Family history of ischemic heart disease and other diseases of the circulatory system; Z83.3 Family history of diabetes mellitus; Z83.42 Family history of familial hypercholesterolemia | CPT/HCPCS: 49083; 76705; C1729; 76942 ==

== ENCOUNTER → 2023-09-26 | Outpatient (CLI) | payer BC | END | disposition home or self-care (01) | LOC: XYW 10:44 | DX: R18.8 Other ascites (principal); J44.9 Chronic obstructive pulmonary disease, unspecified; I50.9 Heart failure, unspecified; F32.A Depression, unspecified; Z90.49 Acquired absence of other specified parts of digestive tract; Z80.42 Family history of malignant neoplasm of prostate; Z88.6 Allergy status to analgesic agent; Z88.1 Allergy status to other antibiotic agents; Z91.018 Allergy to other foods; Z88.0 Allergy status to penicillin; Z91.09 Other allergy status, other than to drugs and biological substances; Z87.891 Personal history of nicotine dependence; Z83.3 Family history of diabetes mellitus; Z82.49 Family history of ischemic heart disease and other diseases of the circulatory system; Z79.899 Other long term (current) drug therapy; Z98.890 Other specified postprocedural states | CPT/HCPCS: 49083; C1729; 76942 ==

== ENCOUNTER → 2023-10-03 | Outpatient (CLI) | payer BC ==
[2023-10-03 10:54] LABS: INR 1.02 (0.9-1.15); Partial Thromboplastin Time 28.5 SEC (24.5-34.5); Prothrombin Time 10.8 sec (9.3-11.8)
== END | disposition home or self-care (01) ==
LOC: XYW 10:02
DX: R18.8 Other ascites (principal); I50.9 Heart failure, unspecified; J44.9 Chronic obstructive pulmonary disease, unspecified; Z79.01 Long term (current) use of anticoagulants; Z79.899 Other long term (current) drug therapy; Z87.891 Personal history of nicotine dependence; Z82.49 Family history of ischemic heart disease and other diseases of the circulatory system; Z83.42 Family history of familial hypercholesterolemia; Z83.3 Family history of diabetes mellitus; Z80.42 Family history of malignant neoplasm of prostate
CPT/HCPCS: 36415; 49083; 76705; 85610; 85730; C1729; 76942

== ENCOUNTER → 2023-10-09 | Outpatient (CLI) | payer BC | END | disposition home or self-care (01) | LOC: XYW 09:22 | DX: R18.8 Other ascites (principal); J44.9 Chronic obstructive pulmonary disease, unspecified; I50.9 Heart failure, unspecified; F32.A Depression, unspecified; Z90.49 Acquired absence of other specified parts of digestive tract; Z88.1 Allergy status to other antibiotic agents; Z88.0 Allergy status to penicillin; Z91.09 Other allergy status, other than to drugs and biological substances; Z87.891 Personal history of nicotine dependence; Z83.3 Family history of diabetes mellitus; Z82.49 Family history of ischemic heart disease and other diseases of the circulatory system; Z80.42 Family history of malignant neoplasm of prostate; Z79.899 Other long term (current) drug therapy; Z98.890 Other specified postprocedural states | CPT/HCPCS: 49083; C1729; 76942 ==

== ENCOUNTER → 2023-10-16 | Outpatient (CLI) | payer BC | END | disposition home or self-care (01) | LOC: XYW 11:57 | DX: R18.8 Other ascites (principal); I50.9 Heart failure, unspecified; J44.9 Chronic obstructive pulmonary disease, unspecified; F32.A Depression, unspecified; Z79.899 Other long term (current) drug therapy; Z85.46 Personal history of malignant neoplasm of prostate; Z86.79 Personal history of other diseases of the circulatory system; Z98.890 Other specified postprocedural states; Z87.891 Personal history of nicotine dependence; Z83.3 Family history of diabetes mellitus; Z83.42 Family history of familial hypercholesterolemia | CPT/HCPCS: 49083; C1729; 76942 ==

== ENCOUNTER → 2023-10-23 | Outpatient (CLI) | payer BC | END | disposition home or self-care (01) | LOC: XYW 10:06 | DX: R18.8 Other ascites (principal); I50.9 Heart failure, unspecified; J44.9 Chronic obstructive pulmonary disease, unspecified; F32.A Depression, unspecified; Z80.42 Family history of malignant neoplasm of prostate; Z82.49 Family history of ischemic heart disease and other diseases of the circulatory system; Z83.42 Family history of familial hypercholesterolemia; Z83.3 Family history of diabetes mellitus | CPT/HCPCS: 49083; C1729; 76942 ==

== ENCOUNTER → 2023-11-06 | Outpatient (CLI) | payer BC | END | disposition home or self-care (01) | LOC: US 12:53 | DX: R18.8 Other ascites (principal); J44.9 Chronic obstructive pulmonary disease, unspecified; I50.9 Heart failure, unspecified; F32.A Depression, unspecified; Z87.891 Personal history of nicotine dependence; Z88.0 Allergy status to penicillin; Z88.1 Allergy status to other antibiotic agents; Z88.8 Allergy status to other drugs, medicaments and biological substances; Z91.018 Allergy to other foods; Z82.49 Family history of ischemic heart disease and other diseases of the circulatory system; Z80.42 Family history of malignant neoplasm of prostate; Z83.42 Family history of familial hypercholesterolemia; Z83.3 Family history of diabetes mellitus | CPT/HCPCS: 49083; C1729; 76942 ==

== ENCOUNTER → 2023-11-22 | Outpatient (CLI) | payer BC | END | disposition home or self-care (01) | LOC: US 09:58 | DX: R18.8 Other ascites (principal); J44.9 Chronic obstructive pulmonary disease, unspecified; F32.A Depression, unspecified; I50.9 Heart failure, unspecified; Z90.49 Acquired absence of other specified parts of digestive tract; Z98.890 Other specified postprocedural states; Z80.42 Family history of malignant neoplasm of prostate; Z88.0 Allergy status to penicillin; Z88.1 Allergy status to other antibiotic agents; Z91.018 Allergy to other foods; Z91.09 Other allergy status, other than to drugs and biological substances; Z87.891 Personal history of nicotine dependence; Z82.49 Family history of ischemic heart disease and other diseases of the circulatory system; Z83.3 Family history of diabetes mellitus | CPT/HCPCS: 49083; C1729; 76942 ==

== ENCOUNTER → 2023-11-22 | Outpatient (CLI) | payer BC ==
[2023-11-22 10:09] LABS: Basophils # (auto) 0.1 10 ^3/uL (0-0.2); Basophils % (auto) 1.4 % (0.0-2.0); Eosinophils # (auto) 0.7 10 ^3/uL (0-0.8); Eosinophils % (auto) 9.5 % (0.0-7.0); Hematocrit 41.2 % (41.0-53.0); Hemoglobin 14.2 g/dL (13.5-17.5); Lymphocytes # (auto) 1.3 10 ^3/uL (0.4-5.4); Lymphocytes % (auto) 18.4 % (10.0-50.0); Mean Corpuscular Hemoglobin 31.4 pg (28.0-32.0); Mean Corpuscular Hgb Conc. 34.4 g/dL (32.0-36.0); Mean Corpuscular Volume 91.3 fL (80.0-100.0); Monocytes # (auto) 0.9 10 ^3/uL (0-1.3); Monocytes % (auto) 12.5 % (0.0-12.0); Neutrophils % (auto) 58.2 % (37.0-80.0); Red Blood Cells 4.51 10^6/uL (4.5-5.90); Red Cell Distribution Width 14.8 % (11.8-14.3); White Blood Cell 6.9 10^3/uL (4.4-10.8)
[2023-11-22 10:22] LABS: INR 1.08 (0.9-1.15); Partial Thromboplastin Time 29.1 SEC (24.5-34.5); Prothrombin Time 11.4 sec (9.3-11.8)
[2023-11-22 10:52] LABS: Alanine Aminotransferase 22 U/L (7-40); Albumin 3.7 g/dL (3.2-4.8); Alkaline Phosphatase 281 U/L (46-116); Anion Gap 7 (5-15); Aspartate Aminotransferase 30 U/L (13-40); BUN/Creatinine Ratio 11.2 (10.0-20.0); Bilirubin, Total 0.9 mg/dL (0.2-1.0); Blood Urea Nitrogen 16 mg/dL (9-23); Calcium 9.3 mg/dL (8.7-10.4); Carbon Dioxide 31 mmol/L (20-30); Chloride 101 mmol/L (98-107); Glucose 96 mg/dL (74-106); Potassium 3.6 mmol/L (3.5-5.1); Sodium 139 mmol/L (136-145); Total Protein 6.8 g/dL (5.7-8.2)
== END | disposition home or self-care (01) ==
LOC: LAB 08:41
DX: R18.8 Other ascites (principal)
CPT/HCPCS: 36415; 80053; 85025; 85610; 85730

== ENCOUNTER → 2023-12-11 | Outpatient (CLI) | payer BC ==
[2023-12-11 13:59] LABS: Body Fluid Polymorphonuclear 5 % (0-25); Body Fluid Red Blood Cells 1125 CUMM (0-2000); Body Fluid White Blood Cells 85 CUMM (0-200)
[2023-12-12 13:07] LABS: Protein, Body Fluid 2.9 g/dL (.)
== END | disposition home or self-care (01) ==
LOC: XYW 10:33
DX: R18.8 Other ascites (principal); I50.9 Heart failure, unspecified; J44.9 Chronic obstructive pulmonary disease, unspecified; F32.A Depression, unspecified; Z87.891 Personal history of nicotine dependence; Z91.018 Allergy to other foods; Z82.49 Family history of ischemic heart disease and other diseases of the circulatory system; Z83.42 Family history of familial hypercholesterolemia; Z83.3 Family history of diabetes mellitus; Z80.42 Family history of malignant neoplasm of prostate; Z88.1 Allergy status to other antibiotic agents
CPT/HCPCS: 49083; 83986; 87205; 88104; 88305; 88342; 89051; C1729; 76705; 76942

== ENCOUNTER → 2023-12-25 | Outpatient (CLI) | payer BC ==
[2023-12-25 09:07] LABS: Basophils # (auto) 0.2 10 ^3/uL (0-0.2); Basophils % (auto) 3.6 % (0.0-2.0); Eosinophils # (auto) 0.4 10 ^3/uL (0-0.8); Eosinophils % (auto) 5.6 % (0.0-7.0); Hematocrit 41.5 % (41.0-53.0); Hemoglobin 14.4 g/dL (13.5-17.5); Lymphocytes # (auto) 0.9 10 ^3/uL (0.4-5.4); Lymphocytes % (auto) 14.2 % (10.0-50.0); Mean Corpuscular Hemoglobin 32.7 pg (28.0-32.0); Mean Corpuscular Hgb Conc. 34.6 g/dL (32.0-36.0); Mean Corpuscular Volume 94.3 fL (80.0-100.0); Monocytes # (auto) 0.9 10 ^3/uL (0-1.3); Monocytes % (auto) 14.1 % (0.0-12.0); Neutrophils % (auto) 62.5 % (37.0-80.0); Platelet Count (auto) 146 10^3/uL (140-450); Red Cell Distribution Width 14.9 % (11.8-14.3); White Blood Cell 6.4 10^3/uL (4.4-10.8)
[2023-12-25 09:22] LABS: INR 1.09 (0.9-1.15); Partial Thromboplastin Time 27.7 SEC (24.5-34.5); Prothrombin Time 11.5 sec (9.3-11.8)
[2023-12-25 09:27] LABS: Alanine Aminotransferase 19 U/L (7-40); Albumin 3.6 g/dL (3.2-4.8); Alkaline Phosphatase 218 U/L (46-116); Anion Gap 5 (5-15); Aspartate Aminotransferase 28 U/L (13-40); BUN/Creatinine Ratio 12.1 (10.0-20.0); Bilirubin, Total 1.3 mg/dL (0.2-1.0); Blood Urea Nitrogen 21 mg/dL (9-23); Calcium 9.4 mg/dL (8.7-10.4); Carbon Dioxide 31 mmol/L (20-30); Chloride 101 mmol/L (98-107); Glucose 123 mg/dL (74-106); Potassium 3.9 mmol/L (3.5-5.1); Sodium 137 mmol/L (136-145); Total Protein 6.8 g/dL (5.7-8.2)
== END | disposition home or self-care (01) ==
LOC: LAB 08:34
PROVIDERS: ATTEND Internal Medicine
DX: R18.8 Other ascites (principal)
CPT/HCPCS: 36415; 80053; 85025; 85610; 85730

== ENCOUNTER → 2024-01-10 | Outpatient (CLI) | payer BC | END | disposition home or self-care (01) | LOC: XYW 01-08 10:11 | DX: R18.8 Other ascites (principal) | CPT/HCPCS: 76705 ==

== ENCOUNTER → 2024-01-22 | Outpatient (CLI) | payer BC | END | disposition home or self-care (01) | LOC: XYW 08:59 | DX: R18.8 Other ascites (principal) | CPT/HCPCS: 76705 ==

== ENCOUNTER → 2024-02-12 | Outpatient (CLI) | payer BC | END | disposition home or self-care (01) | LOC: XYW 08:55 | DX: R18.8 Other ascites (principal) | CPT/HCPCS: 76705 ==

== ENCOUNTER → 2024-02-26 | Outpatient (CLI) | payer BC ==
[2024-02-26 13:37] LABS: Body Fluid Polymorphonuclear 5 % (0-25); Body Fluid Red Blood Cells 144 CUMM (0-2000); Body Fluid White Blood Cells 201 CUMM (0-200)
[2024-02-27 13:07] LABS: Protein, Body Fluid 3.3 g/dL (.)
== END | disposition home or self-care (01) ==
LOC: US 10:24
DX: R18.8 Other ascites (principal); J44.9 Chronic obstructive pulmonary disease, unspecified; I50.9 Heart failure, unspecified; F32.A Depression, unspecified; Z87.891 Personal history of nicotine dependence; Z80.42 Family history of malignant neoplasm of prostate; Z82.49 Family history of ischemic heart disease and other diseases of the circulatory system; Z83.3 Family history of diabetes mellitus; Z83.42 Family history of familial hypercholesterolemia
CPT/HCPCS: 49083; 76705; 83986; 87205; 89051; C1729; 76942

== ENCOUNTER → 2024-03-18 | Outpatient (CLI) | payer BC ==
--- NOTE | 2024-03-18 11:55 | DVH ---
US PARACENTESIS, HISTORY: OTHER ASCITES PROCEDURE: Informed consent was obtained. The patient was placed in supine position. A limited locali zation ultrasound of the abdomen was obtained, and the skin site over the largest pocket of fluid was marked and entry site was prepped with chlorhexidine which was allowed to dry and draped in the usua l sterile fashion. Time out was performed. Following administration of 1% lidocaine local anesthetic, a 5 Georgian centesis needle catheter was percutaneously inserted into the peritoneal collection until fluid was aspirated. The catheter was advanced into the fluid collection and the needle removed. [place] 5550 cc of fluid was aspirated and specimen sent for appropriate cultures/cytology/cultures and cy tology. The catheter was then removed and a sterile dressing applied. No immediate complication was identified. FINDINGS: Limited ultrasound imaging demonstrates moderate ascites. Aspirated fluid was clear and ser ous. IMPRESSION: US-guided paracentesis with 5.6L removed.
[2024-03-18 14:37] LABS: Body Fluid Polymorphonuclear 4 % (0-25); Body Fluid Red Blood Cells 1598 CUMM (0-2000); Body Fluid White Blood Cells 890 CUMM (0-200)
[2024-03-19 12:07] LABS: Protein, Body Fluid 3.1 g/dL (.)
== END | disposition home or self-care (01) ==
LOC: XYW 10:18
PROVIDERS: ATTEND Internal Medicine
DX: R18.8 Other ascites (principal); I50.9 Heart failure, unspecified; J44.9 Chronic obstructive pulmonary disease, unspecified; F32.A Depression, unspecified; Z87.891 Personal history of nicotine dependence; Z80.42 Family history of malignant neoplasm of prostate; Z82.49 Family history of ischemic heart disease and other diseases of the circulatory system; Z83.42 Family history of familial hypercholesterolemia; Z83.3 Family history of diabetes mellitus
CPT/HCPCS: 49083; 83986; 87205; 89051; C1729; 76705; 76942

== ENCOUNTER → 2024-04-01 | Outpatient (CLI) | payer BC ==
--- NOTE | 2024-04-01 12:21 | DVH ---
US PARACENTESIS, HISTORY: ASCITES PROCEDURE: Informed consent was obtained. The patient was placed in supine position. A limited locali zation ultrasound of the abdomen was obtained, and the skin site over the largest pocket of fluid was marked and entry site was prepped with chlorhexidine which was allowed to dry and draped in the usua l sterile fashion. Time out was performed. Following administration of 1% lidocaine local anesthetic, a 5 Maldivian centesis needle catheter was percutaneously inserted into the peritoneal collection until fluid was aspirated. The catheter was advanced into the fluid collection and the needle removed. [place] 4400 cc of fluid was aspirated . The catheter was then removed and a sterile dressing applied. No immediate complication was identified. FINDINGS: Limited ultrasound imaging demonstrates mild to moderate ascites. Aspirated fluid was clear and serous. IMPRESSION: US-guided paracentesis with 4.4L removed.
[2024-04-01 12:38] LABS: Body Fluid Red Blood Cells 652 CUMM (0-2000); Body Fluid White Blood Cells 438 CUMM (0-200)
[2024-04-01 13:50] LABS: Body Fluid Polymorphonuclear 10 % (0-25)
== END | disposition home or self-care (01) ==
LOC: US 09:11
DX: R18.8 Other ascites (principal); I50.9 Heart failure, unspecified; J44.9 Chronic obstructive pulmonary disease, unspecified; Z79.899 Other long term (current) drug therapy; Z98.890 Other specified postprocedural states; Z87.891 Personal history of nicotine dependence; Z80.42 Family history of malignant neoplasm of prostate; Z82.49 Family history of ischemic heart disease and other diseases of the circulatory system; Z83.42 Family history of familial hypercholesterolemia; Z83.3 Family history of diabetes mellitus
CPT/HCPCS: 49083; 83986; 87205; 89051; C1729; 76942

== ENCOUNTER → 2024-04-28 | Outpatient (CLI) | payer BC ==
--- NOTE | 2024-04-28 13:02 | DVH ---
US PARACENTESIS, HISTORY: OTHER ASCITES PROCEDURE: Informed consent was obtained. The patient was placed in supine position. A limited locali zation ultrasound of the abdomen was obtained, and the skin site over the largest pocket of fluid was marked and entry site was prepped with chlorhexidine which was allowed to dry and draped in the usua l sterile fashion. Time out was performed. Following administration of 1% lidocaine local anesthetic, a 5 Portuguese centesis needle catheter was percutaneously inserted into the peritoneal collection until fluid was aspirated. The catheter was advanced into the fluid collection and the needle removed. Abo ut 2050 cc of fluid was aspirated . The catheter was then removed and a sterile dressing applied. No immediate complication was identified. FINDINGS: Limited ultrasound imaging demonstrates mild to moderate ascites. Aspirated fluid was clear and serous. IMPRESSION: US-guided paracentesis with 2L removed.
== END | disposition home or self-care (01) ==
LOC: XYW 10:25
DX: R18.8 Other ascites (principal)
CPT/HCPCS: 49083; 76705; C1729; 76942

== ENCOUNTER → 2024-05-15 | Outpatient (CLI) | payer BC ==
--- NOTE | 2024-05-15 09:50 | DVH ---
US PARACENTESIS, HISTORY: OTHER ASCITES PROCEDURE: Informed consent was obtained. The patient was placed in supine position. A limited locali zation ultrasound of the abdomen was obtained, and the skin site over the largest pocket of fluid was marked and entry site was prepped with chlorhexidine which was allowed to dry and draped in the usua l sterile fashion. Time out was performed. Following administration of 1% lidocaine local anesthetic, a 5 Estonian centesis needle catheter was percutaneously inserted into the peritoneal collection until fluid was aspirated. The catheter was advanced into the fluid collection and the needle removed. [place] 3100 cc of fluid was aspirated . The catheter was then removed and a sterile dressing applied. No immediate complication was identified. FINDINGS: Limited ultrasound imaging demonstrates mild ascites. Aspirated fluid was clear and serous. IMPRESSION: US-guided paracentesis with 3.1L removed.
== END | disposition home or self-care (01) ==
LOC: US 09:01
DX: R18.8 Other ascites (principal)
CPT/HCPCS: 76705; 76942; C1729

== ENCOUNTER → 2024-05-22 | Outpatient (CLI) | payer BC ==
[2024-05-22 11:57] LABS: Basophils # (auto) 0.1 10 ^3/uL (0-0.2); Basophils % (auto) 1.2 % (0.0-2.0); Eosinophils # (auto) 0.5 10 ^3/uL (0-0.8); Eosinophils % (auto) 7.1 % (0.0-7.0); Hematocrit 42.2 % (41.0-53.0); Hemoglobin 14.2 g/dL (13.5-17.5); Lymphocytes # (auto) 0.8 10 ^3/uL (0.4-5.4); Lymphocytes % (auto) 10.3 % (10.0-50.0); Mean Corpuscular Hemoglobin 30.3 pg (28.0-32.0); Mean Corpuscular Hgb Conc. 33.6 g/dL (32.0-36.0); Mean Corpuscular Volume 90.2 fL (80.0-100.0); Monocytes # (auto) 0.6 10 ^3/uL (0-1.3); Monocytes % (auto) 8.4 % (0.0-12.0); Neutrophils # (auto) 5.4 10 ^3/uL (1.6-8.6); Nucleated Red Blood Cells % 0.1 %; Platelet Count (auto) 107 10^3/uL (140-450); Red Blood Cells 4.68 10^6/uL (4.5-5.90); Red Cell Distribution Width 16.8 % (11.8-14.3); White Blood Cell 7.3 10^3/uL (4.4-10.8)
[2024-05-22 12:02] LABS: INR 1.03 (0.9-1.15); Partial Thromboplastin Time 27.2 SEC (24.5-34.5); Prothrombin Time 10.9 sec (9.3-11.8)
[2024-05-22 12:06] LABS: Alanine Aminotransferase 30 U/L (7-40); Albumin 3.9 g/dL (3.2-4.8); Anion Gap 6 (5-15); Aspartate Aminotransferase 30 U/L (13-40); BUN/Creatinine Ratio 16.6 (10.0-20.0); Carbon Dioxide 28 mmol/L (20-31); Chloride 104 mmol/L (98-107); Glucose 97 mg/dL (74-106); Potassium 4.8 mmol/L (3.5-5.1); Sodium 138 mmol/L (136-145)
[2024-05-22 12:07] LABS: Bilirubin, Total 0.8 mg/dL (0.2-1.0); Total Protein 6.8 g/dL (5.7-8.2)
[2024-05-22 12:14] LABS: Alkaline Phosphatase 183 U/L (46-116); Blood Urea Nitrogen 24 mg/dL (9-23); Calcium 8.7 mg/dL (8.7-10.4)
== END | disposition home or self-care (01) ==
LOC: LAB 10:17
PROVIDERS: ATTEND Internal Medicine
DX: R18.8 Other ascites (principal)
CPT/HCPCS: 36415; 80053; 85025; 85610; 85730

== ENCOUNTER → 2024-05-26 | Outpatient (CLI) | payer BC ==
--- NOTE | 2024-05-26 14:15 | DVH ---
US PARACENTESIS, HISTORY: OTHER ASCITES PROCEDURE: Informed consent was obtained. The patient was placed in supine position. A limited locali zation ultrasound of the abdomen was obtained, and the skin site over the largest pocket of fluid was marked and entry site was prepped with chlorhexidine which was allowed to dry and draped in the usua l sterile fashion. Time out was performed. Following administration of 1% lidocaine local anesthetic, a 5 English centesis needle catheter was percutaneously inserted into the peritoneal collection until fluid was aspirated. The catheter was advanced into the fluid collection and the needle removed. Abo ut 3100 cc of fluid was aspirated . The catheter was then removed and a sterile dressing applied. No immediate complication was identified. FINDINGS: Limited ultrasound imaging demonstrates mild ascites. Aspirated fluid was clear and serous. IMPRESSION: US-guided paracentesis with 3.1L removed.
== END | disposition home or self-care (01) ==
LOC: XYW 09:37
PROVIDERS: ATTEND Internal Medicine
DX: R18.8 Other ascites (principal); F31.89 Other bipolar disorder; Z79.899 Other long term (current) drug therapy; Z87.891 Personal history of nicotine dependence
CPT/HCPCS: 49083; C1729; 76942

== ENCOUNTER → 2024-06-04 | Outpatient (CLI) | payer BC ==
--- NOTE | 2024-06-04 10:18 | DVH ---
PROCEDURE: ULTRASOUND GUIDED PARACENTESIS HISTORY: 54 Male requiring paracentesis. TECHNIQUE: The risks and benefits of the procedure including but not limited to bleeding, infection and injury t o abdominal organs were explained to the patient and written informed consent was obtained. Optimal site for puncture was determined using ultrasound and the area sterilized and draped. Using a 5 Gabonese Photofyeh catheter, paracentesis was performed in the right lower abdomen. Approximately 0.95 liters of straw colored fluid was removed. The patient tolerated the procedure well. There were no immediate complications. IMPRESSION: Ultrasound-guided paracentesis with no immediate complications.
[2024-06-04 12:07] LABS: Body Fluid Polymorphonuclear 18 % (0-25); Body Fluid Red Blood Cells 623 CUMM (0-2000); Body Fluid White Blood Cells 224 CUMM (0-200)
== END | disposition home or self-care (01) ==
LOC: US 08:47
DX: R18.8 Other ascites (principal); I50.9 Heart failure, unspecified; J44.9 Chronic obstructive pulmonary disease, unspecified; Z87.891 Personal history of nicotine dependence; Z86.19 Personal history of other infectious and parasitic diseases; Z88.0 Allergy status to penicillin; Z88.1 Allergy status to other antibiotic agents; Z80.42 Family history of malignant neoplasm of prostate; Z82.49 Family history of ischemic heart disease and other diseases of the circulatory system; Z83.42 Family history of familial hypercholesterolemia; Z83.3 Family history of diabetes mellitus
CPT/HCPCS: 49083; 83986; 87205; 89051; C1729; 76942

== ENCOUNTER → 2024-06-25 | Outpatient (CLI) | payer BC ==
[~2024-06-25] MED LIST changes: +EPLE50TA PO
--- NOTE | 2024-06-25 12:16 | DVH ---
US PARACENTESIS, HISTORY: OTHER ASCITES PROCEDURE: Informed consent was obtained. The patient was placed in supine position. A limited locali zation ultrasound of the abdomen was obtained, and the skin site over the largest pocket of fluid was marked and entry site was prepped with chlorhexidine which was allowed to dry and draped in the usua l sterile fashion. Time out was performed. Following administration of 1% lidocaine local anesthetic, a 5 Lithuanian centesis needle catheter was percutaneously inserted into the peritoneal collection until fluid was aspirated. The catheter was advanced into the fluid collection and the needle removed. Abo ut 3600 cc of fluid was aspirated . The catheter was then removed and a sterile dressing applied. No immediate complication was identified. FINDINGS: Limited ultrasound imaging demonstrates mild ascites. Aspirated fluid was clear and serous. IMPRESSION: US-guided paracentesis with 3.6L removed.
[2024-06-25 14:21] LABS: Body Fluid Red Blood Cells 1921 CUMM (0-2000); Body Fluid White Blood Cells 70 CUMM (0-200)
[2024-06-25 14:41] LABS: Body Fluid Polymorphonuclear 4 % (0-25)
== END | disposition home or self-care (01) ==
LOC: XYW 09:37
DX: R18.8 Other ascites (principal); K76.9 Liver disease, unspecified; K21.00 Gastro-esophageal reflux disease with esophagitis, without bleeding; Z88.0 Allergy status to penicillin; Z88.1 Allergy status to other antibiotic agents
CPT/HCPCS: 49083; 76942; 83986; 87205; 89051; C1729

== ENCOUNTER 2024-07-05 09:29 | Inpatient (IN) | payer BC ==
[~2024-07-05] VITALS: Ht 182.9 cm; Wt 144.1 kg
[2024-07-05] MEDS: cefTRIAXone 1GM/50ML D5W 50 ML IV ONE ×2 (09:25→10:25)
[~2024-07-05 09:29] MED LIST changes: -EPLE50TA PO
[2024-07-05 10:12] VITALS: PULSE 84; RESP 16; O2SAT 99
[2024-07-05 10:22] LABS: Basophils # (auto) 0.1 10 ^3/uL (0-0.2); Basophils % (auto) 0.5 % (0.0-2.0); Eosinophils # (auto) 0 10 ^3/uL (0-0.8); Eosinophils % (auto) 0.2 % (0.0-7.0); Hemoglobin 13.5 g/dL (13.5-17.5); Lymphocytes # (auto) 0.4 10 ^3/uL (0.4-5.4); Lymphocytes % (auto) 3.3 % (10.0-50.0); Mean Corpuscular Hemoglobin 29.7 pg (28.0-32.0); Mean Corpuscular Hgb Conc. 32.9 g/dL (32.0-36.0); Monocytes # (auto) 0.7 10 ^3/uL (0-1.3); Monocytes % (auto) 5.6 % (0.0-12.0); Neutrophils # (auto) 11.1 10 ^3/uL (1.6-8.6); Neutrophils % (auto) 90.4 % (37.0-80.0); Nucleated Red Blood Cells % 0.1 %; Platelet Count (auto) 169 10^3/uL (140-450); Red Blood Cells 4.56 10^6/uL (4.5-5.90); Red Cell Distribution Width 15.8 % (11.8-14.3); White Blood Cell 12.3 10^3/uL (4.4-10.8)
--- NOTE | 2024-07-05 10:33 | ED.PDOC ---
Musculoskeletal HPI Comments 54 y.o male with PMHx of COPD, DM, hyperlipidemia, HTN, liver disease, DVT, cellulitis, CKF, neuropathy, septic shock x 2 years ago, PNA, presents to the ED for an evaluation of a left foot wound. Patient reports developing erythema and swelling to left foot about 4 weeks ago but for the past 3-4 days wound opened and grew with worsening appearance today. Patient reports no previous foot wounds but does state using tight fitted closed shoes at work. Patient denies any fever, chills, chest pain, nausea or vomiting. Patient presents with bilateral feet 3+ pedal edema. Chief Complaint: Wound Check Time Seen by MD: 09:45 Primary Care Provider: jamal Reviewed Notes: Nurses Notes, Medications, Allergies Allergies: Coded Allergies: Vancomycin (Unverified Allergy, Severe, 11/11/22) Azithromycin (Unverified Allergy, Unknown, 08/08/22) Erythromycin (Verified Allergy, Unknown, 08/03/21) Penicillins (Verified Allergy, Unknown, 07/30/22) Interview date: 07/30/2022 Per patient: -Small rash with PCNs about 40 years ago. He developed fever which had gone after 3 days at that time. -He is not sure about re-challenged with PCNs or CEPHs. Uncoded Allergies: EKG ELECTRODES (Adverse Reaction, Severe, BLISTERS, 04/05/23) NUTS, MUSHROOMS, LETTUCE, BANANAS, AVOCADO, WATERMELON (Adverse Reaction, Severe, 08/04/21) PT STATES ANAPHYLATIC SYMPTOMS Home Meds Active Scripts Pantoprazole Sodium Sesquihydr (Protonix) 40 Mg Tab, 40 MG PO DAILY for 30 Days, #30 TAB 3 Refills Prov:LYN KEATING MD 11/28/22 Spironolactone (Aldactone) 50 Mg Tab, 1 TAB PO DAILY for 30 Days, #30 TAB 3 Refills Prov:LYN KEATING MD 11/28/22 Furosemide (Lasix) 20 Mg Tb, 1 TAB PO QAM for 30 Days, #30 TAB 3 Refills Prov:LYN KEATING MD 11/28/22 Clindamycin Hcl (Clindamycin Hcl) 300 Mg Cap, 1 CAP PO TID, #30 CAP Prov:SANTA APARICIO MD 08/21/22 Metformin Hydrochloride (Metformin Hcl) 500 Mg Tab, 500 MG PO BID for 30 Days, #60 TAB 3 Refills Prov:LYN KEATING MD 07/31/22 Potassium Chloride (Klor-Con 10) 10 Meq Tab, 10 MEQ PO DAILY for 30 Days, #30 TAB Prov:LYN KEATING MD 07/31/22 Sucralfate (CARAFATE SUSP) 1 Gm/10 Ml Ss, 1 GM PO QIDACHS for 30 Days, #120 ML Prov:LYN KEATING MD 07/31/22 Furosemide (Furosemide) 40 Mg Tab, 20 MG PO QAM, #30 TAB Prov:LYN KEATING MD 07/31/22 Reported Medications Loratadine (Loratadine) 10 Mg Cap, 10 MG PO DAILY, CAP 08/03/21 Simvastatin (Simvastatin) 10 Mg Tab, 10 MG PO DAILY for 30 Days, MG 08/03/21 Information Source: Patient Mode of Arrival: Wheelchair Location: Left Extremity Location: Foot Severity: Moderate Able to Move Extremity: Yes Bear Weight: Fully Pain: Moderate Mechanism: None Circumstances: Spontaneous Onset of Symptoms: Spontaneous Symptoms: Swelling, Erythema DVT Risk Factors: DVT Associated signs and symptoms: Swelling Past Medical History PAST MEDICAL HISTORY: COPD, DM, High Lipids, HTN, Liver Surgical History: Appendectomy, Hernia Repair Family History Family History: Reviewed,noncontributory to illness, Family hx of DM, Family hx of Cancer, Family hx of heart jessie, Family hx of HTN, Family hx of stroke Social History Smoker: Non-Smoker, Quit Less Than 1 Year Alcohol: Occasionally Drugs: Denies Drug Use Lives In: Home Constitutional: denies: chills, diaphoresis, fatigue, fever, malaise, sweats, weakness, others EENTM: denies: blurred vision, double vision, ear bleeding, ear discharge, ear drainage, ear pain, ear ringing, eye pain, eye redness, hearing loss, mouth pain, mouth swelling, nasal discharge, nose bleeding, nose congestion, nose pain, photophobia, tearing, throat pain, throat swelling, voice changes, others Respiratory: denies: cough, hemoptysis, orthopnea, SOB at rest, shortness of breath, SOB with excertion, stridor, wheezing, others Cardiovascular: denies: chest pain, dizzy spells, diaphoresis, Dyspnea on exertion, edema, irregular heart beat, left arm pain, lightheadedness, palpitations, PND, syncope, others Gastrointestinal: denies: abdomen distended, abdominal pain, blood streaked bowels, constipated, diarrhea, dysphagia, difficulty swallowing, hematemesis, melena, nausea, poor appetite, poor fluid intake, rectal bleeding, rectal pain, vomiting, others Genitourinary: denies: burning, dysuria, flank pain, frequency, hematuria, incontinence, penile discharge, penile sore, pain, testicle pain, testicle swelling, urgency, others Neurological: denies: dizziness, fainting, headache, left sided numbness, left sided weakness, numbness, paresthesia, pre-existing deficit, right sided numbness, right sided weakness, seizure, speech problems, tingling, tremors, weakness, others Musculoskeletal: denies: back pain, gout, joint pain, joint swelling, muscle pain, muscle stiffness, neck pain, others Integumetry: reports: wounds (left foot erythema and swelling ); denies: bruises, change in color, change in hair/nails, dryness, laceration, lesions, flo mps, rash, others Allergic/Immunocompromised: denies: Difficulty Healing, Frequent Infections, Hives, Itching, others Hematologic/Lymphatic: denies: anemia, blood clots, easy bleeding, easy bruising, swollen glands, others Endocrine: denies: excessive hunger, excessive sweating, excessive thirst, excessive urination, flushing, intolerance to cold, intolerance to heat, unexplained weight gain, unexplained weight loss, others Psychiatric: denies: anxiety, bipolar disorder, depression, hopeless, panic disorder, schizophrenia, sleepless, suicidal, others All Other Systems: Reviewed and Negative Physical Exam General Appearance: No Apparent Distress, Normal HEENT: Normal ENT Inspection, Pharynx Normal, TMs Normal Neck: Full Range of Motion, Non-Tender, Normal, Normal Inspection Respiratory: Chest Non-Tender, Lungs Clear, No Accessory Muscle Use, No Respiratory Distress, Normal Breath Sounds Cardiovascular: No Edema, No JVD, No Murmur, No Gallop, Normal Peripheral Pulses, Regular Rate/Rhythm Breast Exam: Deferred Gastrointestinal: No Organomegaly, Non Tender, No Pulsatile Mass, Normal Bowel Sounds, Soft Genitalia: Deferred Pelvic: Deferred Rectal: Deferred Extremities: Pedal edema (3+ ) Musculoskeletal : Apperance: Normal Neurologic: Alert, helicopter technician II-XII nml as Tested, No Motor Deficits, Normal Affect, Normal Mood, No Sensory Deficits Cerebellar Function: Normal Reflexes: Normal Skin: Wounds (stasis dermatitis left foot. Bilateral feet: erythema, swelling radiating to mid foot. open wound to left foot: medial aspect left second toe with foul odor ) Lymphatic: No Adenopathy Was a procedure done? Was a procedure done?: No Differential Diagnosis EXT Differential Diagnosis: Cellulitis, CHF, Deep Vein Thrombosis, Fracture, Sprain, Dislocation, Gout, Contusion, Strain, Other (osteomyelitis, abscess) X-Ray, Labs, Meds, VS Vital Signs Date Time Temp Pulse Resp B/P (MAP) Pulse Ox O2 Delivery O2 Flow Rate FiO2 07/05/24 10:52 98.1 81 16 155/96 (115) 99 98.1 07/05/24 10:12 84 16 99 Room Air* 0 21 07/05/24 09:43 98.8 89 16 147/80 (102) 97 Lab Test 07/05/24 10:12 Range/Units White Blood Count 12.3 H 4.4-10.8 10^3/uL Red Blood Count 4.56 4.5-5.90 10^6/uL Hemoglobin 13.5 13.5-17.5 g/dL Hematocrit 41.0 41.0-53.0 % Mean Corpuscular Volume 90.0 80.0-100.0 fL Mean Corpuscular Hemoglobin 29.7 28.0-32.0 pg Mean Corpuscular Hemoglobin Concent 32.9 32.0-36.0 g/dL Red Cell Distribution Width 15.8 H 11.8-14.3 % Platelet Count 169 140-450 10^3/uL Mean Platelet Volume 7.6 6.9-10.8 fL Neutrophils (%) (Auto) 90.4 H 37.0-80.0 % Lymphocytes (%) (Auto) 3.3 L 10.0-50.0 % Monocytes (%) (Auto) 5.6 0.0-12.0 % Eosinophils (%) (Auto) 0.2 0.0-7.0 % Basophils (%) (Auto) 0.5 0.0-2.0 % Neutrophils # (Auto) 11.1 H 1.6-8.6 10 ^3/uL Lymphocytes # (Auto) 0.4 0.4-5.4 10 ^3/uL Monocytes # (Auto) 0.7 0-1.3 10 ^3/uL Eosinophils # (Auto) 0 0-0.8 10 ^3/uL Basophils # (Auto) 0.1 0-0.2 10 ^3/uL Nucleated Red Blood Cells 0.1 % Sodium Level 138 136-145 mmol/L Potassium Level 4.9 3.5-5.1 mmol/L Chloride Level 108 H 98-107 mmol/L Carbon Dioxide Level 25 20-31 mmol/L Anion Gap 5 5-15 Blood Urea Nitrogen 19 9-23 mg/dL Creatinine 1.30 0.700-1.30 mg/dL Glomerular Filtration Rate Calc 64 >90 mL/min BUN/Creatinine Ratio 14.6 10.0-20.0 Serum Glucose 112 H 74-106 mg/dL Lactic Acid Level 1.2 0.4-2.0 mmol/L Calcium Level 9.1 8.7-10.4 mg/dL Total Bilirubin 0.7 0.2-1.0 mg/dL Aspartate Amino Transferase (AST) 30 13-40 U/L Alanine Aminotransferase (ALT) 42 H 7-40 U/L Alkaline Phosphatase 346 H 46-116 U/L Total Protein 7.9 5.7-8.2 g/dL Albumin 4.0 3.2-4.8 g/dL Current Medications Medications (Trade) Dose Ordered Sig/Nichol Route Start Time Stop Time Status Last Admin Ceftriaxone Sodium 50 ml @ 100 mls/hr ONCE ONCE IV 07/05/24 10:00 07/05/24 10:29 DC 07/05/24 10:25 [place] [id number] Ph: [phone] DIAGNOSTIC IMAGING Diagnostic Imaging Report : [id number] Signed PATIENT: JJ HIGUERA ACCT: [id number] UNIT: [id number] : 1970 LOC: ER ROOM / BED: / AGE / SEX: 54 / M ADM STATUS: REG ER SERVICE [id number] ORDERING PHYSICIAN: JH DARNELL MD PROCEDURE(s): LFOT2 - L FOOT 2 VIEW XRAY REASON: right 2nd toe infection ORDER NUMBER(s): [id number], ACCESSION NUMBER(s): [id number] L FOOT 2 VIEW XRAY INDICATION: right 2nd toe infection TECHNICAL DATA: Frontal, oblique and lateral views were obtained of the left foot. COMPARISON: None FINDINGS: No fracture is identified. There is cortical destruction in the 2nd proximal, middle and distal phalanx compatible with osteomyelitis. Soft tissue swelling about the 2nd toe. IMPRESSION: 1. Cortical destruction in the 2nd proximal, middle and distal phalanx. Soft tissue swelling. ATED BY: WOJCIECH AQUINO MD DICTATED DATE/TIME: 07/05/241031 SIGNED BY: WOJCIECH AQUINO MD SIGNED DATE/TIME: 07/05/241031 CC: Time of 1ST Reevaluation: 10:26 Reevaluation 1ST: Unchanged Time of 2ND Reevaluation: 12:36 Reevaluation 2ND: Improved Patient Education/Counseling: Diagnosis, Treatment, Prognosis, Need For Follow Up Family Education/Counseling: No Family Present Additional Information Previous visit documents reviewed: 04/03/2023 abdominal distention multiple outpatient services for ascites and paracentesis. unknown service date for ETOH in 2023. The following tests were ordered, and results were reviewed by me: Right and left foot x ray, antibiotics, lab including lactic acid, blood cultures, CMP, CBC. Additional Information was gathered from interviewing the following independent historians: None I reviewed and agreed with the following test results read by other providers: Left and right foot x rays I discussed treatment and results with medical personnel and: patient pt has chronic stasis dermatitis, chronic edema and neuropathy. he has a left foot open infected wound with evidence of cellulitis and osteomyelitis. he will be admitted for further treatments Departure 1 Departure Time of Disposition: 12:37 Impression: Primary Impression: Cellulitis Qualified Codes: L03.116 - Cellulitis of left lower limb Additional Impressions: Osteomyelitis Qualified Codes: M86.172 - Other acute osteomyelitis, left ankle and foot Venous stasis ulcer of foot Disposition: ADMITTED INPATIENT Admit to: Med Surg Condition: Serious Discharged With: Self Critical Care Note Critical Care Time?: Yes (55 min-critical care time only) Critical care comment: Due to concerns for patients condition deteriorating, the care required my highest level of attention and readiness to intervene. I assessed the patient, reviewed the medical records, ordered the appropriate tests and treatments, then reassessed for results and responsiveness. I communicated with medical personnel and consultants and formulated a plan of care. Total critical care time excludes any procedures Stability Stability form required: No Heart Score Heart Score: Heart Score Response (Comments) Value History N/A 0 EKG N/A 0 Age N/A 0 Risk Factors N/A 0 Troponin N/A 0 Total 0 I personally scribed [facility] on 07/05/24 at 10:33. Electronically submitted by Any Gamboa ([place]). I personally scribed for [facility]H [facility]LL [facility] on 07/05/24 at 10:56. Electronically submitted by Any Gamboa ([place]). JH DARNELL MD Jul 05, 2024 10:33
[2024-07-05 10:48] LABS: Anion Gap 5 (5-15); Aspartate Aminotransferase 30 U/L (13-40); BUN/Creatinine Ratio 14.6 (10.0-20.0); Bilirubin, Total 0.7 mg/dL (0.2-1.0); Blood Urea Nitrogen 19 mg/dL (9-23); Calcium 9.1 mg/dL (8.7-10.4); Carbon Dioxide 25 mmol/L (20-31); Potassium 4.9 mmol/L (3.5-5.1); Sodium 138 mmol/L (136-145); Total Protein 7.9 g/dL (5.7-8.2)
[2024-07-05 10:50] LABS: Alanine Aminotransferase 42 U/L (7-40); Alkaline Phosphatase 346 U/L (46-116); Chloride 108 mmol/L (98-107); Glucose 112 mg/dL (74-106)
[2024-07-05] MEDS ORDERED: VANCOMYCIN 1GM/250ML KIT 250 ML IV ONE (12:45)
[2024-07-05] MEDS: CLINDAMYCIN 900MG IV 50 ML IV ONE (14:00)
[2024-07-05] MEDS ORDERED: MORPHINE SULFATE INJ 2 MG/ml SYRG IV PRN (15:15)
[2024-07-05] MEDS ORDERED: ONDANSETRON HCL 4 MG/2 ML VIAL IV PRN (15:15)
[2024-07-05] MEDS ORDERED: ACETAMINOPHEN 325 MG TAB PO PRN (15:15)
--- NOTE | 2024-07-05 15:20 | DVH ---
US LT Lower DVT HISTORY: r/o vte COMPARISON: US LT LOWER DVT on DOS: 08/19/22, US BILAT LOWER DVT on DOS: 07/23/22, BI LOWER DVT on DOS: 04/09/22 TECHNIQUE: Duplex doppler evaluation of the deep venous system of the lower extremity from the common femoral veins, superficial femoral vein, great saphenous vein, deep femoral vein, popliteal vein, an d calf veins, including color doppler and spectral/pulsed waveform analysis, was performed. FINDINGS: Left: - Common femoral vein: Compressible - Deep femoral vein: Compressible - Femoral vein: Compressible - Popliteal vein: Compressible - Posterior tibial vein: Waveforms present - Other: Nothing IMPRESSION: No left lower extremity deep venous thrombosis.
[2024-07-05] MEDS ORDERED: EPLE50TA PO (15:24)
--- NOTE | 2024-07-05 15:24 | DVHHP2 ---
History of Present Illness Reason for Visit: Left 2nd toe pain and swelling History of Present Illness Dima Rodriguez is a 54-year-old male with past medical history of hypertension, hyperlipidemia, diabetes type 2, COPD, liver cirrhosis, DVT, paracentesis every 3-4 weeks, pneumonia, septic shock, CKD, cellulitis, neuropathy, debridement of the left and right inner thigh, appendectomy, and hernia repair who presents to the ED with left toe pain and swelling x1 week. Patient reports that he works at [employer] is constantly on his feet and he assumes that the shoe he was wearing caused the issue. Upon examination and discussion patient states that many of his diagnosis are no longer in effect states that he had once had hypertension, once had hyperlipidemia, once had liver cirrhosis once had COPD, once had diabetes but does not have it currently. Patient's also at the chair side. Patient currently in a wheelchair. Patient also noted to have foul odor coming from his left 2nd toe with erythema noted. Upon examination patient does not have palpable pulses however on Doppler patient has pulses. Patient reports that he only takes eplerenone and Lasix. Patient also reports that he has a scheduled surgery for a circumcision this . Cardiovascular: HTN, hyperipidemia Pulmonary: COPD, Pneumonia Hepatobiliary: Cirrhosis Endocrine: Diabetes Past Medical History DVT Paracentesis every 3-4 weeks Cellulitis Neuropathy Septic shock Past Surgical History: Appendectomy, Hernia Repair, Other (Left and right inner thigh debridement) Family History: Cancer, CVA, DM, Hypertension, Other (Mom with diabetes and hypertension, dad with prostate cancer and hypertension, and grandfather with CVA) Smoke: Quit ALCOHOL: none (Quit) Drugs: None Lives: with Family Domestic Violence: Neg Review of Systems Musculoskeletal: foot pain Skin: Other (Erythema and foul odor left 2nd toe) Allergies: Coded Allergies: Vancomycin (Unverified Allergy, Severe, 11/11/22) Erythromycin (Verified Allergy, Unknown, 08/03/21) Penicillins (Verified Allergy, Unknown, 07/30/22) Interview date: 07/30/2022 Per patient: -Small rash with PCNs about 40 years ago. He developed fever which had gone after 3 days at that time. -He is not sure about re-challenged with PCNs or CEPHs. Uncoded Allergies: EKG ELECTRODES (Adverse Reaction, Severe, BLISTERS, 04/05/23) NUTS, MUSHROOMS, LETTUCE, BANANAS, AVOCADO, WATERMELON (Adverse Reaction, Severe, 08/04/21) PT STATES ANAPHYLATIC SYMPTOMS Exam Vital Signs Vital Signs Date Time Temp Pulse Resp B/P (MAP) Pulse Ox O2 Delivery O2 Flow Rate FiO2 07/05/24 13:00 97.9 80 16 150/79 (102) 98 97.9 07/05/24 10:12 Room Air* 0 21 General Appearance: Alert, Oriented X3, Cooperative, No acute distress HEENT: Atraumatic, PERRLA, EOMI, Mucous membr. moist/pink Respiratory: Clear to auscultation, Normal air movement Cardiovascular: Regular rate, Normal S1, Normal S2, No murmurs Abdominal: Soft Neuro: Normal speech, Sensation intact Psych/Mental Status: Mental status NL, Mood NL Labs/Xrays Labs Test 07/05/24 10:12 Range/Units White Blood Count 12.3 H 4.4-10.8 10^3/uL Red Blood Count 4.56 4.5-5.90 10^6/uL Hemoglobin 13.5 13.5-17.5 g/dL Hematocrit 41.0 41.0-53.0 % Mean Corpuscular Volume 90.0 80.0-100.0 fL Mean Corpuscular Hemoglobin 29.7 28.0-32.0 pg Mean Corpuscular Hemoglobin Concent 32.9 32.0-36.0 g/dL Red Cell Distribution Width 15.8 H 11.8-14.3 % Platelet Count 169 140-450 10^3/uL Mean Platelet Volume 7.6 6.9-10.8 fL Neutrophils (%) (Auto) 90.4 H 37.0-80.0 % Lymphocytes (%) (Auto) 3.3 L 10.0-50.0 % Monocytes (%) (Auto) 5.6 0.0-12.0 % Eosinophils (%) (Auto) 0.2 0.0-7.0 % Basophils (%) (Auto) 0.5 0.0-2.0 % Neutrophils # (Auto) 11.1 H 1.6-8.6 10 ^3/uL Lymphocytes # (Auto) 0.4 0.4-5.4 10 ^3/uL Monocytes # (Auto) 0.7 0-1.3 10 ^3/uL Eosinophils # (Auto) 0 0-0.8 10 ^3/uL Basophils # (Auto) 0.1 0-0.2 10 ^3/uL Nucleated Red Blood Cells 0.1 % Sodium Level 138 136-145 mmol/L Potassium Level 4.9 3.5-5.1 mmol/L Chloride Level 108 H 98-107 mmol/L Carbon Dioxide Level 25 20-31 mmol/L Anion Gap 5 5-15 Blood Urea Nitrogen 19 9-23 mg/dL Creatinine 1.30 0.700-1.30 mg/dL Glomerular Filtration Rate Calc 64 >90 mL/min BUN/Creatinine Ratio 14.6 10.0-20.0 Serum Glucose 112 H 74-106 mg/dL Lactic Acid Level 1.2 0.4-2.0 mmol/L Calcium Level 9.1 8.7-10.4 mg/dL Total Bilirubin 0.7 0.2-1.0 mg/dL Aspartate Amino Transferase (AST) 30 13-40 U/L Alanine Aminotransferase (ALT) 42 H 7-40 U/L Alkaline Phosphatase 346 H 46-116 U/L Total Protein 7.9 5.7-8.2 g/dL Albumin 4.0 3.2-4.8 g/dL XY L FOOT 2 VIEW XRAY INDICATION: right 2nd toe infection TECHNICAL DATA: Frontal, oblique and lateral views were obtained of the left foot. COMPARISON: None FINDINGS: No fracture is identified. There is cortical destruction in the 2nd proximal, middle and distal phalanx compatible with osteomyelitis. Soft tissue swelling about the 2nd toe. IMPRESSION: 1. Cortical destruction in the 2nd proximal, middle and distal phalanx. Soft tissue swelling. Procedure: CT LEFT LOWER EXTREMITY W/O CON 07/05/2024 02:42 PM Indication: r/o osteo Comparison Study: CT CT R FOOT WO CONTRAST on DOS: 07/23/22 Technique: Axial images left lower extremity were obtained and reformatted in coronal and sagittal planes. All CT scans at this medical facility are performed using dose modulation techniques as appropriate to a performed exam including the following: Automated exposure control was utilized; adjustment of the MA and/or KV according to patient size; and use of iterative reconstruction technique. CT Dose: CTDI volume is 7.8 mGy. Dose-length product is 540 mGy*cm FINDINGS: There is osseous destruction of the 2nd proximal phalangeal head distal metadiaphysis, majority of middle phalangeal bone and the base of distal phalanx. Large overlying soft tissue defect is seen in the medial aspect of the middle phalanx and the PIP joint with exposure of the underlying bone. Diffuse soft tissue swelling over the 2nd toe noted. Moderate soft tissue air. No def inite drainable fluid collection in this unenhanced study. Diffuse atherosclerotic calcification noted. Mild hallux valgus deformity and mild 1st MTP joint osteoarthritis. Diffuse subcutaneous edema induration noted overlying the leg with areas of subcutaneous calcification. Moderate fatty atrophy of the soleus muscle. IMPRESSION: 1. Acute markedly destructive osteomyelitis of the 2nd toe with an overlying open with an soft tissue gas. No definite drainable fluid collection in this unenhanced study. US LT Lower DVT HISTORY: r/o vte COMPARISON: US LT LOWER DVT on DOS: 08/19/22, US BILAT LOWER DVT on DOS: 07/23/22, BI LOWER DVT on DOS: 04/09/22 TECHNIQUE: Duplex doppler evaluation of the deep venous system of the lower extremity from the common femoral veins, superficial femoral vein, great saphenous vein, deep femoral vein, popliteal vein, and calf veins, including color doppler and spectral/pulsed waveform analysis, was performed. FINDINGS: Left: - Common femoral vein: Compressible - Deep femoral vein: Compressible - Femoral vein: Compressible - Popliteal vein: Compressible - Posterior tibial vein: Waveforms present - Other: Nothing IMPRESSION: No left lower extremity deep venous thrombosis. Assessment/Plan Assessment/Plan Assessment Left 2nd toe osteomyelitis Leukocytosis likely due to osteomyelitis Morbid obesity History of hypertension History of hyperlipidemia History of COPD History of CKD History of cellulitis History of liver cirrhosis History of DVT History of paracentesis every 3-4 weeks History of neuropathy History of appendectomy History of hernia repair History of debridement of left and right inner thigh Plan Admit to [facility] IV antibiotics-clindamycin + ceftriaxone DVT prophylaxis-Lovenox Wound consult Wound culture Lactic Blood cultures X-ray of left foot Hemoglobin A1c Ultrasound left lower extremity venous CT left lower extremity Podiatry consult Diet Counseled patient on lifestyle modifications, diet, and exercise Discussed plan of care with patient, patient's and nurse Home medications reconciled Plan discussed with: Patient, Spouse My Orders Orders - ROSELIA ALCANTARA [employer]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
--- NOTE | 2024-07-05 15:34 | DVH ---
Procedure: CT LEFT LOWER EXTREMITY W/O CON 07/05/2024 02:42 PM Indication: r/o osteo Comparison Study: CT CT R FOOT WO CONTRAST on DOS: 07/23/22 Technique: Axial images left lower extremity were obtained and reformatted in coronal and sagittal pl anes. All CT scans at this medical facility are performed using dose modulation techniques as appropr iate to a performed exam including the following: Automated exposure control was utilized; adjustment of the MA and/or KV according to patient size; and use of iterative reconstruction technique. CT Dos e: CTDI volume is 7.8 mGy. Dose-length product is 540 mGy*cm FINDINGS: There is osseous destruction of the 2nd proximal phalangeal head distal metadiaphysis, majority of mi ddle phalangeal bone and the base of distal phalanx. Large overlying soft tissue defect is seen in t he medial aspect of the middle phalanx and the PIP joint with exposure of the underlying bone. Diffus e soft tissue swelling over the 2nd toe noted. Moderate soft tissue air. No definite drainable fluid collection in this unenhanced study. Diffuse atherosclerotic calcification noted. Mild hallux valgus deformity and mild 1st MTP joint osteoarthritis. Diffuse subcutaneous edema induration noted overlyin g the leg with areas of subcutaneous calcification. Moderate fatty atrophy of the soleus muscle. IMPRESSION: 1. Acute markedly destructive osteomyelitis of the 2nd toe with an overlying open with an soft tissue gas. No definite drainable fluid collection in this unenhanced study.
[2024-07-05 18:58] VITALS: O2SAT 95
[2024-07-05 20:00] VITALS: PULSE 93; RESP 19; O2SAT 96
[2024-07-05 21:00] VITALS: BP 117/66; PULSE 93; RESP 19; TEMP 98.7; O2SAT 96
[2024-07-05] MEDS: CLINDAMYCIN 600MG IV 50 ML IV SCH (21:50)
[2024-07-06] VITALS (9 sets, daily range): BP systolic 117–150; BP diastolic 68–88; PULSE 74–92; RESP 16–19; TEMP 97.6–98.6; O2SAT 95–98
[2024-07-06 06:18] LABS: Basophils # (auto) 0 10 ^3/uL (0-0.2); Basophils % (auto) 0.3 % (0.0-2.0); Eosinophils # (auto) 0 10 ^3/uL (0-0.8); Eosinophils % (auto) 0.3 % (0.0-7.0); Hematocrit 37.3 % (41.0-53.0); Hemoglobin 12.9 g/dL (13.5-17.5); Lymphocytes # (auto) 0.5 10 ^3/uL (0.4-5.4); Lymphocytes % (auto) 6.2 % (10.0-50.0); Mean Corpuscular Hemoglobin 31.2 pg (28.0-32.0); Mean Corpuscular Hgb Conc. 34.5 g/dL (32.0-36.0); Mean Corpuscular Volume 90.5 fL (80.0-100.0); Monocytes # (auto) 0.8 10 ^3/uL (0-1.3); Monocytes % (auto) 9.6 % (0.0-12.0); Neutrophils # (auto) 7.3 10 ^3/uL (1.6-8.6); Neutrophils % (auto) 83.6 % (37.0-80.0); Platelet Count (auto) 159 10^3/uL (140-450); Red Blood Cells 4.12 10^6/uL (4.5-5.90); Red Cell Distribution Width 15.8 % (11.8-14.3); White Blood Cell 8.7 10^3/uL (4.4-10.8)
[2024-07-06 06:32] LABS: Alanine Aminotransferase 33 U/L (7-40); Anion Gap 8 (5-15); Aspartate Aminotransferase 23 U/L (13-40); BUN/Creatinine Ratio 18.3 (10.0-20.0); Blood Urea Nitrogen 22 mg/dL (9-23); Carbon Dioxide 26 mmol/L (20-31); Chloride 105 mmol/L (98-107); Glucose 96 mg/dL (74-106); Potassium 4.6 mmol/L (3.5-5.1); Sodium 139 mmol/L (136-145)
[2024-07-06 06:33] LABS: Albumin 3.6 g/dL (3.2-4.8)
[2024-07-06 06:35] LABS: Alkaline Phosphatase 268 U/L (46-116)
[2024-07-06] MEDS: FUROSEMIDE 40 MG TAB PO SCH (07:00)
[2024-07-06 09:00] LABS: Prothrombin Time 10.6 sec (9.3-11.8)
[2024-07-06] MEDS: ENOXAPARIN SOD 40 MG/0.4 ML SYRINGE SC SCH (09:11)
[2024-07-06] MEDS: cefTRIAXone 1GM/50ML D5W 50 ML IV SCH (09:11)
--- NOTE | 2024-07-06 12:28 | DVHINCON2 ---
Date Seen: Jul 06, 2024 Reason for Consultation Left foot ulcer History of Present Illness Dima Rodriguez is a 54-year-old male with past medical history of hypertension, hyperlipidemia, diabetes type 2, COPD, liver cirrhosis, DVT, paracentesis every 3-4 weeks, pneumonia, septic shock, CKD, cellulitis, neuropathy, debridement of the left and right inner thigh, appendectomy, and hernia repair who presents to the ED with left toe pain and swelling x1 week. Patient reports that he works at [employer] is constantly on his feet and he assumes that the shoe he was wearing caused the issue. Upon examination and discussion patient states that many of his diagnosis are no longer in effect states that he had once had hypertension, once had hyperlipidemia, once had liver cirrhosis once had COPD, once had diabetes but does not have it currently. Patient's also at the chair side. Patient currently in a wheelchair. Patient also noted to have foul odor coming from his left 2nd toe with erythema noted. Past Medical History See H&P Past Surgical History See H&P Family History: Cardiovascular disease G8 MOTHER G8 FATHER Diabetes mellitus G8 MOTHER G8 FATHER Hypercholesterolemia G8 MOTHER G8 FATHER Hypertension G8 MOTHER G8 FATHER Prostate carcinoma G8 FATHER Allergies: Coded Allergies: Vancomycin (Unverified Allergy, Severe, 11/11/22) Erythromycin (Verified Allergy, Unknown, 08/03/21) Penicillins (Verified Allergy, Unknown, 07/30/22) Interview date: 07/30/2022 Per patient: -Small rash with PCNs about 40 years ago. He developed fever which had gone after 3 days at that time. -He is not sure about re-challenged with PCNs or CEPHs. Uncoded Allergies: EKG ELECTRODES (Adverse Reaction, Severe, BLISTERS, 04/05/23) NUTS, MUSHROOMS, LETTUCE, BANANAS, AVOCADO, WATERMELON (Adverse Reaction, Severe, 08/04/21) PT STATES ANAPHYLATIC SYMPTOMS Home Meds Active Scripts Pantoprazole Sodium Sesquihydr (Protonix) 40 Mg Tab, 40 MG PO DAILY for 30 Days, #30 TAB 3 Refills Prov:LYN KEATING MD 11/28/22 Spironolactone (Aldactone) 50 Mg Tab, 1 TAB PO DAILY for 30 Days, #30 TAB 3 Refills Prov:LYN KEATING MD 11/28/22 Furosemide (Lasix) 20 Mg Tb, 1 TAB PO QAM for 30 Days, #30 TAB 3 Refills Prov:LYN KEATING MD 11/28/22 Clindamycin Hcl (Clindamycin Hcl) 300 Mg Cap, 1 CAP PO TID, #30 CAP Prov:SANTA APARICIO MD 08/21/22 Metformin Hydrochloride (Metformin Hcl) 500 Mg Tab, 500 MG PO BID for 30 Days, #60 TAB 3 Refills Prov:LYN KEATING MD 07/31/22 Potassium Chloride (Klor-Con 10) 10 Meq Tab, 10 MEQ PO DAILY for 30 Days, #30 TAB Prov:LYN KEATING MD 07/31/22 Sucralfate (CARAFATE SUSP) 1 Gm/10 Ml Ss, 1 GM PO QIDACHS for 30 Days, #120 ML Prov:LYN KEATING MD 07/31/22 Furosemide (Furosemide) 40 Mg Tab, 20 MG PO QAM, #30 TAB Prov:LYN KEATING MD 07/31/22 Reported Medications Eplerenone (Eplerenone) 50 Mg Tab, 1 TAB PO DAILY 07/05/24 Loratadine (Loratadine) 10 Mg Cap, 10 MG PO DAILY, CAP 08/03/21 Simvastatin (Simvastatin) 10 Mg Tab, 10 MG PO DAILY for 30 Days, MG 08/03/21 Current Medications Current Medications Medications (Trade) Dose Ordered Sig/Ncihol Route PRN Reason Start Time Stop Time Status Last Admin Ceftriaxone Sodium 50 ml @ 100 mls/hr DAILY@09 IV 07/06/24 09:00 07/06/24 09:11 Clindamycin Phosphate 50 ml @ 50 mls/hr Q8HR IV 07/05/24 22:00 07/06/24 05:54 Acetaminophen/ Hydrocodone Bitart (Genoa 5/325MG Tab) 1 tab Q4HP PRN PO MODERATE PAIN (4-6 PAIN SCALE) 07/05/24 15:15 Ondansetron HCl (Zofran) 4 mg Q4HP PRN IV NAUSEA / VOMITING 07/05/24 15:15 Enoxaparin Sodium (Lovenox) 40 mg DAILY SC 07/06/24 10:00 07/06/24 09:11 Acetaminophen (Tylenol Tablet) 650 mg Q6HP PRN PO PAIN SCALE 1-3 OR TEMP>100.4 07/05/24 15:15 Morphine Sulfate 2 mg Q4HPRN PRN IV SEVERE PAIN (7-10 PAIN SCALE) 07/05/24 15:15 Furosemide (Lasix Tablet) 20 mg QAM PO 07/06/24 07:00 Vital Signs Vital Signs Date Time Temp Pulse Resp B/P (MAP) Pulse Ox O2 Delivery O2 Flow Rate FiO2 07/06/24 09:00 98.3 82 16 136/88 (104) 98 98.3 07/05/24 20:00 Room Air* 0 21 Physical Exam DERMATOLOGIC EXAM: - Skin is dry and cool to the touch dry bilaterally. - Nails 1-5 of the bilateral foot are thickened, discolored, dystrophic, and tender to palpate with subungual debris - Hair loss noted to bilateral feet Wound #1: Location: left 2nd toe Measurements: Length 1 cm x width 1 cm x depth 0.5 cm. Wound margins: Hyperkeratotic. Wound base: Full thickness. General Appearance: Healthy and bleeding. Probes to Bone: Yes Purulent drainage: No Serous drainage: No Erythema: Yes VASCULAR EXAM: - DP and PT pulses are palpable bilaterally. - [employer]IP[employer]AS[employer]ER is brisk to all digits. - Feet are cool to touch compared to lower legs bilaterally. NEUROLOGIC EXAM: - Normal light touch sensation to the superficial peroneal, deep peroneal, sural, saphenous, and tibial nerve branches. - Protective sensation is diminished as tested with a 5.07 10g [place] bilaterally. MUSCULOSKELETAL EXAM: - No gross deformities - Muscle strength is 5/5 and active motion is pain-free and symmetrical bilaterally - No pain or crepitation with passive range of motion bilaterally to all major pedal joints Labs/Diagnostic Data Labs Test 07/06/24 04:48 07/06/24 04:46 07/05/24 10:12 Range/Units Prothrombin Time 10.6 9.3-11.8 sec Prothrombin Time INR 1.00 0.9-1.15 Activated Partial Thromboplast Time 29.0 24.5-34.5 SEC Magnesium Level 2.1 1.6-2.6 mg/dL Gamma Glutamyl Transpeptidase 187 H <73 U/L Vitamin B12 Level 478 211-911 pg/mL Vitamin D 25-Hydroxy 19.9 L 30.0-100 ng/mL Thyroid Stimulating Hormone (TSH) 2.38 0.55-4.78 uIU/mL White Blood Count 8.7 # 4.4-10.8 10^3/uL Red Blood Count 4.12 L 4.5-5.90 10^6/uL Hemoglobin 12.9 L 13.5-17.5 g/dL Hematocrit 37.3 L 41.0-53.0 % Mean Corpuscular Volume 90.5 80.0-100.0 fL Mean Corpuscular Hemoglobin 31.2 28.0-32.0 pg Mean Corpuscular Hemoglobin Concent 34.5 32.0-36.0 g/dL Red Cell Distribution Width 15.8 H 11.8-14.3 % Platelet Count 159 140-450 10^3/uL Mean Platelet Volume 7.8 6.9-10.8 fL Neutrophils (%) (Auto) 83.6 H 37.0-80.0 % Lymphocytes (%) (Auto) 6.2 L 10.0-50.0 % Monocytes (%) (Auto) 9.6 0.0-12.0 % Eosinophils (%) (Auto) 0.3 0.0-7.0 % Basophils (%) (Auto) 0.3 0.0-2.0 % Neutrophils # (Auto) 7.3 1.6-8.6 10 ^3/uL Lymphocytes # (Auto) 0.5 0.4-5.4 10 ^3/uL Monocytes # (Auto) 0.8 0-1.3 10 ^3/uL Eosinophils # (Auto) 0 0-0.8 10 ^3/uL Basophils # (Auto) 0 0-0.2 10 ^3/uL Nucleated Red Blood Cells 0.0 % Sodium Level 139 136-145 mmol/L Potassium Level 4.6 3.5-5.1 mmol/L Chloride Level 105 98-107 mmol/L Carbon Dioxide Level 26 20-31 mmol/L Anion Gap 8 5-15 Blood Urea Nitrogen 22 9-23 mg/dL Creatinine 1.20 0.700-1.30 mg/dL Glomerular Filtration Rate Calc 71 >90 mL/min BUN/Creatinine Ratio 18.3 10.0-20.0 Serum Glucose 96 74-106 mg/dL Calcium Level 9.0 8.7-10.4 mg/dL Total Bilirubin 1.0 0.2-1.0 mg/dL Aspartate Amino Transferase (AST) 23 13-40 U/L Alanine Aminotransferase (ALT) 33 7-40 U/L Alkaline Phosphatase 268 H 46-116 U/L Total Protein 7.0 5.7-8.2 g/dL Albumin 3.6 3.2-4.8 g/dL Hemoglobin A1c 4.9 <5.7 % A1C Lactic Acid Level 1.2 0.4-2.0 mmol/L Microbiology Date/Time Source Procedure Growth Status 07/05/24 10:42 Toe Left (Second) Gram Stain - Final Resulted 07/05/24 10:42 Toe Left (Second) Wound Culture - Preliminary Resulted 07/05/24 10:12 Blood Blood Culture - Preliminary NO GROWTH AFTER 24 HOURS OF INCUBATION. Resulted Problems(with codes): (1) Musculoskeletal pain (2) Acute respiratory failure (3) Bilateral lower leg cellulitis (4) Ascites (5) Diverticulitis (6) Leukocytosis, unspecified (7) Acute renal failure (8) Hyponatremia (9) Acute respiratory distress (10) Hypotension (11) Elevated LFTs (12) Elevated d-dimer (13) Pelvic ascites (14) COPD exacerbation (15) Venous stasis (16) Odynophagia (17) Unable to move extremities voluntarily (18) Dehydration (19) Hypokalemia (20) UTI (urinary tract infection) (21) Abdominal pain (22) Nausea and vomiting (23) Leukocytosis, unspecified (24) Elevated d-dimer (25) Cirrhosis of liver (26) Morbid obesity (27) C. difficile diarrhea (28) Generalized weakness (29) Venous ulcer of left leg (30) Diabetic foot ulcer associated with type 2 diabetes mellitus, with fat lay er exposed (31) Clostridioides difficile diarrhea (32) Acute renal failure (33) GERD (gastroesophageal reflux disease) (34) Chronic acquired lymphedema (35) Infected stasis ulcer (36) Acute abdominal pain (37) Anemia in chronic illness (38) Anasarca (39) Ascites (40) Liver cirrhosis (41) Hypoalbuminemia (42) Pneumonia (43) Abdominal ascites (44) Left against medical advice (45) Osteomyelitis (46) Venous stasis ulcer of foot (47) Cellulitis Plan/Recommendation ASSESSMENT: Patient is a 54 year old seen on the floor for a worsening ulcer PLAN: - The patients chart was reviewed, clinical findings were discussed with the patient, the etiologies of the conditions were discussed in detail, and a treatment plan was agreed to at this time, with both oral and written instructions provided. - reviewed advanced imaging - discussed plan is to perform an incision and drainage with amputation of the 2nd toe - patient has been NPO since midnight - take him to the OR today - we will get cultures in the OR - can weightbear as tolerated in postoperative shoe All questions were answered and concerns addressed to the patient's sat isfaction. The patient was given the phone number to the clinic and was told how to make contact with the clinic should any concerns or questions arise. Patient understands that if any questions or concerns arise prior to the next appointment, we should be contacted immediately. FOLLOW-UP: Continue to follow while inpatient Plan discussed with: Patient Date of Service: Jul 06, 2024 Billing Provider: SIXTO RODRIGUEZ DPM Common Visit Codes: CONSULT ONLY Consultation Codes: [id number] CONSULT <80MIN SIXTO RODRIGUEZ DPM Jul 06, 2024 12:28
[2024-07-06] MEDS ORDERED: fentaNYL CITRATE 100 MCG/2 ML VL ONE (12:39)
[2024-07-06] MEDS ORDERED: PROPOFOL 10 MG/ML 20 ML IV ONE (12:40)
--- NOTE | 2024-07-06 13:02 | DVHPNRES ---
Progress Note Date Seen: Jul 06, 2024 Resident Creating Document: ORTIZ CARRERO RESIDENT Medical Necessity Reason Pt with a Central, PICC or Fol: No Subjective Review of Systems Mr. Ch is a 54-year-old male patient with a history of phimosis, portal vein thrombosis, probable liver cirrhosis-undergoes paracentesis every month, hypertension, dyslipidemia, history of sepsis and multiple thigh abscesses status post debridement last year, presented to the ER with a chief complaint of left 2nd toe draining ulcer for the past 3 weeks. He reports that he noticed erythema on the left 2nd toe 3 weeks back, followed up with his PCP and was scheduled with an appointment with thread grinder tool next week but his left toe became worse and it started to drain. Therefore patient decided to come into the ER. He denies fever/chills/abdominal pain/nausea or vomiting. No systemic signs at this point. On arrival, patient was hemodynamically stable, alk-phos was 268. Lower extremity CT completed showed destructive osteomyelitis of the 2nd left toe with soft tissue gas. Vault Maker was consulted and patient was kept NPO, he is undergoing debridement, incision and drainage 07/06. He reports phimosis and was scheduled for circumcision 07/09. Consulted Dr. Aragon Past medical/surgical history: See above Home medications: Eplerenone 50 mg, Lasix 40 mg daily Social history: Works at [employer], lives with family, denies smoking drinking or drug use PCP: Neelam Patient seen and examined at the bedside. NPO, going to OR for incision and drainage and culture. Continue ceftriaxone and clindamycin. Urology consulted for phimosis Objective vital signs Vital Sign Date Time Temp Pulse Resp B/P (MAP) Pulse Ox O2 Delivery O2 Flow Rate FiO2 07/06/24 09:00 98.3 82 16 136/88 (104) 98 98.3 07/05/24 20:00 Room Air* 0 21 Total Intake and Output 07/05/24 07/05/24 07/06/24 15:00 23:00 07:00 Intake Total 100 ml 50 ml 850 ml Balance 100 ml 50 ml 850 ml medications Current Medications Medications Dose Ordered Sig/Nichol Route Start Time Stop Time Status Last Admin Dose Admin Ceftriaxone Sodium 50 ml @ 100 mls/hr DAILY@09 IV 07/06/24 09:00 07/06/24 09:11 100 MLS/HR Clindamycin Phosphate 50 ml @ 50 mls/hr Q8HR IV 07/05/24 22:00 07/06/24 05:54 50 MLS/HR Acetaminophen/ Hydrocodone Bitart 1 tab Q4HP PRN PO 07/05/24 15:15 Ondansetron HCl 4 mg Q4HP PRN IV 07/05/24 15:15 Enoxaparin Sodium 40 mg DAILY SC 07/06/24 10:00 07/06/24 09:11 40 MG Acetaminophen 650 mg Q6HP PRN PO 07/05/24 15:15 Morphine Sulfate 2 mg Q4HPRN PRN IV 07/05/24 15:15 Furosemide 20 mg QAM PO 07/06/24 07:00 Examination Patient lying in bed, in no acute distress General: Obese, afebrile, palor, mucosae are moist Cardiovascular: Regular S1 and S2. No murmurs, gallops or rubs. No JVD elevation. Bilateral 2+ pitting edema Respiratory: Normal B/L air entry on room air. Clear lung sounds on auscultation Abdomen: Soft, nontender, nondistended, normoactive bowel sounds, no rebound tenderness, no organomegaly, no masses Genitourinary: Deferred MSK/skin: Mobilizes 4 limbs. Skin is dry and cold. Bilateral ankle are dark and have 2+ pitting edema. Left foot wrapped in gauze, no numbness or tingling. Neurological: No motor, no sensitive deficits, normal speech. Pupils are isocoric and reactive. Psych/Mental Status: A/Ox3 laboratory and microbiology Laboratory Tests 07/06/24 04:46 Test 07/06/24 04:46 Range/Units Serum Glucose 96 74-106 mg/dL Microbiology Date/Time Source Procedure Growth Status 07/05/24 10:42 Toe Left (Second) Gram Stain - Final Resulted 07/05/24 10:42 Toe Left (Second) Wound Culture - Preliminary Resulted 07/05/24 10:12 Blood Blood Culture - Preliminary NO GROWTH AFTER 24 HOURS OF INCUBATION. Resulted Labs and/or images reviewed: Labs reviewed by me, Image(s) reviewed by me Problem List/Assessment/Plan Problem List/Assessment/Plan Left 2nd toe osteomyelitis Continue IV ceftriaxone and clindamycin Podiatry is consulted- patient is scheduled for incision and drainage with amputation of the 2nd toe, cultures PICC line consent Left lower extremity CT shows destructive osteomyelitis of the 2nd toe with soft tissue gas phimosis Urology consulted Patient had circumcision scheduled for 07/09 Portal vein thrombosis Probable liver cirrhosis-undergoes paracentesis every month Last paracentesis 06/25-17 L drained by IR Continue eplerenone 50 mg and Lasix 40 mg home medication Hypertension Dyslipidemia Monitor History of sepsis and multiple thigh abscesses status post debridement last year Monitor Plan discussed with patient in which all questions have been answered Goals of care discussed with patient for more than 30 minutes, full code status Case discussed with Dr. Aparicio Plan discussed with: Patient My Orders My Orders Orders - ORTIZ CARRERO Procedure Category Date Status Time Drug Screen LAB 07/06/24 Logged 08:13 Urinalysis LAB 07/06/24 Logged 08:13 Date of Service: Jul 06, 2024 Billing Provider: SANTA APARICIO MD Common Visit Codes: [id number] INP/OBS CARE(HIGH) ORTIZ CARRERO Jul 06, 2024 13:02 SANTA APARICIO MD Jul 06, 2024 21:22
--- NOTE | 2024-07-06 13:43 | DVHINCON2 ---
Date of service: Jul 06, 2024 Referring Physician hospitalist Reason for Consultation phimosis History of Present Illness History Source: RN Notes, MD Notes, Old Records Exam Limitations: No limitations HPI 54 yo male known to urology for phimosis/balanitis admitted for necrotic foot wound. Pt has circumcision scheduled for 07/09/24 as outpt. Home Meds Active Scripts Pantoprazole Sodium Sesquihydr (Protonix) 40 Mg Tab, 40 MG PO DAILY for 30 Days, #30 TAB 3 Refills Prov:LYN KEATING MD 11/28/22 Spironolactone (Aldactone) 50 Mg Tab, 1 TAB PO DAILY for 30 Days, #30 TAB 3 R efills Prov:LYN KEATING MD 11/28/22 Furosemide (Lasix) 20 Mg Tb, 1 TAB PO QAM for 30 Days, #30 TAB 3 Refills Prov:LYN KEATING MD 11/28/22 Clindamycin Hcl (Clindamycin Hcl) 300 Mg Cap, 1 CAP PO TID, #30 CAP Prov:SANTA APARICIO MD 08/21/22 Metformin Hydrochloride (Metformin Hcl) 500 Mg Tab, 500 MG PO BID for 30 Days, #60 TAB 3 Refills Prov:LYN KEATING MD 07/31/22 Potassium Chloride (Klor-Con 10) 10 Meq Tab, 10 MEQ PO DAILY for 30 Days, #30 TAB Prov:LYN KEATING MD 07/31/22 Sucralfate (CARAFATE SUSP) 1 Gm/10 Ml Ss, 1 GM PO QIDACHS for 30 Days, #120 ML Prov:LYN KEATING MD 07/31/22 Furosemide (Furosemide) 40 Mg Tab, 20 MG PO QAM, #30 TAB Prov:LYN KEATING MD 07/31/22 Reported Medications Eplerenone (Eplerenone) 50 Mg Tab, 1 TAB PO DAILY 07/05/24 Loratadine (Loratadine) 10 Mg Cap, 10 MG PO DAILY, CAP 08/03/21 Simvastatin (Simvastatin) 10 Mg Tab, 10 MG PO DAILY for 30 Days, MG 08/03/21 Past Medical History Patient Family History: Cardiovascular disease G8 MOTHER G8 FATHER Diabetes mellitus G8 MOTHER G8 FATHER Hypercholesterolemia G8 MOTHER G8 FATHER Hypertension G8 MOTHER G8 FATHER Prostate carcinoma G8 FATHER H&P Exam Vital Signs Vital Signs Date Time Temp Pulse Resp B/P (MAP) Pulse Ox O2 Delivery O2 Flow Rate FiO2 07/06/24 13:00 97.6 86 18 132/80 (97) 95 97.6 07/05/24 20:00 Room Air* 0 21 Labs/Xrays Labs Test 07/06/24 04:48 07/06/24 04:46 07/05/24 10:12 Range/Units Prothrombin Time 10.6 9.3-11.8 sec Prothrombin Time INR 1.00 0.9-1.15 Activated Partial Thromboplast Time 29.0 24.5-34.5 SEC Magnesium Level 2.1 1.6-2.6 mg/dL Gamma Glutamyl Transpeptidase 187 H <73 U/L Vitamin B12 Level 478 211-911 pg/mL Vitamin D 25-Hydroxy 19.9 L 30.0-100 ng/mL Thyroid Stimulating Hormone (TSH) 2.38 0.55-4.78 uIU/mL White Blood Count 8.7 # 4.4-10.8 10^3/uL Red Blood Count 4.12 L 4.5-5.90 10^6/uL Hemoglobin 12.9 L 13.5-17.5 g/dL Hematocrit 37.3 L 41.0-53.0 % Mean Corpuscular Volume 90.5 80.0-100.0 fL Mean Corpuscular Hemoglobin 31.2 28.0-32.0 pg Mean Corpuscular Hemoglobin Concent 34.5 32.0-36.0 g/dL Red Cell Distribution Width 15.8 H 11.8-14.3 % Platelet Count 159 140-450 10^3/uL Mean Platelet Volume 7.8 6.9-10.8 fL Neutrophils (%) (Auto) 83.6 H 37.0-80.0 % Lymphocytes (%) (Auto) 6.2 L 10.0-50.0 % Monocytes (%) (Auto) 9.6 0.0-12.0 % Eosinophils (%) (Auto) 0.3 0.0-7.0 % Basophils (%) (Auto) 0.3 0.0-2.0 % Neutrophils # (Auto) 7.3 1.6-8.6 10 ^3/uL Lymphocytes # (Auto) 0.5 0.4-5.4 10 ^3/uL Monocytes # (Auto) 0.8 0-1.3 10 ^3/uL Eosinophils # (Auto) 0 0-0.8 10 ^3/uL Basophils # (Auto) 0 0-0.2 10 ^3/uL Nucleated Red Blood Cells 0.0 % Sodium Level 139 136-145 mmol/L Potassium Level 4.6 3.5-5.1 mmol/L Chloride Level 105 98-107 mmol/L Carbon Dioxide Level 26 20-31 mmol/L Anion Gap 8 5-15 Blood Urea Nitrogen 22 9-23 mg/dL Creatinine 1.20 0.700-1.30 mg/dL Glomerular Filtration Rate Calc 71 >90 mL/min BUN/Creatinine Ratio 18.3 10.0-20.0 Serum Glucose 96 74-106 mg/dL Calcium Level 9.0 8.7-10.4 mg/dL Total Bilirubin 1.0 0.2-1.0 mg/dL Aspartate Amino Transferase (AST) 23 13-40 U/L Alanine Aminotransferase (ALT) 33 7-40 U/L Alkaline Phosphatase 268 H 46-116 U/L Total Protein 7.0 5.7-8.2 g/dL Albumin 3.6 3.2-4.8 g/dL Hemoglobin A1c 4.9 <5.7 % A1C Lactic Acid Level 1.2 0.4-2.0 mmol/L Microbiology Date/Time Source Procedure Growth Status 07/05/24 10:42 Toe Left (Second) Gram Stain - Final Resulted 07/05/24 10:42 Toe Left (Second) Wound Culture - Preliminary Resulted 07/05/24 10:12 Blood Blood Culture - Preliminary NO GROWTH AFTER 24 HOURS OF INCUBATION. Resulted Assessment/Plan Problem List: (1) Diabetic foot ulcer associated with type 2 diabetes mellitus, with fat layer exposed (2) Osteomyelitis (3) Venous stasis ulcer of foot Plan circumcision TBA inpt vs outpt. Plan discussed with: Patient, Other CYNDI TORRES NP Jul 06, 2024 13:43
[2024-07-06] MEDS: BUPIVACAINE W/ EPINEPH 0.5% MPF 30ML VIAL IJ ONE (14:03)
--- NOTE | 2024-07-06 14:19 | DVHOP2 ---
Operative Report - 2 Report Details Date: 07/06/24 Preop Diagnosis: 1. Left 2nd toe osteomyelitis 2. Left 2nd toe cellulitis 3. Left 2nd toe abscess 4. Left 2nd toe diabetic ulcer Postop Diagnosis: Same as preop Surgeon: Sixto Rodriguez MD Anesthesiologist: See anesthesia Anesthesia: General Consent: The patient was informed of the risks and benefits of the procedure. These include but are not limited to complications of anesthesia, postoperative infection, incomplete relief of symptoms, recurrence of symptoms, damage to blood vessels, nerves and tendons, deep venous thrombosis, pulmonary embolism and possible need for repeat surgery in the future. Complications: None Estimated Blood Loss: Minimal Fluids: See anesthesia Findings: Consistent with diagnosis Indications for Surgery: Worsening left 2nd toe wound Name of Procedure Performed 1. Left foot I&D to bone (38185) 2. Left foot second toe amputation (78678) 3. Left second toe bone biopsy () Procedure Details Procedure Details: PRE-PROCEDURE INFORMATION: In the pre-op holding area, the extremity to be operated on was clearly marked and the patient verified correct laterality of the marking. The patient was transferred to the OR table and placed in a supine position. A timeout was performed in which identification of the correct pat ient, procedure, location, and materials was done. The left foot and leg were prepped and draped in normal sterile fashion. DESCRIPTION OF PROCEDURE: Attention was directed to the left 2nd toe where area of fluctuance was noted. An incision was made over this area and was deepened through blunt dissection. The incision was deepened to the level of abscess and bone. Care was taken to the dissection to avoid any neurovascular and tendinous structures. The incision was deepened to the bone, and the abscess appeared to be purulent fluid consistent with pus. The cortices of the bone was then removed with Alejandro an all necrotic tissue. After the abscess was drained, the area was irrigated with 3 L normal saline using cysto tubing. It was decided at this point that amputation was best due to the significant breakdown of the bone. The 2nd toe was then disarticulated at the 2nd MPJ. Deep cultures were then obtained from the wound. The area was then inspected and any areas of tracking, especially along the tendons were also drained. The wound was then closed with 2-0 nylon. All surgical wounds were irrigated copiously with saline and closed in layers with the aforementioned suture material. A dry sterile dressing was placed on the surgical extremity. The patient was placed in a postop shoe POSTOPERATIVE INFORMATION: The patient tolerated the above noted procedure and anesthesia well and was transferred to the PACU with vital signs stable, and vascular status intact with capillary refill intact to all digits. Recommend patient is discharged home with 2 weeks of oral Augmentin 875. Patient can weightbear as tolerated in a postop shoe. Patient will follow up with me in a week. Specimen: Left 2nd toe Condition Good Disposition Still a Patient SIXTO RODRIGUEZ DPM Jul 06, 2024 14:19
[2024-07-06] MEDS ORDERED: HYDROmorphone HCL 2 MG/ML VL/or syr IV PRN (14:30)
[2024-07-06] MEDS: ONDANSETRON HCL 4 MG/2 ML VIAL IV ONE (14:30)
[2024-07-06] MEDS ORDERED: ACETAMINOPHEN IV 1000 MG/100ML (10MG/ML) IV PRN (14:30)
[2024-07-06] MEDS: HYDROcodone-ACET 5/325MG TAB PO PRN (16:13)
--- NOTE | 2024-07-06 16:37 | DVH ---
Bilateral Lower Extremity Arterial Duplex Clinical History: r/o pad Comparison: BLEAD on DOS: 04/09/22, BILAT LOW EXT ART DUPLEX on DOS: 04/09/22 Technique: Duplex Doppler evaluation including color Doppler and spectral/pulsed waveform analysis of the lower extremity arteries was performed. Findings: RIGHT: Peak systolic velocities are less than 150 centimeter/second. The waveforms are triphasic with diastolic flow. LEFT: Peak systolic velocities are less than 150 centimeter/second. Dorsalis pedis is not visualized secondary to overlying bandages. The waveforms are monophasic with diastolic flow. IMPRESSION: No hemodynamically significant stenosis based on peak systolic velocity criteria. Monophasic arterial waveforms in the left popliteal artery and calf suggestive of underlying peripher al arterial disease. REFERENCE VALUES, [facility] ([facility]) vascular Imaging Lab Criteria: Peak systolic velocity ranges (in cm/sec) are as follows: <150 cm/s - <20 % stenosis 150-200 cm/s - 20-49% stenosis 200-300 cm/s - 50-75% stenosis >300 cm/s -> 75% stenosis
[2024-07-07] VITALS (15 sets, daily range): BP systolic 110–144; BP diastolic 62–81; PULSE 79–107; RESP 16–22; TEMP 97.4–99.3; O2SAT 96–100
[2024-07-07 02:19] LABS: Urine Bacteria None Seen /hpf (None Seen)
[2024-07-07 02:38] LABS: Urine Blood 1+ /uL (Negative); Urine Clarity Clear (Clear); Urine Color Yellow (Yellow); Urine Protein, UAD Negative (Negative); Urine Squamous Epithelial Cell None Seen /hpf (<5); Urine Urobilinogen Normal (Negative); Urine WBC 2 /HPF (0-3)
[2024-07-07 02:41] LABS: Opiate Scree,Urine Neg (NEGATIVE)
[2024-07-07 02:52] LABS: Amphetamine Screen, Urine Neg (NEGATIVE); Barbiturate Scree,Urine Neg (NEGATIVE); Benzodiazephine Screen, Urine Neg (NEGATIVE); Cannabinoid Screen, Urine Neg (NEGATIVE); Cocaine Screen, Urine Neg (NEGATIVE); Phencyclidine Screen, Urine Neg (NEGATIVE)
[2024-07-07 07:37] LABS: Basophils # (auto) 0.1 10 ^3/uL (0-0.2); Basophils % (auto) 0.8 % (0.0-2.0); Eosinophils # (auto) 0.1 10 ^3/uL (0-0.8); Eosinophils % (auto) 1.3 % (0.0-7.0); Hemoglobin 12.1 g/dL (13.5-17.5); Lymphocytes # (auto) 0.6 10 ^3/uL (0.4-5.4); Lymphocytes % (auto) 7.6 % (10.0-50.0); Mean Corpuscular Hgb Conc. 32.8 g/dL (32.0-36.0); Mean Corpuscular Volume 91.5 fL (80.0-100.0); Monocytes # (auto) 0.9 10 ^3/uL (0-1.3); Monocytes % (auto) 11.1 % (0.0-12.0); Neutrophils # (auto) 6.3 10 ^3/uL (1.6-8.6); Neutrophils % (auto) 79.2 % (37.0-80.0); Platelet Count (auto) 160 10^3/uL (140-450); Red Blood Cells 4.04 10^6/uL (4.5-5.90)
[2024-07-07 07:52] LABS: Alanine Aminotransferase 28 U/L (7-40); Albumin 3.3 g/dL (3.2-4.8); Anion Gap 7 (5-15); Aspartate Aminotransferase 24 U/L (13-40); BUN/Creatinine Ratio 14.8 (10.0-20.0); Bilirubin, Total 0.9 mg/dL (0.2-1.0); Blood Urea Nitrogen 18 mg/dL (9-23); Calcium 8.7 mg/dL (8.7-10.4); Carbon Dioxide 24 mmol/L (20-31); Chloride 106 mmol/L (98-107); Glucose 99 mg/dL (74-106); Magnesium 2.1 mg/dL (1.6-2.6); Potassium 4.9 mmol/L (3.5-5.1); Sodium 137 mmol/L (136-145); Total Protein 6.7 g/dL (5.7-8.2)
[2024-07-07 07:55] LABS: Alkaline Phosphatase 253 U/L (46-116)
--- NOTE | 2024-07-07 11:11 | DVH ---
CHEST RADIOGRAPH Indication: FOR PROCEDURE PROTOCOL Technique: Single frontal view of the chest was obtained Comparison: XY CHEST PORTABLE on DOS: 11/25/22 FINDINGS: Lines and Tubes: None Lungs: Bilateral interstitial opacities noted. No focal consolidation. Pleura: No effusion. No pneumothorax. Cardiomediastinal contours: Unremarkable Bones: No acute osseous abnormality. IMPRESSION: 1. Bilateral interstitial opacities noted.
[2024-07-07] MEDS: ERGOCALCIFEROL 50,000 UNIT(1.25MG) CAP PO SCH (11:53)
[2024-07-07] MEDS ORDERED: AZITHROMYCIN 500MG/ 250ML 250 ML IV ONE (12:00)
[2024-07-07] MEDS: IPRATROPIUM BROM 0.5 MG/2.5ML INH SOL ONE (12:21)
--- NOTE | 2024-07-07 12:39 | DVHPN2 ---
Progress Note - Dictate Date Seen: Jul 07, 2024 Has the PT tested + for MRSA If YES, has PT been informed?: No Medical Necessity Reason Pt with a Central, PICC or Fol: No Medical Necessity Reason Patient is admitted for non issues. He is scheduled for an elective circumcision on 07/09/2024. If he remains inpatient, we will gladly perform the procedure while he is here. He may also be discharged and follow up as an outpatient for his scheduled procedure on 07/09/2024 Subjective No new issues from urological standpoint vital signs Vital Sign Date Time Temp Pulse Resp B/P (MAP) Pulse Ox O2 Delivery O2 Flow Rate FiO2 07/07/24 09:00 98.0 95 19 110/79 (89) 96 98.0 07/06/24 20:00 Room Air* 0 21 Total Intake and Output 07/06/24 07/06/24 07/07/24 15:00 23:00 07:00 Intake Total 150 ml 575 ml 100 ml Output Total 55 ml Balance 150 ml 575 ml 45 ml medications Current Medications Medications Dose Ordered Sig/Nichol Route Start Time Stop Time Status Last Admin Dose Admin Ceftriaxone Sodium 50 ml @ 100 mls/hr DAILY@09 IV 07/06/24 09:00 07/07/24 10:37 100 MLS/HR Clindamycin Phosphate 50 ml @ 50 mls/hr Q8HR IV 07/05/24 22:00 07/07/24 06:10 50 MLS/HR Acetaminophen/ Hydrocodone Bitart 1 tab Q4HP PRN PO 07/05/24 15:15 07/07/24 02:08 1 TAB Ondansetron HCl 4 mg Q4HP PRN IV 07/05/24 15:15 Enoxaparin Sodium 40 mg DAILY SC 07/06/24 10:00 07/06/24 09:11 40 MG Acetaminophen 650 mg Q6HP PRN PO 07/05/24 15:15 Morphine Sulfate 2 mg Q4HPRN PRN IV 07/05/24 15:15 Furosemide 20 mg QAM PO 07/06/24 07:00 07/07/24 06:11 20 MG Ergocalciferol 50,000 unit Q7D PO 07/07/24 10:30 07/07/24 11:53 50,000 UNIT Albuterol 2.5 mg Q4HR NEB 07/07/24 14:00 UNV Ipratropium [place] 0.5 mg Q4HWA NEB 07/07/24 14:00 UNV Azithromycin 250 ml @ 125 mls/hr DAILY IV 07/08/24 10:00 UNV objective Phimosis laboratory and microbiology Laboratory Tests 07/07/24 05:03 Test 07/07/24 05:03 Range/Units Serum Glucose 99 74-106 mg/dL Problem List Phimosis Assessment/Plan Circumcision to be performed on 07/09/2024 either as an inpatient or outpatient Plan discussed with: Patient CALLIE PAZ MD Jul 07, 2024 12:39
--- NOTE | 2024-07-07 13:26 | DVHPN2 ---
Subjective VeenamichelleDima bailey is a 54-year-old male with past medical history of hypertension, hyperlipidemia, diabetes type 2, COPD, liver cirrhosis, DVT, paracentesis every 3-4 weeks, pneumonia, septic shock, CKD, cellulitis, neuropathy, debridement of the left and right inner thigh, appendectomy, and hernia repair who presents to the ED with left toe pain and swelling x1 week. Patient reports that he works at [employer] is constantly on his feet and he assumes that the shoe he was wearing caused the issue. Upon examination and discussion patient states that many of his diagnosis are no longer in effect states that he had once had hypertension, once had hyperlipidemia, once had liver cirrhosis once had COPD, once had diabetes but does not have it currently. Patient's also at the chair side. Patient currently in a wheelchair. Patient also noted to have foul odor coming from his left 2nd toe with erythema noted. Changes from previous H/P or p: No Changes Musculoskeletal: foot pain Skin: Other (Erythema and foul odor left 2nd toe) Objective Vitals Vital Signs Date Time Temp Pulse Resp B/P (MAP) Pulse Ox O2 Delivery O2 Flow Rate FiO2 07/07/24 13:00 99.3 81 16 112/69 (83) 97 99.3 07/06/24 20:00 Room Air* 0 21 Intake/Output Intake and Output 07/07/24 07:00 Intake Total 825 ml Output Total 55 ml Balance 770 ml Intake Oral 575 ml IV Total 250 ml Output Urine Total 55 ml # Voids 3 # Bowel Movements 2 Exam DERMATOLOGIC EXAM: - Skin is dry and cool to the touch dry bilaterally. - Nails 1-5 of the bilateral foot are thickened, discolored, dystrophic, and tender to palpate with subungual debris - Hair loss noted to bilateral feet - sutures intact to the 2nd toe VASCULAR EXAM: - DP and PT pulses are palpable bilaterally. - SEPTIC TANK SETTER is brisk to all digits. - Feet are cool to touch compared to lower legs bilaterally. NEUROLOGIC EXAM: - Normal light touch sensation to the superficial peroneal, deep peroneal, sural, saphenous, and tibial nerve branches. - Protective sensation is diminished as tested with a 5.07 10g [place] bilaterally. MUSCULOSKELETAL EXAM: - No gross deformities - Muscle strength is 5/5 and active motion is pain-free and symmetrical bilaterally - No pain or crepitation with passive range of motion bilaterally to all major pedal joints Medications Current Medications Medications Dose Ordered Sig/Nichol Route Start Time Stop Time Status Last Admin Dose Admin Ceftriaxone Sodium 50 ml @ 100 mls/hr DAILY@09 IV 07/06/24 09:00 07/07/24 10:37 100 MLS/HR Clindamycin Phosphate 50 ml @ 50 mls/hr Q8HR IV 07/05/24 22:00 07/07/24 06:10 50 MLS/HR Acetaminophen/ Hydrocodone Bitart 1 tab Q4HP PRN PO 07/05/24 15:15 07/07/24 02:08 1 TAB Ondansetron HCl 4 mg Q4HP PRN IV 07/05/24 15:15 Enoxaparin Sodium 40 mg DAILY SC 07/06/24 10:00 07/06/24 09:11 40 MG Acetaminophen 650 mg Q6HP PRN PO 07/05/24 15:15 Morphine Sulfate 2 mg Q4HPRN PRN IV 07/05/24 15:15 Furosemide 20 mg QAM PO 07/06/24 07:00 07/07/24 06:11 20 MG Ergocalciferol 50,000 unit Q7D PO 07/07/24 10:30 07/07/24 11:53 50,000 UNIT Albuterol 2.5 mg Q4HR NEB 07/07/24 14:00 UNV Ipratropium [place] 0.5 mg Q4HWA NEB 07/07/24 14:00 UNV Azithromycin 250 ml @ 125 mls/hr DAILY IV 07/08/24 10:00 UNV Laboratory Results Laboratory Tests 07/07/24 05:03 Chemistry Test 07/07/24 05:03 Albumin 3.3 g/dL (3.2-4.8) Calcium Level 8.7 mg/dL (8.7-10.4) Magnesium Level 2.1 mg/dL (1.6-2.6) Total Protein 6.7 g/dL (5.7-8.2) LFT Test 07/07/24 05:03 Alanine Aminotransferase (ALT) 28 U/L (7-40) Alkaline Phosphatase 253 U/L (46-116) H Aspartate Amino Transferase (AST) 24 U/L (13-40) Total Bilirubin 0.9 mg/dL (0.2-1.0) Urinalysis Test 07/07/24 02:05 Urine Color Yellow (Yellow) Urine Clarity Clear (Clear) Urine pH 6.0 (5.0-9.0) Urine Specific [place] 1.020 (1.001-1.035) Urine Protein Negative (Negative) Urine Ketones Negative (Negative) Urine Blood 1+ /uL (Negative) H Urine Nitrite Negative (Negative) Urine Bilirubin Negative (Negative) Urine Urobilinogen Normal mg/dL (Negative) Urine Leukocyte Esterase Negative /uL (Negative) Urine RBC 15 /hpf (0 - 3) Urine Microscopic WBC 2 /HPF (0-3) Urine Squamous Epithelial Cells None seen /hpf (<5) Urine Bacteria None seen /hpf (None Seen) Urine Glucose Normal mg/dL (Normal) Microbiology Microbiology Date/Time Source Procedure Growth Status 07/05/24 10:42 Toe Left (Second) Gram Stain - Final Resulted 07/05/24 10:42 Toe Left (Second) Wound Culture - Preliminary Resulted 07/05/24 10:12 Blood Blood Culture - Preliminary NO GROWTH AFTER 48 HOURS OF INCUBATION. Resulted Assessment/Plan Assessment/Plan ASSESSMENT: Patient is a 54-year-old male 1 day s/p from a 2nd toe amputation PLAN: - The patients chart was reviewed, clinical findings were discussed with the patient, the etiologies of the conditions were discussed in detail, and a treatment plan was agreed to at this time, with both oral and written instructions provided. - discussed that surgery went well in the incision appears to be healing appropriately - recommend the patient goes home on 2 weeks of p.o. antibiotic - patient is a keep the dressing clean dry and intact until next clinic visit - patient will follow up with me on Saturday - patient can weightbear as tolerated in a postoperative shoe All questions were answered and concerns addressed to the patient's satisfaction. The patient was given the phone number to the clinic and was told how to make contact with the clinic should any concerns or questions arise. Patient understands that if any questions or concerns arise prior to the next appointment, we should be contacted immediately. FOLLOW-UP: Follow up as an outpatient Plan discussed with: Patient My Orders Orders - SIXTO RODRIGUEZ DPM Procedure Category Date Status Time Cardiac DIET 07/06/24 Transmitted Diet-2gna,Lofat,Lochol Dinner Problem List: (1) Osteomyelitis (2) Venous stasis ulcer of foot (3) Cellulitis (4) Acute respiratory failure (5) Chronic acquired lymphedema (6) Odynophagia (7) Dehydration (8) Hypokalemia (9) Acute abdominal pain (10) Anasarca (11) Morbid obesity (12) Acute renal failure (13) Acute renal failure (14) Ascites (15) Ascites (16) Generalized weakness (17) Diverticulitis (18) Hyponatremia (19) Cirrhosis of liver (20) Liver cirrhosis (21) Hypoalbuminemia (22) Venous stasis (23) UTI (urinary tract infection) (24) GERD (gastroesophageal reflux disease) (25) Acute respiratory distress (26) Nausea and vomiting (27) Abdominal pain (28) Hypotension (29) Pneumonia (30) Anemia in chronic illness (31) Leukocytosis, unspecified (32) Leukocytosis, unspecified (33) C. difficile diarrhea (34) Elevated LFTs (35) COPD exacerbation (36) Musculoskeletal pain (37) Pelvic ascites (38) Abdominal ascites (39) Infected stasis ulcer (40) Left against medical advice (41) Bilateral lower leg cellulitis (42) Elevated d-dimer (43) Elevated d-dimer (44) Venous ulcer of left leg (45) Unable to move extremities voluntarily (46) Diabetic foot ulcer associated with type 2 diabetes mellitus, with fat layer exposed (47) Clostridioides difficile diarrhea Date of Service: Jul 07, 2024 Billing Provider: SIXTO RODRIGUEZ DPM Common Visit Codes: [id number] INP/OBS CARE(HIGH) SIXTO RODRIGUEZ DPM Jul 07, 2024 13:26
--- NOTE | 2024-07-07 13:31 | DVHPNRES ---
Progress Note Date Seen: Jul 07, 2024 Resident Creating Document: ORTIZ CARRERO RESIDENT Has the PT tested + for MRSA If YES, has PT been informed?: No Medical Necessity Reason Pt with a Central, PICC or Fol: No Subjective Review of Systems Mr. Ch is a 54-year-old male patient with a history of phimosis, portal vein thrombosis, probable liver cirrhosis-undergoes paracentesis every month, hypertension, dyslipidemia, history of sepsis and multiple thigh abscesses status post debridement last year, presented to the ER with a chief complaint of left 2nd toe draining ulcer for the past 3 weeks. He reports that he noticed erythema on the left 2nd toe 3 weeks back, followed up with his PCP and was scheduled with an appointment with welder experimental next week but his left toe became worse and it started to drain. Therefore patient decided to come into the ER. He denies fever/chills/abdominal pain/nausea or vomiting. No systemic signs at this point. On arrival, patient was hemodynamically stable, alk-phos was 268. Lower extremity CT completed showed destructive osteomyelitis of the 2nd left toe with soft tissue gas. Agricultural Education Instructor was consulted and patient was kept NPO, he is undergoing debridement, incision and drainage 07/06. He reports phimosis and was scheduled for circumcision 07/09. Consulted Dr. Aragon Past medical/surgical history: See above Home medications: Eplerenone 50 mg, Lasix 40 mg daily Social history: Works at [employer], lives with family, denies smoking drinking or drug use PCP: Neelam 07/06 - Patient seen and examined at the bedside. NPO, going to OR for incision and drainage and culture. Continue ceftriaxone and clindamycin. Urology consulted for phimosis 07/07 - patient seen and examined at the bedside. Status post 2nd toe amputation and I and D. Patient will need 2 weeks antibiotics. Objective vital signs Vital Sign Date Time Temp Pulse Resp B/P (MAP) Pulse Ox O2 Delivery O2 Flow Rate FiO2 07/07/24 13:00 99.3 81 16 112/69 (83) 97 99.3 07/06/24 20:00 Room Air* 0 21 Total Intake and Output 07/06/24 07/06/24 07/07/24 15:00 23:00 07:00 Intake Total 150 ml 575 ml 100 ml Output Total 55 ml Balance 150 ml 575 ml 45 ml medications Current Medications Medications Dose Ordered Sig/Nichol Route Start Time Stop Time Status Last Admin Dose Admin Ceftriaxone Sodium 50 ml @ 100 mls/hr DAILY@09 IV 07/06/24 09:00 07/07/24 10:37 100 MLS/HR Clindamycin Phosphate 50 ml @ 50 mls/hr Q8HR IV 07/05/24 22:00 07/07/24 06:10 50 MLS/HR Acetaminophen/ Hydrocodone Bitart 1 tab Q4HP PRN PO 07/05/24 15:15 07/07/24 02:08 1 TAB Ondansetron HCl 4 mg Q4HP PRN IV 07/05/24 15:15 Enoxaparin Sodium 40 mg DAILY SC 07/06/24 10:00 07/06/24 09:11 40 MG Acetaminophen 650 mg Q6HP PRN PO 07/05/24 15:15 Morphine Sulfate 2 mg Q4HPRN PRN IV 07/05/24 15:15 Furosemide 20 mg QAM PO 07/06/24 07:00 07/07/24 06:11 20 MG Ergocalciferol 50,000 unit Q7D PO 07/07/24 10:30 07/07/24 11:53 50,000 UNIT Albuterol 2.5 mg Q4HR NEB 07/07/24 14:00 UNV Ipratropium [place] 0.5 mg Q4HWA NEB 07/07/24 14:00 UNV Azithromycin 250 ml @ 125 mls/hr DAILY IV 07/08/24 10:00 UNV Examination Patient lying in bed, in no acute distress General: Obese, afebrile, palor, mucosae are moist Cardiovascular: Regular S1 and S2. No murmurs, gallops or rubs. No JVD elevation. Bilateral 2+ pitting edema Respiratory: Normal B/L air entry on room air. Clear lung sounds on auscultation Abdomen: Soft, nontender, nondistended, normoactive bowel sounds, no rebound tenderness, no organomegaly, no masses Genitourinary: Deferred MSK/skin: Mobilizes 4 limbs. Skin is dry and cold. Bilateral ankle are dark and have 2+ pitting edema. Left second toe amputation, dressing dry clean and intact Neurological: No motor, no sensitive deficits, normal speech. Pupils are isocoric and reactive. Psych/Mental Status: A/Ox3 laboratory and microbiology Laboratory Tests 07/07/24 05:03 Test 07/07/24 05:03 Range/Units Serum Glucose 99 74-106 mg/dL Microbiology Date/Time Source Procedure Growth Status 07/05/24 10:42 Toe Left (Second) Gram Stain - Final Resulted 07/05/24 10:42 Toe Left (Second) Wound Culture - Preliminary Resulted 07/05/24 10:12 Blood Blood Culture - Preliminary NO GROWTH AFTER 48 HOURS OF INCUBATION. Resulted Labs and/or images reviewed: Labs reviewed by me, Image(s) reviewed by me Problem List/Assessment/Plan Problem List/Assessment/Plan Left 2nd toe osteomyelitis status post amputation and incision and drainage Continue IV ceftriaxone and clindamycin Podiatry is consulted- patient is scheduled for incision and drainage with amputation of the 2nd toe, cultures Left lower extremity CT shows destructive osteomyelitis of the 2nd toe with soft tissue gas Preliminary bone culture growing coagulase-negative Staphylococcus, final culture with susceptibilities testing pending phimosis Urology consulted-scheduled for procedure 07/09 Patient had circumcision scheduled for 07/09 Community-acquired pneumonia, Gram-positive and negative IV ceftriaxone starting 07/05, IV azithromycin starting 07/07 Nebulized treatments Chest x-ray showed Bilateral interstitial opacities noted. Portal vein thrombosis Probable liver cirrhosis-undergoes paracentesis every month Last paracentesis 06/25-17 L drained by IR Continue eplerenone 50 mg and Lasix 40 mg home medication Hypertension Dyslipidemia Monitor History of sepsis and multiple thigh abscesses status post debridement last year Monitor Vitamin-D deficiency Supplemented public services assistant consulted for home health for physical therapy and wound care Plan discussed with patient in which all questions have been answered Goals of care discussed with patient for more than 30 minutes, full code status Case discussed with Dr. Aparicio Plan discussed with: Patient My Orders My Orders Orders - ORTIZ CARRERO RESIDENT Procedure Category Date Status Time Pt Request For Service PT 07/06/24 Logged 16:54 * Book Packer CONS 07/06/24 Transmitted Consult 16:54 Ergocalciferol PHA 07/07/24 In Process (Vitamin D 50,000 10:30 Insert Midline ORDERS 07/07/24 Transmitted 11:54 Albuterol Medneb PHA 07/07/24 Logged (Ventolin Medneb) 14:00 Ipratropium Medneb PHA 07/07/24 Logged (Atrovent Medneb) 14:00 Azithromycin 500mg/ PHA 07/08/24 Logged 250ml (Zithromax 50 10:00 Azithromycin 500mg/ PHA 07/07/24 Logged 250ml (Zithromax 50 12:00 Date of Service: Jul 07, 2024 Billing Provider: SANTA APARICIO MD Common Visit Codes: [id number] INP/OBS CARE(HIGH) ORTIZ CARRERO RESIDENT Jul 07, 2024 13:31 SANTA APARICIO MD Jul 07, 2024 22:40
[2024-07-07] MEDS: ALBUTEROL SULF 2.5 MG/0.5ML(0.5%) NEB SOLN ONE (13:59)
[2024-07-07] MEDS: AZITHROMYCIN 500MG/ 250ML 250 ML IV SCH (17:19)
[2024-07-07] MEDS: ALBUTEROL SULF 2.5 MG/0.5ML(0.5%) NEB SOLN NEB SCH (19:13)
[2024-07-07] MEDS: IPRATROPIUM BROM 0.5 MG/2.5ML INH SOL NEB SCH (19:13)
[2024-07-08] VITALS (17 sets, daily range): BP systolic 105–130; BP diastolic 65–79; PULSE 83–120; RESP 16–21; TEMP 97.7–99.7; O2SAT 96–100
[2024-07-08 09:09] LABS: Basophils # (auto) 0.1 10 ^3/uL (0-0.2); Eosinophils # (auto) 0.3 10 ^3/uL (0-0.8); Eosinophils % (auto) 3.3 % (0.0-7.0); Hematocrit 38.3 % (41.0-53.0); Hemoglobin 12.5 g/dL (13.5-17.5); Lymphocytes # (auto) 0.5 10 ^3/uL (0.4-5.4); Lymphocytes % (auto) 6.6 % (10.0-50.0); Mean Corpuscular Hgb Conc. 32.7 g/dL (32.0-36.0); Mean Corpuscular Volume 91.6 fL (80.0-100.0); Monocytes # (auto) 0.7 10 ^3/uL (0-1.3); Monocytes % (auto) 9.1 % (0.0-12.0); Neutrophils # (auto) 6.4 10 ^3/uL (1.6-8.6); Nucleated Red Blood Cells % 0.1 %; Platelet Count (auto) 175 10^3/uL (140-450); Red Blood Cells 4.18 10^6/uL (4.5-5.90); Red Cell Distribution Width 15.4 % (11.8-14.3)
[2024-07-08 09:17] LABS: Anion Gap 10 (5-15); Carbon Dioxide 22 mmol/L (20-31); Chloride 103 mmol/L (98-107); Potassium 3.8 mmol/L (3.5-5.1)
[2024-07-08 09:18] LABS: Calcium 8.9 mg/dL (8.7-10.4)
[2024-07-08 09:23] LABS: BUN/Creatinine Ratio 13.7 (10.0-20.0); Blood Urea Nitrogen 17 mg/dL (9-23); Sodium 135 mmol/L (136-145)
[2024-07-08 09:24] LABS: Glucose 185 mg/dL (74-106)
[2024-07-08 10:07] LABS: Urine Bacteria None Seen /hpf (None Seen)
[2024-07-08 10:25] LABS: Rapid Influenza A Negative (Negative); Rapid Influenza B Negative (Negative)
[2024-07-08 10:26] LABS: COVID19 ANTIGEN SOFIA FIA NEGATIVE (NEGATIVE)
[2024-07-08 10:32] LABS: Urine Blood TRACE /uL (Negative); Urine Clarity Clear (Clear); Urine Color Light-Yellow (Yellow); Urine Protein, UAD Negative (Negative); Urine Specific Gravity 1.008 (1.001-1.035); Urine Squamous Epithelial Cell None Seen /hpf (<5); Urine Urobilinogen Normal (Negative)
[2024-07-08 10:38] LABS: Urine WBC < 1 /HPF (0-3)
--- NOTE | 2024-07-08 14:31 | DVHPNRES ---
Progress Note Date Seen: Jul 08, 2024 Resident Creating Document: ORTIZ CARRERO RESIDENT Has the PT tested + for MRSA If YES, has PT been informed?: No Medical Necessity Reason Pt with a Central, PICC or Fol: No Subjective Review of Systems Mr. Ch is a 54-year-old male patient with a history of phimosis, portal vein thrombosis, probable liver cirrhosis-undergoes paracentesis every month, hypertension, dyslipidemia, history of sepsis and multiple thigh abscesses status post debridement last year, presented to the ER with a chief complaint of left 2nd toe draining ulcer for the past 3 weeks. He reports that he noticed erythema on the left 2nd toe 3 weeks back, followed up with his PCP and was scheduled with an appointment with torch straightener and heater next week but his left toe became worse and it started to drain. Therefore patient decided to come into the ER. He denies fever/chills/abdominal pain/nausea or vomiting. No systemic signs at this point. On arrival, patient was hemodynamically stable, alk-phos was 268. Lower extremity CT completed showed destructive osteomyelitis of the 2nd left toe with soft tissue gas. Senior Administrative Assistant was consulted and patient was kept NPO, he is undergoing debridement, incision and drainage 07/06. He reports phimosis and was scheduled for circumcision 07/09. Consulted Dr. Aragon Past medical/surgical history: See above Home medications: Eplerenone 50 mg, Lasix 40 mg daily Social history: Works at [employer], lives with family, denies smoking drinking or drug use PCP: Neelam 07/06 - Patient seen and examined at the bedside. NPO, going to OR for incision and drainage and culture. Continue ceftriaxone and clindamycin. Urology consulted for phimosis 07/07 - patient seen and examined at the bedside. Status post 2nd toe amputation and I and D. Patient will need 2 weeks antibiotics. Started IV azithromycin for community-acquired pneumonia. 07/08-overnight patient developed low-grade fever. COVID and flu testing negative, UA negative, repeat blood cultures pending. One set of blood culture on arrival showing Streptococcus mitis sensitive to ceftriaxone. Repeat blood culture is still pending. Continue ceftriaxone azithromycin and clindamycin. Objective vital signs Vital Sign Date Time Temp Pulse Resp B/P (MAP) Pulse Ox O2 Delivery O2 Flow Rate FiO2 07/08/24 14:11 85 20 100 07/08/24 14:04 Room Air* 0 21 07/08/24 12:50 97.8 105/72 (83) 97.8 Total Intake and Output 07/07/24 07/07/24 07/08/24 15:00 23:00 07:00 Intake Total 100 ml 1450 ml 350 ml Balance 100 ml 1450 ml 350 ml medications Current Medications Medications Dose Ordered Sig/Nichol Route Start Time Stop Time Status Last Admin Dose Admin Ceftriaxone Sodium 50 ml @ 100 mls/hr DAILY@09 IV 07/06/24 09:00 07/08/24 09:12 100 MLS/HR Clindamycin Phosphate 50 ml @ 50 mls/hr Q8HR IV 07/05/24 22:00 07/08/24 05:26 50 MLS/HR Acetaminophen/ Hydrocodone Bitart 1 tab Q4HP PRN PO 07/05/24 15:15 07/07/24 02:08 1 TAB Ondansetron HCl 4 mg Q4HP PRN IV 07/05/24 15:15 Enoxaparin Sodium 40 mg DAILY SC 07/06/24 10:00 07/08/24 09:18 40 MG Acetaminophen 650 mg Q6HP PRN PO 07/05/24 15:15 Morphine Sulfate 2 mg Q4HPRN PRN IV 07/05/24 15:15 Furosemide 20 mg QAM PO 07/06/24 07:00 07/08/24 06:08 20 MG Ergocalciferol 50,000 unit Q7D PO 07/07/24 10:30 07/07/24 11:53 50,000 UNIT Albuterol 2.5 mg Q4HR NEB 07/07/24 14:00 07/08/24 14:03 2.5 MG Ipratropium [place] 0.5 mg Q4HWA NEB 07/07/24 14:00 07/08/24 14:03 0.5 MG Azithromycin 250 ml @ 125 mls/hr DAILY IV 07/07/24 17:00 07/08/24 09:19 125 MLS/HR Examination Patient lying in bed, in no acute distress General: Obese, afebrile, palor, mucosae are moist Cardiovascular: Regular S1 and S2. No murmurs, gallops or rubs. No JVD elevation. Bilateral 2+ pitting edema Respiratory: Normal B/L air entry on room air. Clear lung sounds on auscultation Abdomen: Soft, nontender, nondistended, normoactive bowel sounds, no rebound tenderness, no organomegaly, no masses Genitourinary: Deferred MSK/skin: Mobilizes 4 limbs. Skin is dry and cold. Bilateral ankle are dark and have 2+ pitting edema. Left second toe amputation, dressing dry clean and intact Neurological: No motor, no sensitive deficits, normal speech. Pupils are isocoric and reactive. Psych/Mental Status: A/Ox3 laboratory and microbiology Laboratory Tests 07/08/24 08:44 Test 07/08/24 08:44 Range/Units Serum Glucose 185 H 74-106 mg/dL Microbiology Date/Time Source Procedure Growth Status 07/05/24 10:42 Toe Left (Second) Gram Stain - Final Resulted 07/05/24 10:42 Toe Left (Second) Wound Culture - Preliminary Resulted 07/05/24 10:12 Blood Blood Culture - Preliminary NO GROWTH AFTER 72 HOURS OF INCUBATION. Resulted Labs and/or images reviewed: Labs reviewed by me, Image(s) reviewed by me Problem List/Assessment/Plan Problem List/Assessment/Plan 07/08-overnight patient developed low-grade fever. COVID and flu testing negative, UA negative, repeat blood cultures pending. One set of blood culture on arrival showing Streptococcus mitis sensitive to ceftriaxone. Repeat blood culture is still pending. Continue ceftriaxone azithromycin and clindamycin. Left 2nd toe osteomyelitis status post amputation and incision and drainage Continue IV ceftriaxone and clindamycin Podiatry is consulted- patient is scheduled for incision and drainage with amputation of the 2nd toe, cultures Left lower extremity CT shows destructive osteomyelitis of the 2nd toe with soft tissue gas Preliminary bone culture growing coagulase-negative Staphylococcus, final culture with susceptibilities testing pending phimosis Urology consulted-scheduled for procedure 07/09 Patient had circumcision scheduled for 07/09 Community-acquired pneumonia, Gram-positive and negative IV ceftriaxone starting 07/05, IV azithromycin starting 07/07 Nebulized treatments Chest x-ray showed Bilateral interstitial opacities noted. Portal vein thrombosis Probable liver cirrhosis-undergoes paracentesis every month Last paracentesis 06/25-17 L drained by IR Continue eplerenone 50 mg and Lasix 40 mg home medication Hypertension Dyslipidemia Monitor History of sepsis and multiple thigh abscesses status post debridement last year Monitor Vitamin-D deficiency Supplemented branch services manager consulted for home health for physical therapy and wound care Plan discussed with patient in which all questions have been answered Goals of care discussed with patient for more than 30 minutes, full code status Case discussed with Dr. Aparicio Plan discussed with: Patient My Orders My Orders Orders - ORTIZ CARRERO Procedure Category Date Status Time * Corporate Statistical Financial Analyst CONS 07/07/24 Transmitted Consult 15:04 Blood Culture REENA 07/08/24 In Process 07:01 Dietary NOTICE 07/08/24 Transmitted Recommendations 13:09 Dietary Evaluation Review Comments: 1) CCHO 75gm + cardiac diet 2) Tarik 1 pk BID 3) Refer CDE on DC 4) Continue current plan of care Expected Outcomes/Goals: Pt will meet 75% estimated needs Fu 3-5 days Date of Service: Jul 08, 2024 Billing Provider: SANTA APARICIO MD Common Visit Codes: [id number] INP/OBS CARE(HIGH) ORTIZ CARRERO RESIDENT Jul 08, 2024 14:31 SANTA APARICIO MD Jul 08, 2024 21:28
[2024-07-08] MEDS ORDERED: diphenhdrAMINE-ZINC ACETATE 1 APPLIC APPL TOP PRN (16:45)
[2024-07-09] VITALS (7 sets, daily range): BP systolic 123–128; BP diastolic 55–78; PULSE 76–106; RESP 16–18; TEMP 98–98.6; O2SAT 95–98
[2024-07-09 06:03] LABS: Basophils # (auto) 0.1 10 ^3/uL (0-0.2); Basophils % (auto) 0.8 % (0.0-2.0); Eosinophils # (auto) 0.4 10 ^3/uL (0-0.8); Eosinophils % (auto) 5.3 % (0.0-7.0); Hematocrit 37.5 % (41.0-53.0); Hemoglobin 12.6 g/dL (13.5-17.5); Lymphocytes # (auto) 0.6 10 ^3/uL (0.4-5.4); Lymphocytes % (auto) 7.2 % (10.0-50.0); Mean Corpuscular Hemoglobin 30.6 pg (28.0-32.0); Mean Corpuscular Hgb Conc. 33.7 g/dL (32.0-36.0); Monocytes # (auto) 0.8 10 ^3/uL (0-1.3); Monocytes % (auto) 10.7 % (0.0-12.0); Nucleated Red Blood Cells % 0.1 %; Platelet Count (auto) 179 10^3/uL (140-450); Red Blood Cells 4.12 10^6/uL (4.5-5.90); Red Cell Distribution Width 15.7 % (11.8-14.3); White Blood Cell 7.9 10^3/uL (4.4-10.8)
[2024-07-09 06:14] LABS: Chloride 104 mmol/L (98-107); Potassium 4.4 mmol/L (3.5-5.1); Sodium 137 mmol/L (136-145)
[2024-07-09 06:15] LABS: Anion Gap 8 (5-15); Carbon Dioxide 25 mmol/L (20-31)
[2024-07-09 06:20] LABS: BUN/Creatinine Ratio 16.5 (10.0-20.0); Blood Urea Nitrogen 20 mg/dL (9-23)
[2024-07-09 06:36] LABS: Glucose 110 mg/dL (74-106)
[2024-07-09] MEDS ORDERED: LIDOCAINE W/ EPINEPHRINE 1% 20ML VIAL ONE (08:55)
[2024-07-09] MEDS ORDERED: BACITRACIN TOP OINT 1 UD PKG TOP ONE (08:55)
[2024-07-09] MEDS ORDERED: fentaNYL CITRATE 100 MCG/2 ML VL ONE (09:04)
[2024-07-09] MEDS ORDERED: ONDANSETRON HCL 4 MG/2 ML VIAL ONE (09:05)
[2024-07-09] MEDS ORDERED: SODIUM CHLORIDE LOCK 10 ML ONE (09:05)
[2024-07-09] MEDS ORDERED: LIDOCAINE 1% INJ PF 5ML AMP ONE (09:05)
[2024-07-09] MEDS ORDERED: MIDAZOLAM HCL 2MG/2ML 2ml VIAL (1mg/ml) ONE (09:05)
[2024-07-09] MEDS ORDERED: MEPERIDINE HCL (50 MG/ML) 1 ML VIAL ONE (09:05)
[2024-07-09] MEDS ORDERED: PROPOFOL 10 MG/ML 20 ML IV ONE (09:05)
[2024-07-09] MEDS: HYDROmorphone HCL 2 MG/ML VL/or syr IV PRN (12:19)
--- NOTE | 2024-07-09 12:36 | DVHDSRES ---
Discharge Summary Date of Admission Resident Creating Document: ORTIZ CARRERO RESIDENT Jul 05, 2024 at 15:15 Date of Discharge: Jul 09, 2024 Labs/Diagnostic Data: Laboratory Results Test 07/09/24 05:47 07/08/24 09:45 07/08/24 09:00 07/07/24 05:03 White Blood Count 7.9 10^3/uL (4.4-10.8) Red Blood Count 4.12 10^6/uL (4.5-5.90) Hemoglobin 12.6 g/dL (13.5-17.5) Hematocrit 37.5 % (41.0-53.0) Mean Corpuscular Volume 91.0 fL (80.0-100.0) Mean Corpuscular Hemoglobin 30.6 pg (28.0-32.0) Mean Corpuscular Hemoglobin Concent 33.7 g/dL (32.0-36.0) Red Cell Distribution Width 15.7 % (11.8-14.3) Platelet Count 179 10^3/uL (140-450) Mean Platelet Volume 7.8 fL (6.9-10.8) Neutrophils (%) (Auto) 76.0 % (37.0-80.0) Lymphocytes (%) (Auto) 7.2 % (10.0-50.0) Monocytes (%) (Auto) 10.7 % (0.0-12.0) Eosinophils (%) (Auto) 5.3 % (0.0-7.0) Basophils (%) (Auto) 0.8 % (0.0-2.0) Neutrophils # (Auto) 6.0 10 ^3/uL (1.6-8.6) Lymphocytes # (Auto) 0.6 10 ^3/uL (0.4-5.4) Monocytes # (Auto) 0.8 10 ^3/uL (0-1.3) Eosinophils # (Auto) 0.4 10 ^3/uL (0-0.8) Basophils # (Auto) 0.1 10 ^3/uL (0-0.2) Nucleated Red Blood Cells 0.1 % Sodium Level 137 mmol/L (136-145) Potassium Level 4.4 mmol/L (3.5-5.1) Chloride Level 104 mmol/L (98-107) Carbon Dioxide Level 25 mmol/L (20-31) Anion Gap 8 (5-15) Blood Urea Nitrogen 20 mg/dL (9-23) Creatinine 1.21 mg/dL (0.700-1.30) Glomerular Filtration Rate Calc 70 mL/min (>90) BUN/Creatinine Ratio 16.5 (10.0-20.0) Serum Glucose 110 mg/dL (74-106) Calcium Level 9.0 mg/dL (8.7-10.4) Urine Color Light-yellow (Yellow) Urine Clarity Clear (Clear) Urine pH 5.0 (5.0-9.0) Urine Specific Broadbent 1.008 (1.001-1.035) Urine Protein Negative (Negative) Urine Ketones Negative (Negative) Urine Blood Trace /uL (Negative) Urine Nitrite Negative (Negative) Urine Bilirubin Negative (Negative) Urine Urobilinogen Normal mg/dL (Negative) Urine Leukocyte Esterase Negative /uL (Negative) Urine RBC 1 /hpf (0 - 3) Urine Microscopic WBC < 1 /HPF (0-3) Urine Squamous Epithelial Cells None seen /hpf (<5) Urine Bacteria None seen /hpf (None Seen) Urine Glucose Normal mg/dL (Normal) Influenza Type A Antigen Negative (Negative) Influenza Type B Antigen Negative (Negative) SARS-CoV-2 Antigen (Rapid) Negative (NEGATIVE) Magnesium Level 2.1 mg/dL (1.6-2.6) Total Bilirubin 0.9 mg/dL (0.2-1.0) Aspartate Amino Transferase (AST) 24 U/L (13-40) Alanine Aminotransferase (ALT) 28 U/L (7-40) Alkaline Phosphatase 253 U/L (46-116) Total Protein 6.7 g/dL (5.7-8.2) Albumin 3.3 g/dL (3.2-4.8) Test 07/07/24 02:05 07/06/24 04:48 07/05/24 10:12 Urine Opiates Screen Neg (NEGATIVE) Urine Fentanyl Screen Pos (NEGATIVE) Urine Barbiturates Screen Neg (NEGATIVE) Urine Phencyclidine Screen Neg (NEGATIVE) Urine Amphetamines Screen Neg (NEGATIVE) Urine Benzodiazepines Screen Neg (NEGATIVE) Urine Cocaine Screen Neg (NEGATIVE) Urine Cannabinoids Screen Neg (NEGATIVE) Prothrombin Time 10.6 sec (9.3-11.8) Prothrombin Time INR 1.00 (0.9-1.15) Activated Partial Thromboplast Time 29.0 SEC (24.5-34.5) Gamma Glutamyl Transpeptidase 187 U/L (<73) Vitamin B12 Level 478 pg/mL (211-911) Vitamin D 25-Hydroxy 19.9 ng/mL (30.0-100) Thyroid Stimulating Hormone (TSH) 2.38 uIU/mL (0.55-4.78) Hemoglobin A1c 4.9 % A1C (<5.7) Lactic Acid Level 1.2 mmol/L (0.4-2.0) Other Laboratory Tests 07/09/24 05:47 Brief Hx & Hospital Course: Mr. Ch is a 54-year-old male patient with a history of phimosis, portal vein thrombosis, probable liver cirrhosis-undergoes paracentesis every month, hypertension, dyslipidemia, history of sepsis and multiple thigh abscesses status post debridement last year, presented to the ER with a chief complaint of left 2nd toe draining ulcer for the past 3 weeks. He reports that he noticed erythema on the left 2nd toe 3 weeks back, followed up with his PCP and was scheduled with an appointment with sewing machine mechanic next week but his left toe became worse and it started to drain. Therefore patient decided to come into the ER. He denies fever/chills/abdominal pain/nausea or vomiting. No systemic signs at this point. On arrival, patient was hemodynamically stable, alk-phos was 268. Lower extremity CT completed showed destructive osteomyelitis of the 2nd left toe with soft tissue gas. Steel Wool Machine Operator was consulted and patient was kept NPO, he is undergoing debridement, incision and drainage 07/06. He reports phimosis and was scheduled for circumcision 07/09. Consulted Dr. Aragon Past medical/surgical history: See above Home medications: Eplerenone 50 mg, Lasix 40 mg daily Social history: Works at [employer], lives with family, denies smoking drinking or drug use PCP: Neelam During the hospitalization, lower extremity CT scan showed destructive osteomyelitis of the 2nd left toe with soft tissue gas. Podiatry was consulted, patient underwent debridement, amputation of the left 2nd toe incision and drainage on 07/06. Patient was started on IV ceftriaxone and clindamycin to cover empirically MRSA. One set of blood culture on arrival showing Streptococcus mitis sensitive to ceftriaxone. Overnight patient developed low- grade fever, COVID flu negative, UA negative, repeat blood cultures were negative. Wound culture showed MRSA sensitive to linezolid, patient was started on p.o. Zyvox 600 mg b.i.d. for the next 2 weeks. Patient also developed community-acquired pneumonia, x-ray showed bilateral infiltrate, therefore patient was started on azithromycin on top of ceftriaxone and clindamycin. Patient had a scheduled for completion 07/10 which he underwent inpatient as he was admitted to the facility. 07/09-patient is hemodynamically stable and therefore has been discharged home with home health for physical therapy and wound care with the advice to follow up with Podiatry as outpatient, primary care physician as outpatient within 7 days. He is discharged on p.o. Zyvox 600 mg b.i.d. for the next 2 weeks. 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 Left 2nd toe osteomyelitis 2. Left 2nd toe cellulitis 3. Left 2nd toe abscess 4. Left 2nd toe diabetic ulcer Postop Diagnosis: Same as preop Surgeon: Ephraim Manuel MD Anesthesiologist: See anesthesia Anesthesia: General Consent: The patient was informed of the risks and benefits of the procedure. These include but are not limited to complications of anesthesia, postoperative infection, incomplete relief of symptoms, recurrence of symptoms, damage to blood vessels, nerves and tendons, deep venous thrombosis, pulmonary embolism and possible need for repeat surgery in the future. Complications: None Estimated Blood Loss: Minimal Fluids: See anesthesia Findings: Consistent with diagnosis Indications for Surgery: Worsening left 2nd toe wound Name of Procedure Performed 1. Left foot I&D to bone (83520) 2. Left foot second toe amputation (36830) 3. Left second toe bone biopsy () Procedure Details Procedure Details: PRE-PROCEDURE INFORMATION: In the pre-op holding area, the extremity to be operated on was clearly marked and the patient verified correct laterality of the marking. The patient was transferred to the OR table and placed in a supine position. A timeout was performed in which identification of the correct patient, procedure, location, and materials was done. The left foot and leg were prepped and draped in normal sterile fashion. DESCRIPTION OF PROCEDURE: Attention was directed to the left 2nd toe where area of fluctuance was noted. An incision was made over this area and was deepened through blunt dissection. The incision was deepened to the level of abscess and bone. Care was taken to the dissection to avoid any neurovascular and tendinous structures. The incision was deepened to the bone, and the abscess appeared to be purulent fluid consistent with pus. The cortices of the bone was then removed with Alejandro an all necrotic tissue. After the abscess was drained, the area was irrigated with 3 L normal saline using cysto tubing. It was decided at this point that amputation was best due to the significant breakdown of the bone. The 2nd toe was then disarticulated at the 2nd MPJ. Deep cultures were then obtained from the wound. The area was then inspected and any areas of tracking, especially along the tendons were also drained. The wound was then closed with 2-0 nylon. All surgical wounds were irrigated copiously with saline and closed in layers with the aforementioned suture material. A dry sterile dressing was placed on the surgical extremity. The patient was placed in a postop shoe POSTOPERATIVE INFORMATION: The patient tolerated the above noted procedure and anesthesia well and was transferred to the PACU with vital signs stable, and vascular status intact with capillary refill intact to all digits. Recommend patient is discharged home with 2 weeks of oral Augmentin 875. Patient can weightbear as tolerated in a postop shoe. Patient will follow up with me in a week. 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 and incision and drainage phimosis status post circumcision 07/09 Community-acquired pneumonia, Gram-positive and negative History of Portal vein thrombosis Probable liver cirrhosis-undergoes paracentesis every month Hypertension Dyslipidemia History of sepsis and multiple thigh abscesses status post debridement last year Vitamin-D deficiency Discharge Disposition: Home with Health Services Discharge Instruct/Medications Diet: Consistent carbohydrate, Cardiac 2g Na,low cholest Activity: Light activity Follow Up/Referral: Follow up with sewing machine mechanic as outpatient Follow up with primary care physician as outpatient Follow up with discharge clinic appointment within 7 days Medications: Per EMR Discharge Statement: "Patient was advised to return to the ER or call 911 if any headaches, dizziness, shortness of breath, chest pain, abdominal pain, bleeding, fevers, or worsening of medical condition. Patient was counseled about treatment plan, medications, possible side effects, patientverbalized understanding. All questions were answered to the best of my ability. This discharge took greater then 30 minutes in planning, reviewing documentation, counseling the patient, and discussing with other team members." ASSESSMENT ASSESSMENT Assessment Same as preop Date of Service: Jul 09, 2024 Billing Provider: SANTA APARICIO MD Common Visit Codes: 92062-TZF/OBS DISCH DAY >30min ORTIZ CARRERO RESIDENT Jul 09, 2024 12:36 SANTA APARICIO MD Jul 10, 2024 10:02
--- NOTE | 2024-07-09 12:38 | POSTOP ---
Post-Operative Note Post-Operative Note Preop Diagnosis Phimosis Postop Diagnosis: Same as preop Operation performed Circumcision Specimen Foreskin Anesthesia: General Anesthesiologist: Morgan Surgeon Callie Paz Additional Remarks Intraoperative needle stick reported as incident involving the the surgeon Date 07/09/24 Time 12:37 CALLIE PAZ MD Jul 09, 2024 12:38
[2024-07-09] MEDS ORDERED: CLIN1CAP70 PO (13:26)
[2024-07-09] MEDS ORDERED: DOXY150C6 PO (13:29)
[2024-07-09] MEDS ORDERED: CHOL500021 OR (13:30)
[2024-07-09 14:08] LABS: Hepatitis B Surface Antibody Negative (Negative)
[2024-07-09 14:12] LABS: Hepatitis B Surface Antigen Negative (Negative)
[2024-07-09] MEDS ORDERED: LINE1TAB6 PO (15:12)
== END 2024-07-09 18:00 | disposition home health service (06) | DRG 616 ==
LOC: ER 09:29 → OVERFLOW 15:15 → WEST WING 17:50
PROVIDERS: ADMIT Internal Medicine; ATTEND Internal Medicine
PROC: 0Q9R0ZZ Drainage of Left Toe Phalanx, Open Approach (ICD-10-PCS; 2024-07-06)
PROC: 0Y6S0Z0 Detachment at Left 2nd Toe, Complete, Open Approach (ICD-10-PCS; principal; 2024-07-06 13:49)
PROC: 0VTTXZZ Resection of Prepuce, External Approach (ICD-10-PCS; 2024-07-09)
DX: E11.69 Type 2 diabetes mellitus with other specified complication (principal); J15.69 Pneumonia due to other Gram-negative bacteria; J15.9 Unspecified bacterial pneumonia; J44.0 Chronic obstructive pulmonary disease with (acute) lower respiratory infection; L03.115 Cellulitis of right lower limb; L03.116 Cellulitis of left lower limb; M86.172 Other acute osteomyelitis, left ankle and foot; Z68.41 Body mass index [BMI] 40.0-44.9, adult; E11.621 Type 2 diabetes mellitus with foot ulcer; E66.01 Morbid (severe) obesity due to excess calories; N47.1 Phimosis; E78.5 Hyperlipidemia, unspecified; I87.8 Other specified disorders of veins; E11.22 Type 2 diabetes mellitus with diabetic chronic kidney disease; E11.40 Type 2 diabetes mellitus with diabetic neuropathy, unspecified; L97.522 Non-pressure chronic ulcer of other part of left foot with fat layer exposed; K74.60 Unspecified cirrhosis of liver; I81 Portal vein thrombosis; E55.9 Vitamin D deficiency, unspecified; I12.9 Hypertensive chronic kidney disease with stage 1 through stage 4 chronic kidney disease, or unspecified chronic kidney disease; K21.9 Gastro-esophageal reflux disease without esophagitis; N18.9 Chronic kidney disease, unspecified; Z88.0 Allergy status to penicillin; Z88.1 Allergy status to other antibiotic agents; Z79.84 Long term (current) use of oral hypoglycemic drugs; Z79.2 Long term (current) use of antibiotics; Z79.899 Other long term (current) drug therapy; Z90.49 Acquired absence of other specified parts of digestive tract; Z83.3 Family history of diabetes mellitus; Z82.3 Family history of stroke; Z86.718 Personal history of other venous thrombosis and embolism; Z82.49 Family history of ischemic heart disease and other diseases of the circulatory system; Z80.42 Family history of malignant neoplasm of prostate
CPT/HCPCS: 36415; 71045; 73620; 73700; 80048; 80053; 80307; 81001; 82306; 82607; 82977; 83036; 83605; 83735; 84443; 85025; 85610; 85730; 86703; 86706; 86803; 87040; 87077; 87186; 87205; 87340; 87426; 87804; 93925; 93971; 94640; 97110; 97116; 97163; 97530; 99291; G0378; J0131; J2250; J2405; J2704; J3490

== ENCOUNTER → 2024-07-15 | Outpatient (CLI) | payer BC ==
[~2024-07-15] MED LIST changes: +CHOL500021 OR; -CLIN1CAP70 PO; +EPLE50TA PO; -FURO1TAB33 PO; +LINE1TAB6 PO; -LORA10CA12 PO; -METF-370 PO; -PANT40TA2 PO; -POTA-211 PO; -SIMV10TA20 PO; -SPIR50TA2 PO; -SUCR1SUS26 PO
--- NOTE | 2024-07-15 11:55 | DVH ---
PROCEDURE: ULTRASOUND GUIDED PARACENTESIS HISTORY: 54 Male requiring paracentesis. TECHNIQUE: The risks and benefits of the procedure including but not limited to bleeding, infection and injury t o abdominal organs were explained to the patient and written informed consent was obtained. Optimal site for puncture was determined using ultrasound and the area sterilized and draped. Using a 5 [employer] catheter, paracentesis was performed in the right abdomen. Approximately 2100 liter s of clear yellow fluid was removed. The patient tolerated the procedure well. There were no immedi ate complications. IMPRESSION: 1. Ultrasound-guided paracentesis with no immediate complications.
[2024-07-15 13:04] LABS: Body Fluid Polymorphonuclear 8 % (0-25); Body Fluid Red Blood Cells 220 CUMM (0-2000); Body Fluid White Blood Cells 140 CUMM (0-200)
[2024-07-16 13:08] LABS: Protein, Body Fluid 2.8 g/dL (.)
== END | disposition home or self-care (01) ==
LOC: XYW 09:43
DX: R18.8 Other ascites (principal)
CPT/HCPCS: 49083; 76705; 83986; 87205; 89051; C1729; 76942

== ENCOUNTER → 2024-08-03 | Outpatient (CLI) | payer BC ==
[2024-08-03 11:05] LABS: Basophils # (auto) 0.1 10 ^3/uL (0-0.2); Basophils % (auto) 1.3 % (0.0-2.0); Eosinophils # (auto) 0.2 10 ^3/uL (0-0.8); Eosinophils % (auto) 3.4 % (0.0-7.0); Hematocrit 40.3 % (41.0-53.0); Hemoglobin 13.5 g/dL (13.5-17.5); Lymphocytes # (auto) 0.7 10 ^3/uL (0.4-5.4); Lymphocytes % (auto) 11.6 % (10.0-50.0); Mean Corpuscular Hemoglobin 30.3 pg (28.0-32.0); Mean Corpuscular Hgb Conc. 33.6 g/dL (32.0-36.0); Mean Corpuscular Volume 90.4 fL (80.0-100.0); Monocytes # (auto) 0.7 10 ^3/uL (0-1.3); Monocytes % (auto) 11.2 % (0.0-12.0); Neutrophils # (auto) 4.2 10 ^3/uL (1.6-8.6); Neutrophils % (auto) 72.5 % (37.0-80.0); Nucleated Red Blood Cells % 0.1 %; Platelet Count (auto) 96 10^3/uL (140-450); Red Blood Cells 4.46 10^6/uL (4.5-5.90); White Blood Cell 5.8 10^3/uL (4.4-10.8)
[2024-08-03 11:19] LABS: INR 1.03 (0.9-1.15); Prothrombin Time 10.9 sec (9.3-11.8)
[2024-08-03 11:28] LABS: Alanine Aminotransferase 32 U/L (7-40); Albumin 3.9 g/dL (3.2-4.8); Alkaline Phosphatase 206 U/L (46-116); Anion Gap 7 (5-15); Aspartate Aminotransferase 30 U/L (13-40); BUN/Creatinine Ratio 19.7 (10.0-20.0); Bilirubin, Total 1.2 mg/dL (0.2-1.0); Blood Urea Nitrogen 27 mg/dL (9-23); Calcium 9.5 mg/dL (8.7-10.4); Carbon Dioxide 28 mmol/L (20-31); Chloride 102 mmol/L (98-107); Glucose 114 mg/dL (74-106); Potassium 4.1 mmol/L (3.5-5.1); Sodium 137 mmol/L (136-145); Total Protein 7.6 g/dL (5.7-8.2)
== END | disposition home or self-care (01) ==
LOC: LAB 10:35
PROVIDERS: ATTEND Internal Medicine
DX: R18.8 Other ascites (principal)
CPT/HCPCS: 36415; 80053; 85025; 85610; 85730

== ENCOUNTER → 2024-08-05 | Outpatient (CLI) | payer BC ==
--- NOTE | 2024-08-05 12:14 | DVH ---
US PARACENTESIS, HISTORY: ASCITES PROCEDURE: Informed consent was obtained. The patient was placed in supine position. A limited locali zation ultrasound of the abdomen was obtained, and the skin site over the largest pocket of fluid was marked and entry site was prepped with chlorhexidine which was allowed to dry and draped in the usua l sterile fashion. Time out was performed. Following administration of 1% lidocaine local anesthetic, a 5 [place] centesis needle catheter was percutaneously inserted into the peritoneal collection until fluid was aspirated. The catheter was advanced into the fluid collection and the needle removed. Abo ut 2500 cc of fluid was aspirated . The catheter was then removed and a sterile dressing applied. No immediate complication was identified. FINDINGS: Limited ultrasound imaging demonstrates mild ascites. Aspirated fluid was clear and serous. IMPRESSION: US-guided paracentesis with 2.5L removed.
== END | disposition home or self-care (01) ==
LOC: US 10:46
PROVIDERS: ATTEND Student in an Organized Health Care Education/Training Program
DX: R18.8 Other ascites (principal); I50.9 Heart failure, unspecified; J44.9 Chronic obstructive pulmonary disease, unspecified; Z79.899 Other long term (current) drug therapy; Z87.891 Personal history of nicotine dependence; Z80.42 Family history of malignant neoplasm of prostate; Z83.3 Family history of diabetes mellitus; Z83.42 Family history of familial hypercholesterolemia; Z82.49 Family history of ischemic heart disease and other diseases of the circulatory system
CPT/HCPCS: 49083; C1729; 76942

== ENCOUNTER → 2024-08-26 | Outpatient (CLI) | payer BC ==
--- NOTE | 2024-08-26 10:53 | DVH ---
US PARACENTESIS, HISTORY: OTHER ASCITES PROCEDURE: Informed consent was obtained. The patient was placed in supine position. A limited locali zation ultrasound of the abdomen was obtained, and the skin site over the largest pocket of fluid was marked and entry site was prepped with chlorhexidine which was allowed to dry and draped in the usua l sterile fashion. Time out was performed. Following administration of 1% lidocaine local anesthetic, a 5 [place] centesis needle catheter was percutaneously inserted into the peritoneal collection until fluid was aspirated. The catheter was advanced into the fluid collection and the needle removed. Abo ut 3050 cc of fluid was aspirated . The catheter was then removed and a sterile dressing applied. No immediate complication was identified. FINDINGS: Limited ultrasound imaging demonstrates mild ascites. Aspirated fluid was clear and serous. IMPRESSION: US-guided paracentesis with 3.1L removed.
[2024-08-26 13:13] LABS: Body Fluid Red Blood Cells 342 CUMM (0-2000); Body Fluid White Blood Cells 383 CUMM (0-200)
[2024-08-27 12:07] LABS: Protein, Body Fluid 3.4 g/dL (.)
== END | disposition home or self-care (01) ==
LOC: US 10:00
PROVIDERS: ATTEND Student in an Organized Health Care Education/Training Program
DX: R18.8 Other ascites (principal); I50.9 Heart failure, unspecified; J44.9 Chronic obstructive pulmonary disease, unspecified; F32.A Depression, unspecified; Z79.899 Other long term (current) drug therapy; Z87.891 Personal history of nicotine dependence; Z87.01 Personal history of pneumonia (recurrent); Z80.42 Family history of malignant neoplasm of prostate; Z82.49 Family history of ischemic heart disease and other diseases of the circulatory system; Z83.42 Family history of familial hypercholesterolemia; Z83.3 Family history of diabetes mellitus
CPT/HCPCS: 49083; 83986; 87205; 89051; C1729; 76705; 76942

== ENCOUNTER → 2024-09-15 | Outpatient (CLI) | payer BC ==
[2024-09-15 09:57] LABS: Basophils # (auto) 0 10 ^3/uL (0-0.2); Basophils % (auto) 0.7 % (0.0-2.0); Eosinophils # (auto) 0.7 10 ^3/uL (0-0.8); Eosinophils % (auto) 12.3 % (0.0-7.0); Hematocrit 42.9 % (41.0-53.0); Hemoglobin 14.4 g/dL (13.5-17.5); Lymphocytes # (auto) 0.9 10 ^3/uL (0.4-5.4); Lymphocytes % (auto) 14.4 % (10.0-50.0); Mean Corpuscular Hemoglobin 30.5 pg (28.0-32.0); Mean Corpuscular Hgb Conc. 33.5 g/dL (32.0-36.0); Mean Corpuscular Volume 90.9 fL (80.0-100.0); Monocytes # (auto) 0.5 10 ^3/uL (0-1.3); Neutrophils # (auto) 3.8 10 ^3/uL (1.6-8.6); Neutrophils % (auto) 64.6 % (37.0-80.0); Platelet Count (auto) 103 10^3/uL (140-450); Red Blood Cells 4.71 10^6/uL (4.5-5.90); Red Cell Distribution Width 17.1 % (11.8-14.3); White Blood Cell 5.9 10^3/uL (4.4-10.8)
[2024-09-15 10:15] LABS: Alanine Aminotransferase 29 U/L (7-40); Albumin 4.1 g/dL (3.2-4.8); Anion Gap 8 (5-15); Aspartate Aminotransferase 30 U/L (13-40); BUN/Creatinine Ratio 18.4 (10.0-20.0); Blood Urea Nitrogen 23 mg/dL (9-23); Calcium 9.3 mg/dL (8.7-10.4); Carbon Dioxide 26 mmol/L (20-31); Chloride 105 mmol/L (98-107); Glucose 94 mg/dL (74-106); INR 1.02 (0.9-1.15); Partial Thromboplastin Time 28.5 SEC (24.5-34.5); Potassium 4.4 mmol/L (3.5-5.1); Prothrombin Time 10.8 sec (9.3-11.8); Sodium 139 mmol/L (136-145); Total Protein 7.5 g/dL (5.7-8.2)
[2024-09-15 10:16] LABS: Alkaline Phosphatase 201 U/L (46-116); Bilirubin, Total 0.8 mg/dL (0.2-1.0)
== END | disposition home or self-care (01) ==
LOC: LAB 09:39
DX: R18.8 Other ascites (principal)
CPT/HCPCS: 36415; 80053; 85025; 85610; 85730

== ENCOUNTER → 2024-09-16 | Outpatient (CLI) | payer BC ==
--- NOTE | 2024-09-16 11:29 | DVH ---
US PARACENTESIS, HISTORY: ASCITES PROCEDURE: Informed consent was obtained. The patient was placed in supine position. A limited locali zation ultrasound of the abdomen was obtained, and the skin site over the largest pocket of fluid was marked and entry site was prepped with chlorhexidine which was allowed to dry and draped in the usua l sterile fashion. Time out was performed. Following administration of 1% lidocaine local anesthetic, a 5 Portuguese centesis needle catheter was percutaneously inserted into the peritoneal collection until fluid was aspirated. The catheter was advanced into the fluid collection and the needle removed. Abo ut 2000 cc of fluid was aspirated . The catheter was then removed and a sterile dressing applied. No immediate complication was identified. FINDINGS: Limited ultrasound imaging demonstrates mild ascites. Aspirated fluid was clear and serous. IMPRESSION: US-guided paracentesis with 2L removed.
[2024-09-16 13:30] LABS: Body Fluid Red Blood Cells 782 CUMM (0-2000); Body Fluid White Blood Cells 261 CUMM (0-200)
[2024-09-17 16:07] LABS: Protein, Body Fluid 3.2 g/dL (.)
== END | disposition home or self-care (01) ==
LOC: US 09:43
PROVIDERS: ATTEND Nurse Practitioner
DX: R18.8 Other ascites (principal); I50.9 Heart failure, unspecified; J44.9 Chronic obstructive pulmonary disease, unspecified; F32.A Depression, unspecified; Z80.42 Family history of malignant neoplasm of prostate; Z82.49 Family history of ischemic heart disease and other diseases of the circulatory system; Z83.3 Family history of diabetes mellitus; Z83.42 Family history of familial hypercholesterolemia
CPT/HCPCS: 49083; 83986; 87205; 89051; C1729; 76705; 76942

== ENCOUNTER 2024-10-20 12:15 | Outpatient (CLI) | payer BC ==
--- NOTE | 2024-10-20 13:44 | DVH ---
ULTRASOUND ABDOMEN limited, 4 QUADRANTS INDICATION: ASCITES Evaluate for ascites. TECHNIQUE: The four quadrants of the abdomen were scanned in manuel-scale to assess for the presence of ascites. N o solid organ assessment was performed. FINDINGS/IMPRESSIONS: Trace ascites insufficient for performance of paracentesis.
== END 2024-10-20 17:00 | disposition home or self-care (01) ==
LOC: XYW 12:15
DX: R18.8 Other ascites (principal)
CPT/HCPCS: 76705

== ENCOUNTER → 2024-11-25 | Outpatient (CLI) | payer BC ==
--- NOTE | 2024-11-25 13:35 | DVH ---
Limited Abdominal Ultrasound - Ascites Evaluation Date: 11/25/2024 12:08 PM Clinical History: ASCITES Comparison: US ABDOMEN LIMITED on DOS: 10/20/24, US ABDOMEN LIMITED on DOS: 02/26/24, US ABDOMEN LIMIT ED on DOS: 02/12/24, US ABDOMEN LIMITED on DOS: 01/22/24, US ABDOMEN LIMITED on DOS: 01/10/24 Findings: Limited sonographic evaluation of the abdomen was performed to assess for ascites. There is mild amount of ascites detected. IMPRESSION: Trace ascites.
== END | disposition home or self-care (01) ==
LOC: XYW 12:01
DX: R18.8 Other ascites (principal)
CPT/HCPCS: 76705

== ENCOUNTER → 2024-11-25 | Outpatient (CLI) | payer BC ==
[2024-11-25 12:02] LABS: Hematocrit 43.4 % (41.0-53.0); Hemoglobin 15.1 g/dL (13.5-17.5); Mean Corpuscular Hemoglobin 32.0 pg (28.0-32.0); Mean Corpuscular Volume 92.2 fL (80.0-100.0); Nucleated Red Blood Cells % 0.1 %
[2024-11-25 12:04] LABS: INR 1.06 (0.9-1.15); Partial Thromboplastin Time 28.2 SEC (24.5-34.5); Prothrombin Time 11.2 sec (9.3-11.8)
[2024-11-25 12:24] LABS: Alanine Aminotransferase 31 U/L (7-40); Albumin 4.2 g/dL (3.2-4.8); Anion Gap 9 (5-15); BUN/Creatinine Ratio 18.4 (10.0-20.0); Bilirubin, Total 1.0 mg/dL (0.2-1.0); Blood Urea Nitrogen 23 mg/dL (9-23); Calcium 9.8 mg/dL (8.7-10.4); Carbon Dioxide 28 mmol/L (20-31); Chloride 101 mmol/L (98-107); Glucose 89 mg/dL (74-106); Potassium 4.4 mmol/L (3.5-5.1); Sodium 138 mmol/L (136-145); Total Protein 7.6 g/dL (5.7-8.2)
[2024-11-25 12:34] LABS: Alkaline Phosphatase 177 U/L (46-116)
== END | disposition home or self-care (01) ==
LOC: LAB 11:24
DX: K70.31 Alcoholic cirrhosis of liver with ascites (principal)
CPT/HCPCS: 36415; 80053; 82105; 85025; 85610; 85730